=== PATIENT | female | born 1940 | race African-American/Black ===

== ENCOUNTER 2016-12-18 21:37 | Emergency (ER) | payer MEDICARE, BC ==
[2016-12-18] MEDS ORDERED: ALBUTEROL SULFATE 0.083% NEB 2.5 MG/3 ML AMPUL NEB ONE (21:49)
[2016-12-18] MEDS ORDERED: METHYLPREDNISOLONE INJ 125 MG/2 ML SDV IV ONE (21:50)
[2016-12-18] MEDS ORDERED: IPRATROPIUM/ALBUTEROL 0.5-2.5 MG/3 ML AMPUL NEB ONE (21:58)
--- NOTE | 2016-12-18 22:01 | ER Document Report ---
ED General - General Chief Complaint: Breathing Difficulty Stated Complaint: DIFFICULTY BREATHING Time Seen by Provider: 12/18/16 21:49 Notes: Patient is a 76-year-old female with past medical history of chronic kidney disease, and ureter, with dialysis dependence due for dialysis tomorrow, history of COPD who presents with 2 days of progressively worsening shortness of breath. She states that she has had increasing cough, without sputum production and increasing shortness of breath. She has been using a nebulizer at home with moderate improvement of her symptoms. Exertion worsens her symptoms. She has not seen a primary care doctor regarding today's concerns. She notes diffuse chest wall tenderness present from persistent coughing. She does arrive by personal vehicle. She has a history of similar COPD exacerbations in the past. She denies missing any dialysis sessions. TRAVEL OUTSIDE OF THE [place] IN LAST 30 DAYS: No - Related Data Allergies/Adverse Reactions: codeine [Codeine] Allergy (Verified 06/07/15 17:02) morphine [Morphine] Allergy (Verified 06/07/15 17:02) Penicillins Allergy (Verified 06/07/15 17:02) Home Medications: Current Home Medications Lactulose 12/18/16 [History] Omeprazole 40 mg PO 12/18/16 [History] Past Medical History - General Information source: Patient - Social History Smoking Status: Former Smoker Frequency of alcohol use: None Drug Abuse: None Lives with: Family Family History: Reviewed & Not Pertinent Patient has suicidal ideation: No Patient has homicidal ideation: No - Past Medical History Cardiac Medical History: Reports: Hx Heart Attack - 2014, Hx Hypertension Denies: Hx Coronary Artery Disease Pulmonary Medical History: Reports: Hx Asthma Denies: Hx Bronchitis, Hx COPD, Hx Pneumonia Neurological Medical History: Denies: Hx Cerebrovascular Accident, Hx Seizures Endocrine Medical History: Reports: Hx Diabetes Mellitus Type 2 Renal/ Medical History: Reports: Hx End Stage Renal Disease. Denies: Hx Peritoneal Dialysis - HD pt. Musculoskeltal Medical History: Reports Hx Arthritis Psychiatric Medical History: Reports: Hx Depression - stress related Past Surgical History: Reports: Hx Cardiac Catheterization - Stent placement, Hx Cholecystectomy, Hx Tubal Ligation - Immunizations Hx Diphtheria, Pertussis, Tetanus Vaccination: No Hx Pneumococcal Vaccination: 02/01/16 Review of Systems - Review of Systems Notes: Constitutional: Negative for fever. HENT: Negative for sore throat. Eyes: Negative for visual changes. Cardiovascular: Negative for chest pain. Respiratory: Positive for shortness of breath. Gastrointestinal: Negative for abdominal pain, vomiting or diarrhea. Genitourinary: Negative for dysuria. Musculoskeletal: Negative for back pain. Skin: Negative for rash. Neurological: Negative for headaches, weakness or numbness. 10 point ROS negative except as marked above and in HPI. Physical Exam - Vital signs Vitals: Resp Pulse Ox 24 H 99 12/18/16 21:49 12/18/16 21:49 Interpretation: Tachycardic, Hypoxic, Tachypneic Notes: PHYSICAL EXAMINATION: GENERAL: In moderate to severe respiratory distress, uncomfortable in appearance. HEAD: Atraumatic, normocephalic. EYES: Pupils equal round and reactive to light, extraocular movements intact, sclera anicteric, conjunctiva are normal. ENT: nares patent, oropharynx clear without exudates. Moderately dry mucous membranes. NECK: Normal range of motion, supple without lymphadenopathy LUNGS: Diminished air movement in all lung branham with a prolonged expiratory phase and diffuse expiratory wheezing. Crackles at the bases bilaterally. HEART: Regular tachycardia without murmurs ABDOMEN: Soft, nontender, normoactive bowel sounds. No guarding, no rebound. No masses appreciated. EXTREMITIES: Normal range of motion, no pitting or edema. No cyanosis. NEUROLOGICAL: No focal neurological deficits. Moves all extremities spontaneously and on command. PSYCH: Normal mood, normal affect. SKIN: Warm, Dry, normal turgor, no rashes or lesions noted. Course - Re-evaluation Re-evalutation: 12/18/16 21:59 Patient presents in moderate to severe respiratory distress, initial respiratory rate of 32 breaths per minute, diffuse wheezing in all lung branham with poor air movement throughout. She was initially saturating 89% on room air does not have a baseline oxygen requirement. Patient has been immediately placed on a continuous albuterol and ipratropium nebulizer. IV Solu-Medrol and magnesium will be administered. A stat portable chest x-ray will be obtained. Initial EKG unchanged from prior does not show any ischemic changes. Will obtain basic laboratories and reassess. Patient is critically ill at this time will require frequent reassessments due to her elevated risk of respiratory decompensation. 12/18/16 [id number] Patient states that she has began to feel symptomatically much improved on a continuous nebulizer. Work of breathing is significantly improved at this time after initiation of nebulizers 6568-patient is no longer in any respiratory distress, respiratory rate is 19 at time of my assessment. Saturating 95-99% on room air. She does have notable findings on chest x-ray of vascular congestion and moderate pulmonary edema. She is actually scheduled to receive dialysis in 7 hours. I have had an extensive conversation with the patient and her daughter at the bedside about being discharged home versus admission to the hospital. They are in agreement with discharge home with understand that the need to return to the emergency department immediately should she have any return of her shortness of breath, developed chest pain, or have any other symptoms that are concerning. She will be discharged on a 5 day course of prednisone. At this time will discharge with return precautions and follow-up recommendations. Verbal discharge instructions given a the bedside and opportunity for questions given. Medication warnings reviewed. Patient is in agreement with this plan and has verbalized understanding of return precautions and the need for primary care follow-up in the next 24-72 hours. - Vital Signs Vital signs: Temp Pulse Resp BP Pulse Ox 98.3 F 108 H 20 187/77 H 85 L 12/18/16 21:51 12/18/16 21:51 12/18/16 23:31 12/18/16 23:31 12/19/16 00:00 - Laboratory Result Diagrams: 12/18/16 22:00 12/18/16 22:33 Laboratory results interpreted by me: 12/18/16 12/18/16 22:00 22:33 RBC 3.69 L Hgb 10.8 L Hct 33.7 L MCHC 31.9 L RDW 17.4 H BUN 34 H Creatinine 6.76 H Est GFR ( Amer) 7 L Est GFR (Non-Af Amer) 6 L Glucose 174 H - Diagnostic Test Radiology reviewed: Image reviewed, Reports reviewed Radiology results interpreted by me: 12/19/16 03:30 Chest x-ray: Increased interstitial prominence and patchy pulmonary edema bases bilaterally - EKG Interpretation by Me Additional EKG results interpreted by me: 12/19/16 03:31 Sinus rhythm. Rate 83. No ST elevations or depressions. QTC is 461. Critical Care Note - Critical Care Note Total time excluding time spent on procedures (mins): 36 Comments: Critical care time spent obtaining history from patient or surrogate, discussions with consultants, development of treatment plan with patient or surrogate, evaluation of patient's response to treatment, examination of patient , ordering and performing treatments and interventions, ordering and review of laboratory studies, re-evaluation of patient's condition, ordering and review of radiographic studies and review of old charts Discharge - Discharge Clinical Impression: COPD exacerbation, Respiratory distress Condition: Good Disposition: HOME, SELF-CARE Additional Instructions: You were seen for a COPD exacerbation. Your symptoms improved with treatment here in the emergency department. However, it is very important that you return to the emergency department immediately if you began to have worsening difficulty breathing that does not respond to your normal home nebulizers. You are also being sent home on a five-day course of steroids that you should start taking tomorrow. Please also take the antibiotics as prescribed. Please also follow closely with your primary care physician. You should eturn to emergency department if you develop fever greater than 101, persistent cough, persistent vomiting, pass out, or any other symptoms that are concerning to you. Prescriptions: Azithromycin 250 mg PO DAILY #4 tablet Prednisone [Deltasone 20 mg Tablet] 3 tab PO DAILY 5 Days Referrals: Millie HOOK MD [Primary Care Provider] - Follow up as needed
[2016-12-18] MEDS: MAGNESIUM SULFATE/D5W 100 ML IV SCH ×2 (22:11→22:14)
[2016-12-18 22:16] LABS: VENOUS BLOOD BASE EXCESS 3.8 mmol/L; VENOUS BLOOD HCO3 29.2 mmol/L (20-32); VENOUS BLOOD PCO2 47.6 mmHg (35-63); VENOUS BLOOD PH 7.41 (7.30-7.42)
[2016-12-18 22:17] LABS: ABSOLUTE EOSINOPHILS # (AUTO) 0.1 10^3/uL (0.0-0.6); ABSOLUTE LYMPHOCYTES (AUTO) 1.1 10^3/uL (0.5-4.7); ABSOLUTE MONOCYTES (AUTO) 0.4 10^3/uL (0.1-1.4); ABSOLUTE NEUT (AUTO) 3.1 10^3/uL (1.7-8.2); BASOPHILS % (AUTO) 0.8 % (0-2); EOSINOPHILS % (AUTO) 2.6 % (0-6); HEMATOCRIT 33.7 % (36.0-47.0); HEMOGLOBIN 10.8 g/dL (12.0-15.5); HGB HCT DIFFERENCE -1.3; MEAN CORPUSCULAR HEMOGLOBIN 29.1 pg (27.0-33.4); MEAN CORPUSCULAR HGB CONC 31.9 g/dL (32.0-36.0); MEAN CORPUSCULAR VOLUME 91 fl (80-97); MONOCYTES % (AUTO) 8.1 % (3-13); RED BLOOD COUNT 3.69 10^6/uL (3.72-5.28); RED CELL DISTRIBUTION WIDTH 17.4 % (11.5-14.0); SEGMENTED NEUTROPHILS % (AUTO) 65.5 % (42-78); WHITE BLOOD COUNT 4.7 10^3/uL (4.0-10.5)
--- NOTE | 2016-12-18 22:27 | RADIOLOGY REPORT (SQ) ---
EXAM DESCRIPTION: CHEST SINGLE VIEW COMPLETED DATE/TIME: 12/18/2016 10:13 pm REASON FOR STUDY: sob COMPARISON: CT dated 02/06/2016 EXAM PARAMETERS: NUMBER OF VIEWS: One view. TECHNIQUE: Single frontal radiographic view of the chest acquired. RADIATION DOSE: NA LIMITATIONS: None. FINDINGS: LUNGS AND PLEURA: Patchy airspace opacities noted in both lung bases which could represent atelectasis, infiltrate or edema. No pneumothorax. No significant effusion. MEDIASTINUM AND HILAR STRUCTURES: No masses. Contour normal. HEART AND VASCULAR STRUCTURES: Cardiomegaly. Pulmonary vascular congestion and interstitial prominen ce. BONES: No acute findings. HARDWARE: EKG leads overlie the chest. OTHER: No other significant finding. IMPRESSION: Cardiomegaly with pulmonary vascular congestion interstitial prominence. There is some patchy airspace opacities noted at both lung bases could represent edema, atelectasis, or infiltrate. TECHNICAL DOCUMENTATION: JOB ID: [id number]
[2016-12-18 22:54] LABS: ANION GAP 12 (5-19); BLOOD UREA NITROGEN 34 mg/dL (7-20); CALCIUM 9.3 mg/dL (8.4-10.2); CARBON DIOXIDE 27 mmol/L (22-30); CHLORIDE 100 mmol/L (98-107); CREATININE RESULT 6.76 mg/dL (0.52-1.25); GLUCOSE 174 mg/dL (75-110); POTASSIUM 4.6 mmol/L (3.6-5.0); SODIUM 138.8 mmol/L (137-145)
[2016-12-18] MEDS ORDERED: AZITHROMYCIN 250 MG TABLET PO ONE (23:41)
[2016-12-19 00:09] VITALS: BP 187/77
--- NOTE | 2016-12-19 05:56 | EKG REPORT ---
SEVERITY:- ABNORMAL ECG - SINUS RHYTHM PROBABLE LEFT ATRIAL ABNORMALITY PROBABLE LEFT VENTRICULAR HYPERTROPHY : Confirmed by: Dana Durán MD 19-Dec-2016 05:55:22
== END 2016-12-18 23:50 | disposition home or self-care (01) ==
LOC: ER 21:37
DX: J44.1 Chronic obstructive pulmonary disease with (acute) exacerbation (principal); J81.1 Chronic pulmonary edema; R09.02 Hypoxemia; I12.0 Hypertensive chronic kidney disease with stage 5 chronic kidney disease or end stage renal disease; E11.22 Type 2 diabetes mellitus with diabetic chronic kidney disease; N18.6 End stage renal disease; Z99.2 Dependence on renal dialysis; R05 Cough; R06.02 Shortness of breath; R00.0 Tachycardia, unspecified; I25.2 Old myocardial infarction; Z88.5 Allergy status to narcotic agent; Z88.0 Allergy status to penicillin; Z98.61 Coronary angioplasty status
CPT/HCPCS: 93005; 94640 ×2; 99291; 96375; 96365; 36415; 85025; 80048; 82803; 71010; 93010; A9270 ×2; J2930; J3475; J7620

== ENCOUNTER → 2016-12-30 | Outpatient (CLI) | payer MEDICARE, BC ==
--- NOTE | 2016-12-30 10:31 | WOMENS IMAGING REPORT ---
EXAM DESCRIPTION: 3D SCREENING MAMMO BILAT COMPLETED DATE/TIME: 12/30/2016 8:31 am REASON FOR STUDY: ROUTINE BILATERAL SCREENING;Z12.31 Z12.31 ENCNTR SCREEN MAMMOGRAM FOR MALIGNANT N EOPLASM OF NUBIA COMPARISON: 12/27/2015. TECHNIQUE: Standard craniocaudal and mediolateral oblique views of each breast recorded using digita l acquisition and breast tomosynthesis. LIMITATIONS: None. FINDINGS: No masses, calcifications or architectural distortion. No areas of suspicion. Read with the assistance of CAD. .[facility] - R2 Cenova Version 1.3 .[facility] - R2 Cenova Version 1.3 .[facility] - R2 Cenova Version 2.4 .[facility] - R2 Cenova Version 2.4 .COUNT INCLUDES THE [facility] - R2 Bottle Sorter Version 9.2 IMPRESSION: NORMAL MAMMOGRAM. BIRADS 1. BREAST DENSITY: c. The breasts are heterogeneously dense, which may obscure small masses. BIRAD: 1 NEGATIVE RECOMMENDATION: ROUTINE SCREENING COMMENT: The patient has been notified of the results by letter per SA requirements. Additional no tification policies are in place for contacting patient with suspicious or incomplete findings. Quality ID #[id number]: The [employer] recommends an annual screening mammogram for women aged 40 years or over. This facility utilizes a reminder system to ensure that all patients receive reminder letters, and/or direct phone calls for appointments. This includes reminders for routine scr eening mammograms, diagnostic mammograms, or other Breast Imaging Interventions when appropriate. Th is patient will be placed in the appropriate reminder system. The [employer] (ACR) has developed recommendations for screening MRI of the breast s in certain patient populations, to be used in conjunction with mammography. Breast MRI surveillanc e may be appropriate for women with more than 20% lifetime risk of developing breast cancer as deter mined by genetic testing, significant family history of the disease, or history of mantle radiation f or Hodgkins Disease. ACR Practice Guidelines 2008. DBT Technology DBT is a type of tomographic mammography. With conventional mammography, overlapping breast tissue ma y make lesions difficult to detect, even with good compression. DBT uses an x-ray tube that rotates a round the breast, taking images at different angles. These images are then combined to create thin sl ices of the breast that the radiologist can view as a 3D reconstruction. The ScanNano unit can perform full-field digital mammograms (2D imaging); or DBT (3D imaging); or both, in a combination mode that quickly performs both the mammogram and the tomosynthesis scan while the breast is still compressed. PQRS 6045F: Fluoroscopic imaging is not utilized for breast tomosynthesis. TECHNICAL DOCUMENTATION: FINDING NUMBER: (1) ASSESSMENT: (1) JOB ID: [id number] [employer]- All Rights Reserved
== END ==
LOC: WI 08:13
PROVIDERS: ATTEND Internal Medicine
DX: Z12.31 Encounter for screening mammogram for malignant neoplasm of breast (principal)
CPT/HCPCS: 77063; G0202; 77067

== ENCOUNTER 2017-07-12 23:04 | Emergency (ER) | payer MEDICARE, BC ==
[2017-07-12 23:34] LABS: HEMATOCRIT 24.4 % (36.0-47.0); MEAN CORPUSCULAR HEMOGLOBIN 29.6 pg (27.0-33.4); MEAN CORPUSCULAR HGB CONC 32.7 g/dL (32.0-36.0); MEAN CORPUSCULAR VOLUME 91 fl (80-97); PLATELET COUNT 185 10^3/uL (150-450); RED BLOOD COUNT 2.69 10^6/uL (3.72-5.28); RED CELL DISTRIBUTION WIDTH 18.4 % (11.5-14.0); WHITE BLOOD COUNT 5.1 10^3/uL (4.0-10.5)
--- NOTE | 2017-07-12 23:54 | EKG REPORT ---
SEVERITY:- BORDERLINE ECG - SINUS RHYTHM PROBABLE LEFT ATRIAL ABNORMALITY : Confirmed by: Wilton Cheatham 12-Jul-2017 23:53:10
[2017-07-13 00:03] LABS: ABSOLUTE LYMPHOCYTES# (MANUAL) 1.2 10^3/uL (0.5-4.7); ABSOLUTE MONOCYTES # (MANUAL) 0.1 10^3/uL (0.1-1.4); ABSOLUTE NEUTROPHILS# (MANUAL) 3.7 10^3/uL (1.7-8.2); BAND NEUTROPHILS % (MANUAL) 1 % (3-5); BASOPHILS % (MANUAL) 2 % (0-2); EOSINOPHILS % (MANUAL) 1 % (0-6); LYMPHOCYTES % (MANUAL) 23 % (13-45); MONOCYTES % (MANUAL) 2 % (3-13); SEGMENTED NEUTROPHILS % (MAN) 71 % (42-78); TOTAL CELLS COUNTED 100
[2017-07-13 00:05] LABS: ANION GAP 14 (5-19); ANISOCYTOSIS 1+; BLOOD UREA NITROGEN 48 mg/dL (7-20); BURR CELLS SLIGHT; CALCIUM 9.9 mg/dL (8.4-10.2); CARBON DIOXIDE 27 mmol/L (22-30); CHLORIDE 99 mmol/L (98-107); GLUCOSE 127 mg/dL (75-110); OVALOCYTES 1+; PLATELET COMMENT ADEQUATE; PLATELET GIANT PRESENT; PLATELET LARGE PRESENT; POIKILOCYTOSIS 1+; POTASSIUM 5.1 mmol/L (3.6-5.0); SCHISTOCYTES 2+; SODIUM 139.8 mmol/L (137-145); TOXIC GRANULATION 1+
[2017-07-13] MEDS ORDERED: DEXAMETHASONE 4 MG TABLET PO ONE (00:21)
[2017-07-13] MEDS ORDERED: ALBUTEROL SULFATE HFA (90 MCG/PUFF) 8 GM MDI (1 MDI/ER DISP) IH PRN (00:22)
[2017-07-13] MEDS ORDERED: IPRATROPIUM/ALBUTEROL 0.5-2.5 MG/3 ML AMPUL NEB ONE (00:22)
--- NOTE | 2017-07-13 00:26 | ER Document Report ---
ED General - General Chief Complaint: Shortness Of Breath Stated Complaint: SHORTNESS OF BREATH Time Seen by Provider: 07/12/17 23:20 Notes: Patient is a 76-year-old female with a past medical history of COPD, chronic kidney disease with dialysis dependence, chronic anemia, hypertension, who presents with an episode of shortness of breath prior to arrival that has since resolved. Patient reports that she has had intermittent wheezing over the past several days but does not have any albuterol available to her at home. Granddaughter at the bedside reports that the patient used to have a nebulizer as well as home oxygen when she lived in [place] but those have since been discontinued since she moved down to [place]. She states that she strongly feels like the patient does still need these interventions that she has a history of COPD. No acute trigger for today's episode. It did resolve after receiving an albuterol treatment. Patient at this time denies any ongoing symptoms including chest pain or shortness of breath. She is due for dialysis in the morning. TRAVEL OUTSIDE OF THE [place] IN LAST 30 DAYS: No - Related Data Allergies/Adverse Reactions: codeine [Codeine] Allergy (Verified 06/07/15 17:02) morphine [Morphine] Allergy (Verified 06/07/15 17:02) Penicillins Allergy (Verified 06/07/15 17:02) Past Medical History - General Information source: Patient - Social History Smoking Status: Former Smoker Chew tobacco use (# tins/day): No Frequency of alcohol use: None Drug Abuse: None Lives with: Family Family History: Reviewed & Not Pertinent Patient has suicidal ideation: No Patient has homicidal ideation: No - Past Medical History Cardiac Medical History: Reports: Hx Heart Attack - 2014, Hx Hypertension Denies: Hx Coronary Artery Disease Pulmonary Medical History: Reports: Hx Asthma Denies: Hx Bronchitis, Hx COPD, Hx Pneumonia Neurological Medical History: Denies: Hx Cerebrovascular Accident, Hx Seizures Endocrine Medical History: Reports: Hx Diabetes Mellitus Type 2 Renal/ Medical History: Reports: Hx End Stage Renal Disease. Denies: Hx Peritoneal Dialysis Musculoskeltal Medical History: Reports Hx Arthritis Psychiatric Medical History: Reports: Hx Depression - stress related Past Surgical History: Reports: Hx Cardiac Catheterization - Stent placement, Hx Cholecystectomy, Hx Tubal Ligation - Immunizations Hx Diphtheria, Pertussis, Tetanus Vaccination: No Hx Pneumococcal Vaccination: 02/01/16 Review of Systems - Review of Systems Notes: Constitutional: Negative for fever. HENT: Negative for sore throat. Eyes: Negative for visual changes. Cardiovascular: Negative for chest pain. Respiratory: Positive for shortness of breath. Gastrointestinal: Negative for abdominal pain, vomiting or diarrhea. Genitourinary: Negative for dysuria. Musculoskeletal: Negative for back pain. Skin: Negative for rash. Neurological: Negative for headaches, weakness or numbness. 10 point ROS negative except as marked above and in HPI. Physical Exam - Vital signs Vitals: Resp Pulse Ox 21 H 97 07/12/17 23:14 07/12/17 23:14 Interpretation: Normal Notes: PHYSICAL EXAMINATION: GENERAL: Well-appearing, well-nourished and in no acute distress. HEAD: Atraumatic, normocephalic. EYES: Pupils equal round and reactive to light, extraocular movements intact, sclera anicteric, conjunctiva are normal. ENT: nares patent, oropharynx clear without exudates. Moist mucous membranes. NECK: Normal range of motion, supple without lymphadenopathy LUNGS: Breath sounds clear to auscultation bilaterally and equal. Faint expiratory wheezing at the bases bilaterally HEART: Regular rate and rhythm without murmurs ABDOMEN: Soft, nontender, normoactive bowel sounds. No guarding, no rebound. No masses appreciated. EXTREMITIES: Normal range of motion, trace edema that is equal and symmetric in the bilateral lower no cyanosis. NEUROLOGICAL: No focal neurological deficits. Moves all extremities spontaneously and on command. PSYCH: Normal mood, normal affect. SKIN: Warm, Dry, normal turgor, no rashes or lesions noted. Course - Re-evaluation Re-evalutation: 07/13/17 00:22 Patient presents with a mild exacerbation of their baseline COPD. Mild wheezing at time of presentation but vitals do not show significant hypoxemia or tachypnea. No retractions. Patient did clinically improve after receiving nebulizers here in the emergency department. Chest x-ray without evidence of an acute pneumonia. Laboratories do not show significant leukocytosis or hyperkalemia. No overt volume overload. Patient able to ambulate without any respiratory distress. Based on patient's overall reassuring assessment, I believe they are stable for outpatient management with steroids and albuterol. I do not suspect an acute alternative pathology at this time based on history and exam including acute pulmonary embolus, ACS, pneumothorax, or aortic dissection. At this time will discharge with return precautions and follow-up recommendations. Verbal discharge instructions given a the bedside and opportunity for questions given. Medication warnings reviewed. Patient is in agreement with this plan and has verbalized understanding of return precautions and the need for primary care follow-up in the next 24-72 hours. - Vital Signs Vital signs: Temp Pulse Resp BP Pulse Ox 97.5 F 20 160/72 H 98 07/12/17 23:27 07/13/17 02:01 07/13/17 02:01 07/13/17 02:01 - Laboratory Result Diagrams: 07/12/17 23:21 07/12/17 23:21 Laboratory results interpreted by me: 07/12/17 07/12/17 23:21 23:21 RBC 2.69 L Hgb 8.0 L Hct 24.4 L RDW 18.4 H Band Neutrophils % 1 L Monocytes % (Manual) 2 L Potassium 5.1 H BUN 48 H Creatinine 8.39 H Est GFR ( Amer) 6 L Est GFR (Non-Af Amer) 5 L Glucose 127 H - Diagnostic Test Radiology reviewed: Image reviewed, Reports reviewed Radiology results interpreted by me: 07/13/17 00:24 Chest x-ray: No acute infiltrate or pneumothorax Discharge - Discharge Clinical Impression: End stage renal disease, Shortness of breath, COPD exacerbation Anemia Qualifiers: Anemia type: unspecified type Qualified Code(s): D64.9 - Anemia, unspecified Condition: Stable Disposition: HOME-SNF (ED ONLY) Additional Instructions: You were seen for a COPD exacerbation. Your symptoms improved with treatment here in the emergency department. However, it is very important that you return to the emergency department immediately if you began to have worsening difficulty breathing that does not respond to the albuterol with which you were sent home. You were also given steroids here in the emergency department. Please also follow closely with your primary care physician. You should return to emergency department if you develop fever greater than 101, persistent cough , persistent vomiting, pass out, or any other symptoms that are concerning to you. Your blood count was low today but not at a level which require blood transfusion. You should follow-up with your primary doctor for recheck of this level and also return should you have any recurrence of rectal bleeding that you had several days ago. Referrals: AKILA GALLARDO MD [Primary Care Provider] - Follow up as needed
--- NOTE | 2017-07-13 00:36 | RADIOLOGY REPORT (SQ) ---
EXAM DESCRIPTION: CHEST SINGLE VIEW CLINICAL HISTORY: chest pain COMPARISON: 12/18/2016 FINDINGS: Single frontal view of the chest. Cardiomegaly. Atherosclerotic calcification aortic arch. Pulmonary vascular congestion. No lobar consolidation, large effusion, or pneumothorax. Bilateral interstitial opacities. No acute osseous abnormalities. Leads overlie the chest. Upper abdominal soft tissues are unremarkable. IMPRESSION: 1. Cardiomegaly with mild pulmonary edema.
[2017-07-13 02:33] VITALS: BP 160/72
== END 2017-07-13 02:30 ==
LOC: ER 23:04
DX: J44.1 Chronic obstructive pulmonary disease with (acute) exacerbation (principal); I12.0 Hypertensive chronic kidney disease with stage 5 chronic kidney disease or end stage renal disease; E11.22 Type 2 diabetes mellitus with diabetic chronic kidney disease; N18.6 End stage renal disease; Z99.2 Dependence on renal dialysis; D64.9 Anemia, unspecified; I25.2 Old myocardial infarction; R06.02 Shortness of breath; Z87.891 Personal history of nicotine dependence; Z88.5 Allergy status to narcotic agent; Z88.0 Allergy status to penicillin; Z95.5 Presence of coronary angioplasty implant and graft
CPT/HCPCS: 93005; 94640; 99285; 36415; 85025; 80048; 84484; 71045; 93010; A9270 ×2; J3490; J7620

== ENCOUNTER 2017-08-21 11:20 | Emergency (ER) | payer MEDICARE, BC, MEDICAID ==
--- NOTE | 2017-08-21 12:51 | ER Document Report ---
ED Dialysis Cath/Shunt Problem - General Mode of Arrival: Medic Information source: Patient TRAVEL OUTSIDE OF THE [place] IN LAST 30 DAYS: No - HPI Patient complains to provider of: Bleeding from dialysis shunt Onset: This morning AV Fistula Assessment: Thrill Palpated Associated symptoms: Other - see notes above - General Chief Complaint: Dialysis Shunt Problem Stated Complaint: POSSIBLE HEMORRHAGE Notes: 76 year old female with history of hypertension and renal failure (dialyzed MWF ; produces urine) presents to the ED via EMS with bleeding from her left upper extremity fistula earlier this morning after being dialyzed. Patient reports that the bleeding was continuous, so she was brought to the ED for care. Patient reports that her fistula appears to be larger than normal. Chief Analytics Officer: Dr. Toussaint ([facility]) Clamp was placed at dialysis after direct pressure did not stop bleeding. ( AKILAH FUENTES) - Related Data Allergies/Adverse Reactions: codeine [Codeine] Allergy (Verified 06/07/15 17:02) morphine [Morphine] Allergy (Verified 06/07/15 17:02) Penicillins Allergy (Verified 06/07/15 17:02) Past Medical History - General Information source: Patient - Social History Smoking Status: Former Smoker Chew tobacco use (# tins/day): Yes Frequency of alcohol use: Occasional Drug Abuse: None Family History: Reviewed & Not Pertinent - Past Medical History Cardiac Medical History: Reports: Hx Heart Attack - 2013, Hx Hypertension Denies: Hx Coronary Artery Disease Pulmonary Medical History: Reports: Hx Asthma Denies: Hx Bronchitis, Hx COPD, Hx Pneumonia Neurological Medical History: Denies: Hx Cerebrovascular Accident, Hx Seizures Endocrine Medical History: Reports: Hx Diabetes Mellitus Type 2 Renal/ Medical History: Reports: Hx End Stage Renal Disease. Denies: Hx Peritoneal Dialysis Musculoskeltal Medical History: Reports Hx Arthritis Psychiatric Medical History: Reports: Hx Depression - stress related Past Surgical History: Reports: Hx Cardiac Catheterization - Stent placement, Hx Cholecystectomy, Hx Tubal Ligation - Immunizations Hx Diphtheria, Pertussis, Tetanus Vaccination: No Hx Pneumococcal Vaccination: 02/01/16 Review of Systems - Review of Systems Constitutional: No symptoms reported EENT: No symptoms reported Cardiovascular: No symptoms reported Respiratory: No symptoms reported Gastrointestinal: No symptoms reported Genitourinary: No symptoms reported Female Genitourinary: No symptoms reported Musculoskeletal: No symptoms reported Skin: See HPI, Other - left upper extremity shunt bleeding Hematologic/Lymphatic: No symptoms reported Neurological/Psychological: No symptoms reported -: Yes All other systems reviewed and negative Physical Exam - Vital signs Vitals: Temp Pulse Resp BP Pulse Ox 98.3 F 69 17 176/70 H 96 08/21/17 11:30 08/21/17 11:30 08/21/17 11:30 08/21/17 11:30 08/21/17 11:30 - Notes Notes: GENERAL: Alert, interacts well. No acute distress. HEAD: Normocephalic, atraumatic. EYES: Pupils equal, round, and reactive to light. Extraocular movements intact. ENT: Oral mucosa moist, tongue midline. NECK: Full range of motion. Supple. Trachea midline. LUNGS: No respiratory distress. EXTREMITIES: Moves all 4 extremities spontaneously. No edema, radial pulses 2/4 bilaterally. No cyanosis. Very large left upper extremity fistula with a palpable thrill that is some what pulsatile. No active bleeding. No vascular compromise. Normal maturity checker strength to the left hand. NEUROLOGICAL: Alert and oriented x3. Normal speech. PSYCH: Normal affect, normal mood. SKIN: Warm, dry, and normal turgor. No rashes or lesions noted. (JERED SANTAMARIA) Course - Consults Dr. Pickard Time consulted: 12:45 - Re-evaluation Re-evalutation: 08/21/17 14:05 Clamp was left in place for approximately an hour, it was then removed and no further bleeding was seen, patient was observed for another hour after that, Dr. Pickard did consult on the patient as well, recommends angiogram as an outpatient. No further intervention needed at this time. Patient will return to the emergency department should she develop further bleeding. Dr. Pickard is going to work on setting up the angiogram for the patient as an outpatient hopefully for Thursday or Thursday of the coming week. (AKILAH FUENTES) - Vital Signs Vital signs: Temp Pulse Resp BP Pulse Ox 98.4 F 77 18 180/128 H 90 L 08/21/17 15:13 08/21/17 15:13 08/21/17 15:13 08/21/17 15:13 08/21/17 15:13 - Consults Dr. Pickard Reason for consultation: 08/21/17 12:45 Patient was discussed with Dr. Pickard who will be coming to the ED to see the patient. (JERED SANTAMARIA) Discharge - Discharge Clinical Impression: ESRD (end stage renal disease) on dialysis Dialysis AV fistula malfunction Qualifiers: Encounter type: initial encounter Qualified Code(s): T82.590A - Other mechanical complication of surgically created arteriovenous fistula, initial encounter Hypertension Qualifiers: Hypertension type: renovascular hypertension Qualified Code(s): I15.0 - Renovascular hypertension Condition: Stable Disposition: HOME, SELF-CARE Additional Instructions: Dr. Pickard is going to try and get you set up for an angiogram and possible angioplasty on Thursday or Thursday. Someone from his office should be calling you today. If you do not hear from somebody by Thursday please call Dr. Toussaint and discussed with him that Dr. Pickard feels you need an angiogram and angioplasty to help extend the life of your fistula. Should she develop further bleeding please return to the emergency department immediately. Referrals: AKILA GALLARDO MD [Primary Care Provider] - Follow up as needed SIXTO PICKARD MD [ACTIVE STAFF] - Follow up in 3-5 days Scribe Attestation: 08/21/17 21:16 I personally performed the services described in the documentation, reviewed and edited the documentation which was dictated to the scribe in my presence, and it accurately records my words and actions. (AKILAH FUENTES) Scribe Documentation - Scribe Written by Sagrarioibe:: Lynda Orantes, 08/21/2017 1254 acting as scribe for :: Lina
[2017-08-21 15:29] VITALS: BP 180/128
== END 2017-08-21 15:28 | disposition home or self-care (01) ==
LOC: ER 11:20
DX: T82.49XA Other complication of vascular dialysis catheter, initial encounter (principal); Y84.1 Kidney dialysis as the cause of abnormal reaction of the patient, or of later complication, without mention of misadventure at the time of the procedure; E11.22 Type 2 diabetes mellitus with diabetic chronic kidney disease; I12.0 Hypertensive chronic kidney disease with stage 5 chronic kidney disease or end stage renal disease; N18.6 End stage renal disease; Z99.2 Dependence on renal dialysis; I25.2 Old myocardial infarction; J45.909 Unspecified asthma, uncomplicated; Z88.5 Allergy status to narcotic agent; Z88.0 Allergy status to penicillin; Z87.891 Personal history of nicotine dependence; Z95.5 Presence of coronary angioplasty implant and graft
CPT/HCPCS: 99284

== ENCOUNTER 2017-08-25 07:10 | Day surgery (SDC) | payer MEDICARE, BC ==
[2017-08-25] MEDS ORDERED: LIDOCAINE 0.5% INJ-PF (5 MG/ML) 50 ML SDV ONE (08:05)
[2017-08-25] MEDS ORDERED: MIDAZOLAM 2 MG/2 ML INJ ONE (08:06)
[2017-08-25] MEDS ORDERED: FENTANYL CITRATE INJ/PF 100 MCG/2 ML AMPUL ONE (08:06)
[2017-08-25] MEDS ORDERED: HEPARIN SOD (PORCINE) 5,000 UNIT/ML 1 ML SYRINGE ONE (08:06)
[2017-08-25] MEDS ORDERED: OXYCODONE-ACETAMINOPHEN 5-325 MG TABLET ONE (08:23)
[2017-08-25] MEDS ORDERED: DIAZEPAM 5 MG TABLET ONE (08:23)
--- NOTE | 2017-08-25 08:27 | RADIOLOGY REPORT (SQ) ---
EXAM DESCRIPTION: CHEST SINGLE VIEW COMPLETED DATE/TIME: 08/25/2017 8:10 am REASON FOR STUDY: preop ENDOSCOPY RECOVERY 3 COMPARISON: 07/13/2017 EXAM PARAMETERS: NUMBER OF VIEWS: One view. TECHNIQUE: Single frontal radiographic view of the chest acquired. RADIATION DOSE: NA LIMITATIONS: None. FINDINGS: LUNGS AND PLEURA: No opacities, masses or pneumothorax. No pleural effusion. MEDIASTINUM AND HILAR STRUCTURES: No masses. Contour normal. HEART AND VASCULAR STRUCTURES: Stable cardiomegaly. BONES: No acute findings. HARDWARE: None in the chest. OTHER: No other significant finding. IMPRESSION: NO ACUTE RADIOGRAPHIC FINDING IN THE CHEST. TECHNICAL DOCUMENTATION: JOB ID: [id number] [employer]- All Rights Reserved Reading location - IP/workstation name: [email or web address]
[2017-08-25 08:35] LABS: HEMOGLOBIN 8.8 g/dL (12.0-15.5); MEAN CORPUSCULAR HEMOGLOBIN 29.9 pg (27.0-33.4); MEAN CORPUSCULAR HGB CONC 32.7 g/dL (32.0-36.0); MEAN CORPUSCULAR VOLUME 91 fl (80-97); PLATELET COUNT 188 10^3/uL (150-450); RED BLOOD COUNT 2.96 10^6/uL (3.72-5.28); RED CELL DISTRIBUTION WIDTH 17.3 % (11.5-14.0); WHITE BLOOD COUNT 3.7 10^3/uL (4.0-10.5)
[2017-08-25 08:50] LABS: INTERNATIONAL RATION (INR) 1.04; PARTIAL THROMBOPLASTIN TIME 60.1 SEC (23.5-35.8); PROTHROMBIN TIME 14.3 SEC (11.4-15.4)
[2017-08-25 08:54] LABS: ANION GAP 11 (5-19); BLOOD UREA NITROGEN 32 mg/dL (7-20); CALCIUM 9.8 mg/dL (8.4-10.2); CARBON DIOXIDE 31 mmol/L (22-30); CHLORIDE 97 mmol/L (98-107); GLUCOSE 131 mg/dL (75-110); POTASSIUM 4.7 mmol/L (3.6-5.0)
--- NOTE | 2017-08-25 10:42 | PDOC H&P ---
General Chief Complaint: The patient is admitted for angiogram and possible angioplasty. Excessive pressure has been noted in fistula recently. - Current Medications/Allergies Home Medications: Clopidogrel Bisulfate [Plavix] 75 mg PO DAILY 06/12/15 Isosorbide Mononitrate [Imdur 60 mg Tablet.er] 60 mg PO BID 06/12/15 Sevelamer Carbonate [Renvela] 2,400 mg PO TID 06/12/15 Sitagliptin Phosphate [Januvia 25 mg Tablet] 25 mg PO DAILY 06/12/15 Carvedilol [Coreg 3.125 mg Tablet] 4 tab PO BID 11/06/15 Amlodipine Besylate 1 tab PO QHS 02/06/16 Clonidine HCl 0.3 mg PO TID 02/06/16 Lactulose 10 gm PO BID 12/18/16 Omeprazole 40 mg PO DAILY 12/18/16 Aspirin [Aspirin 81 mg Chewable Tablet] 1 tab PO DAILY 08/24/17 Doxazosin Mesylate 1 tab PO QHS 08/24/17 Prednisone [Deltasone 20 mg Tablet] 2 tab PO DAILY 08/24/17 Allergies/Adverse Reactions: codeine [Codeine] Allergy (Verified 08/25/17 07:45) ITCHING morphine [Morphine] Allergy (Verified 08/25/17 07:45) ITCHING Penicillins Allergy (Verified 08/25/17 07:45) ITCHING tomato Allergy (Verified 08/25/17 07:45) ITCHING Past Medical History Cardiac Medical History: Reports: Coronary Artery Disease - cardiac stents, Myocardial Infarction - "light", Hypertension Pulmonary Medical History: Reports: Asthma, Chronic Obstructive Pulmonary Disease (COPD) Denies: Bronchitis, Pneumonia Neurological Medical History: Denies: Seizures Endocrine Medical History: Reports: Diabetes Mellitus Type 2 Renal/ Medical History: Reports: End Stage Renal Disease Musculoskeltal Medical History: Reports: Arthritis - neck Psychiatric Medical History: Reports: Depression - stress related Hematology: Reports: Anemia Past Surgical History Past Surgical History: Reports: Cardiac Catheterization - Stent placement, Cholecystectomy, Tubal Ligation Family History Family History: Reviewed & Not Pertinent Parental Family History Reviewed: No Children Family History Reviewed: No Sibling(s) Family History Reviewed.: No Social History Smoking Status: Never Smoker Frequency of Alcohol Use: None Hx Recreational Drug Use: No Hx Prescription Drug Abuse: No Physical Exam Vital Signs: Temp Pulse Resp BP Pulse Ox 97.9 F 64 20 164/69 H 99 08/25/17 07:56 08/25/17 07:56 08/25/17 07:56 08/25/17 07:56 08/25/17 07:56 Intake & Output 08/24/17 08/25/17 08/26/17 06:59 06:59 06:59 Weight 68.039 kg 68.039 kg Additional comments: Constitutional: Well-developed well-nourished -[place] lady. No apparent acute distress. Eyes: Mucous membranes pink and moist, pupils equal and reactive to light. Conjunctiva normal. Cornea normal. Wears spectacles. ENT: Hearing grossly normal. External pinna normal to inspection. Dentures noted. Tongue normal to inspection. Cardiac: Heart sounds 1 and 2 normal. Respiratory breath sounds are present bilaterally, normal. Normal respiratory effort. Psychiatric: Judgment, memory, insight seem normal. Mood is pleasant and appropriate. Extremities: Upper extremities show normal range of movement. Pulses present noted to the radial arteries. Capillary refill normal. No cyanosis noted. No muscle wasting noted. Well founded left arm brachiocephalic fistula noted with 2 large aneurysms, each measuring about 5 cm across in the upper arm. Tenderness and hyper pulsatile. Impression/Plan Plan: The plan is to admit the patient for fistula angiogram and possibly angioplasty. The risks, benefits, expected outcome and alternatives are familiar to the patient. She wishes to proceed.
--- NOTE | 2017-08-25 10:44 | Discharge Summary ---
Discharge Summary (SDC) - Discharge Final Diagnosis: #1 left arm dialysis fistula malfunction, brachiocephalic. 2. End-stage renal disease on hemodialysis. 3. Hypertension. Date of Surgery: 08/25/17 Discharge Date: 08/25/17 Condition: Good Treatment or Instructions: Discharge home [after recovery per ASU criteria]. Diet , [renal],as tolerated, when fully awake advance as tolerated. Activities within moderation encouraged. Follow up in my office by appointment in about [1 week]. Call for appointment. Leave wounds [covered], [keep clean and dry, until hemodialysis]. Meds per med rec. We remove IntraSite suture and plastic cannula on 08/27/2017 or after Hold of on school/work [until evaluation in office]. May shower [in 48 hrs], [try to keep operated area as dry as possible]. Referrals: AKILA GALLARDO MD [Primary Care Provider] - Discharge Diet: Other (Comments) - Renal Respiratory Treatments at Home: Deep Breathing/Coughing Discharge Activity: Activity As Tolerated Report the Following to Your Physician Immediately: Shortness of Breath, Unusual Bleeding
--- NOTE | 2017-08-25 10:53 | Operative Report ---
Operative Report DATE OF SURGERY: 08/25/17 PREOPERATIVE DIAGNOSIS: #1 left arm dialysis fistula malfunction, brachiocephalic. 2. End-stage renal disease on hemodialysis. 3. Hypertension. POSTOPERATIVE DIAGNOSIS: #1 left arm dialysis fistula malfunction, brachiocephalic. 2. End-stage renal disease on hemodialysis. 3. Hypertension. OPERATION: 1. Needle entry into arteriovenous fistula. 2. Angioplasty. 3. Central angioplasty with drug-eluting balloon. 4. Angiogram and interpretation. SURGEON: SIXTO RIVERA [employer]IV[employer] INSTRUCTOR: None ANESTHESIA: Moderate Sedation TISSUE REMOVED OR ALTERED: Not applicable. COMPLICATIONS: None. ESTIMATED BLOOD LOSS: 3 mL. INTRAOPERATIVE FINDINGS: Of a well founded left arm brachiocephalic fistula. 2 large aneurysms, each about 5 cm across. The entire fistula hyper pulsatile initially. Still somewhat firm but much softer at the end of the procedure. The culprit lesion is a tight stenosis estimated to be 80% of the adjacent lumen at the left innominate, superior vena cava junction. Resolved with estimated 5-10% residual stenosis. The adjacent innominate vein measured noted at about 15.43 mm. The stenosis significance is indicated by the initially firm fistula and also by collaterals including possibly the left jugular vein. These are less prominent at the end of the procedure. An additional area of stenosis noted at the cephalic subclavian junction. This was resolved with an 8 mm balloon. PROCEDURE: PROCEDURE: After verifying the procedure and having obtained informed consent, the patient's left arm was prepared with Chlorhexidine and draped out with sterile linen. Local anesthesia infiltrated. Percutaneous access into the fistula ,[ antegrade], obtained about [15 cm] from the arteriovenous anastomosis using a micro puncture needle followed by micro puncture wire and then a micro puncture catheter. A 0.035 Dundee wire was inserted, and over this, a 7 Cuban short introducer was placed, this was followed by a [8-mm ] angioplasty balloon . Angioplasty was Done from the superior vena cava up into the innominate. Hand injecting for 3 minutes. With a 3 mils syringe. The balloon was then withdrawn and inflated up to 14 abhilash at the cephalic subclavian junction. Waists were noted and these were eliminated in both cases. The second inflation done using a 3 mils syringe for 3 minutes. A 10 mm angioplasty balloon was now substituted and used to inflate at the innominate superior vena caval. For 3 minutes with a 3 mils syringe. It was decided to increase the balloon size and therefore the 7 Cuban introducer was changed over the wire within 9 Cuban introducer. A 12 mm angioplasty balloon was now inserted and inflated at the innominate superior vena cava junction using a insufflator for 3 minutes. Up to 14 abhilash. The results was most acceptable. A 12 mm drug-eluting balloon was now inserted according to cdl instructor's instruction and positioned at the innominate superior vena cava border. It was inflated inflating up to 11 atmospheres for 3 minutes. It was deflated.]. Completion angiogram demonstrated [satisfactory result]. The instrumentation was now withdrawn over a short piece of catheter and a 4-0 Prolene suture. Dressings applied, procedure concluded. Exposure time: 4.4 minutes. Radiation: 6 4.47 Natalie Clark. Contrast: 40 mils of Isovue-300, low osmolality. DICTATING PHYSICIAN: SIXTO PICKARD M.D. cc: SIXTO PICKARD M.D. ([id number]) >>
[2017-08-25 12:02] VITALS: BP 144/60
--- NOTE | 2017-08-25 12:03 | RADIOLOGY REPORT (SQ) ---
EXAM DESCRIPTION: FISTULAGRAM W/PLASTY COMPLETED DATE/TIME: 08/25/2017 10:27 am REASON FOR STUDY: T82.858A T82.858A STENOSIS OF OTHER VASCULAR PROSTH DEV/GRFT, INIT Z79.01 LONG T ERM (CURRENT) USE OF ANTICOAGULANTS COMPARISON: None. FLUOROSCOPY TIME: 4.4 minutes Multiple fluoroscopic images saved to PACS. TECHNIQUE: Intra-operative images acquired during surgical procedure to evaluate progress. NUMBER OF IMAGES: Cine fluoroscopic images. LIMITATIONS: None. FINDINGS: Selected images from left upper extremity dialysis graft arteriography and balloon angiopl asty. IMPRESSION: IMAGE(S) OBTAINED DURING PROCEDURE. COMMENT: Quality ID [id number]: Final reports for procedures using fluoroscopy that document radiation exp osure indices, or exposure time and number of fluorographic images (if radiation exposure indices are not available) Please consult full operative report of the attending physician for description of the procedure. TECHNICAL DOCUMENTATION: JOB ID: [id number] [employer]- All Rights Reserved Reading location - IP/workstation name: [email or web address]
--- NOTE | 2017-08-25 13:21 | EKG REPORT ---
SEVERITY:- ABNORMAL ECG - SINUS RHYTHM PROBABLE LEFT VENTRICULAR HYPERTROPHY BORDERLINE T ABNORMALITIES, INFERIOR LEADS : Confirmed by: Dioni Haddad MD 25-Aug-2017 13:20:37
== END 2017-08-25 11:38 | disposition home or self-care (01) ==
LOC: CCL 07:10
PROVIDERS: ATTEND Surgery
DX: T82.858A Stenosis of other vascular prosthetic devices, implants and grafts, initial encounter (principal); Y83.2 Surgical operation with anastomosis, bypass or graft as the cause of abnormal reaction of the patient, or of later complication, without mention of misadventure at the time of the procedure; I12.0 Hypertensive chronic kidney disease with stage 5 chronic kidney disease or end stage renal disease; N18.6 End stage renal disease; Z99.2 Dependence on renal dialysis; E11.22 Type 2 diabetes mellitus with diabetic chronic kidney disease; D63.1 Anemia in chronic kidney disease; Z79.899 Other long term (current) drug therapy; J44.9 Chronic obstructive pulmonary disease, unspecified; I25.10 Atherosclerotic heart disease of native coronary artery without angina pectoris; M47.892 Other spondylosis, cervical region; Z79.82 Long term (current) use of aspirin; Z88.5 Allergy status to narcotic agent; Z88.0 Allergy status to penicillin; I25.2 Old myocardial infarction; Z79.84 Long term (current) use of oral hypoglycemic drugs; Z79.02 Long term (current) use of antithrombotics/antiplatelets
CPT/HCPCS: 36415; 85027; 85610; 85730; 80048; 36907; 36902; 71045; 93005; 93010; C1725 ×2; C1752; C1894; Q9967; C1769; J2250; J1644 ×2; A9270 ×2; J3010; J3490

== ENCOUNTER → 2017-09-03 | Outpatient (CLI) | payer MEDICARE, BC ==
--- NOTE | 2017-09-03 10:08 | RADIOLOGY REPORT (SQ) ---
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 NUMBER OF VIEWS: Two views. TECHNIQUE: Lateral extension, lateral flexion radiographic images acquired of the cervical spine. LIMITATIONS: None. FINDINGS: MINERALIZATION: Osteopenic ALIGNMENT: Anatomic. No instability on flexion/extension. VERTEBRAE: Vertebral bodies of normal height. DISCS: High-grade disc space loss of height at C4-5. Moderate disc space loss of height at C5-6 and C6-7. Mild posterior osteophytes at these levels. HARDWARE: None in the spine. SOFT TISSUES: Densely calcified carotid bifurcations OTHER: No other significant finding. IMPRESSION: Multilevel degenerative disc changes. No instability on flexion extension images TECHNICAL DOCUMENTATION: JOB ID: [id number] [employer]- All Rights Reserved Reading location - IP/workstation name: [email or web address]
== END ==
LOC: RAD 07:57
PROVIDERS: ATTEND Specialist
DX: M47.22 Other spondylosis with radiculopathy, cervical region (principal)
CPT/HCPCS: 72040

== ENCOUNTER 2017-09-29 20:47 | Inpatient (IN) | payer MEDICARE, BC ==
[2017-09-29] MEDS ORDERED: ASPIRIN 81 MG TABLET, CHEWABLE PO ONE (20:59)
[2017-09-29 21:40] LABS: ABSOLUTE EOSINOPHILS # (AUTO) 0.2 10^3/uL (0.0-0.6); ABSOLUTE LYMPHOCYTES (AUTO) 1.4 10^3/uL (0.5-4.7); ABSOLUTE MONOCYTES (AUTO) 0.4 10^3/uL (0.1-1.4); ABSOLUTE NEUT (AUTO) 2.4 10^3/uL (1.7-8.2); BASOPHILS % (AUTO) 0.4 % (0-2); EOSINOPHILS % (AUTO) 3.5 % (0-6); HEMATOCRIT 33.6 % (36.0-47.0); HEMOGLOBIN 10.7 g/dL (12.0-15.5); LYMPHOCYTES % (AUTO) 31.2 % (13-45); MEAN CORPUSCULAR HEMOGLOBIN 30.2 pg (27.0-33.4); MEAN CORPUSCULAR HGB CONC 31.9 g/dL (32.0-36.0); MEAN CORPUSCULAR VOLUME 95 fl (80-97); MONOCYTES % (AUTO) 10.1 % (3-13); PLATELET COUNT 182 10^3/uL (150-450); RED BLOOD COUNT 3.54 10^6/uL (3.72-5.28); RED CELL DISTRIBUTION WIDTH 19.3 % (11.5-14.0); SEGMENTED NEUTROPHILS % (AUTO) 54.8 % (42-78); TOTAL CELLS COUNTED % (AUTO) 100 %; WHITE BLOOD COUNT 4.4 10^3/uL (4.0-10.5)
--- NOTE | 2017-09-29 21:55 | RADIOLOGY REPORT (SQ) ---
EXAM DESCRIPTION: CHEST SINGLE VIEW COMPLETED DATE/TIME: 09/29/2017 9:45 pm REASON FOR STUDY: chest pain COMPARISON: 08/25/2017 EXAM PARAMETERS: NUMBER OF VIEWS: One view. TECHNIQUE: Single frontal radiographic view of the chest acquired. RADIATION DOSE: NA LIMITATIONS: None. FINDINGS: LUNGS AND PLEURA: No opacities, masses or pneumothorax. No pleural effusion. MEDIASTINUM AND HILAR STRUCTURES: No masses. Contour normal. HEART AND VASCULAR STRUCTURES: Cardiomegaly. No evidence of failure. BONES: No acute findings. HARDWARE: None in the chest. OTHER: No other significant finding. IMPRESSION: Cardiomegaly without failure. TECHNICAL DOCUMENTATION: JOB ID: [id number] [employer]- All Rights Reserved Reading location - IP/workstation name: [email or web address]
[2017-09-29 22:04] LABS: ALANINE AMINOTRANSFERASE 24 U/L (9-52); ALBUMIN 4.2 g/dL (3.5-5.0); ALKALINE PHOSPHATASE 185 U/L (38-126); ANION GAP 18 (5-19); ASPARTATE AMINO TRANSFERASE 42 U/L (14-36); BILIRUBIN,DIRECT 0.8 mg/dL (0.0-0.4); BILIRUBIN,TOTAL 0.8 mg/dL (0.2-1.3); BLOOD UREA NITROGEN 40 mg/dL (7-20); CALCIUM 9.8 mg/dL (8.4-10.2); CARBON DIOXIDE 27 mmol/L (22-30); CHLORIDE 98 mmol/L (98-107); CREATINE KINASE 118 U/L (30-135); GLUCOSE 149 mg/dL (75-110); POTASSIUM 4.7 mmol/L (3.6-5.0); SODIUM 142.5 mmol/L (137-145); TOTAL PROTEIN 7.6 g/dL (6.3-8.2)
[2017-09-29 22:16] LABS: CREATINE KINASE MB 2.94 ng/mL (<4.55)
[2017-09-29 22:19] LABS: TROPONIN I 0.389 ng/mL
--- NOTE | 2017-09-29 22:52 | ER Document Report ---
ED Cardiac - General Chief Complaint: Chest Pressure Stated Complaint: CHEST PAIN Time Seen by Provider: 09/29/17 20:59 Notes: 76-year-old female patient to the emergency department chief complaint of chest pain. History of dialysis. Thursday. Followed by Dr. Toussaint. Dr. Gallardo regular doctor. States she has been having chest pain since this morning radiating to her left shoulder. No nausea or vomiting. No other symptoms. Intermittent shortness of breath. Not short of breath at this time. Did not miss dialysis. TRAVEL OUTSIDE OF THE [place] IN LAST 30 DAYS: No - HPI Patient complains to provider of: Chest pain, Chest tightness - Related Data Allergies/Adverse Reactions: codeine [Codeine] Allergy (Verified 08/25/17 07:45) ITCHING morphine [Morphine] Allergy (Verified 08/25/17 07:45) ITCHING Penicillins Allergy (Verified 08/25/17 07:45) ITCHING tomato Allergy (Verified 08/25/17 07:45) ITCHING Past Medical History - General Information source: Patient - Social History Smoking Status: Never Smoker Cigarette use (# per day): No Frequency of alcohol use: None Drug Abuse: None Lives with: Family Family History: Reviewed & Not Pertinent Patient has suicidal ideation: No Patient has homicidal ideation: No - Past Medical History Cardiac Medical History: Reports: Hx Coronary Artery Disease - cardiac stents, Hx Heart Attack - "light", Hx Hypertension Pulmonary Medical History: Reports: Hx Asthma, Hx COPD Denies: Hx Bronchitis, Hx Pneumonia Neurological Medical History: Denies: Hx Cerebrovascular Accident, Hx Seizures Endocrine Medical History: Reports: Hx Diabetes Mellitus Type 2 Renal/ Medical History: Reports: Hx End Stage Renal Disease. Denies: Hx Peritoneal Dialysis Musculoskeltal Medical History: Reports Hx Arthritis - neck Psychiatric Medical History: Reports: Hx Depression - stress related Past Surgical History: Reports: Hx Cardiac Catheterization - Stent placement, Hx Cholecystectomy, Hx Tubal Ligation - Immunizations Hx Diphtheria, Pertussis, Tetanus Vaccination: No Hx Pneumococcal Vaccination: 02/01/16 Review of Systems - Review of Systems Constitutional: No symptoms reported EENT: No symptoms reported Cardiovascular: Chest pain. denies: Palpitations, Heart racing, Orthopnea Respiratory: No symptoms reported Gastrointestinal: No symptoms reported Genitourinary: No symptoms reported Female Genitourinary: No symptoms reported Musculoskeletal: No symptoms reported Skin: No symptoms reported Hematologic/Lymphatic: No symptoms reported Neurological/Psychological: No symptoms reported Physical Exam - Vital signs Interpretation: Normal - General General appearance: Appears well, Alert - HEENT Head: Normocephalic, Atraumatic Eyes: Normal Pupils: PERRL - Respiratory Respiratory status: No respiratory distress Chest status: Nontender Breath sounds: Normal Chest palpation: Normal - Cardiovascular Rhythm: Regular Heart sounds: Normal auscultation Murmur: No - Abdominal Inspection: Normal Distension: No distension Bowel sounds: Normal Tenderness: Nontender Organomegaly: No organomegaly - Back Back: Normal, Nontender - Extremities General upper extremity: Normal inspection, Nontender, Normal color, Normal ROM , Normal temperature, Other - Patient has positive thrill and bruit left upper extremity. General lower extremity: Normal inspection, Nontender, Normal color, Normal ROM , Normal temperature, Normal weight bearing. No: Sukhdeep's sign - Neurological Neuro grossly intact: Yes Cognition: Normal Orientation: AAOx4 Crystal Coma Scale Eye Opening: Spontaneous Crystal Coma Scale Verbal: Oriented Crystal Coma Scale Motor: Obeys Commands Crystal Coma Scale Total: 15 Speech: Normal Motor strength normal: LUE, RUE, LLE, RLE Sensory: Normal - Psychological Associated symptoms: Normal affect, Normal mood - Skin Skin Temperature: Warm Skin Moisture: Dry Skin Color: Normal Course - Re-evaluation Re-evalutation: 09/29/17 22:49 Patient is a renal failure patient on dialysis. History of chest pain today. EKG unremarkable. Consult with Dr. Gallardo in because patient's troponin is slightly elevated. In the setting of renal failure I am not too concerned however has one prior troponin in the computer which was unremarkable. At this time patient is chest pain-free. EKG does not show any signs of acute ischemia. Will admit for further testing. - Laboratory Result Diagrams: 09/29/17 21:15 09/29/17 21:15 Laboratory results interpreted by me: 09/29/17 09/29/17 21:15 21:15 RBC 3.54 L Hgb 10.7 L Hct 33.6 L MCHC 31.9 L RDW 19.3 H BUN 40 H Creatinine 7.32 H Est GFR ( Amer) 7 L Est GFR (Non-Af Amer) 5 L Glucose 149 H Direct Bilirubin 0.8 H AST 42 H Alkaline Phosphatase 185 H Discharge - Discharge Clinical Impression: Chest pain Qualifiers: Chest pain type: unspecified Qualified Code(s): R07.9 - Chest pain, unspecified Condition: Good Disposition: ADMITTED INPATIENT Admitting Provider: Antoinette Unit Admitted: Telemetry Referrals: AKILA GALLARDO MD [Primary Care Provider] - Follow up as needed
[2017-09-30] MEDS ORDERED: IPRATROPIUM/ALBUTEROL 0.5-2.5 MG/3 ML AMPUL NEB ONE (00:17)
[2017-09-30] MEDS ORDERED: ALBUTEROL SULFATE 0.083% NEB 2.5 MG/3 ML AMPUL NEB ONE (02:31)
[2017-09-30] MEDS ORDERED: CLOPIDOGREL BISULFATE 300 MG TABLET PO ONE (03:40)
[2017-09-30] MEDS ORDERED: METOPROLOL SUCCINATE 50 MG TAB.SR.24H PO ONE (04:15)
[2017-09-30 05:03] LABS: ABSOLUTE BASOPHILS # (AUTO) 0.1 10^3/uL (0.0-0.2); ABSOLUTE EOSINOPHILS # (AUTO) 0.2 10^3/uL (0.0-0.6); ABSOLUTE LYMPHOCYTES (AUTO) 1.4 10^3/uL (0.5-4.7); ABSOLUTE MONOCYTES (AUTO) 0.4 10^3/uL (0.1-1.4); ABSOLUTE NEUT (AUTO) 2.5 10^3/uL (1.7-8.2); BASOPHILS % (AUTO) 1.5 % (0-2); EOSINOPHILS % (AUTO) 3.5 % (0-6); HEMATOCRIT 30.2 % (36.0-47.0); HEMOGLOBIN 9.8 g/dL (12.0-15.5); LYMPHOCYTES % (AUTO) 31.3 % (13-45); MEAN CORPUSCULAR HEMOGLOBIN 30.3 pg (27.0-33.4); MEAN CORPUSCULAR HGB CONC 32.5 g/dL (32.0-36.0); MEAN CORPUSCULAR VOLUME 93 fl (80-97); MONOCYTES % (AUTO) 8.8 % (3-13); PLATELET COUNT 159 10^3/uL (150-450); RED BLOOD COUNT 3.24 10^6/uL (3.72-5.28); RED CELL DISTRIBUTION WIDTH 19.2 % (11.5-14.0); SEGMENTED NEUTROPHILS % (AUTO) 54.9 % (42-78); TOTAL CELLS COUNTED % (AUTO) 100 %; WHITE BLOOD COUNT 4.5 10^3/uL (4.0-10.5)
[2017-09-30 05:08] LABS: INTERNATIONAL RATION (INR) 1.12
[2017-09-30 05:10] LABS: PARTIAL THROMBOPLASTIN TIME 59.1 SEC (23.5-35.8)
[2017-09-30 05:46] LABS: CREATINE KINASE MB 3.19 ng/mL (<4.55)
[2017-09-30 05:47] LABS: TROPONIN I 0.451 ng/mL
[2017-09-30] MEDS: HEPARIN SODIUM,PORCINE/D5W 25,000 UNIT/250 ML RTUINJ IV PRN (05:53)
[2017-09-30] MEDS ORDERED: HEPARIN SOD (PORCINE) 1,000 UNIT/ML 10 ML VIAL IV PRN (06:45)
[2017-09-30] MEDS ORDERED: (PENDING PHARMACY ID) (Vit B Comp No.3/Folic/C/Biotin [Rena-Vite Rx Tablet] 1 EACH) PO SCH (08:00)
[2017-09-30] MEDS ORDERED: (PENDING PHARMACY ID) (Clonidine Hcl [Clonidine Hcl] 0.3 MG) PO SCH (08:00)
[2017-09-30] MEDS ORDERED: OXYCODONE-ACETAMINOPHEN 5-325 MG TABLET PO PRN (09:08)
[2017-09-30] MEDS: ASPIRIN 81 MG TABLET, ENT COATED PO SCH (09:11)
--- NOTE | 2017-09-30 09:11 | EKG REPORT ---
SEVERITY:- ABNORMAL ECG - SINUS RHYTHM PROBABLE LEFT ATRIAL ABNORMALITY LEFT VENTRICULAR HYPERTROPHY BORDERLINE PROLONGED QT INTERVAL : Confirmed by: Wilton Cheatham 30-Sep-2017 09:10:54
[2017-09-30] MEDS: FAMOTIDINE 20 MG TABLET PO SCH ×2 (09:12→17:20)
[2017-09-30] MEDS ORDERED: ONDANSETRON HCL INJ/PF 4 MG/2 ML SDV ONE (09:22)
[2017-09-30] MEDS ORDERED: MORPHINE SULFATE 10 MG/ML INJ ONE (09:23)
[2017-09-30] MEDS: MORPHINE SULFATE 10 MG/ML INJ IV PRN ×2 (09:30→14:57)
[2017-09-30] MEDS: ONDANSETRON HCL INJ/PF 4 MG/2 ML SDV IV PRN (09:30)
[2017-09-30] MEDS: NITROGLYCERIN/D5W 50 MG/250 ML RTUINJ IV PRN (09:34)
[2017-09-30 09:55] LABS: CREATINE KINASE MB 3.48 ng/mL (<4.55); TROPONIN I 0.521 ng/mL
[2017-09-30] MEDS ORDERED: CLOPIDOGREL BISULFATE 75 MG TABLET PO SCH (10:00)
[2017-09-30] MEDS ORDERED: CARVEDILOL 12.5 MG TABLET PO SCH (10:00)
[2017-09-30] MEDS ORDERED: NITROGLYCERIN 0.4 MG/TAB 25 TAB/BOTTLE ONE (10:51)
[2017-09-30] MEDS: SITAGLIPTIN PHOSPHATE 25 MG TABLET PO SCH (11:07)
[2017-09-30] MEDS: CYANOCOBALAMIN/FA/PYRIDOXINE TABLET PO SCH (11:07)
[2017-09-30] MEDS: ISOSORBIDE MONONITRATE 60 MG TAB.ER.24H PO SCH ×2 (11:08→21:45)
[2017-09-30] MEDS: BUDESONIDE/FORMOTEROL 160-4.5 MCG 60 PUFF/6 GM MDI IH SCH ×2 (11:08→17:21)
[2017-09-30] MEDS ORDERED: EPOETIN ALFA INJ 20000 UNIT/1 ML VIAL (RENAL) IV PRN (11:25)
[2017-09-30 11:31] LABS: ANION GAP 14 (5-19); BLOOD UREA NITROGEN 45 mg/dL (7-20); CALCIUM 9.5 mg/dL (8.4-10.2); CARBON DIOXIDE 28 mmol/L (22-30); CHLORIDE 99 mmol/L (98-107); GLUCOSE 136 mg/dL (75-110); POTASSIUM 5.2 mmol/L (3.6-5.0); SODIUM 141.4 mmol/L (137-145)
[2017-09-30 11:40] LABS: CREATINE KINASE MB 3.08 ng/mL (<4.55); TROPONIN I 0.46 ng/mL
[2017-09-30] MEDS ORDERED: EPOETIN ALFA 5,000 UNIT in SYRINGE, DISPOSABLE, 1 EACH IV PRN (11:42)
[2017-09-30] MEDS: NITROGLYCERIN 0.4 MG/TAB 25 TAB/BOTTLE SL PRN ×2 (12:28→14:56)
[2017-09-30] MEDS: CLONIDINE HCL 0.1 MG TABLET PO SCH ×2 (14:14→21:44)
--- NOTE | 2017-09-30 14:45 | PDOC CONSULTATION ---
Consultation Consult Date: 09/30/17 Consult reason:: Hemodialysis History of Present Illness Admission Date/PCP: 09/29/17 23:03 AKILA GALLARDO MD History of Present Illness: LUKE RAMAN is a 76 year old female with a history of chronic Hypertension, ESRD on dialysis on was admitted with c/o chest pain radiating into the arm and hypertensive urgency. She is doing some better but she has a slightly trending troponin and is in early CHF. She has not missed any of her dialysis and her last dialysis was this Thursday. Currently her chest pain is better and she has been transferred to the ICU for getting on dialysis. I did discuss the case with Dr. Cheatham/cardiology and he believes that patient being in heart failure and some relief of her fluids could also help with her myocardial oxygen consumption and demand.Labs and medications were reviewed.Orders were discussed with the treating dialysis nurse Isabela.She is currently undergoing dialysis without any issues.Vital signs are stable. Past Medical History Cardiac Medical History: Reports: Coronary Artery Disease - cardiac stents, Hypertension-primary, Myocardial Infarction - "light" Pulmonary Medical History: Reports: Asthma, Chronic Obstructive Pulmonary Disease (COPD) Denies: Bronchitis, Pneumonia Neurological Medical History: Denies: Seizures Endocrine Medical History: Reports: Diabetes Mellitus Type 2 Renal/ Medical History: Reports: End Stage Renal Disease, Secondary Hyperparathyroidism Musculoskeltal Medical History: Reports: Arthritis - neck Psychiatric Medical History: Reports: Depression - stress related Hematology Medical History: Reports Anemia of Chronic Kidney Disease Past Surgical History Past Surgical History: Reports: Cardiac Catheterization - Stent placement, Cholecystectomy, Tubal Ligation Social History Lives with: Family Smoking Status: Never Smoker Frequency of Alcohol Use: None Hx Recreational Drug Use: No Hx Prescription Drug Abuse: No Family History Parental Family History Reviewed: Yes - Denies any history of ESRD. Children Family History Reviewed: Yes Sibling(s) Family History Reviewed.: Yes Medication/Allergy Home Medications: Amlodipine Besylate [Norvasc 10 mg Tablet] 10 mg PO QHS 09/30/17 Budesonide/Formoterol Fumarate [Symbicort Hfa 160-4.5 Mcg Inhaler 6 gm] 2 puff IH Q12 09/30/17 Carvedilol [Coreg 12.5 mg Tablet] 12.5 mg PO Q12 09/30/17 Clonidine HCl [Catapres] 0.3 mg PO Q8 09/30/17 Clopidogrel Bisulfate [Plavix 75 mg Tablet] 75 mg PO DAILY 09/30/17 Doxazosin Mesylate [Cardura] 2 mg PO QHS 09/30/17 Famotidine [Pepcid 20 mg Tablet] 20 mg PO BID 09/30/17 Folic Acid/Vit B Complex and C [Anyn-Brittany Tablet] 0.8 mg PO DAILY 09/30/17 Isosorbide Mononitrate [Imdur 60 mg Tablet.er] 60 mg PO Q12 09/30/17 Omeprazole 20 mg PO DAILY 09/30/17 Sevelamer Carbonate [Renvela] 2,400 mg PO AC 09/30/17 Sitagliptin Phosphate [Januvia 25 mg Tablet] 25 mg PO DAILY 09/30/17 Allergies/Adverse Reactions: codeine [Codeine] Allergy (Verified 08/25/17 07:45) ITCHING morphine [Morphine] Allergy (Verified 08/25/17 07:45) ITCHING Penicillins Allergy (Verified 08/25/17 07:45) ITCHING tomato Allergy (Verified 08/25/17 07:45) ITCHING Review of Systems Constitutional: ABSENT: fatigue, fever(s), headache(s), night sweats, weakness Cardiovascular: PRESENT: chest pain, dyspnea on exertion, edema. ABSENT: orthropnea Respiratory: ABSENT: cough, hemoptysis Gastrointestinal: ABSENT: abdominal pain, coffee ground emesis, diarrhea, dysphagia, heartburn, hematemesis Neurological: ABSENT: focal weakness Psychiatric: PRESENT: anxiety Hematologic/Lymphatic: ABSENT: easy bruising, lymphadenopathy Physical Exam Vital Signs: Temp Pulse Resp BP Pulse Ox 97.5 F 73 14 181/89 H 100 09/30/17 11:22 09/30/17 12:45 09/30/17 11:22 09/30/17 12:45 09/30/17 09:52 Intake & Output 09/29/17 09/30/17 10/01/17 06:59 06:59 06:59 Intake Total 46 0 Output Total 0 Balance 46 0 Weight 66.4 kg General appearance: PRESENT: no acute distress Eye exam: PRESENT: EOMI. ABSENT: nystagmus Ear exam: PRESENT: normal external ear exam Mouth exam: PRESENT: moist, neck supple Neck exam: ABSENT: lymphadenopathy, meningismus, tenderness, thyromegaly, tracheal deviation Respiratory exam: PRESENT: clear to auscultation buddy, crackles. ABSENT: rhonchi Cardiovascular exam: PRESENT: +S1, +S2 GI/Abdominal exam: PRESENT: normal bowel sounds, soft. ABSENT: organomegaly, tenderness Extremities exam: PRESENT: pedal edema Neurological exam: PRESENT: alert, awake, oriented to person, oriented to place , oriented to situation Psychiatric exam: PRESENT: anxious Skin exam: ABSENT: cyanosis, erythema, mottled Results Laboratory Results: 09/30/17 04:41 09/30/17 10:55 09/30/17 09/30/17 09/30/17 00:50 04:41 10:55 WBC 4.5 RBC 3.24 L Hgb 9.8 L Hct 30.2 L MCV 93 MCH 30.3 MCHC 32.5 RDW 19.2 H Plt Count 159 Seg Neutrophils % 54.9 Lymphocytes % 31.3 Monocytes % 8.8 Eosinophils % 3.5 Basophils % 1.5 Absolute Neutrophils 2.5 Absolute Lymphocytes 1.4 Absolute Monocytes 0.4 Absolute Eosinophils 0.2 Absolute Basophils 0.1 Sodium 141.4 Potassium 5.2 H Chloride 99 Carbon Dioxide 28 Anion Gap 14 BUN 45 H Creatinine 7.86 H Est GFR ( Amer) 6 L Est GFR (Non-Af Amer) 5 L Glucose 136 H Calcium 9.5 Phosphorus 4.7 H Magnesium 2.4 H 09/30/17 09/30/17 09/30/17 00:50 04:41 04:41 Creatine Kinase 94 CK-MB (CK-2) 3.19 Troponin I 0.390 0.451 09/30/17 09/30/17 09/30/17 09:09 09:09 10:55 Creatine Kinase 109 CK-MB (CK-2) 3.48 3.08 Troponin I 0.521 0.460 09/30/17 10:55 Creatine Kinase 103 CK-MB (CK-2) Troponin I Impressions: Chest X-Ray 09/29/17 20:59 IMPRESSION: Cardiomegaly without failure. Assessment & Plan - Diagnosis (1) ESRD (end stage renal disease) on dialysis Plan: Patient seen on dialysis. She is undergoing dialysis without any issues. Dialysis is being supervised to ensure safe and smooth procedure. We will not remove too much of fluid given the fact that she possibly could have unstable coronary artery disease. Discuss orders with the treating nurse. (2) Accelerated hypertension Plan: Uncontrolled. She is on nitro drip.See the response to dialysis and later on the need to titrate her medications. (3) Chest pain Qualifiers: Chest pain type: unspecified Qualified Code(s): R07.9 - Chest pain, unspecified Plan: As per cardiology. (4) Anemia in CKD (chronic kidney disease) Qualifiers: Qualified Code(s): N18.6 - End stage renal disease; D63.1 - Anemia in chronic kidney disease; D63.1 - Anemia in chronic kidney disease; Z99.2 - Dependence on renal dialysis; Z99.2 - Dependence on renal dialysis; Z99.2 - Dependence on renal dialysis; Z99.2 - Dependence on renal dialysis Plan: Titrated to erythropoietin. (5) Hyperkalemia Plan: Should respond to hemodialysis.
[2017-09-30 16:40] LABS: CREATINE KINASE MB 3.63 ng/mL (<4.55); TROPONIN I 0.691 ng/mL
--- NOTE | 2017-09-30 17:29 | PDOC H&P ---
History of Present Illness Admission Date/PCP: 09/29/17 23:03 AKILA GALLARDO MD History of Present Illness: LUKE RAMAN is a 76 year old female, She has a history of ischemic heart disease, end-stage renal disease on maintenance hemodialysis she came to the emergency room last night for evaluation of chest pain, she described as chest pressure. The 12-lead EKG that was done was sinus rhythm there was no ST segment deviation that suggest acute CT initial troponin was slightly elevated, Subsequent troponin was trending up,elevated. The constellation of the typical anginal-like chest pressure with elevated troponin in a patient with a history of CAD and also end-stage renal disease on hemodialysis it was felt that she has non-ST elevated CT. She was given antiplatelet, Plavix 300 mg p.o., aspirin 81 mg 2 tablets p.o. and also started on IV heparin per low-dose protocol for CT the blood pressure was elevated she also was started on beta- an initially metoprolol subsequently this was changed to Coreg which is a regular beta-an and also started on nitroglycerin infusion Past Medical History Cardiac Medical History: Reports: Coronary Artery Disease - cardiac stents, Myocardial Infarction - "light", Hypertension Pulmonary Medical History: Reports: Asthma, Chronic Obstructive Pulmonary Disease (COPD) Endocrine Medical History: Reports: Diabetes Mellitus Type 2 Renal/ Medical History: Reports: End Stage Renal Disease Musculoskeltal Medical History: Reports: Arthritis - neck Psychiatric Medical History: Reports: Depression - stress related Hematology: Reports: Anemia Past Surgical History Past Surgical History: Reports: Cardiac Catheterization - Stent placement, Cholecystectomy, Tubal Ligation Social History Lives with: Family Smoking Status: Never Smoker Frequency of Alcohol Use: None Hx Recreational Drug Use: No Hx Prescription Drug Abuse: No - Advance Directive Resuscitation Status: Full Code Family History Family History: Reviewed & Not Pertinent Parental Family History Reviewed: Yes Children Family History Reviewed: Yes Sibling(s) Family History Reviewed.: Yes Medication/Allergy Home Medications: Amlodipine Besylate [Norvasc 10 mg Tablet] 10 mg PO QHS 09/30/17 Budesonide/Formoterol Fumarate [Symbicort Hfa 160-4.5 Mcg Inhaler 6 gm] 2 puff IH Q12 09/30/17 Carvedilol [Coreg 12.5 mg Tablet] 12.5 mg PO Q12 09/30/17 Clonidine HCl [Catapres] 0.3 mg PO Q8 09/30/17 Clopidogrel Bisulfate [Plavix 75 mg Tablet] 75 mg PO DAILY 09/30/17 Doxazosin Mesylate [Cardura] 2 mg PO QHS 09/30/17 Famotidine [Pepcid 20 mg Tablet] 20 mg PO BID 09/30/17 Folic Acid/Vit B Complex and C [Anny-Brittany Tablet] 0.8 mg PO DAILY 09/30/17 Isosorbide Mononitrate [Imdur 60 mg Tablet.er] 60 mg PO Q12 09/30/17 Omeprazole 20 mg PO DAILY 09/30/17 Sevelamer Carbonate [Renvela] 2,400 mg PO AC 09/30/17 Sitagliptin Phosphate [Januvia 25 mg Tablet] 25 mg PO DAILY 09/30/17 Allergies/Adverse Reactions: codeine [Codeine] Allergy (Verified 08/25/17 07:45) ITCHING morphine [Morphine] Allergy (Verified 08/25/17 07:45) ITCHING Penicillins Allergy (Verified 08/25/17 07:45) ITCHING tomato Allergy (Verified 08/25/17 07:45) ITCHING Review of Systems Constitutional: ABSENT: chills, fever(s), headache(s), weight gain, weight loss Eyes: ABSENT: visual disturbances Ears: ABSENT: hearing changes Cardiovascular: PRESENT: chest pain Respiratory: ABSENT: cough, hemoptysis Gastrointestinal: ABSENT: abdominal pain, constipation, diarrhea, hematemesis, hematochezia, nausea, vomiting Genitourinary: ABSENT: dysuria, hematuria Musculoskeletal: ABSENT: joint swelling Integumentary: ABSENT: rash, wounds Neurological: ABSENT: abnormal gait, abnormal speech, confusion, dizziness, focal weakness, syncope Psychiatric: ABSENT: anxiety, depression, homidical ideation, suicidal ideation Endocrine: ABSENT: cold intolerance, heat intolerance, menstrual abnormalities, polydipsia, polyuria Hematologic/Lymphatic: ABSENT: easy bleeding, easy bruising, lymphadenopathy Physical Exam Vital Signs: Temp Pulse Resp BP Pulse Ox 97.6 F 68 20 176/64 H 92 09/30/17 16:49 09/30/17 16:49 09/30/17 16:49 09/30/17 16:49 09/30/17 16:49 Intake & Output 09/29/17 09/30/17 10/01/17 06:59 06:59 06:59 Intake Total 46 0 Output Total 0 Balance 46 0 Weight 66.4 kg General appearance: PRESENT: no acute distress, well-developed, well-nourished Head exam: PRESENT: atraumatic, normocephalic Eye exam: PRESENT: conjunctiva pink, EOMI, PERRLA Ear exam: PRESENT: normal external ear exam Mouth exam: PRESENT: moist, tongue midline Neck exam: PRESENT: full ROM Respiratory exam: PRESENT: clear to auscultation buddy Cardiovascular exam: PRESENT: RRR, +S1, +S2 Pulses: PRESENT: normal dorsalis pedis pul, +2 pedal pulses bilateral Vascular exam: PRESENT: normal capillary refill GI/Abdominal exam: PRESENT: normal bowel sounds, soft Rectal exam: PRESENT: deferred Neurological exam: PRESENT: alert, awake, oriented to person, oriented to place , oriented to time, oriented to situation, CN II-XII grossly intact Psychiatric exam: PRESENT: appropriate affect, normal mood Skin exam: PRESENT: dry, intact, warm Results Laboratory Results: 09/30/17 04:41 09/30/17 10:55 09/30/17 09/30/17 09/30/17 00:50 04:41 10:55 WBC 4.5 RBC 3.24 L Hgb 9.8 L Hct 30.2 L MCV 93 MCH 30.3 MCHC 32.5 RDW 19.2 H Plt Count 159 Seg Neutrophils % 54.9 Lymphocytes % 31.3 Monocytes % 8.8 Eosinophils % 3.5 Basophils % 1.5 Absolute Neutrophils 2.5 Absolute Lymphocytes 1.4 Absolute Monocytes 0.4 Absolute Eosinophils 0.2 Absolute Basophils 0.1 Sodium 141.4 Potassium 5.2 H Chloride 99 Carbon Dioxide 28 Anion Gap 14 BUN 45 H Creatinine 7.86 H Est GFR ( Amer) 6 L Est GFR (Non-Af Amer) 5 L Glucose 136 H Calcium 9.5 Phosphorus 4.7 H Magnesium 2.4 H 09/30/17 09/30/17 09/30/17 00:50 04:41 04:41 Creatine Kinase 94 CK-MB (CK-2) 3.19 Troponin I 0.390 0.451 09/30/17 09/30/17 09/30/17 09:09 09:09 10:55 Creatine Kinase 109 CK-MB (CK-2) 3.48 3.08 Troponin I 0.521 0.460 09/30/17 09/30/17 09/30/17 10:55 16:00 16:00 Creatine Kinase 103 97 CK-MB (CK-2) 3.63 Troponin I 0.691 Impressions: Chest X-Ray 09/29/17 20:59 IMPRESSION: Cardiomegaly without failure. Assessment & Plan - Diagnosis (1) Acute non-ST elevation myocardial infarction (NSTEMI) Is this a current diagnosis for this admission?: Yes Plan: Patient is admitted for management, consultation obtained from cardiology (2) Type 2 diabetes mellitus Qualifiers: Diabetes mellitus inspector canvas products insulin use: without inspector canvas products use Diabetes mellitus complication status: with kidney complications Diabetes mellitus complication detail: with chronic kidney disease Chronic kidney disease stage : on chronic dialysis Qualified Code(s): E11.22 - Type 2 diabetes mellitus with diabetic chronic kidney disease; N18.6 - End stage renal disease; N18.6 - End stage renal disease; N18.6 - End stage renal disease; N18.6 - End stage renal disease; Z99.2 - Dependence on renal dialysis; Z99.2 - Dependence on renal dialysis; Z99.2 - Dependence on renal dialysis; Z99.2 - Dependence on renal dialysis Is this a current diagnosis for this admission?: Yes (3) ESRD (end stage renal disease) on dialysis Is this a current diagnosis for this admission?: Yes Plan: Condition obtained from nephrology
[2017-09-30] MEDS: ACETAMINOPHEN 325 MG TABLET PO PRN (18:46)
[2017-09-30] MEDS ORDERED: CLONIDINE HCL 0.1 MG TABLET PO ONE (19:28)
[2017-09-30 19:41] LABS: INTERNATIONAL RATION (INR) 0.97; PROTHROMBIN TIME 13.4 SEC (11.4-15.4)
[2017-09-30 19:42] LABS: PARTIAL THROMBOPLASTIN TIME 46.6 SEC (23.5-35.8)
--- NOTE | 2017-09-30 20:54 | PDOC CONSULTATION ---
Consultation Consult Date: 09/30/17 Attending physician:: AKILA GALLARDO Consult reason:: Non-STEMI History of Present Illness Admission Date/PCP: 09/29/17 23:03 AKILA GALLARDO MD Patient complains of: Shortness of breath and chest pain History of Present Illness: LUKE RAMAN is a 76 year old female, She has a history of ischemic heart disease, end-stage renal disease on maintenance hemodialysis she came to the emergency room last night for evaluation of chest pain, she described as chest pressure. The 12-lead EKG that was done was sinus rhythm there was no ST segment deviation that suggest acute NE initial troponin was slightly elevated, Subsequent troponin was trending up,elevated. The constellation of the typical anginal-like chest pressure with elevated troponin in a patient with a history of CAD and also end-stage renal disease on hemodialysis it was felt that she has non-ST elevated NE. She was given antiplatelet, Plavix 300 mg p.o., aspirin 81 mg 2 tablets p.o. and also started on IV heparin per low-dose protocol for NE the blood pressure was elevated she also was started on beta- an initially metoprolol subsequently this was changed to Coreg which is a regular beta-an and also started on nitroglycerin infusion. I was asked to evaluate patient because of positive troponin I and non-STEMI and help with management. Past Medical History Cardiac Medical History: Reports: Coronary Artery Disease - cardiac stents, Myocardial Infarction - "light", Hypertension Pulmonary Medical History: Reports: Asthma, Chronic Obstructive Pulmonary Disease (COPD) Denies: Bronchitis, Pneumonia Neurological Medical History: Denies: Seizures Endocrine Medical History: Reports: Diabetes Mellitus Type 2 Renal/ Medical History: Reports: End Stage Renal Disease Musculoskeltal Medical History: Reports: Arthritis - neck Psychiatric Medical History: Reports: Depression - stress related Hematology: Reports: Anemia Past Surgical History Past Surgical History: Reports: Cardiac Catheterization - Stent placement, Cholecystectomy, Tubal Ligation Social History Information Source: Patient Lives with: Family Smoking Status: Never Smoker Frequency of Alcohol Use: None Hx Recreational Drug Use: No Hx Prescription Drug Abuse: No - Advance Directive Resuscitation Status: Full Code Family History Family History: Hypertension Parental Family History Reviewed: Yes Children Family History Reviewed: Yes Sibling(s) Family History Reviewed.: Yes Medication/Allergy Home Medications: Amlodipine Besylate [Norvasc 10 mg Tablet] 10 mg PO QHS 09/30/17 Budesonide/Formoterol Fumarate [Symbicort Hfa 160-4.5 Mcg Inhaler 6 gm] 2 puff IH Q12 09/30/17 Carvedilol [Coreg 12.5 mg Tablet] 12.5 mg PO Q12 09/30/17 Clonidine HCl [Catapres] 0.3 mg PO Q8 09/30/17 Clopidogrel Bisulfate [Plavix 75 mg Tablet] 75 mg PO DAILY 09/30/17 Doxazosin Mesylate [Cardura] 2 mg PO QHS 09/30/17 Famotidine [Pepcid 20 mg Tablet] 20 mg PO BID 09/30/17 Folic Acid/Vit B Complex and C [Anny-Brittany Tablet] 0.8 mg PO DAILY 09/30/17 Isosorbide Mononitrate [Imdur 60 mg Tablet.er] 60 mg PO Q12 09/30/17 Omeprazole 20 mg PO DAILY 09/30/17 Sevelamer Carbonate [Renvela] 2,400 mg PO AC 09/30/17 Sitagliptin Phosphate [Januvia 25 mg Tablet] 25 mg PO DAILY 09/30/17 Allergies/Adverse Reactions: codeine [Codeine] Allergy (Verified 08/25/17 07:45) ITCHING morphine [Morphine] Allergy (Verified 08/25/17 07:45) ITCHING Penicillins Allergy (Verified 08/25/17 07:45) ITCHING tomato Allergy (Verified 08/25/17 07:45) ITCHING Review of Systems ROS unobtainable: Other - Severe respiratory distress on 100% oxygen. Physical Exam Vital Signs: Temp Pulse Resp BP Pulse Ox 98.1 F 70 21 H 177/56 H 93 09/30/17 18:00 09/30/17 20:00 09/30/17 20:00 09/30/17 20:00 09/30/17 20:00 Intake & Output 09/29/17 09/30/17 10/01/17 06:59 06:59 06:59 Intake Total 46 70 Output Total 0 Balance 46 70 Weight 66.4 kg Exam: GENERAL: Thin built noted in severe respiratory distress. Patient alert but orientation not checked due to respiratory distress. HEAD: Atraumatic, normocephalic. EYES: Pupils equal round and reactive to light, extraocular movements intact, sclera anicteric, conjunctiva are normal. ENT: TMs normal, nares patent, oropharynx clear without exudates. Moist mucous membranes. No oral ulcerations or bleeding gums noted NECK: supple without lymphadenopathy. Trachea is central. No cervical or axillary lymphadenopathy noted. Carotids are 2+, JVD WNL LUNGS: Respiration seems nonlabored, no significant accessory muscle action noted. Bibasilar fine crackles and scattered bilateral wheezing noted. CHEST: Palpation of the chest wall shows no significant chest wall tenderness. HEART: Victoria EXPORT ADMINISTRATOR, No PSH, 2/6 LUL aortic area, 1/6 chaudhry systolic murmur mitral area , no rubs, no gallops. ABDOMEN: Soft, no significant tenderness appreciated, normoactive bowel sounds. No guarding, no rebound. No rigidity noted . No masses appreciated. EXTREMITIES: Pedal pulses are 1-2+, no calf tenderness noted. No clubbing or cyanosis. negative pedal edema noted NEUROLOGICAL: Focused neurological exam showed no significant neurologic deficit. Normal speech, no focal weakness appreciated. PSYCH: Not evaluated as patient was noted to be in severe respiratory distress. SKIN: No significant ecchymosis, skin is noted to be warm. MUSCULOSKELETAL EXAM: No significant acute joint swelling noted. Results Laboratory Results: 09/30/17 04:41 09/30/17 10:55 09/30/17 09/30/17 09/30/17 00:50 04:41 10:55 WBC 4.5 RBC 3.24 L Hgb 9.8 L Hct 30.2 L MCV 93 MCH 30.3 MCHC 32.5 RDW 19.2 H Plt Count 159 Seg Neutrophils % 54.9 Lymphocytes % 31.3 Monocytes % 8.8 Eosinophils % 3.5 Basophils % 1.5 Absolute Neutrophils 2.5 Absolute Lymphocytes 1.4 Absolute Monocytes 0.4 Absolute Eosinophils 0.2 Absolute Basophils 0.1 Sodium 141.4 Potassium 5.2 H Chloride 99 Carbon Dioxide 28 Anion Gap 14 BUN 45 H Creatinine 7.86 H Est GFR ( Amer) 6 L Est GFR (Non-Af Amer) 5 L Glucose 136 H Calcium 9.5 Phosphorus 4.7 H Magnesium 2.4 H 09/30/17 09/30/17 09/30/17 00:50 04:41 04:41 Creatine Kinase 94 CK-MB (CK-2) 3.19 Troponin I 0.390 0.451 09/30/17 09/30/17 09/30/17 09:09 09:09 10:55 Creatine Kinase 109 CK-MB (CK-2) 3.48 3.08 Troponin I 0.521 0.460 09/30/17 09/30/17 09/30/17 10:55 16:00 16:00 Creatine Kinase 103 97 CK-MB (CK-2) 3.63 Troponin I 0.691 Impressions: Chest X-Ray 09/29/17 20:59 IMPRESSION: Cardiomegaly without failure. Assessment & Plan - Diagnosis (1) Acute non-ST elevation myocardial infarction (NSTEMI) Is this a current diagnosis for this admission?: Yes (2) Accelerated hypertension Is this a current diagnosis for this admission?: Yes (3) Chest pain Qualifiers: Chest pain type: unspecified Qualified Code(s): R07.9 - Chest pain, unspecified Is this a current diagnosis for this admission?: Yes (4) ESRD (end stage renal disease) on dialysis Is this a current diagnosis for this admission?: Yes (5) Type 2 diabetes mellitus Qualifiers: Diabetes mellitus termite control service representative insulin use: without termite control service representative use Diabetes mellitus complication status: with kidney complications Diabetes mellitus complication detail: with chronic kidney disease Chronic kidney disease stage : on chronic dialysis Qualified Code(s): E11.22 - Type 2 diabetes mellitus with diabetic chronic kidney disease; N18.6 - End stage renal disease; N18.6 - End stage renal disease; N18.6 - End stage renal disease; N18.6 - End stage renal disease; Z99.2 - Dependence on renal dialysis; Z99.2 - Dependence on renal dialysis; Z99.2 - Dependence on renal dialysis; Z99.2 - Dependence on renal dialysis Is this a current diagnosis for this admission?: Yes (6) CHF (congestive heart failure) Qualifiers: Heart failure type: diastolic Heart failure chronicity: acute on chronic Qualified Code(s): I50.33 - Acute on chronic diastolic (congestive) heart failure Is this a current diagnosis for this admission?: Yes - Notes Notes: Non-STEMI recommend heparin drip, good control of blood pressure, statin therapy. Continue with beta-an, optimize dose. Agree with nitrates and nitroglycerin drip. Remove fluid on dialysis. Once patient more stable will consider stress testing. Non-STEMI: Patient ruled in for non-STEMI by virtue of having chest pain and also having positive enzymes. EKG so far has been negative. Will repeat EKG for any evolving changes. Management for non-STEMI already is started. Patient to be continued on heparin, dual antiplatelet therapy, beta-an therapy, statin therapy. Accelerated hypertension: Recommend aggressive management of blood pressure but avoid any hypotension. Currently patient on nitroglycerin drip. Continue to titrate to keep blood pressure around 130-140 range. Chest pain: Due to non-STEMI. End-stage renal disease: Patient seems fluid overloaded and would need dialysis. This was related to Dr. Toussaint. Diabetes: Recommend good management but avoid any hypo-or hyperglycemia. CHF: Patient currently volume overloaded and in severe respiratory distress. Feel that fluid removal on dialysis will help. Patient also given sublingual nitroglycerin to help remove fluid from central circulation. - Time Time Spent: 50 to 70 Minutes - CODE STATUS was discussed, patient remains full code. Surrogate decision-maker unchanged. Multiple medical problems were addressed. More than 50% of the time spent coordinating care, discussing management plans with involved caregivers. Management plans discussed with involved personnels. Medical decision making was of moderate to high complexity , patient's has multiple comorbidities. Medications reviewed and adjusted accordingly: Yes
[2017-09-30] MEDS: AMLODIPINE BESYLATE 10 MG TABLET PO SCH (21:45)
[2017-09-30] MEDS: CARVEDILOL 12.5 MG TABLET PO SCH (21:45)
[2017-09-30] MEDS ORDERED: AMLODIPINE BESYLATE 10 MG TABLET PO SCH (22:00)
[2017-09-30 23:08] LABS: CREATINE KINASE MB 3.71 ng/mL (<4.55); TROPONIN I 0.93 ng/mL
--- NOTE | 2017-09-30 23:16 | EKG REPORT ---
SEVERITY:- ABNORMAL ECG - SINUS RHYTHM CONSIDER LEFT VENTRICULAR HYPERTROPHY BORDERLINE PROLONGED QT INTERVAL : Confirmed by: Wilton Cheatham 30-Sep-2017 23:16:02
--- NOTE | 2017-09-30 23:17 | EKG REPORT ---
SEVERITY:- BORDERLINE ECG - SINUS RHYTHM BORDERLINE PROLONGED QT INTERVAL : Confirmed by: Wilton Cheatham 30-Sep-2017 23:16:17
[2017-10-01 04:17] LABS: ABSOLUTE BASOPHILS # (AUTO) 0.1 10^3/uL (0.0-0.2); ABSOLUTE EOSINOPHILS # (AUTO) 0.1 10^3/uL (0.0-0.6); ABSOLUTE LYMPHOCYTES (AUTO) 0.9 10^3/uL (0.5-4.7); ABSOLUTE MONOCYTES (AUTO) 0.5 10^3/uL (0.1-1.4); ABSOLUTE NEUT (AUTO) 2.9 10^3/uL (1.7-8.2); BASOPHILS % (AUTO) 1.5 % (0-2); EOSINOPHILS % (AUTO) 2.7 % (0-6); HEMATOCRIT 30.1 % (36.0-47.0); HEMOGLOBIN 9.7 g/dL (12.0-15.5); MEAN CORPUSCULAR HEMOGLOBIN 30.2 pg (27.0-33.4); MEAN CORPUSCULAR HGB CONC 32.4 g/dL (32.0-36.0); MEAN CORPUSCULAR VOLUME 93 fl (80-97); MONOCYTES % (AUTO) 10.9 % (3-13); PLATELET COUNT 153 10^3/uL (150-450); RED BLOOD COUNT 3.23 10^6/uL (3.72-5.28); RED CELL DISTRIBUTION WIDTH 18.8 % (11.5-14.0); SEGMENTED NEUTROPHILS % (AUTO) 63.9 % (42-78); TOTAL CELLS COUNTED % (AUTO) 100 %; WHITE BLOOD COUNT 4.5 10^3/uL (4.0-10.5)
[2017-10-01 04:35] LABS: ANION GAP 11 (5-19); CALCIUM 9.5 mg/dL (8.4-10.2); CARBON DIOXIDE 33 mmol/L (22-30); CHLORIDE 97 mmol/L (98-107); CREATINE KINASE 84 U/L (30-135); GLUCOSE 131 mg/dL (75-110); POTASSIUM 4.4 mmol/L (3.6-5.0); SODIUM 141.2 mmol/L (137-145); TRIGLYCERIDES 68 mg/dL (<150)
[2017-10-01 04:45] LABS: DIRECT LDL 40 mg/dL (<100)
[2017-10-01 04:47] LABS: CREATINE KINASE MB 4.31 ng/mL (<4.55)
[2017-10-01 05:00] LABS: TROPONIN I 1.17 ng/mL
[2017-10-01] MEDS: CLONIDINE HCL 0.1 MG TABLET PO SCH ×3 (05:14→21:14)
[2017-10-01] MEDS: LANSOPRAZOLE 15 MG TAB.RAP.DR PO SCH (05:14)
[2017-10-01] MEDS: HEPARIN SODIUM,PORCINE/D5W 25,000 UNIT/250 ML RTUINJ IV PRN (06:34)
[2017-10-01] MEDS: NITROGLYCERIN/D5W 50 MG/250 ML RTUINJ IV PRN (06:35)
[2017-10-01 07:05] LABS: BLOOD UREA NITROGEN 25 mg/dL (7-20)
[2017-10-01] MEDS: ASPIRIN 81 MG TABLET, ENT COATED PO SCH (08:31)
[2017-10-01] MEDS: CLOPIDOGREL BISULFATE 75 MG TABLET PO SCH (08:32)
[2017-10-01] MEDS: FAMOTIDINE 20 MG TABLET PO SCH ×2 (08:32→17:00)
[2017-10-01] MEDS: ISOSORBIDE MONONITRATE 60 MG TAB.ER.24H PO SCH ×2 (08:32→21:15)
[2017-10-01] MEDS: BUDESONIDE/FORMOTEROL 160-4.5 MCG 60 PUFF/6 GM MDI IH SCH ×2 (08:33→17:00)
[2017-10-01] MEDS: CARVEDILOL 12.5 MG TABLET PO SCH ×2 (08:39→21:13)
[2017-10-01] MEDS: CYANOCOBALAMIN/FA/PYRIDOXINE TABLET PO SCH (08:39)
--- NOTE | 2017-10-01 08:47 | XCELERA REPORT ---
[address] [address] Transthoracic Echocardiogram Report Name: LUKE RAMAN Age: 76 yrs Gender: Female : 1940 Patient Status: Inpatient Patient Location: [address] [place] [address] Study Date: 09/30/2017 08:40 AM Height: 64 in Weight: 146 lb BSA: 1.7 m2 Procedure: A complete two-dimensional transthoracic echocardiogram was performed (2D, M-mode, spectral and color flow Doppler). The study was technically adequate with some images being suboptimal in quality. Reason For Study: CP Ordering Physician: AKILA GALLARDO Performed By: Delroy Poon Interpretation Summary The left ventricular ejection fraction is normal. There is moderate concentric left ventricular hypertrophy. The left ventricle is grossly normal size. Doppler measurements suggest pseudonormalized left ventricular relaxation, which is associated with grade II/IV or mild to moderate diastolic dysfunction Wall motion cannot be accurately commented on, but no definite regional wall motion abnormalities noted. The right ventricular systolic function is normal. Borderline right atrial enlargement. The left atrium is moderately dilated. There is a mild amount of mitral regurgitation No significant mitral valve stenosis. There is no aortic valve stenosis There is a mild amount of aortic regurgitation There is a mild amount of tricuspid regurgitation There is mild pulmonary hypertension by echo Right ventricular systolic pressure is estimated to be elevated at 30- 40mmHg. The aortic root is not well visualized but is probably normal size. The inferior vena cava was not well visualized There is no pericardial effusion. MMode/2D Measurements & Calculations RVDd: 3.3 cm LVIDd: 4.7 cmFS: 32.7 % Ao root diam: 3.6 cm IVSd: 1.3 cm LVIDs: 3.2 cmEDV(Teich): 103.2 ml LVPWd: 1.5 cmESV(Teich): 40.2 ml Ao root area: 10.0 cm2 EF(Teich): 61.1 % LVOT diam: 1.8 cm LVOT area: 2.4 cm2 Doppler Measurements & Calculations MV E max oliva: MV V2 max: MV dec slope: Ao V2 max: 168.5 cm/sec 195.9 cm/sec 818.9 cm/sec2 164.3 cm/sec MV A max oliva: MV max PG: MV dec time: Ao max P.9 cm/sec 15.4 mmHg 0.21 sec 10.8 mmHg MV E/A: 1.3 MV V2 mean: BHAVANA(V,D): 2.3 cm2 94.4 cm/sec MV mean P.6 mmHg MV V2 VTI: 45.6 cm MVA(VTI): 1.5 cm2 AI max oliva: LV V1 max PG: SV(LVOT): 66.1 ml PA V2 max: 438.8 cm/sec 9.8 mmHg 63.9 cm/sec AI max P.0 mmHgLV V1 mean PG: PA max PG: AI dec slope: 3.2 mmHg 1.6 mmHg 380.1 cm/sec2 LV V1 max: AI P1/2t: 338.2 [id number] cm/sec LV V1 mean: 83.1 cm/sec LV V1 VTI: 27.3 cm TR max oliva: 285.6 cm/sec TR max P.6 mmHg Left Ventricle The left ventricle is grossly normal size. There is moderate concentric left ventricular hypertrophy. The left ventricular ejection fraction is normal. Doppler measurements suggest pseudonormalized left ventricular relaxation, which is associated with grade II/IV or mild to moderate diastolic dysfunction. Wall motion cannot be accurately commented on, but no definite regional wall motion abnormalities noted. Right Ventricle The right ventricle is grossly normal size. There is normal right ventricular wall thickness. The right ventricular systolic function is normal. Atria Borderline right atrial enlargement. The left atrium is moderately dilated. Interarterial septum not well visualized and not well dopplered. Cannot comment on ASD/PFO presence. Mitral Valve There is moderate mitral leaflet calcification. No significant mitral valve stenosis. There is a mild amount of mitral regurgitation. Aortic Valve The aortic valve is not well visualized secondary to technical limitations. There is no aortic valve stenosis. There is a mild amount of aortic regurgitation. Tricuspid Valve The tricuspid valve is not well visualized, but is grossly normal. There is no tricuspid stenosis. There is a mild amount of tricuspid regurgitation. There is mild pulmonary hypertension by echo. Right ventricular systolic pressure is estimated to be elevated at 30-40mmHg. Pulmonic Valve The pulmonic valve is not well visualized. Great Vessels The aortic root is not well visualized but is probably normal size. The inferior vena cava was not well visualized. Effusions There is no pericardial effusion. : AKILA GALLARDO > Wilton Cheatham
[2017-10-01] MEDS ORDERED: ATORVASTATIN CALCIUM 80 MG TABLET PO ONE (09:30)
[2017-10-01] MEDS ORDERED: METOPROLOL SUCCINATE 50 MG TAB.SR.24H PO SCH (10:00)
[2017-10-01] MEDS: SITAGLIPTIN PHOSPHATE 25 MG TABLET PO SCH (10:40)
[2017-10-01 11:58] LABS: CREATINE KINASE MB 4.18 ng/mL (<4.55); TROPONIN I 1.45 ng/mL
--- NOTE | 2017-10-01 13:44 | PDOC PROGRESS REPORT ---
Subjective Progress Note for:: 10/01/17 Subjective:: Patient was seen today laying almost flat in bed. She denied any chest pain or sob. She was still on a nitro drip. She denies n/v/d/c, fevers or chills. Her only complaint is her chronic neck pain. Reason For Visit: ACUTE NSTMI, ESRD ON HEMODIALYSIS Physical Exam Vital Signs: Temp Pulse Resp BP Pulse Ox 97.9 F 70 16 145/54 H 98 10/01/17 10:00 10/01/17 10:00 10/01/17 12:18 10/01/17 12:18 10/01/17 12:18 Intake & Output 09/30/17 10/01/17 10/02/17 06:59 06:59 06:59 Intake Total 46 310 720 Output Total 0 3000 0 Balance 46 -2690 720 Weight 66.4 kg 63.7 kg General appearance: PRESENT: no acute distress, well-developed, well-nourished Mouth exam: PRESENT: moist, neck supple Neck exam: PRESENT: full ROM. ABSENT: JVD, tenderness Respiratory exam: PRESENT: crackles - -bases of the lungs. ABSENT: accessory muscle use, clear to auscultation buddy, rales, rhonchi, wheezes Cardiovascular exam: PRESENT: +S1, +S2 GI/Abdominal exam: PRESENT: normal bowel sounds, soft. ABSENT: organomegaly, tenderness Extremities exam: ABSENT: pedal edema, tenderness, +1 edema, +2 edema Musculoskeletal exam: PRESENT: normal inspection. ABSENT: tenderness Neurological exam: PRESENT: alert, awake, oriented to person, oriented to place , oriented to time, oriented to situation Psychiatric exam: PRESENT: appropriate affect, normal mood Skin exam: PRESENT: intact, warm. ABSENT: cyanosis Results Laboratory Results: 10/01/17 04:05 10/01/17 04:05 10/01/17 10/01/17 04:05 04:05 WBC 4.5 RBC 3.23 L Hgb 9.7 L Hct 30.1 L MCV 93 MCH 30.2 MCHC 32.4 RDW 18.8 H Plt Count 153 Seg Neutrophils % 63.9 Lymphocytes % 21.0 Monocytes % 10.9 Eosinophils % 2.7 Basophils % 1.5 Absolute Neutrophils 2.9 Absolute Lymphocytes 0.9 Absolute Monocytes 0.5 Absolute Eosinophils 0.1 Absolute Basophils 0.1 Sodium 141.2 Potassium 4.4 Chloride 97 L Carbon Dioxide 33 H Anion Gap 11 BUN 25 H D Creatinine 5.48 H Est GFR ( Amer) 9 L Est GFR (Non-Af Amer) 8 L Glucose 131 H Calcium 9.5 Triglycerides 68 Cholesterol 120.40 LDL Cholesterol Direct 40 VLDL Cholesterol 14.0 HDL Cholesterol 53 09/30/17 09/30/17 09/30/17 00:50 04:41 04:41 Creatine Kinase 94 CK-MB (CK-2) 3.19 Troponin I 0.390 0.451 09/30/17 09/30/17 09/30/17 09:09 09:09 10:55 Creatine Kinase 109 CK-MB (CK-2) 3.48 3.08 Troponin I 0.521 0.460 09/30/17 09/30/17 09/30/17 10:55 16:00 16:00 Creatine Kinase 103 97 CK-MB (CK-2) 3.63 Troponin I 0.691 09/30/17 09/30/17 10/01/17 22:00 22:00 04:05 Creatine Kinase 97 84 CK-MB (CK-2) 3.71 Troponin I 0.930 10/01/17 10/01/17 10/01/17 04:05 11:05 11:05 Creatine Kinase 68 CK-MB (CK-2) 4.31 4.18 Troponin I 1.170 1.450 Impressions: Chest X-Ray 09/29/17 20:59 IMPRESSION: Cardiomegaly without failure. Assessment & Plan - Diagnosis (1) ESRD (end stage renal disease) on dialysis Is this a current diagnosis for this admission?: Yes Plan: will look to do dialysis tomorrow (2) Acute non-ST elevation myocardial infarction (NSTEMI) Is this a current diagnosis for this admission?: Yes Plan: per Dr. Cheatham (3) CHF (congestive heart failure) Qualifiers: Heart failure type: diastolic Heart failure chronicity: acute on chronic Qualified Code(s): I50.33 - Acute on chronic diastolic (congestive) heart failure Is this a current diagnosis for this admission?: Yes Plan: will continue to remove fluid with dialysis tomorrow (4) Anemia in CKD (chronic kidney disease) Plan: she could not receive her dose epogen while on dialysis yesterday due to elevated bp in the 180s. (5) Chest pain Qualifiers: Chest pain type: unspecified Qualified Code(s): R07.9 - Chest pain, unspecified Is this a current diagnosis for this admission?: Yes Plan: per Dr. Cheatham (6) Type 2 diabetes mellitus Qualifiers: Diabetes mellitus correction insulin use: without kiln furniture saw tender use Diabetes mellitus complication status: with kidney complications Diabetes mellitus complication detail: with chronic kidney disease Chronic kidney disease stage : on chronic dialysis Qualified Code(s): E11.22 - Type 2 diabetes mellitus with diabetic chronic kidney disease; N18.6 - End stage renal disease; N18.6 - End stage renal disease; N18.6 - End stage renal disease; N18.6 - End stage renal disease; Z99.2 - Dependence on renal dialysis; Z99.2 - Dependence on renal dialysis; Z99.2 - Dependence on renal dialysis; Z99.2 - Dependence on renal dialysis Is this a current diagnosis for this admission?: Yes (7) Accelerated hypertension Is this a current diagnosis for this admission?: Yes Plan: down to the 130s to 150s, will reassess medications once more fluid is removed (8) Hyperkalemia Plan: stable
[2017-10-01] MEDS: AMLODIPINE BESYLATE 10 MG TABLET PO SCH (21:15)
--- NOTE | 2017-10-01 21:45 | PDOC PROGRESS REPORT ---
Subjective Progress Note for:: 10/01/17 Subjective:: She was seen by the bedside, she was admitted for the management of acute non- ST elevated IL, the troponin peaked at 1.45, she is still on IV heparin, antiplatelet, she was hemodialyzed yesterday, presently pain-free Reason For Visit: ACUTE NSTMI, ESRD ON HEMODIALYSIS Physical Exam Vital Signs: Temp Pulse Resp BP Pulse Ox 97.9 F 68 19 157/122 H 100 10/01/17 19:20 10/01/17 19:55 10/01/17 20:18 10/01/17 20:18 10/01/17 20:18 Intake & Output 09/30/17 10/01/17 10/02/17 06:59 06:59 06:59 Intake Total 46 310 1235 Output Total 0 3000 0 Balance 46 -2690 1235 Weight 66.4 kg 63.7 kg General appearance: PRESENT: no acute distress Eye exam: PRESENT: PERRLA Respiratory exam: PRESENT: clear to auscultation buddy Cardiovascular exam: PRESENT: +S1, +S2 GI/Abdominal exam: PRESENT: soft Neurological exam: PRESENT: alert Results Laboratory Results: 10/01/17 04:05 10/01/17 04:05 10/01/17 10/01/17 04:05 04:05 WBC 4.5 RBC 3.23 L Hgb 9.7 L Hct 30.1 L MCV 93 MCH 30.2 MCHC 32.4 RDW 18.8 H Plt Count 153 Seg Neutrophils % 63.9 Lymphocytes % 21.0 Monocytes % 10.9 Eosinophils % 2.7 Basophils % 1.5 Absolute Neutrophils 2.9 Absolute Lymphocytes 0.9 Absolute Monocytes 0.5 Absolute Eosinophils 0.1 Absolute Basophils 0.1 Sodium 141.2 Potassium 4.4 Chloride 97 L Carbon Dioxide 33 H Anion Gap 11 BUN 25 H D Creatinine 5.48 H Est GFR ( Amer) 9 L Est GFR (Non-Af Amer) 8 L Glucose 131 H Calcium 9.5 Triglycerides 68 Cholesterol 120.40 LDL Cholesterol Direct 40 VLDL Cholesterol 14.0 HDL Cholesterol 53 09/30/17 09/30/17 09/30/17 00:50 04:41 04:41 Creatine Kinase 94 CK-MB (CK-2) 3.19 Troponin I 0.390 0.451 09/30/17 09/30/17 09/30/17 09:09 09:09 10:55 Creatine Kinase 109 CK-MB (CK-2) 3.48 3.08 Troponin I 0.521 0.460 09/30/17 09/30/17 09/30/17 10:55 16:00 16:00 Creatine Kinase 103 97 CK-MB (CK-2) 3.63 Troponin I 0.691 09/30/17 09/30/17 10/01/17 22:00 22:00 04:05 Creatine Kinase 97 84 CK-MB (CK-2) 3.71 Troponin I 0.930 10/01/17 10/01/17 10/01/17 04:05 11:05 11:05 Creatine Kinase 68 CK-MB (CK-2) 4.31 4.18 Troponin I 1.170 1.450 Impressions: Chest X-Ray 09/29/17 20:59 IMPRESSION: Cardiomegaly without failure. Assessment & Plan - Diagnosis (1) Acute non-ST elevation myocardial infarction (NSTEMI) Is this a current diagnosis for this admission?: Yes Plan: Continue present anti-ischemic therapy (2) Type 2 diabetes mellitus Qualifiers: Diabetes mellitus long term care administrator insulin use: without long term care administrator use Diabetes mellitus complication status: with kidney complications Diabetes mellitus complication detail: with chronic kidney disease Chronic kidney disease stage : on chronic dialysis Qualified Code(s): E11.22 - Type 2 diabetes mellitus with diabetic chronic kidney disease; N18.6 - End stage renal disease; N18.6 - End stage renal disease; N18.6 - End stage renal disease; N18.6 - End stage renal disease; Z99.2 - Dependence on renal dialysis; Z99.2 - Dependence on renal dialysis; Z99.2 - Dependence on renal dialysis; Z99.2 - Dependence on renal dialysis Is this a current diagnosis for this admission?: Yes (3) ESRD (end stage renal disease) on dialysis Is this a current diagnosis for this admission?: Yes
--- NOTE | 2017-10-01 23:28 | EKG REPORT ---
SEVERITY:- ABNORMAL ECG - SINUS RHYTHM CONSIDER LEFT VENTRICULAR HYPERTROPHY BORDERLINE PROLONGED QT INTERVAL : Confirmed by: Wilton Cheatham 01-Oct-2017 23:27:36
[2017-10-02 03:44] LABS: HEMATOCRIT 29.4 % (36.0-47.0); HEMOGLOBIN 9.7 g/dL (12.0-15.5); MEAN CORPUSCULAR HEMOGLOBIN 30.5 pg (27.0-33.4); MEAN CORPUSCULAR VOLUME 92 fl (80-97); PLATELET COUNT 158 10^3/uL (150-450); RED BLOOD COUNT 3.18 10^6/uL (3.72-5.28); RED CELL DISTRIBUTION WIDTH 18.5 % (11.5-14.0); WHITE BLOOD COUNT 4.5 10^3/uL (4.0-10.5)
[2017-10-02 04:04] LABS: ANION GAP 12 (5-19); CALCIUM 9.2 mg/dL (8.4-10.2); CARBON DIOXIDE 31 mmol/L (22-30); CHLORIDE 93 mmol/L (98-107); GLUCOSE 131 mg/dL (75-110); POTASSIUM 5.2 mmol/L (3.6-5.0); SODIUM 135.8 mmol/L (137-145)
[2017-10-02 04:13] LABS: BLOOD UREA NITROGEN 45 mg/dL (7-20)
[2017-10-02] MEDS: LANSOPRAZOLE 15 MG TAB.RAP.DR PO SCH (05:34)
[2017-10-02] MEDS: CLONIDINE HCL 0.1 MG TABLET PO SCH ×3 (05:34→22:33)
[2017-10-02] MEDS: HEPARIN SODIUM,PORCINE/D5W 25,000 UNIT/250 ML RTUINJ IV PRN (06:34)
[2017-10-02] MEDS ORDERED: EPOETIN ALFA INJ 20000 UNIT/1 ML VIAL (RENAL) IV PRN (07:15)
[2017-10-02] MEDS ORDERED: EPOETIN ALFA 10,000 UNIT in SYRINGE, DISPOSABLE, 1 EACH IV PRN (08:05)
--- NOTE | 2017-10-02 10:40 | Physician Advisory Note ---
Physician Advisor ProgressNote .: Pursuant to the plan for [facility], I have reviewed the medical record for this patient. Physician Advisor Statement: Please consider documenting, if you agree: 1. "chronic diastolic CHF" -If pt has never had s/s from diastolic dysfunction, then, per current classification system, its still called CHF - just stage B CHF (structural heart disease without sx in past or present) instead of stage C CHF (CHF with sx in past &/or present). 2. "mild pulmonary HTN" (per ECHO) Thanks! CK
--- NOTE | 2017-10-02 11:55 | PDOC PROGRESS REPORT ---
Subjective Progress Note for:: 10/02/17 Reason For Visit: Patient seen on dialysis today. She is undergoing dialysis without any issues. She is chest pain free. She denies any history of shortness of breath. Orders were discussed with the treating dialysis nurse Maria Elena. Labs and medications were reviewed. Physical Exam Vital Signs: Temp Pulse Resp BP Pulse Ox 97.9 F 68 17 167/59 H 99 10/02/17 05:55 10/01/17 19:55 10/02/17 06:00 10/02/17 05:18 10/02/17 06:00 Intake & Output 10/01/17 10/02/17 10/03/17 06:59 06:59 06:59 Intake Total 310 1327 Output Total 3000 0 Balance -2690 1327 Weight 63.7 kg 63 kg General appearance: PRESENT: no acute distress Respiratory exam: PRESENT: clear to auscultation buddy. ABSENT: crackles, rhonchi Cardiovascular exam: PRESENT: +S1, +S2 GI/Abdominal exam: PRESENT: normal bowel sounds, soft. ABSENT: organomegaly, tenderness Neurological exam: PRESENT: alert, awake, oriented to person, oriented to place Results Laboratory Results: 10/02/17 03:30 10/02/17 03:30 10/02/17 10/02/17 03:30 03:30 WBC 4.5 RBC 3.18 L Hgb 9.7 L Hct 29.4 L MCV 92 MCH 30.5 MCHC 33.0 RDW 18.5 H Plt Count 158 Sodium 135.8 L Potassium 5.2 H Chloride 93 L Carbon Dioxide 31 H Anion Gap 12 BUN 45 H D Creatinine 7.55 H Est GFR ( Amer) 6 L Est GFR (Non-Af Amer) 5 L Glucose 131 H Calcium 9.2 09/30/17 09/30/17 09/30/17 00:50 04:41 04:41 Creatine Kinase 94 CK-MB (CK-2) 3.19 Troponin I 0.390 0.451 09/30/17 09/30/17 09/30/17 09:09 09:09 10:55 Creatine Kinase 109 CK-MB (CK-2) 3.48 3.08 Troponin I 0.521 0.460 09/30/17 09/30/17 09/30/17 10:55 16:00 16:00 Creatine Kinase 103 97 CK-MB (CK-2) 3.63 Troponin I 0.691 09/30/17 09/30/17 10/01/17 22:00 22:00 04:05 Creatine Kinase 97 84 CK-MB (CK-2) 3.71 Troponin I 0.930 10/01/17 10/01/17 10/01/17 04:05 11:05 11:05 Creatine Kinase 68 CK-MB (CK-2) 4.31 4.18 Troponin I 1.170 1.450 Impressions: Chest X-Ray 09/29/17 20:59 IMPRESSION: Cardiomegaly without failure. Assessment & Plan - Diagnosis (1) ESRD (end stage renal disease) on dialysis Is this a current diagnosis for this admission?: Yes Plan: Patient undergoing dialysis without any issues. Vital signs are stable. Is being supervised to ensure safe and smooth procedure. Orders were discussed with the treating dialysis nurse. We will remove approximately 2 L of fluid as tolerated. (2) Accelerated hypertension Is this a current diagnosis for this admission?: Yes Plan: Much improved. Monitor. See response to dialysis. (3) Chest pain Qualifiers: Chest pain type: unspecified Qualified Code(s): R07.9 - Chest pain, unspecified Is this a current diagnosis for this admission?: Yes Plan: As per Dr. Curry and Dr. Cheatham. Apparent non-STEMI. (4) Anemia in CKD (chronic kidney disease) Plan: Hold off on erythropoietin. (5) Hyperkalemia Plan: Should respond to dialysis.
[2017-10-02] MEDS: CARVEDILOL 12.5 MG TABLET PO SCH ×2 (12:12→22:33)
[2017-10-02] MEDS: CLOPIDOGREL BISULFATE 75 MG TABLET PO SCH (12:13)
[2017-10-02] MEDS: FAMOTIDINE 20 MG TABLET PO SCH ×2 (12:13→17:13)
[2017-10-02] MEDS: ASPIRIN 81 MG TABLET, ENT COATED PO SCH (12:13)
[2017-10-02] MEDS: ISOSORBIDE MONONITRATE 60 MG TAB.ER.24H PO SCH ×2 (12:14→22:33)
[2017-10-02] MEDS: BUDESONIDE/FORMOTEROL 160-4.5 MCG 60 PUFF/6 GM MDI IH SCH ×2 (12:14→17:16)
[2017-10-02] MEDS: CYANOCOBALAMIN/FA/PYRIDOXINE TABLET PO SCH (12:14)
[2017-10-02] MEDS: SITAGLIPTIN PHOSPHATE 25 MG TABLET PO SCH (12:15)
--- NOTE | 2017-10-02 21:05 | EKG REPORT ---
SEVERITY:- ABNORMAL ECG - SINUS RHYTHM PROBABLE LEFT VENTRICULAR HYPERTROPHY BORDERLINE T ABNORMALITIES, INFERIOR LEADS : Confirmed by: Wilton Cheatham 02-Oct-2017 21:05:28
--- NOTE | 2017-10-02 21:33 | PDOC PROGRESS REPORT ---
Subjective Progress Note for:: 10/02/17 Subjective:: She was seen by the bedside, she is presently chest pain-free she was hemodialyzed today still on intravenous heparin Reason For Visit: ACUTE NSTMI, ESRD ON HEMODIALYSIS Physical Exam Vital Signs: Temp Pulse Resp BP Pulse Ox 98.2 F 69 18 171/87 H 99 10/02/17 20:00 10/02/17 20:00 10/02/17 20:00 10/02/17 19:49 10/02/17 20:00 Intake & Output 10/01/17 10/02/17 10/03/17 06:59 06:59 06:59 Intake Total 310 1327 485 Output Total 3000 0 50 Balance -2690 1327 435 Weight 63.7 kg 63 kg General appearance: PRESENT: no acute distress Eye exam: PRESENT: PERRLA Respiratory exam: PRESENT: clear to auscultation buddy Cardiovascular exam: PRESENT: +S1, +S2 GI/Abdominal exam: PRESENT: soft Neurological exam: PRESENT: alert Results Laboratory Results: 10/02/17 03:30 10/02/17 03:30 10/02/17 10/02/17 03:30 03:30 WBC 4.5 RBC 3.18 L Hgb 9.7 L Hct 29.4 L MCV 92 MCH 30.5 MCHC 33.0 RDW 18.5 H Plt Count 158 Sodium 135.8 L Potassium 5.2 H Chloride 93 L Carbon Dioxide 31 H Anion Gap 12 BUN 45 H D Creatinine 7.55 H Est GFR ( Amer) 6 L Est GFR (Non-Af Amer) 5 L Glucose 131 H Calcium 9.2 09/30/17 09/30/17 09/30/17 00:50 04:41 04:41 Creatine Kinase 94 CK-MB (CK-2) 3.19 Troponin I 0.390 0.451 09/30/17 09/30/17 09/30/17 09:09 09:09 10:55 Creatine Kinase 109 CK-MB (CK-2) 3.48 3.08 Troponin I 0.521 0.460 09/30/17 09/30/17 09/30/17 10:55 16:00 16:00 Creatine Kinase 103 97 CK-MB (CK-2) 3.63 Troponin I 0.691 09/30/17 09/30/17 10/01/17 22:00 22:00 04:05 Creatine Kinase 97 84 CK-MB (CK-2) 3.71 Troponin I 0.930 10/01/17 10/01/17 10/01/17 04:05 11:05 11:05 Creatine Kinase 68 CK-MB (CK-2) 4.31 4.18 Troponin I 1.170 1.450 Impressions: Chest X-Ray 09/29/17 20:59 IMPRESSION: Cardiomegaly without failure. Assessment & Plan - Diagnosis (1) Acute non-ST elevation myocardial infarction (NSTEMI) Is this a current diagnosis for this admission?: Yes Plan: Continue anti-ischemic therapy (2) Type 2 diabetes mellitus Qualifiers: Diabetes mellitus termite renewal inspector insulin use: without termite renewal inspector use Diabetes mellitus complication status: with kidney complications Diabetes mellitus complication detail: with chronic kidney disease Chronic kidney disease stage : on chronic dialysis Qualified Code(s): E11.22 - Type 2 diabetes mellitus with diabetic chronic kidney disease; N18.6 - End stage renal disease; N18.6 - End stage renal disease; N18.6 - End stage renal disease; N18.6 - End stage renal disease; Z99.2 - Dependence on renal dialysis; Z99.2 - Dependence on renal dialysis; Z99.2 - Dependence on renal dialysis; Z99.2 - Dependence on renal dialysis Is this a current diagnosis for this admission?: Yes (3) ESRD (end stage renal disease) on dialysis Is this a current diagnosis for this admission?: Yes
[2017-10-02] MEDS: AMLODIPINE BESYLATE 10 MG TABLET PO SCH (22:32)
[2017-10-02] MEDS: ATORVASTATIN CALCIUM 80 MG TABLET PO SCH (22:33)
[2017-10-03 04:11] LABS: ABSOLUTE BASOPHILS # (AUTO) 0.1 10^3/uL (0.0-0.2); ABSOLUTE EOSINOPHILS # (AUTO) 0.2 10^3/uL (0.0-0.6); ABSOLUTE LYMPHOCYTES (AUTO) 1.4 10^3/uL (0.5-4.7); ABSOLUTE MONOCYTES (AUTO) 0.4 10^3/uL (0.1-1.4); ABSOLUTE NEUT (AUTO) 1.5 10^3/uL (1.7-8.2); BASOPHILS % (AUTO) 2.2 % (0-2); EOSINOPHILS % (AUTO) 4.5 % (0-6); HEMATOCRIT 29.3 % (36.0-47.0); HEMOGLOBIN 9.5 g/dL (12.0-15.5); LYMPHOCYTES % (AUTO) 39.8 % (13-45); MEAN CORPUSCULAR HEMOGLOBIN 30.2 pg (27.0-33.4); MEAN CORPUSCULAR HGB CONC 32.6 g/dL (32.0-36.0); MEAN CORPUSCULAR VOLUME 93 fl (80-97); MONOCYTES % (AUTO) 11.4 % (3-13); PLATELET COUNT 146 10^3/uL (150-450); RED BLOOD COUNT 3.16 10^6/uL (3.72-5.28); RED CELL DISTRIBUTION WIDTH 18.3 % (11.5-14.0); SEGMENTED NEUTROPHILS % (AUTO) 42.1 % (42-78); TOTAL CELLS COUNTED % (AUTO) 100 %; WHITE BLOOD COUNT 3.6 10^3/uL (4.0-10.5)
[2017-10-03 04:23] LABS: ANION GAP 11 (5-19); BLOOD UREA NITROGEN 33 mg/dL (7-20); CALCIUM 9.2 mg/dL (8.4-10.2); CARBON DIOXIDE 31 mmol/L (22-30); CHLORIDE 94 mmol/L (98-107); GLUCOSE 127 mg/dL (75-110); POTASSIUM 4.6 mmol/L (3.6-5.0); SODIUM 136.2 mmol/L (137-145)
[2017-10-03] MEDS: CLONIDINE HCL 0.1 MG TABLET PO SCH ×3 (06:21→22:16)
[2017-10-03] MEDS: LANSOPRAZOLE 15 MG TAB.RAP.DR PO SCH (06:22)
[2017-10-03] MEDS: CYANOCOBALAMIN/FA/PYRIDOXINE TABLET PO SCH (09:08)
[2017-10-03] MEDS: CLOPIDOGREL BISULFATE 75 MG TABLET PO SCH (09:08)
[2017-10-03] MEDS: SITAGLIPTIN PHOSPHATE 25 MG TABLET PO SCH (09:08)
[2017-10-03] MEDS: CARVEDILOL 12.5 MG TABLET PO SCH ×2 (09:09→22:17)
[2017-10-03] MEDS: ASPIRIN 81 MG TABLET, ENT COATED PO SCH (09:09)
[2017-10-03] MEDS: FAMOTIDINE 20 MG TABLET PO SCH ×2 (09:09→17:40)
[2017-10-03] MEDS: ISOSORBIDE MONONITRATE 60 MG TAB.ER.24H PO SCH ×2 (09:09→22:16)
[2017-10-03] MEDS: BUDESONIDE/FORMOTEROL 160-4.5 MCG 60 PUFF/6 GM MDI IH SCH ×2 (09:10→17:41)
--- NOTE | 2017-10-03 09:41 | PDOC PROGRESS REPORT ---
Subjective Progress Note for:: 10/03/17 Subjective:: She denied chest pain or difficulty with breathing. Poor oral intake due to patient preference and decreased appetite. Reason For Visit: ACUTE NSTMI, ESRD ON HEMODIALYSIS Physical Exam Vital Signs: Temp Pulse Resp BP Pulse Ox 98.2 F 69 14 178/54 H 100 10/02/17 20:00 10/02/17 20:00 10/03/17 05:00 10/03/17 03:19 10/03/17 05:00 Intake & Output 10/02/17 10/03/17 10/04/17 06:59 06:59 06:59 Intake Total 1327 572 Output Total 0 80 Balance 1327 492 Weight 63 kg General appearance: PRESENT: no acute distress Head exam: PRESENT: atraumatic, normocephalic Respiratory exam: PRESENT: clear to auscultation buddy Cardiovascular exam: PRESENT: RRR, +S1, +S2. ABSENT: diastolic murmur, rubs, systolic murmur Vascular exam: PRESENT: normal capillary refill. ABSENT: pallor GI/Abdominal exam: PRESENT: normal bowel sounds, soft, tenderness - epigastric region. ABSENT: organolmegaly Extremities exam: PRESENT: other - Left arm AV shunt site satisfactory. ABSENT : pedal edema Musculoskeletal exam: PRESENT: normal inspection Neurological exam: PRESENT: alert, awake, oriented to person, oriented to place , oriented to time, oriented to situation, CN II-XII grossly intact. ABSENT: motor sensory deficit Psychiatric exam: PRESENT: appropriate affect, normal mood. ABSENT: homicidal ideation, suicidal ideation Skin exam: PRESENT: dry, warm Results Laboratory Results: 10/03/17 03:59 10/03/17 03:59 10/03/17 10/03/17 03:59 03:59 WBC 3.6 L RBC 3.16 L Hgb 9.5 L Hct 29.3 L MCV 93 MCH 30.2 MCHC 32.6 RDW 18.3 H Plt Count 146 L Seg Neutrophils % 42.1 Lymphocytes % 39.8 Monocytes % 11.4 Eosinophils % 4.5 Basophils % 2.2 H Absolute Neutrophils 1.5 L Absolute Lymphocytes 1.4 Absolute Monocytes 0.4 Absolute Eosinophils 0.2 Absolute Basophils 0.1 Sodium 136.2 L Potassium 4.6 Chloride 94 L Carbon Dioxide 31 H Anion Gap 11 BUN 33 H Creatinine 5.94 H Est GFR ( Amer) 8 L Est GFR (Non-Af Amer) 7 L Glucose 127 H Calcium 9.2 09/30/17 09/30/17 09/30/17 00:50 04:41 04:41 Creatine Kinase 94 CK-MB (CK-2) 3.19 Troponin I 0.390 0.451 09/30/17 09/30/17 09/30/17 09:09 09:09 10:55 Creatine Kinase 109 CK-MB (CK-2) 3.48 3.08 Troponin I 0.521 0.460 09/30/17 09/30/17 09/30/17 10:55 16:00 16:00 Creatine Kinase 103 97 CK-MB (CK-2) 3.63 Troponin I 0.691 09/30/17 09/30/17 10/01/17 22:00 22:00 04:05 Creatine Kinase 97 84 CK-MB (CK-2) 3.71 Troponin I 0.930 10/01/17 10/01/17 10/01/17 04:05 11:05 11:05 Creatine Kinase 68 CK-MB (CK-2) 4.31 4.18 Troponin I 1.170 1.450 10/03/17 03:59 Creatine Kinase CK-MB (CK-2) Troponin I 2.080 Impressions: Chest X-Ray 09/29/17 20:59 IMPRESSION: Cardiomegaly without failure. Assessment & Plan - Diagnosis (1) Acute non-ST elevation myocardial infarction (NSTEMI) Is this a current diagnosis for this admission?: Yes Plan: Continue current management and support. She is schedule for stress test by [facility] tomorrow. Obtain cardiac enzymes for trend. (2) ESRD (end stage renal disease) on dialysis Is this a current diagnosis for this admission?: Yes Plan: S/P hemodialysis yesterday. Continue current management as per nephrology dietitian consultant. (3) Type 2 diabetes mellitus Qualifiers: Diabetes mellitus fci insulin use: without fci use Diabetes mellitus complication status: with kidney complications Diabetes mellitus complication detail: with chronic kidney disease Chronic kidney disease stage : on chronic dialysis Qualified Code(s): E11.22 - Type 2 diabetes mellitus with diabetic chronic kidney disease; N18.6 - End stage renal disease; N18.6 - End stage renal disease; N18.6 - End stage renal disease; N18.6 - End stage renal disease; Z99.2 - Dependence on renal dialysis; Z99.2 - Dependence on renal dialysis; Z99.2 - Dependence on renal dialysis; Z99.2 - Dependence on renal dialysis Is this a current diagnosis for this admission?: Yes Plan: Remain on current medication management. (4) Essential hypertension Is this a current diagnosis for this admission?: Yes Plan: See covering attending physician orders. - Time Time Spent with patient: 25-34 minutes Medications reviewed and adjusted accordingly: Yes Anticipated discharge: Home with Homehealth Within: Other - Inpatient Certification Based on my medical assessment, after consideration of the patient's comorbidities, presenting symptoms, or acuity I expect that the services needed warrant INPATIENT care.: Yes I certify that my determination is in accordance with my understanding of Medicare's requirements for reasonable and necessary INPATIENT services [42 CFR 412.3e].: Yes Medical Necessity: Need Close Monitoring Due to Risk of Patient Decompensation, Need For IV Fluids, Need For Continuous Telemetry Monitoring, Risk of Complication if Not Cared For in Hospital Post Hospital Care: D/C Phosphoric Acid Supervisor Documentation - Plan Summary Plan Summary: Continue current medication management.
[2017-10-03] MEDS ORDERED: POLYETHYLENE GLYCOL 3350 POWDER 17 GM/1 PACKET PO PRN (09:49)
[2017-10-03] MEDS: DOCUSATE SODIUM 100 MG CAPSULE PO SCH ×2 (11:04→17:40)
--- NOTE | 2017-10-03 16:25 | PDOC PROGRESS REPORT ---
Subjective Progress Note for:: 10/01/17 Subjective:: Patient seems to be doing better with gradual improvement. Pt is denying any chest arm or neck discomfort. Patient denying any PND, orthopnea. Patient denied any sustained palpitations, dizziness, syncope, near syncope. Patient denying any fever chills. Patient denying any other significant discomfort. Patient is maintaining sinus rhythm. Review of systems: Rest review of systems negative. Medications: Medications have been reviewed. Reason For Visit: ACUTE NSTMI, ESRD ON HEMODIALYSIS Physical Exam Vital Signs: Temp Pulse Resp BP Pulse Ox 97.9 F 70 16 168/52 H 99 10/01/17 18:00 10/01/17 10:00 10/01/17 18:18 10/01/17 18:18 10/01/17 18:18 Intake & Output 09/30/17 10/01/17 10/02/17 06:59 06:59 06:59 Intake Total 46 310 1235 Output Total 0 3000 0 Balance 46 -2690 1235 Weight 66.4 kg 63.7 kg Exam: GENERAL: well-nourished and in no acute distress. Alert and oriented x3 HEAD: Atraumatic, normocephalic. EYES: Pupils equal round and reactive to light, extraocular movements intact, sclera anicteric, conjunctiva are normal. ENT: TMs normal, nares patent, oropharynx clear without exudates. Moist mucous membranes. No oral ulcerations or bleeding gums noted NECK: supple without lymphadenopathy. Trachea is central. No cervical or axillary lymphadenopathy noted. Carotids are 2+, JVD WNL LUNGS: Respiration seems nonlabored, no significant accessory muscle action noted. Bibasilar fine crackles are noted. No wheezes rales or rhonchi noted. No significant dullness noted on percussion. CHEST: Palpation of the chest wall shows no significant chest wall tenderness. 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 ABDOMEN: Soft, no significant tenderness appreciated, normoactive bowel sounds. No guarding, no rebound. No rigidity noted . No masses appreciated. EXTREMITIES: Pedal pulses are 1-2+, no calf tenderness noted. No clubbing or cyanosis. negative pedal edema noted NEUROLOGICAL: Focused neurological exam showed no significant neurologic deficit. Normal speech, no focal weakness appreciated. PSYCH: Normal mood, normal affect. Judgment and insight within normal limits. SKIN: No significant ecchymosis, skin is noted to be warm. MUSCULOSKELETAL EXAM: No significant acute joint swelling noted. Results Laboratory Results: 10/01/17 04:05 10/01/17 04:05 10/01/17 10/01/17 04:05 04:05 WBC 4.5 RBC 3.23 L Hgb 9.7 L Hct 30.1 L MCV 93 MCH 30.2 MCHC 32.4 RDW 18.8 H Plt Count 153 Seg Neutrophils % 63.9 Lymphocytes % 21.0 Monocytes % 10.9 Eosinophils % 2.7 Basophils % 1.5 Absolute Neutrophils 2.9 Absolute Lymphocytes 0.9 Absolute Monocytes 0.5 Absolute Eosinophils 0.1 Absolute Basophils 0.1 Sodium 141.2 Potassium 4.4 Chloride 97 L Carbon Dioxide 33 H Anion Gap 11 BUN 25 H D Creatinine 5.48 H Est GFR ( Amer) 9 L Est GFR (Non-Af Amer) 8 L Glucose 131 H Calcium 9.5 Triglycerides 68 Cholesterol 120.40 LDL Cholesterol Direct 40 VLDL Cholesterol 14.0 HDL Cholesterol 53 09/30/17 09/30/17 09/30/17 00:50 04:41 04:41 Creatine Kinase 94 CK-MB (CK-2) 3.19 Troponin I 0.390 0.451 09/30/17 09/30/17 09/30/17 09:09 09:09 10:55 Creatine Kinase 109 CK-MB (CK-2) 3.48 3.08 Troponin I 0.521 0.460 09/30/17 09/30/17 09/30/17 10:55 16:00 16:00 Creatine Kinase 103 97 CK-MB (CK-2) 3.63 Troponin I 0.691 09/30/17 09/30/17 10/01/17 22:00 22:00 04:05 Creatine Kinase 97 84 CK-MB (CK-2) 3.71 Troponin I 0.930 10/01/17 10/01/17 10/01/17 04:05 11:05 11:05 Creatine Kinase 68 CK-MB (CK-2) 4.31 4.18 Troponin I 1.170 1.450 EKG Comments: Telemetry shows sinus rhythm without any sustained tachycardia or bradycardia Impressions: Chest X-Ray 09/29/17 20:59 IMPRESSION: Cardiomegaly without failure. Assessment & Plan - Diagnosis (1) Accelerated hypertension Is this a current diagnosis for this admission?: Yes (2) Acute non-ST elevation myocardial infarction (NSTEMI) Is this a current diagnosis for this admission?: Yes (3) Chest pain Qualifiers: Chest pain type: unspecified Qualified Code(s): R07.9 - Chest pain, unspecified Is this a current diagnosis for this admission?: Yes (4) ESRD (end stage renal disease) on dialysis Is this a current diagnosis for this admission?: Yes (5) Type 2 diabetes mellitus Qualifiers: Diabetes mellitus long-term insulin use: without long-term use Diabetes mellitus complication status: with kidney complications Diabetes mellitus complication detail: with chronic kidney disease Chronic kidney disease stage : on chronic dialysis Qualified Code(s): E11.22 - Type 2 diabetes mellitus with diabetic chronic kidney disease; N18.6 - End stage renal disease; N18.6 - End stage renal disease; N18.6 - End stage renal disease; N18.6 - End stage renal disease; Z99.2 - Dependence on renal dialysis; Z99.2 - Dependence on renal dialysis; Z99.2 - Dependence on renal dialysis; Z99.2 - Dependence on renal dialysis Is this a current diagnosis for this admission?: Yes (6) CHF (congestive heart failure) Qualifiers: Heart failure type: diastolic Heart failure chronicity: acute on chronic Qualified Code(s): I50.33 - Acute on chronic diastolic (congestive) heart failure Is this a current diagnosis for this admission?: Yes - Notes Notes: Non-STEMI: Patient ruled in for non-STEMI by virtue of having chest pain and also having positive enzymes. EKG so far has been negative. Will repeat EKG for any evolving changes. Management for non-STEMI already is started. Patient to be continued on heparin, dual antiplatelet therapy, beta-an therapy, statin therapy. Continue with this management. Accelerated hypertension: Recommend aggressive management of blood pressure but avoid any hypotension. Currently patient on nitroglycerin drip will start tapering. Continue to titrate to keep blood pressure around 130-140 range. Chest pain: Due to non-STEMI. Currently chest pain-free. End-stage renal disease: Patient had dialysis yesterday. May just have dialysis today. Diabetes: Recommend good management but avoid any hypo-or hyperglycemia. CHF: Continue current management plans. Continue to remove fluid on dialysis. Patient will benefit from salt and fluid restriction. - Time Time with patient: Greater than 35 minutes - CODE STATUS was discussed, patient remains full code. Surrogate decision-maker unchanged. Multiple medical problems were addressed. More than 50% of the time spent coordinating care, discussing management plans with involved caregivers. Management plans discussed with involved personnels. Medical decision making was of moderate to high complexity, patient's has multiple comorbidities. Medications reviewed and adjusted accordingly: Yes
--- NOTE | 2017-10-03 16:29 | PDOC PROGRESS REPORT ---
Subjective Progress Note for:: 10/02/17 Subjective:: Patient seems to be doing better with gradual improvement. Pt is denying any chest arm or neck discomfort. Patient denying any PND, orthopnea. Patient denied any sustained palpitations, dizziness, syncope, near syncope. Patient denying any fever chills. Patient denying any other significant discomfort. Patient is maintaining sinus rhythm. Review of systems: Rest review of systems negative. Medications: Medications have been reviewed. Reason For Visit: ACUTE NSTMI, ESRD ON HEMODIALYSIS Physical Exam Vital Signs: Temp Pulse Resp BP Pulse Ox 98.2 F 69 18 171/87 H 99 10/02/17 20:00 10/02/17 20:00 10/02/17 20:00 10/02/17 19:49 10/02/17 20:00 Intake & Output 10/01/17 10/02/17 10/03/17 06:59 06:59 06:59 Intake Total 310 1327 485 Output Total 3000 0 50 Balance -2690 1327 435 Weight 63.7 kg 63 kg Exam: GENERAL: well-nourished and in no acute distress. Alert and oriented x3 HEAD: Atraumatic, normocephalic. EYES: Pupils equal round and reactive to light, extraocular movements intact, sclera anicteric, conjunctiva are normal. ENT: TMs normal, nares patent, oropharynx clear without exudates. Moist mucous membranes. No oral ulcerations or bleeding gums noted NECK: supple without lymphadenopathy. Trachea is central. No cervical or axillary lymphadenopathy noted. Carotids are 2+, JVD WNL LUNGS: Respiration seems nonlabored, no significant accessory muscle action noted. Breath sounds clear to auscultation bilaterally and equal noted. No wheezes rales or rhonchi noted. No significant dullness noted on percussion. CHEST: Palpation of the chest wall shows no significant chest wall tenderness. 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 ABDOMEN: Soft, no significant tenderness appreciated, normoactive bowel sounds. No guarding, no rebound. No rigidity noted . No masses appreciated. EXTREMITIES: Pedal pulses are 1-2+, no calf tenderness noted. No clubbing or cyanosis. negative pedal edema noted NEUROLOGICAL: Focused neurological exam showed no significant neurologic deficit. Normal speech, no focal weakness appreciated. PSYCH: Normal mood, normal affect. Judgment and insight within normal limits. SKIN: No significant ecchymosis, skin is noted to be warm. MUSCULOSKELETAL EXAM: No significant acute joint swelling noted. Results Laboratory Results: 10/02/17 03:30 10/02/17 03:30 10/02/17 10/02/17 03:30 03:30 WBC 4.5 RBC 3.18 L Hgb 9.7 L Hct 29.4 L MCV 92 MCH 30.5 MCHC 33.0 RDW 18.5 H Plt Count 158 Sodium 135.8 L Potassium 5.2 H Chloride 93 L Carbon Dioxide 31 H Anion Gap 12 BUN 45 H D Creatinine 7.55 H Est GFR ( Amer) 6 L Est GFR (Non-Af Amer) 5 L Glucose 131 H Calcium 9.2 09/30/17 09/30/17 09/30/17 00:50 04:41 04:41 Creatine Kinase 94 CK-MB (CK-2) 3.19 Troponin I 0.390 0.451 09/30/17 09/30/17 09/30/17 09:09 09:09 10:55 Creatine Kinase 109 CK-MB (CK-2) 3.48 3.08 Troponin I 0.521 0.460 09/30/17 09/30/17 09/30/17 10:55 16:00 16:00 Creatine Kinase 103 97 CK-MB (CK-2) 3.63 Troponin I 0.691 09/30/17 09/30/17 10/01/17 22:00 22:00 04:05 Creatine Kinase 97 84 CK-MB (CK-2) 3.71 Troponin I 0.930 10/01/17 10/01/17 10/01/17 04:05 11:05 11:05 Creatine Kinase 68 CK-MB (CK-2) 4.31 4.18 Troponin I 1.170 1.450 EKG Comments: Telemetry shows sinus rhythm without any sustained tachycardia or bradycardia. Impressions: Chest X-Ray 09/29/17 20:59 IMPRESSION: Cardiomegaly without failure. Assessment & Plan - Diagnosis (1) Accelerated hypertension Is this a current diagnosis for this admission?: Yes (2) Acute non-ST elevation myocardial infarction (NSTEMI) Is this a current diagnosis for this admission?: Yes (3) Chest pain Qualifiers: Chest pain type: unspecified Qualified Code(s): R07.9 - Chest pain, unspecified Is this a current diagnosis for this admission?: Yes (4) ESRD (end stage renal disease) on dialysis Is this a current diagnosis for this admission?: Yes (5) Type 2 diabetes mellitus Qualifiers: Diabetes mellitus mcfp insulin use: without mcfp use Diabetes mellitus complication status: with kidney complications Diabetes mellitus complication detail: with chronic kidney disease Chronic kidney disease stage : on chronic dialysis Qualified Code(s): E11.22 - Type 2 diabetes mellitus with diabetic chronic kidney disease; N18.6 - End stage renal disease; N18.6 - End stage renal disease; N18.6 - End stage renal disease; N18.6 - End stage renal disease; Z99.2 - Dependence on renal dialysis; Z99.2 - Dependence on renal dialysis; Z99.2 - Dependence on renal dialysis; Z99.2 - Dependence on renal dialysis Is this a current diagnosis for this admission?: Yes (6) CHF (congestive heart failure) Qualifiers: Heart failure type: diastolic Heart failure chronicity: acute on chronic Qualified Code(s): I50.33 - Acute on chronic diastolic (congestive) heart failure Is this a current diagnosis for this admission?: Yes - Notes Notes: Patient getting better. Will schedule a stress test when more stable. 2D echo results reviewed. Non-STEMI: Patient ruled in for non-STEMI by virtue of having chest pain and also having positive enzymes. EKG so far has been negative. Will repeat EKG for any evolving changes. Management for non-STEMI already is started. Patient to be continued on heparin, dual antiplatelet therapy, beta-an therapy, statin therapy. Accelerated hypertension: Recommend aggressive management of blood pressure but avoid any hypotension. Continue to strive to keep blood pressure around 130- 140 range. Chest pain: Due to non-STEMI. Resolved. There has been no recurrences. End-stage renal disease: Currently on chronic hemodialysis therapy. Diabetes: Recommend good management but avoid any hypo-or hyperglycemia. CHF: Resolved. Patient advised on salt and fluid restriction. - Time Time with patient: 15-25 minutes - CODE STATUS was discussed, patient remains full code. Surrogate decision-maker unchanged. Multiple medical problems were addressed. More than 50% of the time spent coordinating care, discussing management plans with involved caregivers. Management plans discussed with involved personnels. Medical decision making was of moderate to high complexity , patient's has multiple comorbidities. Medications reviewed and adjusted accordingly: Yes
--- NOTE | 2017-10-03 16:32 | PDOC PROGRESS REPORT ---
Subjective Progress Note for:: 10/03/17 Subjective:: Patient seems to be doing better. Pt is denying any chest arm or neck discomfort. Patient denying any PND, orthopnea. Patient denied any sustained palpitations, dizziness, syncope, near syncope. Patient denying any fever chills. Patient denying any other significant discomfort. Patient is maintaining sinus rhythm. Review of systems: Rest review of systems negative. Medications: Medications have been reviewed. Reason For Visit: ACUTE NSTMI, ESRD ON HEMODIALYSIS Physical Exam Vital Signs: Temp Pulse Resp BP Pulse Ox 97.1 F 63 16 163/67 H 100 10/03/17 12:00 10/03/17 08:00 10/03/17 13:00 10/03/17 12:51 10/03/17 12:21 Intake & Output 10/02/17 10/03/17 10/04/17 06:59 06:59 06:59 Intake Total 1327 572 240 Output Total 0 80 Balance 1327 492 240 Weight 63 kg Exam: GENERAL: well-nourished and in no acute distress. Alert and oriented x3 HEAD: Atraumatic, normocephalic. EYES: Pupils equal round and reactive to light, extraocular movements intact, sclera anicteric, conjunctiva are normal. ENT: TMs normal, nares patent, oropharynx clear without exudates. Moist mucous membranes. No oral ulcerations or bleeding gums noted NECK: supple without lymphadenopathy. Trachea is central. No cervical or axillary lymphadenopathy noted. Carotids are 2+, JVD WNL LUNGS: Respiration seems nonlabored, no significant accessory muscle action noted. Breath sounds clear to auscultation bilaterally and equal noted. No wheezes rales or rhonchi noted. No significant dullness noted on percussion. CHEST: Palpation of the chest wall shows no significant chest wall tenderness. 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 ABDOMEN: Soft, no significant tenderness appreciated, normoactive bowel sounds. No guarding, no rebound. No rigidity noted . No masses appreciated. EXTREMITIES: Pedal pulses are 1-2+, no calf tenderness noted. No clubbing or cyanosis. negative pedal edema noted NEUROLOGICAL: Focused neurological exam showed no significant neurologic deficit. Normal speech, no focal weakness appreciated. PSYCH: Normal mood, normal affect. Judgment and insight within normal limits. SKIN: No significant ecchymosis, skin is noted to be warm. MUSCULOSKELETAL EXAM: No significant acute joint swelling noted. Results Laboratory Results: 10/03/17 03:59 10/03/17 03:59 10/03/17 10/03/17 03:59 03:59 WBC 3.6 L RBC 3.16 L Hgb 9.5 L Hct 29.3 L MCV 93 MCH 30.2 MCHC 32.6 RDW 18.3 H Plt Count 146 L Seg Neutrophils % 42.1 Lymphocytes % 39.8 Monocytes % 11.4 Eosinophils % 4.5 Basophils % 2.2 H Absolute Neutrophils 1.5 L Absolute Lymphocytes 1.4 Absolute Monocytes 0.4 Absolute Eosinophils 0.2 Absolute Basophils 0.1 Sodium 136.2 L Potassium 4.6 Chloride 94 L Carbon Dioxide 31 H Anion Gap 11 BUN 33 H Creatinine 5.94 H Est GFR ( Amer) 8 L Est GFR (Non-Af Amer) 7 L Glucose 127 H Calcium 9.2 09/30/17 09/30/17 09/30/17 00:50 04:41 04:41 Creatine Kinase 94 CK-MB (CK-2) 3.19 Troponin I 0.390 0.451 09/30/17 09/30/17 09/30/17 09:09 09:09 10:55 Creatine Kinase 109 CK-MB (CK-2) 3.48 3.08 Troponin I 0.521 0.460 09/30/17 09/30/17 09/30/17 10:55 16:00 16:00 Creatine Kinase 103 97 CK-MB (CK-2) 3.63 Troponin I 0.691 09/30/17 09/30/17 10/01/17 22:00 22:00 04:05 Creatine Kinase 97 84 CK-MB (CK-2) 3.71 Troponin I 0.930 10/01/17 10/01/17 10/01/17 04:05 11:05 11:05 Creatine Kinase 68 CK-MB (CK-2) 4.31 4.18 Troponin I 1.170 1.450 10/03/17 10/03/17 03:59 10:52 Creatine Kinase CK-MB (CK-2) Troponin I 2.080 1.980 EKG Comments: Shows sinus rhythm, no acute ST-T wave changes noted. No significant cardiac dysrhythmia noted. Impressions: Chest X-Ray 09/29/17 20:59 IMPRESSION: Cardiomegaly without failure. Assessment & Plan - Diagnosis (1) Accelerated hypertension Is this a current diagnosis for this admission?: Yes (2) Acute non-ST elevation myocardial infarction (NSTEMI) Is this a current diagnosis for this admission?: Yes (3) Chest pain Qualifiers: Chest pain type: unspecified Qualified Code(s): R07.9 - Chest pain, unspecified Is this a current diagnosis for this admission?: Yes (4) ESRD (end stage renal disease) on dialysis Is this a current diagnosis for this admission?: Yes (5) Type 2 diabetes mellitus Qualifiers: Diabetes mellitus nursing home insulin use: without nursing home use Diabetes mellitus complication status: with kidney complications Diabetes mellitus complication detail: with chronic kidney disease Chronic kidney disease stage : on chronic dialysis Qualified Code(s): E11.22 - Type 2 diabetes mellitus with diabetic chronic kidney disease; N18.6 - End stage renal disease; N18.6 - End stage renal disease; N18.6 - End stage renal disease; N18.6 - End stage renal disease; Z99.2 - Dependence on renal dialysis; Z99.2 - Dependence on renal dialysis; Z99.2 - Dependence on renal dialysis; Z99.2 - Dependence on renal dialysis Is this a current diagnosis for this admission?: Yes (6) CHF (congestive heart failure) Qualifiers: Heart failure type: diastolic Heart failure chronicity: acute on chronic Qualified Code(s): I50.33 - Acute on chronic diastolic (congestive) heart failure Is this a current diagnosis for this admission?: Yes - Notes Notes: Patient getting better. Will schedule a stress test when more stable. 2D echo results reviewed. Stress test to be performed on Thursday as patient is felt to be somewhat on the high risk side for decompensation. Non-STEMI: Patient ruled in for non-STEMI by virtue of having chest pain and also having positive enzymes. EKG so far has been negative. Will repeat EKG for any evolving changes. Patient medications reviewed. Patient noted to be stable on current regimen. Accelerated hypertension: Recommend aggressive management of blood pressure but avoid any hypotension. Continue to strive to keep blood pressure around 130- 140 range. Chest pain: Due to non-STEMI. Resolved. There has been no recurrences. To be evaluated with his stress test on Thursday. End-stage renal disease: Currently on chronic hemodialysis therapy. Diabetes: Recommend good management but avoid any hypo-or hyperglycemia. CHF: Resolved. Patient advised on salt and fluid restriction. - Time Time with patient: 15-25 minutes - CODE STATUS was discussed, patient remains full code. Surrogate decision-maker unchanged. Multiple medical problems were addressed. More than 50% of the time spent coordinating care, discussing management plans with involved caregivers. Management plans discussed with involved personnels. Medical decision making was of moderate to high complexity , patient's has multiple comorbidities. Medications reviewed and adjusted accordingly: Yes
--- NOTE | 2017-10-03 20:05 | EKG REPORT ---
SEVERITY:- ABNORMAL ECG - SINUS RHYTHM PROBABLE LEFT ATRIAL ABNORMALITY PROBABLE LEFT VENTRICULAR HYPERTROPHY BORDERLINE T ABNORMALITIES, INFERIOR LEADS : Confirmed by: Wilton Cheatham 03-Oct-2017 20:05:11
[2017-10-03] MEDS: AMLODIPINE BESYLATE 10 MG TABLET PO SCH (20:06)
[2017-10-03] MEDS: ATORVASTATIN CALCIUM 80 MG TABLET PO SCH (22:16)
[2017-10-04] MEDS: HEPARIN SODIUM,PORCINE/D5W 25,000 UNIT/250 ML RTUINJ IV PRN (02:50)
[2017-10-04] MEDS: CLONIDINE HCL 0.1 MG TABLET PO SCH ×3 (05:14→21:01)
[2017-10-04] MEDS: LANSOPRAZOLE 15 MG TAB.RAP.DR PO SCH (05:14)
--- NOTE | 2017-10-04 11:18 | PDOC PROGRESS REPORT ---
Subjective Progress Note for:: 10/04/17 Subjective:: She denied chest pain or difficulty with breathing. She reported slight neck pain and satisfactory bowel movement since last clinical evaluation. No fever or chills. No nausea, vomiting, or abdominal pain. Reason For Visit: ACUTE NSTMI, ESRD ON HEMODIALYSIS Physical Exam Vital Signs: Temp Pulse Resp BP Pulse Ox 97.9 F 62 24 H 161/66 H 100 10/03/17 16:00 10/04/17 08:00 10/04/17 08:00 10/04/17 07:51 10/04/17 08:00 Intake & Output 10/03/17 10/04/17 10/05/17 06:59 06:59 06:59 Intake Total 572 375 Output Total 80 0 Balance 492 375 Weight 65.4 kg 65.4 kg Physical Exam: General appearance: PRESENT: no acute distress Head exam: PRESENT: atraumatic, normocephalic Respiratory exam: PRESENT: clear to auscultation buddy Cardiovascular exam: PRESENT: RRR, +S1, +S2. ABSENT: diastolic murmur, rubs, systolic murmur Vascular exam: PRESENT: normal capillary refill. ABSENT: pallor GI/Abdominal exam: PRESENT: normal bowel sounds, soft, tenderness - epigastric region. ABSENT: organolmegaly Extremities exam: PRESENT: other - Left arm AV shunt site satisfactory. ABSENT : pedal edema Musculoskeletal exam: PRESENT: normal inspection Neurological exam: PRESENT: alert, awake, oriented to person, oriented to place , oriented to time, oriented to situation, CN II-XII grossly intact. ABSENT: motor sensory deficit Psychiatric exam: PRESENT: appropriate affect, normal mood. ABSENT: homicidal ideation, suicidal ideation Skin exam: PRESENT: dry, warm Results Laboratory Results: 10/03/17 03:59 10/03/17 03:59 09/30/17 09/30/17 09/30/17 00:50 04:41 04:41 Creatine Kinase 94 CK-MB (CK-2) 3.19 Troponin I 0.390 0.451 09/30/17 09/30/17 09/30/17 09:09 09:09 10:55 Creatine Kinase 109 CK-MB (CK-2) 3.48 3.08 Troponin I 0.521 0.460 09/30/17 09/30/17 09/30/17 10:55 16:00 16:00 Creatine Kinase 103 97 CK-MB (CK-2) 3.63 Troponin I 0.691 09/30/17 09/30/17 10/01/17 22:00 22:00 04:05 Creatine Kinase 97 84 CK-MB (CK-2) 3.71 Troponin I 0.930 10/01/17 10/01/17 10/01/17 04:05 11:05 11:05 Creatine Kinase 68 CK-MB (CK-2) 4.31 4.18 Troponin I 1.170 1.450 10/03/17 10/03/17 03:59 10:52 Creatine Kinase CK-MB (CK-2) Troponin I 2.080 1.980 Impressions: Chest X-Ray 09/29/17 20:59 IMPRESSION: Cardiomegaly without failure. Assessment & Plan - Diagnosis (1) Acute non-ST elevation myocardial infarction (NSTEMI) Is this a current diagnosis for this admission?: Yes (2) ESRD (end stage renal disease) on dialysis Is this a current diagnosis for this admission?: Yes (3) Type 2 diabetes mellitus Qualifiers: Diabetes mellitus terminal manager insulin use: without terminal manager use Diabetes mellitus complication status: with kidney complications Diabetes mellitus complication detail: with chronic kidney disease Chronic kidney disease stage : on chronic dialysis Qualified Code(s): E11.22 - Type 2 diabetes mellitus with diabetic chronic kidney disease; N18.6 - End stage renal disease; N18.6 - End stage renal disease; N18.6 - End stage renal disease; N18.6 - End stage renal disease; Z99.2 - Dependence on renal dialysis; Z99.2 - Dependence on renal dialysis; Z99.2 - Dependence on renal dialysis; Z99.2 - Dependence on renal dialysis Is this a current diagnosis for this admission?: Yes (4) Essential hypertension Is this a current diagnosis for this admission?: Yes - Time Time Spent with patient: 25-34 minutes Medications reviewed and adjusted accordingly: Yes Anticipated discharge: Home with Homehealth Within: Other - Inpatient Certification Based on my medical assessment, after consideration of the patient's comorbidities, presenting symptoms, or acuity I expect that the services needed warrant INPATIENT care.: Yes I certify that my determination is in accordance with my understanding of Medicare's requirements for reasonable and necessary INPATIENT services [42 CFR 412.3e].: Yes Medical Necessity: Need Close Monitoring Due to Risk of Patient Decompensation, Need For IV Fluids, Need For Continuous Telemetry Monitoring, Risk of Complication if Not Cared For in Hospital Post Hospital Care: D/C Can Worker Documentation - Plan Summary Plan Summary: See covering attending physician orders.
[2017-10-04] MEDS: BUDESONIDE/FORMOTEROL 160-4.5 MCG 60 PUFF/6 GM MDI IH SCH ×2 (12:01→17:34)
[2017-10-04] MEDS: DOCUSATE SODIUM 100 MG CAPSULE PO SCH ×2 (12:01→17:34)
[2017-10-04] MEDS: FAMOTIDINE 20 MG TABLET PO SCH ×2 (12:01→17:34)
[2017-10-04] MEDS: ASPIRIN 81 MG TABLET, ENT COATED PO SCH (12:01)
[2017-10-04] MEDS: ISOSORBIDE MONONITRATE 60 MG TAB.ER.24H PO SCH ×2 (12:02→21:00)
[2017-10-04] MEDS: CARVEDILOL 12.5 MG TABLET PO SCH ×2 (12:02→21:00)
[2017-10-04] MEDS: CLOPIDOGREL BISULFATE 75 MG TABLET PO SCH (12:02)
[2017-10-04] MEDS: SITAGLIPTIN PHOSPHATE 25 MG TABLET PO SCH (12:03)
[2017-10-04] MEDS: CYANOCOBALAMIN/FA/PYRIDOXINE TABLET PO SCH (12:03)
--- NOTE | 2017-10-04 13:18 | PDOC PROGRESS REPORT ---
Subjective Progress Note for:: 10/04/17 Subjective:: Patient seems to be doing better. Patient denied any chest pain. She has noted slight neck pain. Patient denying any PND, orthopnea. Patient denied any sustained palpitations, dizziness, syncope, near syncope. Patient denying any fever chills. Patient denying any other significant discomfort. Patient is maintaining sinus rhythm. Review of systems: Rest review of systems negative. Medications: Medications have been reviewed. Reason For Visit: ACUTE NSTMI, ESRD ON HEMODIALYSIS Physical Exam Vital Signs: Temp Pulse Resp BP Pulse Ox 98.0 F 62 20 166/90 H 97 10/04/17 12:00 10/04/17 08:00 10/04/17 12:00 10/04/17 11:21 10/04/17 12:00 Intake & Output 10/03/17 10/04/17 10/05/17 06:59 06:59 06:59 Intake Total 572 375 Output Total 80 0 100 Balance 492 375 -100 Weight 65.4 kg 65.4 kg Exam: GENERAL: well-nourished and in no acute distress. Alert and oriented x3 HEAD: Atraumatic, normocephalic. EYES: Pupils equal round and reactive to light, extraocular movements intact, sclera anicteric, conjunctiva are normal. ENT: TMs normal, nares patent, oropharynx clear without exudates. Moist mucous membranes. No oral ulcerations or bleeding gums noted NECK: supple without lymphadenopathy. Trachea is central. No cervical or axillary lymphadenopathy noted. Carotids are 2+, JVD WNL LUNGS: Respiration seems nonlabored, no significant accessory muscle action noted. Breath sounds clear to auscultation bilaterally and equal noted. No wheezes rales or rhonchi noted. No significant dullness noted on percussion. CHEST: Palpation of the chest wall shows no significant chest wall tenderness. HEART: [place] [employer], No PSH, 2/6 LUL aortic area, 1/6 chaudhry systolic murmur mitral area , no rubs, no gallops. ABDOMEN: Soft, no significant tenderness appreciated, normoactive bowel sounds. No guarding, no rebound. No rigidity noted . No masses appreciated. EXTREMITIES: Pedal pulses are 1-2+, no calf tenderness noted. No clubbing or cyanosis. negative pedal edema noted NEUROLOGICAL: Focused neurological exam showed no significant neurologic deficit. Normal speech, no focal weakness appreciated. PSYCH: Normal mood, normal affect. Judgment and insight within normal limits. SKIN: No significant ecchymosis, skin is noted to be warm. MUSCULOSKELETAL EXAM: No significant acute joint swelling noted. Results Laboratory Results: 10/03/17 03:59 10/03/17 03:59 09/30/17 09/30/17 09/30/17 00:50 04:41 04:41 Creatine Kinase 94 CK-MB (CK-2) 3.19 Troponin I 0.390 0.451 09/30/17 09/30/17 09/30/17 09:09 09:09 10:55 Creatine Kinase 109 CK-MB (CK-2) 3.48 3.08 Troponin I 0.521 0.460 09/30/17 09/30/17 09/30/17 10:55 16:00 16:00 Creatine Kinase 103 97 CK-MB (CK-2) 3.63 Troponin I 0.691 09/30/17 09/30/17 10/01/17 22:00 22:00 04:05 Creatine Kinase 97 84 CK-MB (CK-2) 3.71 Troponin I 0.930 10/01/17 10/01/17 10/01/17 04:05 11:05 11:05 Creatine Kinase 68 CK-MB (CK-2) 4.31 4.18 Troponin I 1.170 1.450 10/03/17 10/03/17 03:59 10:52 Creatine Kinase CK-MB (CK-2) Troponin I 2.080 1.980 EKG Comments: Telemetry shows sinus rhythm without any sustained tachycardia or bradycardia. Impressions: Chest X-Ray 09/29/17 20:59 IMPRESSION: Cardiomegaly without failure. Assessment & Plan - Diagnosis (1) Accelerated hypertension Is this a current diagnosis for this admission?: Yes (2) Acute non-ST elevation myocardial infarction (NSTEMI) Is this a current diagnosis for this admission?: Yes (3) Chest pain Qualifiers: Chest pain type: unspecified Qualified Code(s): R07.9 - Chest pain, unspecified Is this a current diagnosis for this admission?: Yes (4) ESRD (end stage renal disease) on dialysis Is this a current diagnosis for this admission?: Yes (5) Type 2 diabetes mellitus Qualifiers: Diabetes mellitus superintendent container terminal insulin use: without superintendent container terminal use Diabetes mellitus complication status: with kidney complications Diabetes mellitus complication detail: with chronic kidney disease Chronic kidney disease stage : on chronic dialysis Qualified Code(s): E11.22 - Type 2 diabetes mellitus with diabetic chronic kidney disease; N18.6 - End stage renal disease; N18.6 - End stage renal disease; N18.6 - End stage renal disease; N18.6 - End stage renal disease; Z99.2 - Dependence on renal dialysis; Z99.2 - Dependence on renal dialysis; Z99.2 - Dependence on renal dialysis; Z99.2 - Dependence on renal dialysis Is this a current diagnosis for this admission?: Yes (6) CHF (congestive heart failure) Qualifiers: Heart failure type: diastolic Heart failure chronicity: acute on chronic Qualified Code(s): I50.33 - Acute on chronic diastolic (congestive) heart failure Is this a current diagnosis for this admission?: Yes - Notes Notes: Patient getting better. Stress test scheduled for tomorrow. 2D echo results reviewed. Heparin drip been going on for more than 72 hours. Will therefore discontinue it. Patient blood pressure little bit on the high side. Patient on nitrates [id number]. Will add hydralazine 25 mg p.o. every 8 for better control of blood pressure. Non-STEMI: Patient ruled in for non-STEMI by virtue of having chest pain and also having positive enzymes. EKG so far has been negative. Will repeat EKG for any evolving changes. Patient medications reviewed. Patient noted to be stable on current regimen. Accelerated hypertension: Recommend aggressive management of blood pressure but avoid any hypotension. Continue to strive to keep blood pressure around 130- 140 range. Chest pain: Due to non-STEMI. Resolved. There has been no recurrences. To be evaluated with his stress test on Thursday. End-stage renal disease: Currently on chronic hemodialysis therapy. Diabetes: Recommend good management but avoid any hypo-or hyperglycemia. CHF: Resolved. Patient advised on salt and fluid restriction. - Time Time with patient: Greater than 35 minutes Medications reviewed and adjusted accordingly: Yes
[2017-10-04] MEDS ORDERED: HYDRALAZINE HCL 25 MG TABLET PO SCH (13:30)
[2017-10-04] MEDS: ONDANSETRON HCL INJ/PF 4 MG/2 ML SDV IV PRN (16:37)
[2017-10-04] MEDS: AMLODIPINE BESYLATE 10 MG TABLET PO SCH (20:52)
[2017-10-04] MEDS: ATORVASTATIN CALCIUM 80 MG TABLET PO SCH (21:00)
[2017-10-05 04:08] LABS: MEAN CORPUSCULAR HEMOGLOBIN 30.1 pg (27.0-33.4); MEAN CORPUSCULAR HGB CONC 33.6 g/dL (32.0-36.0); MEAN CORPUSCULAR VOLUME 90 fl (80-97); PLATELET COUNT 146 10^3/uL (150-450); RED BLOOD COUNT 3.01 10^6/uL (3.72-5.28); RED CELL DISTRIBUTION WIDTH 17.6 % (11.5-14.0)
[2017-10-05 04:28] LABS: ANION GAP 16 (5-19); BLOOD UREA NITROGEN 61 mg/dL (7-20); CALCIUM 8.9 mg/dL (8.4-10.2); CARBON DIOXIDE 25 mmol/L (22-30); CHLORIDE 88 mmol/L (98-107); GLUCOSE 116 mg/dL (75-110); POTASSIUM 5.8 mmol/L (3.6-5.0); SODIUM 128.9 mmol/L (137-145)
[2017-10-05] MEDS: LANSOPRAZOLE 15 MG TAB.RAP.DR PO SCH (05:03)
[2017-10-05] MEDS: CLONIDINE HCL 0.1 MG TABLET PO SCH ×3 (05:03→21:17)
[2017-10-05] MEDS: ONDANSETRON HCL INJ/PF 4 MG/2 ML SDV IV PRN (08:17)
[2017-10-05] MEDS: ACETAMINOPHEN 325 MG TABLET PO PRN (08:42)
[2017-10-05] MEDS ORDERED: EPOETIN ALFA INJ 20000 UNIT/1 ML VIAL (RENAL) IV PRN (11:08)
--- NOTE | 2017-10-05 11:52 | PDOC PROGRESS REPORT ---
Subjective Progress Note for:: 10/05/17 Reason For Visit: Seen today on dialysis. Patient undergoing dialysis without any issues. She denies any history of chest pain or shortness of breath. Waiting for a stress test today. Orders were discussed with the treating dialysis nurse. Labs and medications were reviewed. Physical Exam Vital Signs: Temp Pulse Resp BP Pulse Ox 97.6 F 61 14 175/49 H 98 10/05/17 08:00 10/05/17 07:37 10/05/17 11:23 10/05/17 11:23 10/05/17 11:23 Intake & Output 10/04/17 10/05/17 10/06/17 06:59 06:59 06:59 Intake Total 375 84 Output Total 0 200 50 Balance 375 -116 -50 Weight 65.4 kg 67.3 kg General appearance: PRESENT: no acute distress Respiratory exam: PRESENT: clear to auscultation buddy. ABSENT: crackles Cardiovascular exam: PRESENT: +S1, +S2 GI/Abdominal exam: PRESENT: normal bowel sounds, soft. ABSENT: organomegaly, tenderness Extremities exam: ABSENT: pedal edema Neurological exam: PRESENT: awake, oriented to person, oriented to place Results Laboratory Results: 10/05/17 03:59 10/05/17 03:59 10/05/17 10/05/17 03:59 03:59 WBC 4.0 RBC 3.01 L Hgb 9.0 L Hct 27.0 L MCV 90 MCH 30.1 MCHC 33.6 RDW 17.6 H Plt Count 146 L Sodium 128.9 L Potassium 5.8 H Chloride 88 L Carbon Dioxide 25 Anion Gap 16 BUN 61 H Creatinine 8.54 H Est GFR ( Amer) 5 L Est GFR (Non-Af Amer) 5 L Glucose 116 H Calcium 8.9 09/30/17 09/30/17 09/30/17 00:50 04:41 04:41 Creatine Kinase 94 CK-MB (CK-2) 3.19 Troponin I 0.390 0.451 09/30/17 09/30/17 09/30/17 09:09 09:09 10:55 Creatine Kinase 109 CK-MB (CK-2) 3.48 3.08 Troponin I 0.521 0.460 09/30/17 09/30/17 09/30/17 10:55 16:00 16:00 Creatine Kinase 103 97 CK-MB (CK-2) 3.63 Troponin I 0.691 09/30/17 09/30/17 10/01/17 22:00 22:00 04:05 Creatine Kinase 97 84 CK-MB (CK-2) 3.71 Troponin I 0.930 10/01/17 10/01/17 10/01/17 04:05 11:05 11:05 Creatine Kinase 68 CK-MB (CK-2) 4.31 4.18 Troponin I 1.170 1.450 10/03/17 10/03/17 03:59 10:52 Creatine Kinase CK-MB (CK-2) Troponin I 2.080 1.980 Impressions: Chest X-Ray 09/29/17 20:59 IMPRESSION: Cardiomegaly without failure. Assessment & Plan - Diagnosis (1) ESRD (end stage renal disease) on dialysis Is this a current diagnosis for this admission?: Yes Plan: Patient undergoing dialysis without any issues. Vital signs are stable. Is being supervised to ensure safe and smooth procedure. Orders were discussed with the treating dialysis nurse. We will remove approximately 2 L of fluid as tolerated. (2) Accelerated hypertension Is this a current diagnosis for this admission?: Yes Plan: Uncontrolled.We will increase hydralazine to 50 every 8. See further response to dialysis. (3) Chest pain Qualifiers: Chest pain type: unspecified Qualified Code(s): R07.9 - Chest pain, unspecified Is this a current diagnosis for this admission?: Yes Plan: Ruled in for an non STEMI awaiting stress test today. Further management as per cardiology. (4) Anemia in CKD (chronic kidney disease) Plan: Hold off on erythropoietin, given the uncontrolled hypertension. Monitor.. (5) Hyperkalemia Plan: Should respond to dialysis.Needs dietary restrictions.
[2017-10-05] MEDS: CARVEDILOL 12.5 MG TABLET PO SCH ×2 (13:37→21:17)
[2017-10-05] MEDS: ASPIRIN 81 MG TABLET, ENT COATED PO SCH (13:38)
[2017-10-05] MEDS: CYANOCOBALAMIN/FA/PYRIDOXINE TABLET PO SCH (13:39)
[2017-10-05] MEDS: ISOSORBIDE MONONITRATE 60 MG TAB.ER.24H PO SCH ×2 (13:40→21:17)
[2017-10-05] MEDS: FAMOTIDINE 20 MG TABLET PO SCH ×2 (13:40→18:04)
[2017-10-05] MEDS: CLOPIDOGREL BISULFATE 75 MG TABLET PO SCH (13:40)
[2017-10-05] MEDS: SITAGLIPTIN PHOSPHATE 25 MG TABLET PO SCH (13:40)
[2017-10-05] MEDS: BUDESONIDE/FORMOTEROL 160-4.5 MCG 60 PUFF/6 GM MDI IH SCH ×2 (13:41→18:06)
[2017-10-05] MEDS: DOCUSATE SODIUM 100 MG CAPSULE PO SCH ×2 (13:41→18:03)
--- NOTE | 2017-10-05 21:03 | PDOC PROGRESS REPORT ---
Subjective Progress Note for:: 10/05/17 Subjective:: Patient was seen by the bedside, she had dialysis today, she is scheduled for a Cardiolite Lexiscan stress test in the morning. She has no new complaints no chest pains Reason For Visit: ACUTE NSTMI, ESRD ON HEMODIALYSIS Physical Exam Vital Signs: Temp Pulse Resp BP Pulse Ox 97.6 F 66 17 168/54 H 100 10/05/17 19:46 10/05/17 19:46 10/05/17 20:00 10/05/17 19:46 10/05/17 20:00 Intake & Output 10/04/17 10/05/17 10/06/17 06:59 06:59 06:59 Intake Total 375 84 455 Output Total 0 200 50 Balance 375 -116 405 Weight 65.4 kg 67.3 kg General appearance: PRESENT: no acute distress Eye exam: PRESENT: PERRLA Respiratory exam: PRESENT: clear to auscultation buddy Cardiovascular exam: PRESENT: +S1, +S2 GI/Abdominal exam: PRESENT: soft Neurological exam: PRESENT: alert Results Laboratory Results: 10/05/17 03:59 10/05/17 03:59 10/05/17 10/05/17 03:59 03:59 WBC 4.0 RBC 3.01 L Hgb 9.0 L Hct 27.0 L MCV 90 MCH 30.1 MCHC 33.6 RDW 17.6 H Plt Count 146 L Sodium 128.9 L Potassium 5.8 H Chloride 88 L Carbon Dioxide 25 Anion Gap 16 BUN 61 H Creatinine 8.54 H Est GFR ( Amer) 5 L Est GFR (Non-Af Amer) 5 L Glucose 116 H Calcium 8.9 09/30/17 09/30/17 09/30/17 00:50 04:41 04:41 Creatine Kinase 94 CK-MB (CK-2) 3.19 Troponin I 0.390 0.451 09/30/17 09/30/17 09/30/17 09:09 09:09 10:55 Creatine Kinase 109 CK-MB (CK-2) 3.48 3.08 Troponin I 0.521 0.460 09/30/17 09/30/17 09/30/17 10:55 16:00 16:00 Creatine Kinase 103 97 CK-MB (CK-2) 3.63 Troponin I 0.691 09/30/17 09/30/17 10/01/17 22:00 22:00 04:05 Creatine Kinase 97 84 CK-MB (CK-2) 3.71 Troponin I 0.930 10/01/17 10/01/17 10/01/17 04:05 11:05 11:05 Creatine Kinase 68 CK-MB (CK-2) 4.31 4.18 Troponin I 1.170 1.450 10/03/17 10/03/17 03:59 10:52 Creatine Kinase CK-MB (CK-2) Troponin I 2.080 1.980 Impressions: Chest X-Ray 09/29/17 20:59 IMPRESSION: Cardiomegaly without failure. Assessment & Plan - Diagnosis (1) Acute non-ST elevation myocardial infarction (NSTEMI) Is this a current diagnosis for this admission?: Yes (2) Type 2 diabetes mellitus Qualifiers: Diabetes mellitus termite control representative insulin use: without termite control representative use Diabetes mellitus complication status: with kidney complications Diabetes mellitus complication detail: with chronic kidney disease Chronic kidney disease stage : on chronic dialysis Qualified Code(s): E11.22 - Type 2 diabetes mellitus with diabetic chronic kidney disease; N18.6 - End stage renal disease; N18.6 - End stage renal disease; N18.6 - End stage renal disease; N18.6 - End stage renal disease; Z99.2 - Dependence on renal dialysis; Z99.2 - Dependence on renal dialysis; Z99.2 - Dependence on renal dialysis; Z99.2 - Dependence on renal dialysis Is this a current diagnosis for this admission?: Yes (3) ESRD (end stage renal disease) on dialysis Is this a current diagnosis for this admission?: Yes (4) Anemia in CKD (chronic kidney disease) Qualifiers: Chronic kidney disease stage: on chronic dialysis Qualified Code(s): N18.6 - End stage renal disease; D63.1 - Anemia in chronic kidney disease; D63.1 - Anemia in chronic kidney disease; Z99.2 - Dependence on renal dialysis; Z99.2 - Dependence on renal dialysis; Z99.2 - Dependence on renal dialysis; Z99.2 - Dependence on renal dialysis Is this a current diagnosis for this admission?: Yes (5) Essential hypertension Is this a current diagnosis for this admission?: Yes - Plan Summary Plan Summary: Patient to be transferred to stepdown unit
[2017-10-05] MEDS: ATORVASTATIN CALCIUM 80 MG TABLET PO SCH (21:16)
[2017-10-05] MEDS: AMLODIPINE BESYLATE 10 MG TABLET PO SCH (21:17)
[2017-10-06] MEDS: MORPHINE SULFATE 10 MG/ML INJ IV PRN ×2 (04:30→20:45)
[2017-10-06] MEDS: CLONIDINE HCL 0.1 MG TABLET PO SCH ×3 (05:01→22:36)
[2017-10-06] MEDS: LANSOPRAZOLE 15 MG TAB.RAP.DR PO SCH (05:02)
[2017-10-06] MEDS ORDERED: IPRATROPIUM/ALBUTEROL 0.5-2.5 MG/3 ML AMPUL NEB ONE (08:45)
[2017-10-06] MEDS ORDERED: IPRATROPIUM/ALBUTEROL 0.5-2.5 MG/3 ML AMPUL NEB PRN (08:47)
[2017-10-06] MEDS: SITAGLIPTIN PHOSPHATE 25 MG TABLET PO SCH (09:54)
[2017-10-06] MEDS: ISOSORBIDE MONONITRATE 60 MG TAB.ER.24H PO SCH ×2 (09:55→22:36)
[2017-10-06] MEDS: ASPIRIN 81 MG TABLET, ENT COATED PO SCH (09:55)
[2017-10-06] MEDS: DOCUSATE SODIUM 100 MG CAPSULE PO SCH ×2 (09:55→17:06)
[2017-10-06] MEDS: CYANOCOBALAMIN/FA/PYRIDOXINE TABLET PO SCH (09:55)
[2017-10-06] MEDS: CARVEDILOL 12.5 MG TABLET PO SCH ×2 (09:56→22:36)
[2017-10-06] MEDS: FAMOTIDINE 20 MG TABLET PO SCH ×2 (09:56→17:06)
[2017-10-06] MEDS: CLOPIDOGREL BISULFATE 75 MG TABLET PO SCH (09:56)
[2017-10-06] MEDS: BUDESONIDE/FORMOTEROL 160-4.5 MCG 60 PUFF/6 GM MDI IH SCH ×2 (09:57→17:07)
--- NOTE | 2017-10-06 12:50 | PDOC PROGRESS REPORT ---
Subjective Progress Note for:: 10/06/17 Subjective:: Patient had dialysis yesterday. Apparently she had drank some caffeine therefore nuclear stress test was not performed. This morning she got fed breakfast by mistake which included caffeine therefore stress test could not be performed. Patient had about 2.5 L of fluid removed on dialysis yesterday which she tolerated well. Patient seems to be doing better. Patient denied any chest pain. She has noted slight neck pain. Patient denying any PND, orthopnea. Patient denied any sustained palpitations, dizziness, syncope, near syncope. Patient denying any fever chills. Patient denying any other significant discomfort. Patient is maintaining sinus rhythm. Review of systems: Rest review of systems negative. Medications: Medications have been reviewed. Reason For Visit: ACUTE NSTMI, ESRD ON HEMODIALYSIS Physical Exam Vital Signs: Temp Pulse Resp BP Pulse Ox 97.8 F 60 20 150/58 H 100 10/06/17 12:00 10/06/17 12:00 10/06/17 12:00 10/06/17 12:00 10/06/17 12:00 Intake & Output 10/05/17 10/06/17 10/07/17 06:59 06:59 06:59 Intake Total 84 685 Output Total 200 50 0 Balance -116 635 0 Weight 67.3 kg 66.5 kg Exam: GENERAL: well-nourished and in no acute distress. Alert and oriented x3 HEAD: Atraumatic, normocephalic. EYES: Pupils equal round and reactive to light, extraocular movements intact, sclera anicteric, conjunctiva are normal. ENT: TMs normal, nares patent, oropharynx clear without exudates. Moist mucous membranes. No oral ulcerations or bleeding gums noted NECK: supple without lymphadenopathy. Trachea is central. No cervical or axillary lymphadenopathy noted. Carotids are 2+, JVD WNL LUNGS: Respiration seems nonlabored, no significant accessory muscle action noted. Breath sounds clear to auscultation bilaterally and equal noted. No wheezes rales or rhonchi noted. No significant dullness noted on percussion. CHEST: Palpation of the chest wall shows no significant chest wall tenderness. HEART: [place] [employer], No PSH, 1/6 LUL aortic area, 1/6 chaudhry systolic murmur mitral area, no rubs, no gallops. ABDOMEN: Soft, no significant tenderness appreciated, normoactive bowel sounds. No guarding, no rebound. No rigidity noted . No masses appreciated. EXTREMITIES: Pedal pulses are 1-2+, no calf tenderness noted. No clubbing or cyanosis. negative pedal edema noted NEUROLOGICAL: Focused neurological exam showed no significant neurologic deficit. Normal speech, no focal weakness appreciated. PSYCH: Normal mood, normal affect. Judgment and insight within normal limits. SKIN: No significant ecchymosis, skin is noted to be warm. MUSCULOSKELETAL EXAM: No significant acute joint swelling noted. Results Laboratory Results: 10/05/17 03:59 10/05/17 03:59 09/30/17 09/30/17 09/30/17 00:50 04:41 04:41 Creatine Kinase 94 CK-MB (CK-2) 3.19 Troponin I 0.390 0.451 09/30/17 09/30/17 09/30/17 09:09 09:09 10:55 Creatine Kinase 109 CK-MB (CK-2) 3.48 3.08 Troponin I 0.521 0.460 09/30/17 09/30/17 09/30/17 10:55 16:00 16:00 Creatine Kinase 103 97 CK-MB (CK-2) 3.63 Troponin I 0.691 09/30/17 09/30/17 10/01/17 22:00 22:00 04:05 Creatine Kinase 97 84 CK-MB (CK-2) 3.71 Troponin I 0.930 10/01/17 10/01/17 10/01/17 04:05 11:05 11:05 Creatine Kinase 68 CK-MB (CK-2) 4.31 4.18 Troponin I 1.170 1.450 10/03/17 10/03/17 03:59 10:52 Creatine Kinase CK-MB (CK-2) Troponin I 2.080 1.980 EKG Comments: Telemetry shows sinus rhythm without any sustained tachycardia or bradycardia. Impressions: Chest X-Ray 09/29/17 20:59 IMPRESSION: Cardiomegaly without failure. Assessment & Plan - Diagnosis (1) Accelerated hypertension Is this a current diagnosis for this admission?: Yes (2) Acute non-ST elevation myocardial infarction (NSTEMI) Is this a current diagnosis for this admission?: Yes (3) Chest pain Qualifiers: Chest pain type: unspecified Qualified Code(s): R07.9 - Chest pain, unspecified Is this a current diagnosis for this admission?: Yes (4) ESRD (end stage renal disease) on dialysis Is this a current diagnosis for this admission?: Yes (5) Type 2 diabetes mellitus Qualifiers: Diabetes mellitus terminal system operator insulin use: without residential use Diabetes mellitus complication status: with kidney complications Diabetes mellitus complication detail: with chronic kidney disease Chronic kidney disease stage : on chronic dialysis Qualified Code(s): E11.22 - Type 2 diabetes mellitus with diabetic chronic kidney disease; N18.6 - End stage renal disease; N18.6 - End stage renal disease; N18.6 - End stage renal disease; N18.6 - End stage renal disease; Z99.2 - Dependence on renal dialysis; Z99.2 - Dependence on renal dialysis; Z99.2 - Dependence on renal dialysis; Z99.2 - Dependence on renal dialysis Is this a current diagnosis for this admission?: Yes (6) CHF (congestive heart failure) Qualifiers: Heart failure type: diastolic Heart failure chronicity: acute on chronic Qualified Code(s): I50.33 - Acute on chronic diastolic (congestive) heart failure Is this a current diagnosis for this admission?: Yes - Notes Notes: Non-STEMI: Patient ruled in for non-STEMI by virtue of having chest pain and also having positive enzymes. EKG so far has been negative. Patient medications reviewed. Patient noted to be stable on current regimen. Patient got fed breakfast with caffeine drink this morning therefore could not have the stress test. Patient to have stress test tomorrow. Accelerated hypertension: Recommend aggressive management of blood pressure but avoid any hypotension. Continue to strive to keep blood pressure around 130- 140 range. Chest pain: Due to non-STEMI. Resolved. There has been no recurrences. Hopefully stress test can be completed tomorrow. End-stage renal disease: Currently on chronic hemodialysis therapy. Patient tolerating dialysis well. Today she had dialysis. Diabetes: Recommend good management but avoid any hypo-or hyperglycemia. CHF: Resolved. Patient advised on salt and fluid restriction.
--- NOTE | 2017-10-06 12:50 | PDOC PROGRESS REPORT ---
Subjective Progress Note for:: 10/05/17 Subjective:: Patient had dialysis today which she did fine. This morning she got fed breakfast by mistake which included caffeine therefore stress test could not be performed. Plan to remove 2.5 L of fluid weight on dialysis today as reported by the dialysis nurse. Patient seems to be doing better. Patient denied any chest pain. She has noted slight neck pain. Patient denying any PND, orthopnea. Patient denied any sustained palpitations, dizziness, syncope, near syncope. Patient denying any fever chills. Patient denying any other significant discomfort. Patient is maintaining sinus rhythm. Review of systems: Rest review of systems negative. Medications: Medications have been reviewed. Reason For Visit: ACUTE NSTMI, ESRD ON HEMODIALYSIS Physical Exam Vital Signs: Temp Pulse Resp BP Pulse Ox 97.6 F 66 17 168/54 H 100 10/05/17 19:46 10/05/17 19:46 10/05/17 20:00 10/05/17 19:46 10/05/17 20:00 Intake & Output 10/04/17 10/05/17 10/06/17 06:59 06:59 06:59 Intake Total 375 84 455 Output Total 0 200 50 Balance 375 -116 405 Weight 65.4 kg 67.3 kg Exam: GENERAL: well-nourished and in no acute distress. Alert and oriented x3 HEAD: Atraumatic, normocephalic. EYES: Pupils equal round and reactive to light, extraocular movements intact, sclera anicteric, conjunctiva are normal. ENT: TMs normal, nares patent, oropharynx clear without exudates. Moist mucous membranes. No oral ulcerations or bleeding gums noted NECK: supple without lymphadenopathy. Trachea is central. No cervical or axillary lymphadenopathy noted. Carotids are 2+, JVD WNL LUNGS: Respiration seems nonlabored, no significant accessory muscle action noted. Breath sounds clear to auscultation bilaterally and equal noted. No wheezes rales or rhonchi noted. No significant dullness noted on percussion. CHEST: Palpation of the chest wall shows no significant chest wall tenderness. HEART: [place] CLIENT SUCCESS SPECIALIST, No PSH, 1/6 LUL aortic area, 1/6 chaudhry systolic murmur mitral area, no rubs, no gallops. ABDOMEN: Soft, no significant tenderness appreciated, normoactive bowel sounds. No guarding, no rebound. No rigidity noted . No masses appreciated. EXTREMITIES: Pedal pulses are 1-2+, no calf tenderness noted. No clubbing or cyanosis. negative pedal edema noted NEUROLOGICAL: Focused neurological exam showed no significant neurologic deficit. Normal speech, no focal weakness appreciated. PSYCH: Normal mood, normal affect. Judgment and insight within normal limits. SKIN: No significant ecchymosis, skin is noted to be warm. MUSCULOSKELETAL EXAM: No significant acute joint swelling noted. Results Laboratory Results: 10/05/17 03:59 10/05/17 03:59 10/05/17 10/05/17 03:59 03:59 WBC 4.0 RBC 3.01 L Hgb 9.0 L Hct 27.0 L MCV 90 MCH 30.1 MCHC 33.6 RDW 17.6 H Plt Count 146 L Sodium 128.9 L Potassium 5.8 H Chloride 88 L Carbon Dioxide 25 Anion Gap 16 BUN 61 H Creatinine 8.54 H Est GFR ( Amer) 5 L Est GFR (Non-Af Amer) 5 L Glucose 116 H Calcium 8.9 09/30/17 09/30/17 09/30/17 00:50 04:41 04:41 Creatine Kinase 94 CK-MB (CK-2) 3.19 Troponin I 0.390 0.451 09/30/17 09/30/17 09/30/17 09:09 09:09 10:55 Creatine Kinase 109 CK-MB (CK-2) 3.48 3.08 Troponin I 0.521 0.460 09/30/17 09/30/17 09/30/17 10:55 16:00 16:00 Creatine Kinase 103 97 CK-MB (CK-2) 3.63 Troponin I 0.691 09/30/17 09/30/17 10/01/17 22:00 22:00 04:05 Creatine Kinase 97 84 CK-MB (CK-2) 3.71 Troponin I 0.930 10/01/17 10/01/17 10/01/17 04:05 11:05 11:05 Creatine Kinase 68 CK-MB (CK-2) 4.31 4.18 Troponin I 1.170 1.450 10/03/17 10/03/17 03:59 10:52 Creatine Kinase CK-MB (CK-2) Troponin I 2.080 1.980 EKG Comments: Shows sinus rhythm without any sustained tachycardia or bradycardia. Impressions: Chest X-Ray 09/29/17 20:59 IMPRESSION: Cardiomegaly without failure. Assessment & Plan - Diagnosis (1) Accelerated hypertension Is this a current diagnosis for this admission?: Yes (2) Acute non-ST elevation myocardial infarction (NSTEMI) Is this a current diagnosis for this admission?: Yes (3) Chest pain Qualifiers: Chest pain type: unspecified Qualified Code(s): R07.9 - Chest pain, unspecified Is this a current diagnosis for this admission?: Yes (4) ESRD (end stage renal disease) on dialysis Is this a current diagnosis for this admission?: Yes (5) Type 2 diabetes mellitus Qualifiers: Diabetes mellitus skilled nursing insulin use: without skilled nursing use Diabetes mellitus complication status: with kidney complications Diabetes mellitus complication detail: with chronic kidney disease Chronic kidney disease stage : on chronic dialysis Qualified Code(s): E11.22 - Type 2 diabetes mellitus with diabetic chronic kidney disease; N18.6 - End stage renal disease; N18.6 - End stage renal disease; N18.6 - End stage renal disease; N18.6 - End stage renal disease; Z99.2 - Dependence on renal dialysis; Z99.2 - Dependence on renal dialysis; Z99.2 - Dependence on renal dialysis; Z99.2 - Dependence on renal dialysis Is this a current diagnosis for this admission?: Yes (6) CHF (congestive heart failure) Qualifiers: Heart failure type: diastolic Heart failure chronicity: acute on chronic Qualified Code(s): I50.33 - Acute on chronic diastolic (congestive) heart failure Is this a current diagnosis for this admission?: Yes - Notes Notes: Non-STEMI: Patient ruled in for non-STEMI by virtue of having chest pain and also having positive enzymes. EKG so far has been negative. Patient medications reviewed. Patient noted to be stable on current regimen. Patient to have stress test tomorrow. Accelerated hypertension: Recommend aggressive management of blood pressure but avoid any hypotension. Continue to strive to keep blood pressure around 130- 140 range. Chest pain: Due to non-STEMI. Resolved. There has been no recurrences. Hopefully stress test can be completed tomorrow. End-stage renal disease: Currently on chronic hemodialysis therapy. Patient tolerating dialysis well. Today she had dialysis. Diabetes: Recommend good management but avoid any hypo-or hyperglycemia. CHF: Resolved. Patient advised on salt and fluid restriction. - Time Time with patient: 15-25 minutes - CODE STATUS was discussed, patient remains full code. Surrogate decision-maker unchanged. Multiple medical problems were addressed. More than 50% of the time spent coordinating care, discussing management plans with involved caregivers. Management plans discussed with involved personnels. Medical decision making was of moderate to high complexity , patient's has multiple comorbidities. Medications reviewed and adjusted accordingly: Yes
[2017-10-06 13:18] LABS: ANION GAP 15 (5-19); BLOOD UREA NITROGEN 35 mg/dL (7-20); CALCIUM 9.3 mg/dL (8.4-10.2); CARBON DIOXIDE 26 mmol/L (22-30); CHLORIDE 94 mmol/L (98-107); GLUCOSE 110 mg/dL (75-110); POTASSIUM 5.4 mmol/L (3.6-5.0); SODIUM 134.6 mmol/L (137-145)
--- NOTE | 2017-10-06 14:20 | RADIOLOGY REPORT (SQ) ---
EXAM DESCRIPTION: CHEST SINGLE VIEW COMPLETED DATE/TIME: 10/06/2017 1:31 pm REASON FOR STUDY: abnormal lung sounds COMPARISON: 09/29/2017 NUMBER OF VIEWS: One view. TECHNIQUE: Single frontal radiographic view of the chest acquired. LIMITATIONS: None. FINDINGS: LUNGS AND PLEURA: Diffuse interstitial edema. MEDIASTINUM AND HILAR STRUCTURES: No masses or contour abnormality. HEART AND VASCULATURE: Cardiac enlargement. Vascular congestion. BONES: No acute findings. HARDWARE: None in the chest. OTHER: No other significant finding. IMPRESSION: Congestive heart failure. TECHNICAL DOCUMENTATION: JOB ID: [id number] [employer]- All Rights Reserved Reading location - IP/workstation name: [email or web address]
--- NOTE | 2017-10-06 15:14 | PDOC PROGRESS REPORT ---
Subjective Progress Note for:: 10/06/17 Subjective:: Patient up walking around the ICU when I first saw her. She was doing a significant amount of coughing, but denied any sputum production. She denies any fevers or chills. She also denies any chest pain, she does have some SOB from walking. According to the Nurse in charge of her care, Ayah, she just started coughing when she started walking around. This is her first time walking around since she has come into the hospital. Stress test could not be done due to drinking coffee Reason For Visit: ACUTE NSTMI, ESRD ON HEMODIALYSIS Physical Exam Vital Signs: Temp Pulse Resp BP Pulse Ox 97.8 F 63 20 150/58 H 100 10/06/17 12:00 10/06/17 13:47 10/06/17 12:00 10/06/17 12:00 10/06/17 12:00 Intake & Output 10/05/17 10/06/17 10/07/17 06:59 06:59 06:59 Intake Total 84 685 Output Total 200 50 0 Balance -116 635 0 Weight 67.3 kg 66.5 kg General appearance: PRESENT: no acute distress, well-developed, well-nourished Mouth exam: PRESENT: moist, neck supple Neck exam: PRESENT: full ROM. ABSENT: JVD Respiratory exam: PRESENT: crackles - -diffuse, rales. ABSENT: accessory muscle use, clear to auscultation buddy, rhonchi, wheezes Cardiovascular exam: PRESENT: +S1, +S2 GI/Abdominal exam: PRESENT: normal bowel sounds, soft. ABSENT: organomegaly, tenderness Extremities exam: ABSENT: pedal edema, tenderness, +1 edema, +2 edema Musculoskeletal exam: PRESENT: normal inspection. ABSENT: tenderness Neurological exam: PRESENT: alert, awake, oriented to person, oriented to place , oriented to time, oriented to situation Psychiatric exam: PRESENT: appropriate affect, normal mood Skin exam: PRESENT: dry, intact, warm. ABSENT: cyanosis Results Laboratory Results: 10/05/17 03:59 10/06/17 12:47 10/06/17 12:47 Sodium 134.6 L Potassium 5.4 H Chloride 94 L Carbon Dioxide 26 Anion Gap 15 BUN 35 H Creatinine 6.78 H Est GFR ( Amer) 7 L Est GFR (Non-Af Amer) 6 L Glucose 110 Calcium 9.3 09/30/17 09/30/17 09/30/17 00:50 04:41 04:41 Creatine Kinase 94 CK-MB (CK-2) 3.19 Troponin I 0.390 0.451 09/30/17 09/30/17 09/30/17 09:09 09:09 10:55 Creatine Kinase 109 CK-MB (CK-2) 3.48 3.08 Troponin I 0.521 0.460 09/30/17 09/30/17 09/30/17 10:55 16:00 16:00 Creatine Kinase 103 97 CK-MB (CK-2) 3.63 Troponin I 0.691 09/30/17 09/30/17 10/01/17 22:00 22:00 04:05 Creatine Kinase 97 84 CK-MB (CK-2) 3.71 Troponin I 0.930 10/01/17 10/01/17 10/01/17 04:05 11:05 11:05 Creatine Kinase 68 CK-MB (CK-2) 4.31 4.18 Troponin I 1.170 1.450 10/03/17 10/03/17 03:59 10:52 Creatine Kinase CK-MB (CK-2) Troponin I 2.080 1.980 Impressions: Chest X-Ray 10/06/17 12:38 IMPRESSION: Congestive heart failure. Assessment & Plan - Diagnosis (1) ESRD (end stage renal disease) on dialysis Is this a current diagnosis for this admission?: Yes Plan: will look to do dialysis tomorrow and remove extra fluid (2) Acute non-ST elevation myocardial infarction (NSTEMI) Is this a current diagnosis for this admission?: Yes Plan: stress test was not able to be done due to drinking coffee (3) CHF (congestive heart failure) Qualifiers: Heart failure type: diastolic Heart failure chronicity: acute on chronic Qualified Code(s): I50.33 - Acute on chronic diastolic (congestive) heart failure Is this a current diagnosis for this admission?: Yes Plan: will look to remove fluid on dialysis tomorrow, also has a combination of atelectasis, starting to use incentive spirometer (4) Anemia in CKD (chronic kidney disease) Qualifiers: Chronic kidney disease stage: on chronic dialysis Qualified Code(s): N18.6 - End stage renal disease; D63.1 - Anemia in chronic kidney disease; D63.1 - Anemia in chronic kidney disease; Z99.2 - Dependence on renal dialysis; Z99.2 - Dependence on renal dialysis; Z99.2 - Dependence on renal dialysis; Z99.2 - Dependence on renal dialysis Is this a current diagnosis for this admission?: Yes Plan: Will give epogen on dialysis tomorrow (5) Chest pain Qualifiers: Chest pain type: unspecified Qualified Code(s): R07.9 - Chest pain, unspecified Is this a current diagnosis for this admission?: Yes Plan: getting a stress test (6) Type 2 diabetes mellitus Qualifiers: Diabetes mellitus buttermaker continuous churn insulin use: without senior care use Diabetes mellitus complication status: with kidney complications Diabetes mellitus complication detail: with chronic kidney disease Chronic kidney disease stage : on chronic dialysis Qualified Code(s): E11.22 - Type 2 diabetes mellitus with diabetic chronic kidney disease; N18.6 - End stage renal disease; N18.6 - End stage renal disease; N18.6 - End stage renal disease; N18.6 - End stage renal disease; Z99.2 - Dependence on renal dialysis; Z99.2 - Dependence on renal dialysis; Z99.2 - Dependence on renal dialysis; Z99.2 - Dependence on renal dialysis Is this a current diagnosis for this admission?: Yes (7) Hyperkalemia Plan: advised on a potassium diet and will remove potassium with dialysis tomorrow - Notes Notes: Case was discussed with Dr. Toussaint
[2017-10-06] MEDS: AMLODIPINE BESYLATE 10 MG TABLET PO SCH (20:15)
--- NOTE | 2017-10-06 21:27 | PDOC PROGRESS REPORT ---
Subjective Progress Note for:: 10/06/17 Subjective:: She was seen by the bedside she is wheezing, Patient is very anxious because she is very short of breath, she may require noninvasive positive pressure ventilation ,BiPAP Reason For Visit: ACUTE NSTMI, ESRD ON HEMODIALYSIS Physical Exam Vital Signs: Temp Pulse Resp BP Pulse Ox 97.9 F 79 22 H 195/84 H 92 10/06/17 20:00 10/06/17 20:00 10/06/17 17:40 10/06/17 20:01 10/06/17 20:01 Intake & Output 10/05/17 10/06/17 10/07/17 06:59 06:59 06:59 Intake Total 84 685 5 Output Total 200 50 0 Balance -116 635 5 Weight 67.3 kg 66.5 kg 66.5 kg General appearance: PRESENT: severe distress Eye exam: PRESENT: PERRLA Respiratory exam: PRESENT: wheezes Cardiovascular exam: PRESENT: +S1, +S2 GI/Abdominal exam: PRESENT: soft Neurological exam: PRESENT: alert Results Laboratory Results: 10/05/17 03:59 10/06/17 12:47 10/06/17 12:47 Sodium 134.6 L Potassium 5.4 H Chloride 94 L Carbon Dioxide 26 Anion Gap 15 BUN 35 H Creatinine 6.78 H Est GFR ( Amer) 7 L Est GFR (Non-Af Amer) 6 L Glucose 110 Calcium 9.3 09/30/17 09/30/17 09/30/17 00:50 04:41 04:41 Creatine Kinase 94 CK-MB (CK-2) 3.19 Troponin I 0.390 0.451 09/30/17 09/30/17 09/30/17 09:09 09:09 10:55 Creatine Kinase 109 CK-MB (CK-2) 3.48 3.08 Troponin I 0.521 0.460 09/30/17 09/30/17 09/30/17 10:55 16:00 16:00 Creatine Kinase 103 97 CK-MB (CK-2) 3.63 Troponin I 0.691 09/30/17 09/30/17 10/01/17 22:00 22:00 04:05 Creatine Kinase 97 84 CK-MB (CK-2) 3.71 Troponin I 0.930 10/01/17 10/01/17 10/01/17 04:05 11:05 11:05 Creatine Kinase 68 CK-MB (CK-2) 4.31 4.18 Troponin I 1.170 1.450 10/03/17 10/03/17 03:59 10:52 Creatine Kinase CK-MB (CK-2) Troponin I 2.080 1.980 Impressions: Chest X-Ray 10/06/17 12:38 IMPRESSION: Congestive heart failure. Assessment & Plan - Diagnosis (1) Acute non-ST elevation myocardial infarction (NSTEMI) Is this a current diagnosis for this admission?: Yes (2) Type 2 diabetes mellitus Qualifiers: Diabetes mellitus moth exterminator insulin use: without moth exterminator use Diabetes mellitus complication status: with kidney complications Diabetes mellitus complication detail: with chronic kidney disease Chronic kidney disease stage : on chronic dialysis Qualified Code(s): E11.22 - Type 2 diabetes mellitus with diabetic chronic kidney disease; N18.6 - End stage renal disease; N18.6 - End stage renal disease; N18.6 - End stage renal disease; N18.6 - End stage renal disease; Z99.2 - Dependence on renal dialysis; Z99.2 - Dependence on renal dialysis; Z99.2 - Dependence on renal dialysis; Z99.2 - Dependence on renal dialysis Is this a current diagnosis for this admission?: Yes (3) ESRD (end stage renal disease) on dialysis Is this a current diagnosis for this admission?: Yes (4) Anemia in CKD (chronic kidney disease) Qualifiers: Chronic kidney disease stage: on chronic dialysis Qualified Code(s): N18.6 - End stage renal disease; D63.1 - Anemia in chronic kidney disease; D63.1 - Anemia in chronic kidney disease; Z99.2 - Dependence on renal dialysis; Z99.2 - Dependence on renal dialysis; Z99.2 - Dependence on renal dialysis; Z99.2 - Dependence on renal dialysis Is this a current diagnosis for this admission?: Yes (5) Essential hypertension Is this a current diagnosis for this admission?: Yes - Plan Summary Plan Summary: Rx with DuoNeb every 4 hours and BiPAP ,setting in [facility]
[2017-10-06] MEDS: ATORVASTATIN CALCIUM 80 MG TABLET PO SCH (22:36)
[2017-10-07 04:17] LABS: ABSOLUTE EOSINOPHILS # (AUTO) 0.1 10^3/uL (0.0-0.6); ABSOLUTE LYMPHOCYTES (AUTO) 0.8 10^3/uL (0.5-4.7); ABSOLUTE MONOCYTES (AUTO) 0.4 10^3/uL (0.1-1.4); ABSOLUTE NEUT (AUTO) 4.6 10^3/uL (1.7-8.2); BASOPHILS % (AUTO) 0.8 % (0-2); EOSINOPHILS % (AUTO) 1.1 % (0-6); HEMATOCRIT 28.1 % (36.0-47.0); HEMOGLOBIN 9.1 g/dL (12.0-15.5); LYMPHOCYTES % (AUTO) 13.6 % (13-45); MEAN CORPUSCULAR HEMOGLOBIN 29.5 pg (27.0-33.4); MEAN CORPUSCULAR HGB CONC 32.4 g/dL (32.0-36.0); MEAN CORPUSCULAR VOLUME 91 fl (80-97); MONOCYTES % (AUTO) 6.9 % (3-13); PLATELET COUNT 181 10^3/uL (150-450); RED BLOOD COUNT 3.09 10^6/uL (3.72-5.28); RED CELL DISTRIBUTION WIDTH 18.1 % (11.5-14.0); SEGMENTED NEUTROPHILS % (AUTO) 77.6 % (42-78); TOTAL CELLS COUNTED % (AUTO) 100 %; WHITE BLOOD COUNT 5.9 10^3/uL (4.0-10.5)
[2017-10-07 04:22] LABS: ANION GAP 12 (5-19); BLOOD UREA NITROGEN 42 mg/dL (7-20); CALCIUM 9.2 mg/dL (8.4-10.2); CARBON DIOXIDE 30 mmol/L (22-30); CHLORIDE 90 mmol/L (98-107); GLUCOSE 147 mg/dL (75-110); POTASSIUM 5.7 mmol/L (3.6-5.0); SODIUM 131.5 mmol/L (137-145)
[2017-10-07] MEDS ORDERED: EPOETIN ALFA INJ 20000 UNIT/1 ML VIAL (RENAL) IV PRN (05:00)
[2017-10-07] MEDS: CLONIDINE HCL 0.1 MG TABLET PO SCH ×3 (05:43→21:13)
[2017-10-07] MEDS: LANSOPRAZOLE 15 MG TAB.RAP.DR PO SCH (05:43)
[2017-10-07] MEDS: ONDANSETRON HCL INJ/PF 4 MG/2 ML SDV IV PRN (12:19)
--- NOTE | 2017-10-07 15:26 | PDOC PROGRESS REPORT ---
Subjective Progress Note for:: 10/07/17 Reason For Visit: Seen on dialysis.Undergoing dialysis without any issues.Denies any chest pains, dyspnea.Dialysis orders were discussed with treating research associate quality control qc.labs and meds were reviewed. Physical Exam Vital Signs: Temp Pulse Resp BP Pulse Ox 97.9 F 63 17 147/46 H 100 10/07/17 07:44 10/07/17 07:44 10/07/17 12:00 10/07/17 08:00 10/07/17 08:01 Intake & Output 10/06/17 10/07/17 10/08/17 06:59 06:59 06:59 Intake Total 685 7 Output Total 50 100 Balance 635 -93 Weight 66.5 kg 67.8 kg General appearance: PRESENT: no acute distress Respiratory exam: PRESENT: clear to auscultation buddy, symmetrical. ABSENT: crackles Cardiovascular exam: PRESENT: +S1, +S2 GI/Abdominal exam: PRESENT: normal bowel sounds, soft. ABSENT: organomegaly, tenderness Neurological exam: PRESENT: awake, oriented to person, oriented to place Results Laboratory Results: 10/07/17 03:47 10/07/17 03:47 10/07/17 10/07/17 03:47 03:47 WBC 5.9 RBC 3.09 L Hgb 9.1 L Hct 28.1 L MCV 91 MCH 29.5 MCHC 32.4 RDW 18.1 H Plt Count 181 Seg Neutrophils % 77.6 Lymphocytes % 13.6 Monocytes % 6.9 Eosinophils % 1.1 Basophils % 0.8 Absolute Neutrophils 4.6 Absolute Lymphocytes 0.8 Absolute Monocytes 0.4 Absolute Eosinophils 0.1 Absolute Basophils 0.0 Sodium 131.5 L Potassium 5.7 H Chloride 90 L Carbon Dioxide 30 Anion Gap 12 BUN 42 H Creatinine 8.05 H Est GFR ( Amer) 6 L Est GFR (Non-Af Amer) 5 L Glucose 147 H Calcium 9.2 09/30/17 09/30/17 09/30/17 00:50 04:41 04:41 Creatine Kinase 94 CK-MB (CK-2) 3.19 Troponin I 0.390 0.451 09/30/17 09/30/17 09/30/17 09:09 09:09 10:55 Creatine Kinase 109 CK-MB (CK-2) 3.48 3.08 Troponin I 0.521 0.460 09/30/17 09/30/17 09/30/17 10:55 16:00 16:00 Creatine Kinase 103 97 CK-MB (CK-2) 3.63 Troponin I 0.691 09/30/17 09/30/17 10/01/17 22:00 22:00 04:05 Creatine Kinase 97 84 CK-MB (CK-2) 3.71 Troponin I 0.930 10/01/17 10/01/17 10/01/17 04:05 11:05 11:05 Creatine Kinase 68 CK-MB (CK-2) 4.31 4.18 Troponin I 1.170 1.450 10/03/17 10/03/17 03:59 10:52 Creatine Kinase CK-MB (CK-2) Troponin I 2.080 1.980 Impressions: Chest X-Ray 10/06/17 12:38 IMPRESSION: Congestive heart failure. Assessment & Plan - Diagnosis (1) ESRD (end stage renal disease) on dialysis Is this a current diagnosis for this admission?: Yes Plan: Patient undergoing dialysis without any issues. Vital signs are stable but foe severe hypertension. Is being supervised to ensure safe and smooth procedure. Orders were discussed with the treating dialysis nurse. We will remove approximately 2 L of fluid as tolerated. Will rx high BP with clonidine now. (2) Accelerated hypertension Is this a current diagnosis for this admission?: Yes Plan: Uncontrolled on Dialysis but otherwise fairly well controlled. Rx now with prn clonidine and monitor. See further response to dialysis. (3) Chest pain Qualifiers: Chest pain type: unspecified Qualified Code(s): R07.9 - Chest pain, unspecified Is this a current diagnosis for this admission?: Yes Plan: Ruled in for an non STEMI. Further management as per cardiology. (4) Anemia in CKD (chronic kidney disease) Qualifiers: Chronic kidney disease stage: on chronic dialysis Qualified Code(s): N18.6 - End stage renal disease; D63.1 - Anemia in chronic kidney disease; D63.1 - Anemia in chronic kidney disease; Z99.2 - Dependence on renal dialysis; Z99.2 - Dependence on renal dialysis; Z99.2 - Dependence on renal dialysis; Z99.2 - Dependence on renal dialysis Is this a current diagnosis for this admission?: Yes Plan: Hold off on erythropoietin, given the uncontrolled hypertension. Monitor. (5) Hyperkalemia Plan: Should respond to dialysis.Needs dietary restrictions.
[2017-10-07] MEDS: HYDRALAZINE HCL 50 MG TABLET PO SCH ×2 (17:34→21:13)
[2017-10-07] MEDS: CARVEDILOL 12.5 MG TABLET PO SCH ×2 (17:34→21:12)
[2017-10-07] MEDS: DOCUSATE SODIUM 100 MG CAPSULE PO SCH ×2 (17:34→17:37)
[2017-10-07] MEDS: ISOSORBIDE MONONITRATE 60 MG TAB.ER.24H PO SCH ×2 (17:34→21:13)
[2017-10-07] MEDS: ASPIRIN 81 MG TABLET, ENT COATED PO SCH (17:36)
[2017-10-07] MEDS: CLOPIDOGREL BISULFATE 75 MG TABLET PO SCH (17:37)
[2017-10-07] MEDS: FAMOTIDINE 20 MG TABLET PO SCH (17:37)
[2017-10-07] MEDS: SITAGLIPTIN PHOSPHATE 25 MG TABLET PO SCH (17:37)
[2017-10-07] MEDS: BUDESONIDE/FORMOTEROL 160-4.5 MCG 60 PUFF/6 GM MDI IH SCH (17:38)
[2017-10-07] MEDS: CYANOCOBALAMIN/FA/PYRIDOXINE TABLET PO SCH (17:38)
[2017-10-07] MEDS: ATORVASTATIN CALCIUM 80 MG TABLET PO SCH (21:12)
[2017-10-07] MEDS: AMLODIPINE BESYLATE 10 MG TABLET PO SCH (21:13)
--- NOTE | 2017-10-07 21:23 | PDOC PROGRESS REPORT ---
Subjective Progress Note for:: 10/07/17 Subjective:: Patient was seen by the bedside she was supposed to have stress test today but she was very short of breath she had dialysis today Reason For Visit: ACUTE NSTMI, ESRD ON HEMODIALYSIS Physical Exam Vital Signs: Temp Pulse Resp BP Pulse Ox 99.0 F 76 20 159/54 H 89 L 10/07/17 19:32 10/07/17 19:00 10/07/17 20:00 10/07/17 19:34 10/07/17 18:44 Intake & Output 10/06/17 10/07/17 10/08/17 06:59 06:59 06:59 Intake Total 685 7 105 Output Total 50 100 Balance 635 -93 105 Weight 66.5 kg 67.8 kg General appearance: PRESENT: no acute distress Eye exam: PRESENT: PERRLA Respiratory exam: PRESENT: clear to auscultation buddy Cardiovascular exam: PRESENT: +S1, +S2 GI/Abdominal exam: PRESENT: soft Neurological exam: PRESENT: alert Results Laboratory Results: 10/07/17 03:47 10/07/17 03:47 10/07/17 10/07/17 03:47 03:47 WBC 5.9 RBC 3.09 L Hgb 9.1 L Hct 28.1 L MCV 91 MCH 29.5 MCHC 32.4 RDW 18.1 H Plt Count 181 Seg Neutrophils % 77.6 Lymphocytes % 13.6 Monocytes % 6.9 Eosinophils % 1.1 Basophils % 0.8 Absolute Neutrophils 4.6 Absolute Lymphocytes 0.8 Absolute Monocytes 0.4 Absolute Eosinophils 0.1 Absolute Basophils 0.0 Sodium 131.5 L Potassium 5.7 H Chloride 90 L Carbon Dioxide 30 Anion Gap 12 BUN 42 H Creatinine 8.05 H Est GFR ( Amer) 6 L Est GFR (Non-Af Amer) 5 L Glucose 147 H Calcium 9.2 09/30/17 09/30/17 09/30/17 00:50 04:41 04:41 Creatine Kinase 94 CK-MB (CK-2) 3.19 Troponin I 0.390 0.451 09/30/17 09/30/17 09/30/17 09:09 09:09 10:55 Creatine Kinase 109 CK-MB (CK-2) 3.48 3.08 Troponin I 0.521 0.460 09/30/17 09/30/1718 10:55 16:00 16:00 Creatine Kinase 103 97 CK-MB (CK-2) 3.63 Troponin I 0.691 09/30/17 09/30/17 10/01/17 22:00 22:00 04:05 Creatine Kinase 97 84 CK-MB (CK-2) 3.71 Troponin I 0.930 10/01/17 10/01/17 10/01/17 04:05 11:05 11:05 Creatine Kinase 68 CK-MB (CK-2) 4.31 4.18 Troponin I 1.170 1.450 10/03/17 10/03/17 03:59 10:52 Creatine Kinase CK-MB (CK-2) Troponin I 2.080 1.980 Impressions: Chest X-Ray 10/06/17 12:38 IMPRESSION: Congestive heart failure. Assessment & Plan - Diagnosis (1) Acute non-ST elevation myocardial infarction (NSTEMI) Is this a current diagnosis for this admission?: Yes (2) Type 2 diabetes mellitus Qualifiers: Diabetes mellitus intermediate card tender insulin use: without fpc use Diabetes mellitus complication status: with kidney complications Diabetes mellitus complication detail: with chronic kidney disease Chronic kidney disease stage : on chronic dialysis Qualified Code(s): E11.22 - Type 2 diabetes mellitus with diabetic chronic kidney disease; N18.6 - End stage renal disease; N18.6 - End stage renal disease; N18.6 - End stage renal disease; N18.6 - End stage renal disease; Z99.2 - Dependence on renal dialysis; Z99.2 - Dependence on renal dialysis; Z99.2 - Dependence on renal dialysis; Z99.2 - Dependence on renal dialysis Is this a current diagnosis for this admission?: Yes (3) ESRD (end stage renal disease) on dialysis Is this a current diagnosis for this admission?: Yes (4) Anemia in CKD (chronic kidney disease) Qualifiers: Chronic kidney disease stage: on chronic dialysis Qualified Code(s): N18.6 - End stage renal disease; D63.1 - Anemia in chronic kidney disease; D63.1 - Anemia in chronic kidney disease; Z99.2 - Dependence on renal dialysis; Z99.2 - Dependence on renal dialysis; Z99.2 - Dependence on renal dialysis; Z99.2 - Dependence on renal dialysis Is this a current diagnosis for this admission?: Yes (5) Essential hypertension Is this a current diagnosis for this admission?: Yes
[2017-10-08 05:40] LABS: ANION GAP 12 (5-19); BLOOD UREA NITROGEN 29 mg/dL (7-20); CALCIUM 9.2 mg/dL (8.4-10.2); CARBON DIOXIDE 31 mmol/L (22-30); CHLORIDE 94 mmol/L (98-107); GLUCOSE 119 mg/dL (75-110); POTASSIUM 4.5 mmol/L (3.6-5.0); SODIUM 136.7 mmol/L (137-145)
[2017-10-08] MEDS: HYDRALAZINE HCL 50 MG TABLET PO SCH ×3 (05:40→22:04)
[2017-10-08] MEDS: CLONIDINE HCL 0.1 MG TABLET PO SCH ×3 (05:40→22:04)
[2017-10-08] MEDS: LANSOPRAZOLE 15 MG TAB.RAP.DR PO SCH (05:41)
[2017-10-08] MEDS: CLOPIDOGREL BISULFATE 75 MG TABLET PO SCH (09:27)
[2017-10-08] MEDS: DOCUSATE SODIUM 100 MG CAPSULE PO SCH ×2 (09:27→17:31)
[2017-10-08] MEDS: FAMOTIDINE 20 MG TABLET PO SCH ×2 (09:28→17:31)
[2017-10-08] MEDS: ISOSORBIDE MONONITRATE 60 MG TAB.ER.24H PO SCH ×2 (09:28→22:04)
[2017-10-08] MEDS: CARVEDILOL 12.5 MG TABLET PO SCH ×2 (09:28→22:04)
[2017-10-08] MEDS: ASPIRIN 81 MG TABLET, ENT COATED PO SCH (09:28)
[2017-10-08] MEDS: BUDESONIDE/FORMOTEROL 160-4.5 MCG 60 PUFF/6 GM MDI IH SCH ×2 (09:50→17:31)
[2017-10-08] MEDS: CYANOCOBALAMIN/FA/PYRIDOXINE TABLET PO SCH (10:38)
[2017-10-08] MEDS: SITAGLIPTIN PHOSPHATE 25 MG TABLET PO SCH (10:38)
--- NOTE | 2017-10-08 12:50 | PDOC PROGRESS REPORT ---
Subjective Progress Note for:: 10/08/17 Subjective:: Patient was sitting up on the edge of her bed. At the time she said that she felt much better compared to yesterday. Her stress test was stopped yesterday due to SOB. Today she denies any chest pain, SOB, n/v. Patient at the time was on on 3L on oxygen via [place]. Reason For Visit: ACUTE NSTMI, ESRD ON HEMODIALYSIS Physical Exam Vital Signs: Temp Pulse Resp BP Pulse Ox 98.3 F 73 16 148/43 H 93 10/08/17 08:38 10/08/17 08:58 10/08/17 08:58 10/08/17 08:38 10/08/17 08:58 Intake & Output 10/07/17 10/08/17 10/09/17 06:59 06:59 06:59 Intake Total 7 305 Output Total 100 3500 Balance -93 -3195 Weight 67.8 kg 61.9 kg General appearance: PRESENT: no acute distress, well-developed, well-nourished Mouth exam: PRESENT: moist, neck supple Neck exam: PRESENT: full ROM. ABSENT: JVD Respiratory exam: PRESENT: crackles - -bases, rales. ABSENT: accessory muscle use, clear to auscultation buddy, rhonchi, wheezes Cardiovascular exam: PRESENT: +S1, +S2 GI/Abdominal exam: PRESENT: normal bowel sounds, soft. ABSENT: organomegaly, tenderness Extremities exam: ABSENT: pedal edema, tenderness, +1 edema, +2 edema Musculoskeletal exam: PRESENT: normal inspection. ABSENT: tenderness Neurological exam: PRESENT: alert, awake, oriented to person, oriented to place , oriented to time, oriented to situation Skin exam: PRESENT: dry, intact, warm. ABSENT: cyanosis Results Laboratory Results: 10/07/17 03:47 10/08/17 04:02 10/08/17 04:02 Sodium 136.7 L Potassium 4.5 Chloride 94 L Carbon Dioxide 31 H Anion Gap 12 BUN 29 H Creatinine 5.74 H Est GFR ( Amer) 9 L Est GFR (Non-Af Amer) 7 L Glucose 119 H Calcium 9.2 09/30/17 09/30/17 09/30/17 00:50 04:41 04:41 Creatine Kinase 94 CK-MB (CK-2) 3.19 Troponin I 0.390 0.451 09/30/17 09/30/17 09/30/17 09:09 09:09 10:55 Creatine Kinase 109 CK-MB (CK-2) 3.48 3.08 Troponin I 0.521 0.460 09/30/17 09/30/17 09/30/17 10:55 16:00 16:00 Creatine Kinase 103 97 CK-MB (CK-2) 3.63 Troponin I 0.691 09/30/17 09/30/17 10/01/17 22:00 22:00 04:05 Creatine Kinase 97 84 CK-MB (CK-2) 3.71 Troponin I 0.930 10/01/17 10/01/17 10/01/17 04:05 11:05 11:05 Creatine Kinase 68 CK-MB (CK-2) 4.31 4.18 Troponin I 1.170 1.450 10/03/17 10/03/17 03:59 10:52 Creatine Kinase CK-MB (CK-2) Troponin I 2.080 1.980 Impressions: Chest X-Ray 10/06/17 12:38 IMPRESSION: Congestive heart failure. Assessment & Plan - Diagnosis (1) ESRD (end stage renal disease) on dialysis Is this a current diagnosis for this admission?: Yes Plan: If patient remains in the hospital tomorrow then she will be dialyzed tomorrow in the hospital. Typically dialyzes on MWF in the morning as outpatient. (2) Acute non-ST elevation myocardial infarction (NSTEMI) Is this a current diagnosis for this admission?: Yes Plan: per cardiology (3) CHF (congestive heart failure) Qualifiers: Heart failure type: diastolic Heart failure chronicity: acute on chronic Qualified Code(s): I50.33 - Acute on chronic diastolic (congestive) heart failure Is this a current diagnosis for this admission?: Yes Plan: will look to remove more fluid with dialysis. Patient does not urinate so diuretic will not work (4) Anemia in CKD (chronic kidney disease) Qualifiers: Chronic kidney disease stage: on chronic dialysis Qualified Code(s): N18.6 - End stage renal disease; D63.1 - Anemia in chronic kidney disease; D63.1 - Anemia in chronic kidney disease; Z99.2 - Dependence on renal dialysis; Z99.2 - Dependence on renal dialysis; Z99.2 - Dependence on renal dialysis; Z99.2 - Dependence on renal dialysis Is this a current diagnosis for this admission?: Yes Plan: will give epogen tomorrow with treatment (5) Chest pain Qualifiers: Chest pain type: unspecified Qualified Code(s): R07.9 - Chest pain, unspecified Is this a current diagnosis for this admission?: Yes Plan: per cardiology, currently stable (6) Type 2 diabetes mellitus Qualifiers: Diabetes mellitus long term care phlebotomist insulin use: without longterm use Diabetes mellitus complication status: with kidney complications Diabetes mellitus complication detail: with chronic kidney disease Chronic kidney disease stage : on chronic dialysis Qualified Code(s): E11.22 - Type 2 diabetes mellitus with diabetic chronic kidney disease; N18.6 - End stage renal disease; N18.6 - End stage renal disease; N18.6 - End stage renal disease; N18.6 - End stage renal disease; Z99.2 - Dependence on renal dialysis; Z99.2 - Dependence on renal dialysis; Z99.2 - Dependence on renal dialysis; Z99.2 - Dependence on renal dialysis Is this a current diagnosis for this admission?: Yes (7) Hyperkalemia Plan: stable
--- NOTE | 2017-10-08 19:30 | PDOC PROGRESS REPORT ---
Subjective Progress Note for:: 10/07/17 Subjective:: Patient came down for a stress test however after having rest images, patient was noted to be short of breath. She also was noted to have some right-sided chest discomfort which was felt to be atypical. It seems that patient would not be able to lay flat for stress test therefore patient was sent back to the floor to have dialysis today. Patient chest x-ray reviewed it showed CHF. Patient describing orthopnea. Patient denied any sustained palpitations, dizziness, syncope, near syncope. Patient denying any fever chills. Patient denying any other significant discomfort. Patient is maintaining sinus rhythm. Review of systems: Rest review of systems negative. Medications: Medications have been reviewed. Reason For Visit: ACUTE NSTMI, ESRD ON HEMODIALYSIS Physical Exam Vital Signs: Temp Pulse Resp BP Pulse Ox 99.0 F 76 20 159/54 H 89 L 10/07/17 19:32 10/07/17 19:00 10/07/17 20:00 10/07/17 19:34 10/07/17 18:44 Intake & Output 10/06/17 10/07/17 10/08/17 06:59 06:59 06:59 Intake Total 685 7 105 Output Total 50 100 Balance 635 -93 105 Weight 66.5 kg 67.8 kg Exam: GENERAL: well-nourished and in no acute distress. Alert and oriented x3 HEAD: Atraumatic, normocephalic. EYES: Pupils equal round and reactive to light, extraocular movements intact, sclera anicteric, conjunctiva are normal. ENT: TMs normal, nares patent, oropharynx clear without exudates. Moist mucous membranes. No oral ulcerations or bleeding gums noted NECK: supple without lymphadenopathy. Trachea is central. No cervical or axillary lymphadenopathy noted. Carotids are 2+, JVD WNL LUNGS: Respiration seems nonlabored, no significant accessory muscle action noted. Bibasilar fine crackles are noted. No wheezes rales or rhonchi noted. No significant dullness noted on percussion. CHEST: Palpation of the chest wall shows no significant chest wall tenderness. 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 ABDOMEN: Soft, no significant tenderness appreciated, normoactive bowel sounds. No guarding, no rebound. No rigidity noted . No masses appreciated. EXTREMITIES: Pedal pulses are 1-2+, no calf tenderness noted. No clubbing or cyanosis. negative pedal edema noted NEUROLOGICAL: Focused neurological exam showed no significant neurologic deficit. Normal speech, no focal weakness appreciated. PSYCH: Normal mood, normal affect. Judgment and insight within normal limits. SKIN: No significant ecchymosis, skin is noted to be warm. MUSCULOSKELETAL EXAM: No significant acute joint swelling noted. Results Laboratory Results: 10/07/17 03:47 10/07/17 03:47 10/07/17 10/07/17 03:47 03:47 WBC 5.9 RBC 3.09 L Hgb 9.1 L Hct 28.1 L MCV 91 MCH 29.5 MCHC 32.4 RDW 18.1 H Plt Count 181 Seg Neutrophils % 77.6 Lymphocytes % 13.6 Monocytes % 6.9 Eosinophils % 1.1 Basophils % 0.8 Absolute Neutrophils 4.6 Absolute Lymphocytes 0.8 Absolute Monocytes 0.4 Absolute Eosinophils 0.1 Absolute Basophils 0.0 Sodium 131.5 L Potassium 5.7 H Chloride 90 L Carbon Dioxide 30 Anion Gap 12 BUN 42 H Creatinine 8.05 H Est GFR ( Amer) 6 L Est GFR (Non-Af Amer) 5 L Glucose 147 H Calcium 9.2 09/30/17 09/30/17 09/30/17 00:50 04:41 04:41 Creatine Kinase 94 CK-MB (CK-2) 3.19 Troponin I 0.390 0.451 09/30/17 09/30/17 09/30/17 09:09 09:09 10:55 Creatine Kinase 109 CK-MB (CK-2) 3.48 3.08 Troponin I 0.521 0.460 09/30/17 09/30/17 09/30/17 10:55 16:00 16:00 Creatine Kinase 103 97 CK-MB (CK-2) 3.63 Troponin I 0.691 09/30/17 09/30/17 10/01/17 22:00 22:00 04:05 Creatine Kinase 97 84 CK-MB (CK-2) 3.71 Troponin I 0.930 10/01/17 10/01/17 10/01/17 04:05 11:05 11:05 Creatine Kinase 68 CK-MB (CK-2) 4.31 4.18 Troponin I 1.170 1.450 10/03/17 10/03/17 03:59 10:52 Creatine Kinase CK-MB (CK-2) Troponin I 2.080 1.980 EKG Comments: Telemetry shows sinus rhythm without any sustained tachycardia or bradycardia. Impressions: Chest X-Ray 10/06/17 12:38 IMPRESSION: Congestive heart failure. Assessment & Plan - Diagnosis (1) Accelerated hypertension Is this a current diagnosis for this admission?: Yes (2) Acute non-ST elevation myocardial infarction (NSTEMI) Is this a current diagnosis for this admission?: Yes (3) Chest pain Qualifiers: Chest pain type: unspecified Qualified Code(s): R07.9 - Chest pain, unspecified Is this a current diagnosis for this admission?: Yes (4) ESRD (end stage renal disease) on dialysis Is this a current diagnosis for this admission?: Yes (5) Type 2 diabetes mellitus Qualifiers: Diabetes mellitus lecturer of portuguese insulin use: without lecturer of portuguese use Diabetes mellitus complication status: with kidney complications Diabetes mellitus complication detail: with chronic kidney disease Chronic kidney disease stage : on chronic dialysis Qualified Code(s): E11.22 - Type 2 diabetes mellitus with diabetic chronic kidney disease; N18.6 - End stage renal disease; N18.6 - End stage renal disease; N18.6 - End stage renal disease; N18.6 - End stage renal disease; Z99.2 - Dependence on renal dialysis; Z99.2 - Dependence on renal dialysis; Z99.2 - Dependence on renal dialysis; Z99.2 - Dependence on renal dialysis Is this a current diagnosis for this admission?: Yes (6) CHF (congestive heart failure) Qualifiers: Heart failure type: diastolic Heart failure chronicity: acute on chronic Qualified Code(s): I50.33 - Acute on chronic diastolic (congestive) heart failure Is this a current diagnosis for this admission?: Yes - Notes Notes: Patient was noted to be short of breath and noted to be unable to lay flat, while being evaluated for a stress test. It was felt that patient could not be able to complete the stress test. Therefore she was sent back for stress test to be rescheduled for tomorrow. In the meantime did instruct the dialysis nurse to remove fluid on dialysis. Chest x-ray from yesterday shows pulmonary edema pattern with significant pulmonary vein congestion. Patient was also noted to have some right-sided chest pain which was felt to be atypical. Patient management plans were reviewed. Have increased hydralazine to 50 mg p.o. every 8 for better blood pressure control as her blood pressure was noted to be elevated. Patient encouraged to report any further problems. Patient to be rescheduled for nuclear stress test tomorrow. - Time Time with patient: 15-25 minutes - CODE STATUS was discussed, patient remains full code. Surrogate decision-maker unchanged. Multiple medical problems were addressed. More than 50% of the time spent coordinating care, discussing management plans with involved caregivers. Management plans discussed with involved personnels. Medical decision making was of moderate to high complexity , patient's has multiple comorbidities. Medications reviewed and adjusted accordingly: Yes
--- NOTE | 2017-10-08 19:33 | PDOC PROGRESS REPORT ---
Subjective Progress Note for:: 10/08/17 Subjective:: Patient seen on morning rounds. She is denying any chest pain. She feels much better today as compared to yesterday. She was supposed to go down for a stress test but got fed with breakfast and caffeine therefore his stress test could not be performed today. Patient seems to be tolerating increased dose of hydralazine. Patient denied any sustained palpitations, dizziness, syncope, near syncope. Patient denying any fever chills. Patient denying any other significant discomfort. Patient is maintaining sinus rhythm. Review of systems: Rest review of systems negative. Medications: Medications have been reviewed. Reason For Visit: ACUTE NSTMI, ESRD ON HEMODIALYSIS Physical Exam Vital Signs: Temp Pulse Resp BP Pulse Ox 98.5 F 67 17 141/43 H 94 10/08/17 15:44 10/08/17 15:44 10/08/17 15:44 10/08/17 15:44 10/08/17 15:44 Intake & Output 10/07/17 10/08/17 10/09/17 06:59 06:59 06:59 Intake Total 7 305 500 Output Total 100 3500 Balance -93 -3195 500 Weight 67.8 kg 61.9 kg Exam: GENERAL: well-nourished and in no acute distress. Alert and oriented x3 HEAD: Atraumatic, normocephalic. EYES: Pupils equal round and reactive to light, extraocular movements intact, sclera anicteric, conjunctiva are normal. ENT: TMs normal, nares patent, oropharynx clear without exudates. Moist mucous membranes. No oral ulcerations or bleeding gums noted NECK: supple without lymphadenopathy. Trachea is central. No cervical or axillary lymphadenopathy noted. Carotids are 2+, JVD WNL LUNGS: Respiration seems nonlabored, no significant accessory muscle action noted. Breath sounds clear to auscultation bilaterally and equal noted. No wheezes rales or rhonchi noted. No significant dullness noted on percussion. CHEST: Palpation of the chest wall shows no significant chest wall tenderness. 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 ABDOMEN: Soft, no significant tenderness appreciated, normoactive bowel sounds. No guarding, no rebound. No rigidity noted . No masses appreciated. EXTREMITIES: Pedal pulses are 1-2+, no calf tenderness noted. No clubbing or cyanosis. negative pedal edema noted NEUROLOGICAL: Focused neurological exam showed no significant neurologic deficit. Normal speech, no focal weakness appreciated. PSYCH: Normal mood, normal affect. Judgment and insight within normal limits. SKIN: No significant ecchymosis, skin is noted to be warm. MUSCULOSKELETAL EXAM: No significant acute joint swelling noted. Results Laboratory Results: 10/07/17 03:47 10/08/17 04:02 10/08/17 04:02 Sodium 136.7 L Potassium 4.5 Chloride 94 L Carbon Dioxide 31 H Anion Gap 12 BUN 29 H Creatinine 5.74 H Est GFR ( Amer) 9 L Est GFR (Non-Af Amer) 7 L Glucose 119 H Calcium 9.2 09/30/17 09/30/17 09/30/17 00:50 04:41 04:41 Creatine Kinase 94 CK-MB (CK-2) 3.19 Troponin I 0.390 0.451 09/30/17 09/30/17 09/30/17 09:09 09:09 10:55 Creatine Kinase 109 CK-MB (CK-2) 3.48 3.08 Troponin I 0.521 0.460 09/30/17 09/30/17 09/30/17 10:55 16:00 16:00 Creatine Kinase 103 97 CK-MB (CK-2) 3.63 Troponin I 0.691 09/30/17 09/30/17 10/01/17 22:00 22:00 04:05 Creatine Kinase 97 84 CK-MB (CK-2) 3.71 Troponin I 0.930 10/01/17 10/01/17 10/01/17 04:05 11:05 11:05 Creatine Kinase 68 CK-MB (CK-2) 4.31 4.18 Troponin I 1.170 1.450 10/03/17 10/03/17 03:59 10:52 Creatine Kinase CK-MB (CK-2) Troponin I 2.080 1.980 EKG Comments: Telemetry shows sinus rhythm without any sustained tachycardia or bradycardia. Impressions: Chest X-Ray 10/06/17 12:38 IMPRESSION: Congestive heart failure. Assessment & Plan - Diagnosis (1) Accelerated hypertension Is this a current diagnosis for this admission?: Yes (2) Acute non-ST elevation myocardial infarction (NSTEMI) Is this a current diagnosis for this admission?: Yes (3) Chest pain Qualifiers: Chest pain type: unspecified Qualified Code(s): R07.9 - Chest pain, unspecified Is this a current diagnosis for this admission?: Yes (4) ESRD (end stage renal disease) on dialysis Is this a current diagnosis for this admission?: Yes (5) Type 2 diabetes mellitus Qualifiers: Diabetes mellitus nursing home insulin use: without terminal operations supervisor use Diabetes mellitus complication status: with kidney complications Diabetes mellitus complication detail: with chronic kidney disease Chronic kidney disease stage : on chronic dialysis Qualified Code(s): E11.22 - Type 2 diabetes mellitus with diabetic chronic kidney disease; N18.6 - End stage renal disease; N18.6 - End stage renal disease; N18.6 - End stage renal disease; N18.6 - End stage renal disease; Z99.2 - Dependence on renal dialysis; Z99.2 - Dependence on renal dialysis; Z99.2 - Dependence on renal dialysis; Z99.2 - Dependence on renal dialysis Is this a current diagnosis for this admission?: Yes (6) CHF (congestive heart failure) Qualifiers: Heart failure type: diastolic Heart failure chronicity: acute on chronic Qualified Code(s): I50.33 - Acute on chronic diastolic (congestive) heart failure Is this a current diagnosis for this admission?: Yes - Notes Notes: Hypertension: Patient blood pressure medications were adjusted and today blood pressure is well controlled. Continue current regimen. Patient tolerating increased dose of hydralazine. This can be further increased as needed. Non-STEMI: Patient hopefully will be able to complete stress test tomorrow. Chest pain: Resolved continue to monitor patient as there is high chance of recurrence. End-stage renal disease: Patient getting dialysis every other day. Patient advised not to gain too much weight in between dialysis and was advised to restrict on fluid intake. Diabetes: This is being expertly managed by nursing teacher. CHF currently seems compensated and is based on diastolic dysfunction. Monitor for any worsening. Patient has been advised salt and fluid restriction. - Time Time with patient: 15-25 minutes - CODE STATUS was discussed, patient remains full code. Surrogate decision-maker unchanged. Multiple medical problems were addressed. More than 50% of the time spent coordinating care, discussing management plans with involved caregivers. Management plans discussed with involved personnels. Medical decision making was of moderate to high complexity , patient's has multiple comorbidities. Medications reviewed and adjusted accordingly: Yes
--- NOTE | 2017-10-08 21:49 | PDOC PROGRESS REPORT ---
Subjective Progress Note for:: 10/08/17 Subjective:: She was seen by the bedside, the stress test was not done today, scheduled for hemodialysis tomorrow Reason For Visit: ACUTE NSTMI, ESRD ON HEMODIALYSIS Physical Exam Vital Signs: Temp Pulse Resp BP Pulse Ox 98.5 F 69 17 141/43 H 94 10/08/17 15:44 10/08/17 19:00 10/08/17 15:44 10/08/17 15:44 10/08/17 15:44 Intake & Output 10/07/17 10/08/17 10/09/17 06:59 06:59 06:59 Intake Total 7 305 503 Output Total 100 3500 Balance -93 -5585 503 Weight 67.8 kg 61.9 kg General appearance: PRESENT: no acute distress Eye exam: PRESENT: PERRLA Respiratory exam: PRESENT: clear to auscultation buddy Cardiovascular exam: PRESENT: +S1, +S2 GI/Abdominal exam: PRESENT: soft Neurological exam: PRESENT: alert Results Laboratory Results: 10/07/17 03:47 10/08/17 04:02 10/08/17 04:02 Sodium 136.7 L Potassium 4.5 Chloride 94 L Carbon Dioxide 31 H Anion Gap 12 BUN 29 H Creatinine 5.74 H Est GFR ( Amer) 9 L Est GFR (Non-Af Amer) 7 L Glucose 119 H Calcium 9.2 09/30/17 09/30/17 09/30/17 00:50 04:41 04:41 Creatine Kinase 94 CK-MB (CK-2) 3.19 Troponin I 0.390 0.451 09/30/17 09/30/17 09/30/17 09:09 09:09 10:55 Creatine Kinase 109 CK-MB (CK-2) 3.48 3.08 Troponin I 0.521 0.460 09/30/17 09/30/17 09/30/17 10:55 16:00 16:00 Creatine Kinase 103 97 CK-MB (CK-2) 3.63 Troponin I 0.691 09/30/17 09/30/17 10/01/17 22:00 22:00 04:05 Creatine Kinase 97 84 CK-MB (CK-2) 3.71 Troponin I 0.930 10/01/17 10/01/17 10/01/17 04:05 11:05 11:05 Creatine Kinase 68 CK-MB (CK-2) 4.31 4.18 Troponin I 1.170 1.450 10/03/17 10/03/17 03:59 10:52 Creatine Kinase CK-MB (CK-2) Troponin I 2.080 1.980 Impressions: Chest X-Ray 10/06/17 12:38 IMPRESSION: Congestive heart failure. Assessment & Plan - Diagnosis (1) Acute non-ST elevation myocardial infarction (NSTEMI) Is this a current diagnosis for this admission?: Yes (2) Type 2 diabetes mellitus Qualifiers: Diabetes mellitus lobsterman insulin use: without lobsterman use Diabetes mellitus complication status: with kidney complications Diabetes mellitus complication detail: with chronic kidney disease Chronic kidney disease stage : on chronic dialysis Qualified Code(s): E11.22 - Type 2 diabetes mellitus with diabetic chronic kidney disease; N18.6 - End stage renal disease; N18.6 - End stage renal disease; N18.6 - End stage renal disease; N18.6 - End stage renal disease; Z99.2 - Dependence on renal dialysis; Z99.2 - Dependence on renal dialysis; Z99.2 - Dependence on renal dialysis; Z99.2 - Dependence on renal dialysis Is this a current diagnosis for this admission?: Yes (3) ESRD (end stage renal disease) on dialysis Is this a current diagnosis for this admission?: Yes (4) Anemia in CKD (chronic kidney disease) Qualifiers: Chronic kidney disease stage: on chronic dialysis Qualified Code(s): N18.6 - End stage renal disease; D63.1 - Anemia in chronic kidney disease; D63.1 - Anemia in chronic kidney disease; Z99.2 - Dependence on renal dialysis; Z99.2 - Dependence on renal dialysis; Z99.2 - Dependence on renal dialysis; Z99.2 - Dependence on renal dialysis Is this a current diagnosis for this admission?: Yes (5) Essential hypertension Is this a current diagnosis for this admission?: Yes
[2017-10-08] MEDS: AMLODIPINE BESYLATE 10 MG TABLET PO SCH (22:04)
[2017-10-08] MEDS: ATORVASTATIN CALCIUM 80 MG TABLET PO SCH (22:05)
[2017-10-09] MEDS: CLONIDINE HCL 0.1 MG TABLET PO SCH ×2 (05:38→16:13)
[2017-10-09] MEDS: HYDRALAZINE HCL 50 MG TABLET PO SCH ×2 (05:38→16:15)
[2017-10-09] MEDS: LANSOPRAZOLE 15 MG TAB.RAP.DR PO SCH (05:46)
[2017-10-09 07:47] LABS: HEMATOCRIT 30.4 % (36.0-47.0); MEAN CORPUSCULAR HEMOGLOBIN 30.2 pg (27.0-33.4); MEAN CORPUSCULAR HGB CONC 32.8 g/dL (32.0-36.0); MEAN CORPUSCULAR VOLUME 92 fl (80-97); PLATELET COUNT 232 10^3/uL (150-450); RED CELL DISTRIBUTION WIDTH 18.2 % (11.5-14.0); WHITE BLOOD COUNT 4.7 10^3/uL (4.0-10.5)
[2017-10-09] MEDS ORDERED: EPOETIN ALFA INJ 20000 UNIT/1 ML VIAL (RENAL) IV PRN (08:00)
[2017-10-09 08:13] LABS: ANION GAP 16 (5-19); BLOOD UREA NITROGEN 44 mg/dL (7-20); CALCIUM 9.7 mg/dL (8.4-10.2); CARBON DIOXIDE 29 mmol/L (22-30); CHLORIDE 93 mmol/L (98-107); GLUCOSE 117 mg/dL (75-110); POTASSIUM 5.2 mmol/L (3.6-5.0); SODIUM 137.9 mmol/L (137-145)
[2017-10-09] MEDS ORDERED: REGADENOSON INJ 0.4 MG/5 ML DISP.SYRIN IV ONE (10:00)
[2017-10-09] MEDS ORDERED: AMINOPHYLLINE INJ/PF 250 MG/10 ML SDV IV ONE (10:00)
[2017-10-09] MEDS: CARVEDILOL 12.5 MG TABLET PO SCH (10:51)
[2017-10-09] MEDS: CLOPIDOGREL BISULFATE 75 MG TABLET PO SCH (10:51)
[2017-10-09] MEDS: ISOSORBIDE MONONITRATE 60 MG TAB.ER.24H PO SCH ×2 (10:51→23:01)
[2017-10-09] MEDS: DOCUSATE SODIUM 100 MG CAPSULE PO SCH ×2 (10:51→18:01)
[2017-10-09] MEDS: ASPIRIN 81 MG TABLET, ENT COATED PO SCH (10:51)
[2017-10-09] MEDS: SITAGLIPTIN PHOSPHATE 25 MG TABLET PO SCH (10:51)
[2017-10-09] MEDS: FAMOTIDINE 20 MG TABLET PO SCH ×2 (10:51→18:01)
[2017-10-09] MEDS: CYANOCOBALAMIN/FA/PYRIDOXINE TABLET PO SCH (10:52)
[2017-10-09] MEDS: BUDESONIDE/FORMOTEROL 160-4.5 MCG 60 PUFF/6 GM MDI IH SCH ×2 (10:52→18:01)
--- NOTE | 2017-10-09 11:33 | DRAGON STRESS TEST REPORT ---
INTRAVENOUS LEXISCAN CARDIOLITE STRESS TEST USING SINGLE PHOTON EMMISION COMPUTERIZED TOMOGRAPHIC. DATE OF PROCEDURE: October 09, 2017, INDICATION : Chest pain, non-STEMI CARDIAC RISK FACTORS: Diabetes, hypertension, dyslipidemia, end-stage renal disease RESTING EKG: Sinus rhythm with minor nonspecific ST-T wave changes, probable LVH STRESS EKG: No significant ST segment changes noted with LexiScan bolus REASON FOR TERMINATION: Protocol. PROCEDURE REPORT: Baseline heart rate 72 beats per minute with blood pressure of 173/59. Patient had no significant complaints. Patient was bolused with Lexiscan 0.4 mg intravenously followed by saline bolus. Heart rate at 2 minutes post bolus 87 with a blood pressure of 163/65. 3 minutes post bolus heart rate 83 with blood pressure of 183/65. No significant EKG changes were noted. Patient had no significant complaints during the procedure or postprocedure. Patient injected with Aminophyllin 75 mg at 3 minutes or later after Lexiscan bolus. CONCLUSIONS: Normal EKG and hemodynamic response to IV LexiScan. NUCLEAR DATA: Rest images performed on October 07, Stress images performed on October 09. At rest the patient was given 10.86 millicuries of technetium 99 sestamibi injected intravenously. As per protocol rest gated SPECT images were obtained. On day of stress test, the patient was given intravenous LexiScan at a dose of 0.4 mg in 5 mL intravenously, followed by flush with normal saline. Subsequently the stress dose of 30.6 millicuries of technetium 99 sestamibi was injected intravenously. As per protocol stress gated images were obtained. NUCLEAR INTERPRETATION: Both raw and processed data were used for interpretation. Visual, qualitative, computer-generated quantitative data was used. There was good myocardial uptake of technetium compound. Motion artifact and soft tissue attenuations were noted. Increased visceral uptake was noted. Mild transient perfusion defect noted in the mid inferior wall with a smaller mild fixed defect. Total SDS is 3. No other definitive areas of fixed perfusion defect or scars noted. EKG gated imaging showed LV EF at 63 %, rest and stress gated EF similar visually. T. I D. ratio was 0.99. Lung heart ratio noted to be within normal limits 0.37. No significant extracardiac and abnormal radiotracer activities were noted. RV free wall uptake was noted to be WNL. IMPRESSION: Also refer to comments under nuclear interpretation. Also test results needs to be interpreted in the context of pretest probability. 1. Mild transient perfusion defect consistent with mild ischemia noted in the mid inferior wall with a smaller underlying mild fixed defect. Total SDS is 3. 2. There is no other definitive scintigraphic evidence of myocardial infarction /scar. 3. EKG gated imaging shows left ventricular ejection fraction of approx. 63 %. 4. Clinical correlation requested as occasionally single vessel disease or balanced ischemia could be missed. In approximately 10% of the cases Lexiscan may not cause adequate vasodilatory stress. RECOMMENDATIONS: Aggressive risk factor modification and medical management. Further evaluation may be needed if continued symptoms or other high risk indicators are noted on clinical evaluation. Close cardiology follow-up is also recommended. Clinical correlation with echocardiogram derived ejection fraction. Inability to exercise by itself can lead to increased cardiovascular event risks. Consider cardiology consultation and or follow-up if clinically indicated. I am available for cardiology evaluation and consultation if requested by the assistant teacher primary, unless patient already has a strategic account executive. ROBERT
--- NOTE | 2017-10-09 14:42 | PDOC PROGRESS REPORT ---
Subjective Progress Note for:: 10/09/17 Subjective:: Seen on dialysis. Undergoing dialysis without any issues. Denies any chest pains , dyspnea. Dialysis orders were discussed with treating dirt bike racer. Labs and meds were reviewed. This morning she had a stress test and was able to complete the whole thing. Denies chest pain or SOB. Reason For Visit: ACUTE NSTMI, ESRD ON HEMODIALYSIS Physical Exam Vital Signs: Temp Pulse Resp BP Pulse Ox 98.5 F 74 20 178/51 H 99 10/09/17 12:01 10/09/17 12:01 10/09/17 12:01 10/09/17 12:01 10/09/17 12:01 Intake & Output 10/08/17 10/09/17 10/10/17 06:59 06:59 06:59 Intake Total 305 779 310 Output Total 3500 Balance -3195 779 310 Weight 61.9 kg 60.8 kg General appearance: PRESENT: no acute distress, well-developed, well-nourished Mouth exam: PRESENT: moist, neck supple Neck exam: PRESENT: full ROM. ABSENT: JVD Respiratory exam: PRESENT: clear to auscultation buddy. ABSENT: accessory muscle use, crackles, rhonchi, wheezes Cardiovascular exam: PRESENT: +S1, +S2 GI/Abdominal exam: PRESENT: normal bowel sounds, soft. ABSENT: organomegaly, tenderness Extremities exam: ABSENT: pedal edema, tenderness, +1 edema, +2 edema Musculoskeletal exam: ABSENT: normal inspection, tenderness Results Laboratory Results: 10/09/17 07:35 10/09/17 07:35 10/09/17 10/09/17 07:35 07:35 WBC 4.7 RBC 3.30 L Hgb 10.0 L Hct 30.4 L MCV 92 MCH 30.2 MCHC 32.8 RDW 18.2 H Plt Count 232 Sodium 137.9 Potassium 5.2 H Chloride 93 L Carbon Dioxide 29 Anion Gap 16 BUN 44 H Creatinine 8.33 H Est GFR ( Amer) 6 L Est GFR (Non-Af Amer) 5 L Glucose 117 H Calcium 9.7 09/30/17 09/30/17 09/30/17 00:50 04:41 04:41 Creatine Kinase 94 CK-MB (CK-2) 3.19 Troponin I 0.390 0.451 0509/30/17 09/30/17 09:09 09:09 10:55 Creatine Kinase 109 CK-MB (CK-2) 3.48 3.08 Troponin I 0.521 0.460 09/30/17 09/30/17 09/30/17 10:55 16:00 16:00 Creatine Kinase 103 97 CK-MB (CK-2) 3.63 Troponin I 0.691 09/30/17 09/30/17 10/01/17 22:00 22:00 04:05 Creatine Kinase 97 84 CK-MB (CK-2) 3.71 Troponin I 0.930 10/01/17 10/01/17 10/01/17 04:05 11:05 11:05 Creatine Kinase 68 CK-MB (CK-2) 4.31 4.18 Troponin I 1.170 1.450 10/03/17 10/03/17 03:59 10:52 Creatine Kinase CK-MB (CK-2) Troponin I 2.080 1.980 Impressions: Chest X-Ray 10/06/17 12:38 IMPRESSION: Congestive heart failure. Assessment & Plan - Diagnosis (1) ESRD (end stage renal disease) on dialysis Is this a current diagnosis for this admission?: Yes Plan: Patient undergoing dialysis without any issues. Vital signs are stable. Is being supervised to ensure safe and smooth procedure. Orders were discussed with the treating dialysis nurse. We will remove approximately 1.8 L of fluid as tolerated. (2) Acute non-ST elevation myocardial infarction (NSTEMI) Is this a current diagnosis for this admission?: Yes Plan: per cardiology, had recent stress test (3) CHF (congestive heart failure) Qualifiers: Heart failure type: diastolic Heart failure chronicity: acute on chronic Qualified Code(s): I50.33 - Acute on chronic diastolic (congestive) heart failure Is this a current diagnosis for this admission?: Yes Plan: resolved, discussed restricting fluid intake to 32oz a day. (4) Anemia in CKD (chronic kidney disease) Qualifiers: Chronic kidney disease stage: on chronic dialysis Qualified Code(s): N18.6 - End stage renal disease; D63.1 - Anemia in chronic kidney disease; D63.1 - Anemia in chronic kidney disease; Z99.2 - Dependence on renal dialysis; Z99.2 - Dependence on renal dialysis; Z99.2 - Dependence on renal dialysis; Z99.2 - Dependence on renal dialysis Is this a current diagnosis for this admission?: Yes Plan: receiving epogen on treatment (5) Chest pain Qualifiers: Chest pain type: unspecified Qualified Code(s): R07.9 - Chest pain, unspecified Is this a current diagnosis for this admission?: Yes Plan: resolved, had stress test today (6) Type 2 diabetes mellitus Qualifiers: Diabetes mellitus extermination inspector insulin use: without extermination inspector use Diabetes mellitus complication status: with kidney complications Diabetes mellitus complication detail: with chronic kidney disease Chronic kidney disease stage : on chronic dialysis Qualified Code(s): E11.22 - Type 2 diabetes mellitus with diabetic chronic kidney disease; N18.6 - End stage renal disease; N18.6 - End stage renal disease; N18.6 - End stage renal disease; N18.6 - End stage renal disease; Z99.2 - Dependence on renal dialysis; Z99.2 - Dependence on renal dialysis; Z99.2 - Dependence on renal dialysis; Z99.2 - Dependence on renal dialysis Is this a current diagnosis for this admission?: Yes (7) Hyperkalemia Plan: discussed proper low potassium diet, will dialyze potassium off
--- NOTE | 2017-10-09 20:57 | PDOC PROGRESS REPORT ---
Subjective Progress Note for:: 10/09/17 Subjective:: Patient was seen by the bedside the nuclear stress test showed mild area of ischemia Reason For Visit: ACUTE NSTMI, ESRD ON HEMODIALYSIS Physical Exam Vital Signs: Temp Pulse Resp BP Pulse Ox 98.5 F 80 20 178/51 H 99 10/09/17 12:01 10/09/17 14:00 10/09/17 12:01 10/09/17 12:01 10/09/17 12:01 Intake & Output 10/08/17 10/09/17 10/10/17 06:59 06:59 06:59 Intake Total 305 779 313 Output Total 3500 2300 Balance -3195 779 -1987 Weight 61.9 kg 60.8 kg General appearance: PRESENT: no acute distress Eye exam: PRESENT: PERRLA Respiratory exam: PRESENT: clear to auscultation buddy Cardiovascular exam: PRESENT: +S1, +S2 GI/Abdominal exam: PRESENT: soft Neurological exam: PRESENT: alert Results Laboratory Results: 10/09/17 07:35 10/09/17 07:35 10/09/17 10/09/17 07:35 07:35 WBC 4.7 RBC 3.30 L Hgb 10.0 L Hct 30.4 L MCV 92 MCH 30.2 MCHC 32.8 RDW 18.2 H Plt Count 232 Sodium 137.9 Potassium 5.2 H Chloride 93 L Carbon Dioxide 29 Anion Gap 16 BUN 44 H Creatinine 8.33 H Est GFR ( Amer) 6 L Est GFR (Non-Af Amer) 5 L Glucose 117 H Calcium 9.7 09/30/17 09/30/17 09/30/17 00:50 04:41 04:41 Creatine Kinase 94 CK-MB (CK-2) 3.19 Troponin I 0.390 0.451 09/30/17 09/30/17 09/30/17 09:09 09:09 10:55 Creatine Kinase 109 CK-MB (CK-2) 3.48 3.08 Troponin I 0.521 0.460 09/30/17 09/30/17 09/30/17 10:55 16:00 16:00 Creatine Kinase 103 97 CK-MB (CK-2) 3.63 Troponin I 0.691 09/30/17 09/30/17 10/01/17 22:00 22:00 04:05 Creatine Kinase 97 84 CK-MB (CK-2) 3.71 Troponin I 0.930 10/01/17 10/01/17 10/01/17 04:05 11:05 11:05 Creatine Kinase 68 CK-MB (CK-2) 4.31 4.18 Troponin I 1.170 1.450 10/03/17 10/03/17 03:59 10:52 Creatine Kinase CK-MB (CK-2) Troponin I 2.080 1.980 Impressions: Chest X-Ray 10/06/17 12:38 IMPRESSION: Congestive heart failure. 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 use: without care home use Diabetes mellitus complication status: with kidney complications Diabetes mellitus complication detail: with chronic kidney disease Chronic kidney disease stage : on chronic dialysis Qualified Code(s): E11.22 - Type 2 diabetes mellitus with diabetic chronic kidney disease; N18.6 - End stage renal disease; N18.6 - End stage renal disease; N18.6 - End stage renal disease; N18.6 - End stage renal disease; Z99.2 - Dependence on renal dialysis; Z99.2 - Dependence on renal dialysis; Z99.2 - Dependence on renal dialysis; Z99.2 - Dependence on renal dialysis Is this a current diagnosis for this admission?: Yes (3) ESRD (end stage renal disease) on dialysis Is this a current diagnosis for this admission?: Yes (4) Anemia in CKD (chronic kidney disease) Qualifiers: Chronic kidney disease stage: on chronic dialysis Qualified Code(s): N18.6 - End stage renal disease; D63.1 - Anemia in chronic kidney disease; D63.1 - Anemia in chronic kidney disease; Z99.2 - Dependence on renal dialysis; Z99.2 - Dependence on renal dialysis; Z99.2 - Dependence on renal dialysis; Z99.2 - Dependence on renal dialysis Is this a current diagnosis for this admission?: Yes (5) Essential hypertension Is this a current diagnosis for this admission?: Yes
[2017-10-09] MEDS: ATORVASTATIN CALCIUM 80 MG TABLET PO SCH (23:00)
[2017-10-10] MEDS: CARVEDILOL 12.5 MG TABLET PO SCH ×3 (00:24→22:40)
[2017-10-10] MEDS: CLONIDINE HCL 0.1 MG TABLET PO SCH ×4 (00:25→22:38)
[2017-10-10] MEDS: HYDRALAZINE HCL 50 MG TABLET PO SCH ×4 (00:25→22:39)
[2017-10-10] MEDS: AMLODIPINE BESYLATE 10 MG TABLET PO SCH ×2 (00:25→21:02)
[2017-10-10] MEDS: LANSOPRAZOLE 15 MG TAB.RAP.DR PO SCH (05:24)
[2017-10-10 05:37] LABS: ANION GAP 15 (5-19); BLOOD UREA NITROGEN 35 mg/dL (7-20); CALCIUM 9.5 mg/dL (8.4-10.2); CARBON DIOXIDE 30 mmol/L (22-30); CHLORIDE 96 mmol/L (98-107); GLUCOSE 109 mg/dL (75-110); POTASSIUM 4.4 mmol/L (3.6-5.0); SODIUM 141.1 mmol/L (137-145)
[2017-10-10] MEDS: ASPIRIN 81 MG TABLET, ENT COATED PO SCH (10:20)
[2017-10-10] MEDS: CLOPIDOGREL BISULFATE 75 MG TABLET PO SCH (10:21)
[2017-10-10] MEDS: ISOSORBIDE MONONITRATE 60 MG TAB.ER.24H PO SCH ×2 (10:21→22:40)
[2017-10-10] MEDS: DOCUSATE SODIUM 100 MG CAPSULE PO SCH ×2 (10:21→17:32)
[2017-10-10] MEDS: FAMOTIDINE 20 MG TABLET PO SCH ×2 (10:21→17:32)
[2017-10-10] MEDS: BUDESONIDE/FORMOTEROL 160-4.5 MCG 60 PUFF/6 GM MDI IH SCH ×2 (10:22→17:32)
[2017-10-10] MEDS: SITAGLIPTIN PHOSPHATE 25 MG TABLET PO SCH (10:22)
[2017-10-10] MEDS: CYANOCOBALAMIN/FA/PYRIDOXINE TABLET PO SCH (10:22)
--- NOTE | 2017-10-10 14:36 | PDOC PROGRESS REPORT ---
Subjective Progress Note for:: 10/09/17 Subjective:: Patient was seen multiple times. In the morning nuclear stress test procedure, risk benefits were again reviewed with the patient. Patient did undergo a stress imaging. Results were discussed in the afternoon. She is denying any chest pain. She feels much better today as compared to yesterday. She was supposed to go down for a stress test but got fed with breakfast and caffeine therefore his stress test could not be performed today. Patient seems to be tolerating increased dose of hydralazine. Patient denied any sustained palpitations, dizziness, syncope, near syncope. Patient denying any fever chills. Patient denying any other significant discomfort. Patient is maintaining sinus rhythm. Review of systems: Rest review of systems negative. Medications: Medications have been reviewed. Reason For Visit: ACUTE NSTMI, ESRD ON HEMODIALYSIS Physical Exam Vital Signs: Temp Pulse Resp BP Pulse Ox 98.5 F 80 20 178/51 H 99 10/09/17 12:01 10/09/17 14:00 10/09/17 12:01 10/09/17 12:01 10/09/17 12:01 Intake & Output 10/08/17 10/09/17 10/10/17 06:59 06:59 06:59 Intake Total 305 779 313 Output Total 3500 2300 Balance -3195 779 -1987 Weight 61.9 kg 60.8 kg Exam: GENERAL: well-nourished and in no acute distress. Alert and oriented x3 HEAD: Atraumatic, normocephalic. EYES: Pupils equal round and reactive to light, extraocular movements intact, sclera anicteric, conjunctiva are normal. ENT: TMs normal, nares patent, oropharynx clear without exudates. Moist mucous membranes. No oral ulcerations or bleeding gums noted NECK: supple without lymphadenopathy. Trachea is central. No cervical or axillary lymphadenopathy noted. Carotids are 2+, JVD WNL LUNGS: Respiration seems nonlabored, no significant accessory muscle action noted. Breath sounds clear to auscultation bilaterally and equal noted. No wheezes rales or rhonchi noted. No significant dullness noted on percussion. CHEST: Palpation of the chest wall shows no significant chest wall tenderness. HEART: [place] LINE AND FRAME POLER, No PSH, 2/6 LUL aortic area, 1/6 chaudhry systolic murmur mitral area , no rubs, no gallops. ABDOMEN: Soft, no significant tenderness appreciated, normoactive bowel sounds. No guarding, no rebound. No rigidity noted . No masses appreciated. EXTREMITIES: Pedal pulses are 1-2+, no calf tenderness noted. No clubbing or cyanosis. negative pedal edema noted NEUROLOGICAL: Focused neurological exam showed no significant neurologic deficit. Normal speech, no focal weakness appreciated. PSYCH: Normal mood, normal affect. Judgment and insight within normal limits. SKIN: No significant ecchymosis, skin is noted to be warm. MUSCULOSKELETAL EXAM: No significant acute joint swelling noted. Results Laboratory Results: 10/09/17 07:35 10/09/17 07:35 10/09/17 10/09/17 07:35 07:35 WBC 4.7 RBC 3.30 L Hgb 10.0 L Hct 30.4 L MCV 92 MCH 30.2 MCHC 32.8 RDW 18.2 H Plt Count 232 Sodium 137.9 Potassium 5.2 H Chloride 93 L Carbon Dioxide 29 Anion Gap 16 BUN 44 H Creatinine 8.33 H Est GFR ( Amer) 6 L Est GFR (Non-Af Amer) 5 L Glucose 117 H Calcium 9.7 09/30/17 09/30/17 09/30/17 00:50 04:41 04:41 Creatine Kinase 94 CK-MB (CK-2) 3.19 Troponin I 0.390 0.451 09/30/17 09/30/17 09/30/17 09:09 09:09 10:55 Creatine Kinase 109 CK-MB (CK-2) 3.48 3.08 Troponin I 0.521 0.460 09/30/17 09/30/17 09/30/17 10:55 16:00 16:00 Creatine Kinase 103 97 CK-MB (CK-2) 3.63 Troponin I 0.691 09/30/17 09/30/17 10/01/17 22:00 22:00 04:05 Creatine Kinase 97 84 CK-MB (CK-2) 3.71 Troponin I 0.930 10/01/17 10/01/17 10/01/17 04:05 11:05 11:05 Creatine Kinase 68 CK-MB (CK-2) 4.31 4.18 Troponin I 1.170 1.450 10/03/17 10/03/17 03:59 10:52 Creatine Kinase CK-MB (CK-2) Troponin I 2.080 1.980 EKG Comments: Shows sinus rhythm without any sustained tachycardia or bradycardia. Impressions: Chest X-Ray 10/06/17 12:38 IMPRESSION: Congestive heart failure. Assessment & Plan - Diagnosis (1) Accelerated hypertension Is this a current diagnosis for this admission?: Yes (2) Acute non-ST elevation myocardial infarction (NSTEMI) Is this a current diagnosis for this admission?: Yes (3) Chest pain Qualifiers: Chest pain type: unspecified Qualified Code(s): R07.9 - Chest pain, unspecified Is this a current diagnosis for this admission?: Yes (4) ESRD (end stage renal disease) on dialysis Is this a current diagnosis for this admission?: Yes (5) Type 2 diabetes mellitus Qualifiers: Diabetes mellitus terminal block assembler insulin use: without senior care use Diabetes mellitus complication status: with kidney complications Diabetes mellitus complication detail: with chronic kidney disease Chronic kidney disease stage : on chronic dialysis Qualified Code(s): E11.22 - Type 2 diabetes mellitus with diabetic chronic kidney disease; N18.6 - End stage renal disease; N18.6 - End stage renal disease; N18.6 - End stage renal disease; N18.6 - End stage renal disease; Z99.2 - Dependence on renal dialysis; Z99.2 - Dependence on renal dialysis; Z99.2 - Dependence on renal dialysis; Z99.2 - Dependence on renal dialysis Is this a current diagnosis for this admission?: Yes (6) CHF (congestive heart failure) Qualifiers: Heart failure type: diastolic Heart failure chronicity: acute on chronic Qualified Code(s): I50.33 - Acute on chronic diastolic (congestive) heart failure Is this a current diagnosis for this admission?: Yes - Notes Notes: Patient underwent nuclear stress test without any complications. Nuclear stress test showed small area of mild ischemia. Given patient's comorbid diagnosis, it was felt that medical management would be the best initial option. Should patient fail medical management then heart catheterization can be considered. This was explained to the patient. She is agreeable with this approach. Currently her main problem seems to be gaining excessive weight and going into CHF in between dialysis. Patient has been advised to avoid excessive fluid and salt intake in between dialysis. Hypertension: Patient blood pressure medications were adjusted and today blood pressure is well controlled. Continue current regimen. Patient tolerating increased dose of hydralazine. This can be further increased as needed. Non-STEMI: Currently stable without any chest pain. Patient medical regimen is being optimized.. Chest pain: Resolved continue to monitor patient as there is high chance of recurrence. End-stage renal disease: Patient getting dialysis every other day. Patient advised not to gain too much weight in between dialysis and was advised to restrict on fluid intake. Diabetes: This is being expertly managed by pasteurizing machine operator. CHF currently seems compensated and is based on diastolic dysfunction. Monitor for any worsening. Patient has been advised salt and fluid restriction. - Time Time with patient: Greater than 35 minutes - Patient was seen multiple times. Total time exceeds 40 minutes. In the morning nuclear stress test procedure, risks benefits, alternatives were discussed. Patient seen during the stress test. Patient also seen after stress test when results were discussed with the patient in detail. Patient's questions were answered. Nuclear stress test results were discussed with the patient. Patient was informed that small area of mild pharmacologic stress-induced ischemia noted. No definite fixed defects were noted. Patient informed that occasionally worse disease or balanced ischemia could be missed. However based on the current study results, would recommend aggressive risk factor modification and medical therapy. It may also be worthwhile to consider evaluation or empiric management of other causes of chest pain. Should no other cause be found and if persistent in having chest pain, then cardiac catheterization should be considered. Right now, recommendations are for aggressive risk factor modification and medical management. More than 50% of the time spent coordinating care, discussing management plans with involved caregivers. Management plans discussed with involved personnels. Medical decision making was of moderate to high complexity , patient's has multiple comorbidities. Medications reviewed and adjusted accordingly: Yes
--- NOTE | 2017-10-10 14:40 | PDOC PROGRESS REPORT ---
Subjective Progress Note for:: 10/10/17 Subjective:: Patient seems to be doing much better. Blood pressure however noted to be intermittently elevated but overall patient seems to be tolerating increased dose of hydralazine. Patient denied any sustained palpitations, dizziness, syncope, near syncope. Patient denying any fever chills. Patient denying any other significant discomfort. Nuclear stress test results were reviewed with the patient. Patient is maintaining sinus rhythm. Review of systems: Rest review of systems negative. Medications: Medications have been reviewed. Reason For Visit: ACUTE NSTMI, ESRD ON HEMODIALYSIS Physical Exam Vital Signs: Temp Pulse Resp BP Pulse Ox 98.7 F 73 20 150/47 H 91 L 10/10/17 12:37 10/10/17 12:37 10/10/17 12:37 10/10/17 12:37 10/10/17 12:37 Intake & Output 10/09/17 10/10/17 10/11/17 06:59 06:59 06:59 Intake Total 779 313 Output Total 2300 Balance 779 -1987 Weight 60.8 kg 57.7 kg Exam: GENERAL: well-nourished and in no acute distress. Alert and oriented x3 HEAD: Atraumatic, normocephalic. EYES: Pupils equal round and reactive to light, extraocular movements intact, sclera anicteric, conjunctiva are normal. ENT: TMs normal, nares patent, oropharynx clear without exudates. Moist mucous membranes. No oral ulcerations or bleeding gums noted NECK: supple without lymphadenopathy. Trachea is central. No cervical or axillary lymphadenopathy noted. Carotids are 2+, JVD WNL LUNGS: Respiration seems nonlabored, no significant accessory muscle action noted. Bibasilar fine crackles are noted. No wheezes rales or rhonchi noted. No significant dullness noted on percussion. CHEST: Palpation of the chest wall shows no significant chest wall tenderness. 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 ABDOMEN: Soft, no significant tenderness appreciated, normoactive bowel sounds. No guarding, no rebound. No rigidity noted . No masses appreciated. EXTREMITIES: Pedal pulses are 1-2+, no calf tenderness noted. No clubbing or cyanosis. negative pedal edema noted NEUROLOGICAL: Focused neurological exam showed no significant neurologic deficit. Normal speech, no focal weakness appreciated. PSYCH: Normal mood, normal affect. Judgment and insight within normal limits. SKIN: No significant ecchymosis, skin is noted to be warm. MUSCULOSKELETAL EXAM: No significant acute joint swelling noted. Results Laboratory Results: 10/09/17 07:35 10/10/17 04:09 10/10/17 04:09 Sodium 141.1 Potassium 4.4 Chloride 96 L Carbon Dioxide 30 Anion Gap 15 BUN 35 H Creatinine 5.74 H Est GFR ( Amer) 9 L Est GFR (Non-Af Amer) 7 L Glucose 109 Calcium 9.5 09/30/17 09/30/17 09/30/17 00:50 04:41 04:41 Creatine Kinase 94 CK-MB (CK-2) 3.19 Troponin I 0.390 0.451 09/30/17 09/30/17 09/30/17 09:09 09:09 10:55 Creatine Kinase 109 CK-MB (CK-2) 3.48 3.08 Troponin I 0.521 0.460 09/30/17 09/30/17 09/30/17 10:55 16:00 16:00 Creatine Kinase 103 97 CK-MB (CK-2) 3.63 Troponin I 0.691 09/30/17 09/30/17 10/01/17 22:00 22:00 04:05 Creatine Kinase 97 84 CK-MB (CK-2) 3.71 Troponin I 0.930 10/01/17 10/01/17 10/01/17 04:05 11:05 11:05 Creatine Kinase 68 CK-MB (CK-2) 4.31 4.18 Troponin I 1.170 1.450 10/03/17 10/03/17 03:59 10:52 Creatine Kinase CK-MB (CK-2) Troponin I 2.080 1.980 EKG Comments: Shows sinus rhythm without any sustained tachycardia or bradycardia Impressions: Chest X-Ray 10/06/17 12:38 IMPRESSION: Congestive heart failure. Assessment & Plan - Diagnosis (1) Accelerated hypertension Is this a current diagnosis for this admission?: Yes (2) Acute non-ST elevation myocardial infarction (NSTEMI) Is this a current diagnosis for this admission?: Yes (3) Chest pain Qualifiers: Chest pain type: unspecified Qualified Code(s): R07.9 - Chest pain, unspecified Is this a current diagnosis for this admission?: Yes (4) ESRD (end stage renal disease) on dialysis Is this a current diagnosis for this admission?: Yes (5) Type 2 diabetes mellitus Qualifiers: Diabetes mellitus shelter insulin use: without shelter use Diabetes mellitus complication status: with kidney complications Diabetes mellitus complication detail: with chronic kidney disease Chronic kidney disease stage : on chronic dialysis Qualified Code(s): E11.22 - Type 2 diabetes mellitus with diabetic chronic kidney disease; N18.6 - End stage renal disease; N18.6 - End stage renal disease; N18.6 - End stage renal disease; N18.6 - End stage renal disease; Z99.2 - Dependence on renal dialysis; Z99.2 - Dependence on renal dialysis; Z99.2 - Dependence on renal dialysis; Z99.2 - Dependence on renal dialysis Is this a current diagnosis for this admission?: Yes (6) CHF (congestive heart failure) Qualifiers: Heart failure type: diastolic Heart failure chronicity: acute on chronic Qualified Code(s): I50.33 - Acute on chronic diastolic (congestive) heart failure Is this a current diagnosis for this admission?: Yes - Notes Notes: Nuclear stress test results were again reviewed with the patient. Nuclear stress test showed small area of mild ischemia. Given patient's comorbid diagnosis, it was felt that medical management would be the best initial option. Should patient fail medical management then heart catheterization can be considered. This was explained to the patient. She is agreeable with this approach. Currently her main problem seems to be going into CHF in between dialysis. Patient has been advised to avoid excessive fluid and salt intake in between dialysis. Hypertension: Patient blood pressure medications were adjusted and today blood pressure is well controlled. Continue current regimen. Patient tolerating increased dose of hydralazine. This can be further increased as needed. Non-STEMI: Currently stable without any chest pain. Patient medical regimen is being optimized.. Chest pain: Resolved continue to monitor patient as there is high chance of recurrence. End-stage renal disease: Patient getting dialysis every other day. Patient advised not to gain too much weight in between dialysis and was advised to restrict on fluid intake. Diabetes: This is being expertly managed by avionics technician. CHF currently seems compensated and is based on diastolic dysfunction. Monitor for any worsening. Patient has been advised salt and fluid restriction. - Time Time with patient: Greater than 35 minutes - CODE STATUS was discussed, patient remains full code. Surrogate decision-maker unchanged. Multiple medical problems were addressed. More than 50% of the time spent coordinating care, discussing management plans with involved caregivers. Management plans discussed with involved personnels. Medical decision making was of moderate to high complexity, patient's has multiple comorbidities. Medications reviewed and adjusted accordingly: Yes
--- NOTE | 2017-10-10 16:42 | PDOC PROGRESS REPORT ---
Subjective Progress Note for:: 10/10/17 Subjective:: She was seen by the bedside, she has no new complaints Reason For Visit: ACUTE NSTMI, ESRD ON HEMODIALYSIS Physical Exam Vital Signs: Temp Pulse Resp BP Pulse Ox 98.0 F 71 20 121/38 L 93 10/10/17 15:10 10/10/17 15:10 10/10/17 12:37 10/10/17 15:10 10/10/17 15:10 Intake & Output 10/09/17 10/10/17 10/11/17 06:59 06:59 06:59 Intake Total 779 313 Output Total 2300 Balance 779 -1986 Weight 60.8 kg 57.7 kg General appearance: PRESENT: no acute distress Respiratory exam: PRESENT: clear to auscultation buddy Cardiovascular exam: PRESENT: +S1, +S2 GI/Abdominal exam: PRESENT: soft Neurological exam: PRESENT: alert Results Laboratory Results: 10/09/17 07:35 10/10/17 04:09 10/10/17 04:09 Sodium 141.1 Potassium 4.4 Chloride 96 L Carbon Dioxide 30 Anion Gap 15 BUN 35 H Creatinine 5.74 H Est GFR ( Amer) 9 L Est GFR (Non-Af Amer) 7 L Glucose 109 Calcium 9.5 09/30/17 09/30/17 09/30/17 00:50 04:41 04:41 Creatine Kinase 94 CK-MB (CK-2) 3.19 Troponin I 0.390 0.451 09/30/17 09/30/17 09/30/17 09:09 09:09 10:55 Creatine Kinase 109 CK-MB (CK-2) 3.48 3.08 Troponin I 0.521 0.460 09/30/17 09/30/17 09/30/17 10:55 16:00 16:00 Creatine Kinase 103 97 CK-MB (CK-2) 3.63 Troponin I 0.691 09/30/17 09/30/17 10/01/17 22:00 22:00 04:05 Creatine Kinase 97 84 CK-MB (CK-2) 3.71 Troponin I 0.930 10/01/17 10/01/17 10/01/17 04:05 11:05 11:05 Creatine Kinase 68 CK-MB (CK-2) 4.31 4.18 Troponin I 1.170 1.450 10/03/17 10/03/17 03:59 10:52 Creatine Kinase CK-MB (CK-2) Troponin I 2.080 1.980 Impressions: Chest X-Ray 10/06/17 12:38 IMPRESSION: Congestive heart failure. Assessment & Plan - Diagnosis (1) Acute non-ST elevation myocardial infarction (NSTEMI) Is this a current diagnosis for this admission?: Yes (2) Type 2 diabetes mellitus Qualifiers: Diabetes mellitus custodial insulin use: without custodial use Diabetes mellitus complication status: with kidney complications Diabetes mellitus complication detail: with chronic kidney disease Chronic kidney disease stage : on chronic dialysis Qualified Code(s): E11.22 - Type 2 diabetes mellitus with diabetic chronic kidney disease; N18.6 - End stage renal disease; N18.6 - End stage renal disease; N18.6 - End stage renal disease; N18.6 - End stage renal disease; Z99.2 - Dependence on renal dialysis; Z99.2 - Dependence on renal dialysis; Z99.2 - Dependence on renal dialysis; Z99.2 - Dependence on renal dialysis Is this a current diagnosis for this admission?: Yes (3) ESRD (end stage renal disease) on dialysis Is this a current diagnosis for this admission?: Yes (4) Anemia in CKD (chronic kidney disease) Qualifiers: Chronic kidney disease stage: on chronic dialysis Qualified Code(s): N18.6 - End stage renal disease; D63.1 - Anemia in chronic kidney disease; D63.1 - Anemia in chronic kidney disease; Z99.2 - Dependence on renal dialysis; Z99.2 - Dependence on renal dialysis; Z99.2 - Dependence on renal dialysis; Z99.2 - Dependence on renal dialysis Is this a current diagnosis for this admission?: Yes (5) Essential hypertension Is this a current diagnosis for this admission?: Yes
[2017-10-10] MEDS: ATORVASTATIN CALCIUM 80 MG TABLET PO SCH (22:38)
[2017-10-11 05:19] LABS: ANION GAP 19 (5-19); BLOOD UREA NITROGEN 51 mg/dL (7-20); CALCIUM 9.8 mg/dL (8.4-10.2); CARBON DIOXIDE 27 mmol/L (22-30); CHLORIDE 96 mmol/L (98-107); GLUCOSE 99 mg/dL (75-110); POTASSIUM 4.7 mmol/L (3.6-5.0); SODIUM 141.7 mmol/L (137-145)
[2017-10-11] MEDS: CLONIDINE HCL 0.1 MG TABLET PO SCH (05:51)
[2017-10-11] MEDS: LANSOPRAZOLE 15 MG TAB.RAP.DR PO SCH (05:52)
[2017-10-11] MEDS: HYDRALAZINE HCL 50 MG TABLET PO SCH (05:53)
[2017-10-11] MEDS: FAMOTIDINE 20 MG TABLET PO SCH (09:57)
[2017-10-11] MEDS: ISOSORBIDE MONONITRATE 60 MG TAB.ER.24H PO SCH (09:57)
[2017-10-11] MEDS: CLOPIDOGREL BISULFATE 75 MG TABLET PO SCH (09:57)
[2017-10-11] MEDS: DOCUSATE SODIUM 100 MG CAPSULE PO SCH (09:57)
[2017-10-11] MEDS: ASPIRIN 81 MG TABLET, ENT COATED PO SCH (09:58)
[2017-10-11] MEDS: CARVEDILOL 12.5 MG TABLET PO SCH (09:58)
[2017-10-11] MEDS: CYANOCOBALAMIN/FA/PYRIDOXINE TABLET PO SCH (09:59)
[2017-10-11] MEDS: SITAGLIPTIN PHOSPHATE 25 MG TABLET PO SCH (09:59)
[2017-10-11] MEDS: BUDESONIDE/FORMOTEROL 160-4.5 MCG 60 PUFF/6 GM MDI IH SCH (09:59)
--- NOTE | 2017-10-11 11:43 | PDOC PROGRESS REPORT ---
Subjective Progress Note for:: 10/11/17 Subjective:: Patient seems to be doing much better. Patient denied any sustained palpitations, dizziness, syncope, near syncope. Patient denying any fever chills. Patient denying any other significant discomfort. Nuclear stress test results were again reviewed with the patient. Patient is maintaining sinus rhythm. Review of systems: Rest review of systems negative. Medications: Medications have been reviewed. Reason For Visit: ACUTE NSTMI, ESRD ON HEMODIALYSIS Physical Exam Vital Signs: Temp Pulse Resp BP Pulse Ox 98.0 F 76 17 154/52 H 92 10/11/17 07:38 10/11/17 07:38 10/11/17 07:38 10/11/17 07:38 10/11/17 07:38 Intake & Output 10/10/17 10/11/17 10/12/17 06:59 06:59 06:59 Intake Total 313 789 Output Total 2300 Balance -1986 789 Weight 57.7 kg 59.3 kg Exam: GENERAL: well-nourished and in no acute distress. Alert and oriented x3 HEAD: Atraumatic, normocephalic. EYES: Pupils equal round and reactive to light, extraocular movements intact, sclera anicteric, conjunctiva are normal. ENT: TMs normal, nares patent, oropharynx clear without exudates. Moist mucous membranes. No oral ulcerations or bleeding gums noted NECK: supple without lymphadenopathy. Trachea is central. No cervical or axillary lymphadenopathy noted. Carotids are 2+, JVD 8 cm LUNGS: Respiration seems nonlabored, no significant accessory muscle action noted. Few bibasilar fine crackles are noted. No wheezes rales or rhonchi noted. No significant dullness noted on percussion. CHEST: Palpation of the chest wall shows no significant chest wall tenderness. HEART: [place] INSULATION BLOWER, No PSH, 1/6 LUL aortic area, 1/6 chaudhry systolic murmur mitral area, no rubs, no gallops. ABDOMEN: Soft, no significant tenderness appreciated, normoactive bowel sounds. No guarding, no rebound. No rigidity noted . No masses appreciated. EXTREMITIES: Pedal pulses are 1-2+, no calf tenderness noted. No clubbing or cyanosis. negative pedal edema noted NEUROLOGICAL: Focused neurological exam showed no significant neurologic deficit. Normal speech, no focal weakness appreciated. PSYCH: Normal mood, normal affect. Judgment and insight within normal limits. SKIN: No significant ecchymosis, skin is noted to be warm. MUSCULOSKELETAL EXAM: No significant acute joint swelling noted. Results Laboratory Results: 10/09/17 07:35 10/11/17 04:12 10/11/17 04:12 Sodium 141.7 Potassium 4.7 Chloride 96 L Carbon Dioxide 27 Anion Gap 19 BUN 51 H Creatinine 8.67 H Est GFR ( Amer) 5 L Est GFR (Non-Af Amer) 4 L Glucose 99 Calcium 9.8 09/30/17 09/30/17 09/30/17 00:50 04:41 04:41 Creatine Kinase 94 CK-MB (CK-2) 3.19 Troponin I 0.390 0.451 09/30/17 09/30/17 09/30/17 09:09 09:09 10:55 Creatine Kinase 109 CK-MB (CK-2) 3.48 3.08 Troponin I 0.521 0.460 09/30/17 09/30/17 09/30/17 10:55 16:00 16:00 Creatine Kinase 103 97 CK-MB (CK-2) 3.63 Troponin I 0.691 09/30/17 09/30/17 10/01/17 22:00 22:00 04:05 Creatine Kinase 97 84 CK-MB (CK-2) 3.71 Troponin I 0.930 10/01/17 10/01/17 10/01/17 04:05 11:05 11:05 Creatine Kinase 68 CK-MB (CK-2) 4.31 4.18 Troponin I 1.170 1.450 10/03/17 10/03/17 03:59 10:52 Creatine Kinase CK-MB (CK-2) Troponin I 2.080 1.980 EKG Comments: Telemetry shows sinus rhythm without any sustained tachycardia or bradycardia. Impressions: Chest X-Ray 10/06/17 12:38 IMPRESSION: Congestive heart failure. Assessment & Plan - Diagnosis (1) Accelerated hypertension Is this a current diagnosis for this admission?: Yes (2) Acute non-ST elevation myocardial infarction (NSTEMI) Is this a current diagnosis for this admission?: Yes (3) Chest pain Qualifiers: Chest pain type: unspecified Qualified Code(s): R07.9 - Chest pain, unspecified Is this a current diagnosis for this admission?: Yes (4) ESRD (end stage renal disease) on dialysis Is this a current diagnosis for this admission?: Yes (5) Type 2 diabetes mellitus Qualifiers: Diabetes mellitus superintendent container terminal insulin use: without superintendent container terminal use Diabetes mellitus complication status: with kidney complications Diabetes mellitus complication detail: with chronic kidney disease Chronic kidney disease stage : on chronic dialysis Qualified Code(s): E11.22 - Type 2 diabetes mellitus with diabetic chronic kidney disease; N18.6 - End stage renal disease; N18.6 - End stage renal disease; N18.6 - End stage renal disease; N18.6 - End stage renal disease; Z99.2 - Dependence on renal dialysis; Z99.2 - Dependence on renal dialysis; Z99.2 - Dependence on renal dialysis; Z99.2 - Dependence on renal dialysis Is this a current diagnosis for this admission?: Yes (6) CHF (congestive heart failure) Qualifiers: Heart failure type: diastolic Heart failure chronicity: acute on chronic Qualified Code(s): I50.33 - Acute on chronic diastolic (congestive) heart failure Is this a current diagnosis for this admission?: Yes - Notes Notes: Will repeat an EKG in the morning. This will serve as a predischarge EKG. Non-STEMI: Nuclear stress test results were again reviewed with the patient. Nuclear stress test showed small area of mild ischemia. Given patient's comorbid diagnosis, it was felt that medical management would be the best initial option. Should patient fail medical management then heart catheterization can be considered. This was explained to the patient. She is agreeable with this approach. Currently her main problem seems to be going into CHF in between dialysis. Patient has been advised to avoid excessive fluid and salt intake in between dialysis. Hypertension: Patient blood pressure medications were adjusted and today blood pressure is well controlled. Continue current regimen. Patient tolerating increased dose of hydralazine. This can be further increased as needed. Blood pressure noted to be still intermittently high. Non-STEMI: Currently stable without any chest pain. Patient medical regimen is being optimized. Patient to report any recurrence of chest pain. Chest pain: Resolved continue to monitor patient as there is high chance of recurrence. End-stage renal disease: Patient getting dialysis every other day. Patient advised not to gain too much weight in between dialysis and was advised to restrict on fluid intake. Diabetes: This is being expertly managed by road repairer. CHF currently seems compensated and is based on diastolic dysfunction. Monitor for any worsening. Patient has been advised salt and fluid restriction. - Time Time with patient: Greater than 35 minutes - CODE STATUS was discussed, patient remains full code. Surrogate decision-maker unchanged. Multiple medical problems were addressed. More than 50% of the time spent coordinating care, discussing management plans with involved caregivers. Management plans discussed with involved personnels. Medical decision making was of moderate to high complexity, patient's has multiple comorbidities. Medications reviewed and adjusted accordingly: Yes
[2017-10-11 14:21] VITALS: BP 147/50
--- NOTE | 2017-10-11 15:05 | PDOC DISCHARGE SUMMARY ---
General - Admit/Disc Date/PCP Admission Date/Primary Care Provider: 09/29/17 23:03 AKILA GALLARDO MD Discharge Date: 10/11/17 - Discharge Diagnosis (1) Acute non-ST elevation myocardial infarction (NSTEMI) Is this a current diagnosis for this admission?: Yes (2) Type 2 diabetes mellitus Is this a current diagnosis for this admission?: Yes (3) ESRD (end stage renal disease) on dialysis Is this a current diagnosis for this admission?: Yes (4) Anemia in CKD (chronic kidney disease) Is this a current diagnosis for this admission?: Yes (5) Essential hypertension Is this a current diagnosis for this admission?: Yes - Additional Information Resuscitation Status: Full Code Discharge Diet: As Tolerated Discharge Activity: Activity As Tolerated, Balance Activity w/Rest Prescriptions: Atorvastatin Calcium [Lipitor 80 mg Tablet] 80 mg PO QHS #90 tablet Acetaminophen [Tylenol 325 mg Tablet] 500 mg PO Q6HP PRN #120 tablet PRN Reason: For Pain Hydralazine HCl [Apresoline 25 mg Tablet] 25 mg PO Q8HP #90 tablet Amlodipine Besylate [Norvasc 10 mg Tablet] 10 mg PO DAILY@2100 #90 tablet Aspirin [Ecotrin 81 mg EC Tablet] 81 mg PO DAILY #90 tabec Carvedilol [Coreg 12.5 mg Tablet] 25 mg PO Q12 #60 tablet Clopidogrel Bisulfate [Plavix 75 mg Tablet] 75 mg PO DAILY #30 tablet Dexlansoprazole [Dexilant] 60 mg PO DAILY #30 bp Home Medications: Amlodipine Besylate [Norvasc 10 mg Tablet] 10 mg PO QHS 09/30/17 Budesonide/Formoterol Fumarate [Symbicort HFA 160-4.5 mcg Inhaler 6 gm] 2 puff IH Q12 09/30/17 Clonidine HCl [Catapres] 0.3 mg PO Q8 09/30/17 Clopidogrel Bisulfate [Plavix 75 mg Tablet] 75 mg PO DAILY 09/30/17 Folic Acid/Vit B Complex and C [Anny-Brittany Tablet] 0.8 mg PO DAILY 09/30/17 Isosorbide Mononitrate [Imdur 60 mg Tablet.er] 60 mg PO Q12 09/30/17 Sevelamer Carbonate [Renvela] 2,400 mg PO AC 09/30/17 Sitagliptin Phosphate [Januvia 25 mg Tablet] 25 mg PO DAILY 09/30/17 Acetaminophen [Tylenol 325 mg Tablet] 500 mg PO Q6HP PRN #120 tablet 10/11/17 Amlodipine Besylate [Norvasc 10 mg Tablet] 10 mg PO DAILY@2100 #90 tablet Aspirin [Ecotrin 81 mg EC Tablet] 81 mg PO DAILY #90 tabec 10/11/17 Atorvastatin Calcium [Lipitor 80 mg Tablet] 80 mg PO QHS #90 tablet 10/11/17 Carvedilol [Coreg 12.5 mg Tablet] 25 mg PO Q12 #60 10/11/17 Carvedilol [Coreg 12.5 mg Tablet] 25 mg PO Q12 #60 tablet 10/11/17 Clopidogrel Bisulfate [Plavix 75 mg Tablet] 75 mg PO DAILY #30 tablet 10/11/17 Dexlansoprazole [Dexilant] 60 mg PO DAILY #30 10/11/17 Hydralazine HCl [Apresoline 25 mg Tablet] 25 mg PO Q8HP #90 tablet 10/11/17 History of Present Illness History of Present Illness: LUKE RAMAN is a 76 year old female, She has a history of ischemic heart disease, end-stage renal disease on maintenance hemodialysis she came to the emergency room last night for evaluation of chest pain, she described as chest pressure. The 12-lead EKG that was done was sinus rhythm there was no ST segment deviation that suggest acute AL initial troponin was slightly elevated, Subsequent troponin was trending up,elevated. The constellation of the typical anginal-like chest pressure with elevated troponin in a patient with a history of CAD and also end-stage renal disease on hemodialysis it was felt that she has non-ST elevated AL. She was given antiplatelet, Plavix 300 mg p.o., aspirin 81 mg 2 tablets p.o. and also started on IV heparin per low-dose protocol for AL the blood pressure was elevated she also was started on beta- an initially metoprolol subsequently this was changed to Coreg which is her regular beta-an and also started on nitroglycerin infusion Hospital Course Hospital Course: Patient was admitted for the management of acute non-ST elevated AL, she presented with typical anginal-like pain, troponin was elevated, she was treated with intravenous heparin, intravenous nitroglycerin infusion she has end -stage renal disease on maintenance hemodialysis, she was seen by nephrology she underwent dialysis while in the hospital. 2D echo was done, it showed normal ejection fraction of left ventricle, grade 2 diastolic dysfunction of left ventricle, she was seen by cardiology Dr. Cheatham. There was associated hypertensive emergency, she was managed in intensive care unit. She had Lexiscan Cardiolite stress test, showed mild transient perfusion defect consistent with mild ischemia in the inferior wall which is smaller underlining mild fixed defect. There was no definitive scintigraphic evidence of myocardial infarction medications were adjusted, she was treated with beta- an, carvedilol, atorvastatin 80 mg p.o. daily, nitrate. It was felt that there was no indication at this time for cardiac catheterization, the nuclear stress test showed mild ischemia ,medical management was recommended. Physical Exam Vital Signs: Temp Pulse Resp BP Pulse Ox 98.5 F 71 17 147/50 H 95 10/11/17 14:13 10/11/17 14:13 10/11/17 14:13 10/11/17 14:13 10/11/17 14:13 Intake & Output 10/10/17 10/11/17 10/12/17 06:59 06:59 06:59 Intake Total 313 789 Output Total 2300 Balance -1986 789 Weight 57.7 kg 59.3 kg General appearance: PRESENT: no acute distress, well-developed, well-nourished Head exam: PRESENT: atraumatic, normocephalic Eye exam: PRESENT: conjunctiva pink, EOMI, PERRLA Ear exam: PRESENT: normal external ear exam Mouth exam: PRESENT: moist, tongue midline Neck exam: PRESENT: full ROM Respiratory exam: PRESENT: clear to auscultation buddy Cardiovascular exam: PRESENT: RRR, +S1, +S2 Pulses: PRESENT: normal dorsalis pedis pul, +2 pedal pulses bilateral Vascular exam: PRESENT: normal capillary refill GI/Abdominal exam: PRESENT: normal bowel sounds, soft Rectal exam: PRESENT: deferred Neurological exam: PRESENT: alert, awake, oriented to person, oriented to place , oriented to time, oriented to situation, CN II-XII grossly intact Psychiatric exam: PRESENT: appropriate affect, normal mood Skin exam: PRESENT: dry, intact, warm Results Laboratory Results: 10/09/17 07:35 10/11/17 04:12 10/11/17 04:12 Sodium 141.7 Potassium 4.7 Chloride 96 L Carbon Dioxide 27 Anion Gap 19 BUN 51 H Creatinine 8.67 H Est GFR ( Amer) 5 L Est GFR (Non-Af Amer) 4 L Glucose 99 Calcium 9.8 09/30/17 09/30/17 09/30/17 00:50 04:41 04:41 Creatine Kinase 94 CK-MB (CK-2) 3.19 Troponin I 0.390 0.451 09/30/17 09/30/17 09/30/17 09:09 09:09 10:55 Creatine Kinase 109 CK-MB (CK-2) 3.48 3.08 Troponin I 0.521 0.460 09/30/17 09/30/17 09/30/17 10:55 16:00 16:00 Creatine Kinase 103 97 CK-MB (CK-2) 3.63 Troponin I 0.691 09/30/17 09/30/17 10/01/17 22:00 22:00 04:05 Creatine Kinase 97 84 CK-MB (CK-2) 3.71 Troponin I 0.930 10/01/17 10/01/17 10/01/17 04:05 11:05 11:05 Creatine Kinase 68 CK-MB (CK-2) 4.31 4.18 Troponin I 1.170 1.450 10/03/17 10/03/17 03:59 10:52 Creatine Kinase CK-MB (CK-2) Troponin I 2.080 1.980 Impressions: Chest X-Ray 10/06/17 12:38 IMPRESSION: Congestive heart failure. Qualifiers - * PATIENT BEING DISCHARGED WITH ANY OF THE FOLLOWING DIAGNOSIS: No
== END 2017-10-11 13:22 | disposition home or self-care (01) | DRG 280 ==
LOC: ER 20:47 → EH 23:03 → 3W 09-30 04:03 → ICU 09-30 15:12 → 4N 10-08 00:50
PROVIDERS: ADMIT Internal Medicine; ATTEND Internal Medicine
PROC: 5A1D70Z Performance of Urinary Filtration, Intermittent, Less than 6 Hours Per Day (ICD-10-PCS; principal; 2017-09-30)
DX: I21.4 Non-ST elevation (NSTEMI) myocardial infarction (principal); N18.6 End stage renal disease; I50.33 Acute on chronic diastolic (congestive) heart failure; I13.2 Hypertensive heart and chronic kidney disease with heart failure and with stage 5 chronic kidney disease, or end stage renal disease; R07.89 Other chest pain; I16.0 Hypertensive urgency; E11.22 Type 2 diabetes mellitus with diabetic chronic kidney disease; D63.1 Anemia in chronic kidney disease; E87.5 Hyperkalemia; I25.10 Atherosclerotic heart disease of native coronary artery without angina pectoris; Z99.2 Dependence on renal dialysis; Z95.5 Presence of coronary angioplasty implant and graft; I25.2 Old myocardial infarction; Z79.01 Long term (current) use of anticoagulants; Z79.84 Long term (current) use of oral hypoglycemic drugs; Z79.51 Long term (current) use of inhaled steroids; Z79.899 Other long term (current) drug therapy
CPT/HCPCS: 36415; 71045; 78451; 78452; 80048; 80053; 80061; 82550; 82553; 82962; 83735; 84100; 84484; 85025; 85027; 85610; 85730; 93005; 93010; 93017; 93306; 94660; 99285; A9500; G8978-GP; G8979-GP; J0280; J1644; J2270; J2405; J2785; J3490; J7620; Q4081; Q9969

== ENCOUNTER 2019-07-31 18:08 | Inpatient (IN) | payer MEDICARE, MEDICAID ==
--- NOTE | 2019-07-31 18:28 | ER Document Report ---
ED General - General Chief Complaint: Arm Problem Stated Complaint: ARM PAIN Primary Care Provider: AKILA GALLARDO MD [ACTIVE STAFF] - Follow up as needed Mode of Arrival: Medic Information source: Patient, Relative TRAVEL OUTSIDE OF THE [place] IN LAST 30 DAYS: No - HPI Patient complains to provider of: bleeding fistula Onset: Just prior to arrival - pt. with ESRD on HD q M,Wed, Fri with c/o spontaneous bleeding from A-V fistula from L arm just [employer] - Related Data Allergies/Adverse Reactions: codeine [Codeine] Allergy (Verified 08/25/17 07:45) ITCHING morphine [Morphine] Allergy (Verified 08/25/17 07:45) ITCHING Penicillins Allergy (Verified 08/25/17 07:45) ITCHING tomato Allergy (Verified 08/25/17 07:45) ITCHING Past Medical History - General Information source: Patient, Relative - Social History Smoking Status: Unknown if Ever Smoked Family History: Hypertension Patient has suicidal ideation: No Patient has homicidal ideation: No - Past Medical History Cardiac Medical History: Reports: Hx Coronary Artery Disease - cardiac stents, Hx Heart Attack - "light", Hx Hypertension Pulmonary Medical History: Reports: Hx Asthma, Hx COPD Denies: Hx Bronchitis, Hx Pneumonia Neurological Medical History: Denies: Hx Cerebrovascular Accident, Hx Seizures Endocrine Medical History: Reports: Hx Diabetes Mellitus Type 2 Renal/ Medical History: Reports: Hx End Stage Renal Disease. Denies: Hx Peritoneal Dialysis Musculoskeletal Medical History: Reports Hx Arthritis - neck Psychiatric Medical History: Reports: Hx Depression - stress related Past Surgical History: Reports: Hx Cardiac Catheterization - Stent placement, Hx Cholecystectomy, Hx Tubal Ligation - Immunizations Hx Diphtheria, Pertussis, Tetanus Vaccination: No Hx Pneumococcal Vaccination: 02/01/16 Review of Systems - Review of Systems Constitutional: No symptoms reported EENT: No symptoms reported Cardiovascular: No symptoms reported Respiratory: No symptoms reported Gastrointestinal: No symptoms reported Musculoskeletal: No symptoms reported -: Yes All other systems reviewed and negative Physical Exam - Vital signs Vitals: Resp BP 18 79/68 L 07/31/19 18:14 07/31/19 18:14 - General General appearance: Alert In distress: None - Respiratory Respiratory status: No respiratory distress Breath sounds: Normal - Cardiovascular Rhythm: Regular Heart sounds: Normal auscultation Murmur: No - Abdominal Bowel sounds: Normal Tenderness: Nontender - Extremities General upper extremity: Other - Pt is actively bleeding from A-V fistual in L upper arm when tounaquet is released. Course - Re-evaluation Re-evalutation: 07/31/19 18:46 fistula bleeding under control -- will call hospitalist for admssion - Vital Signs Vital signs: Temp Pulse Resp BP Pulse Ox 98.2 F 68 20 116/73 96 07/31/19 18:40 07/31/19 18:40 07/31/19 18:41 07/31/19 18:41 07/31/19 18:41 - Laboratory Result Diagrams: 07/31/19 18:48 07/31/19 18:48 - Consults jorge Fish Time consulted: 18:41 Consulted provider: will come to ER jorge Zapata Time consulted: 18:47 Critical Care Note - Critical Care Note Total time excluding time spent on procedures (mins): 20 Discharge - Discharge Clinical Impression: Hemorrhage of arteriovenous fistula Qualifiers: Encounter type: initial encounter Qualified Code(s): T82.838A - Hemorrhage due to vascular prosthetic devices, implants and grafts, initial encounter Condition: Stable Disposition: ADMITTED OBSERVATION Admitting Provider: Jorge A (Hospitalist) Unit Admitted: Medical Floor Referrals: AKILA GALLARDO MD [ACTIVE STAFF] - Follow up as needed
[2019-07-31] MEDS ORDERED: NORMAL SALINE 1000 ML 1,000 ML IV ONE (18:41)
[2019-07-31 19:04] LABS: ABSOLUTE EOSINOPHILS # (AUTO) 0.1 10^3/uL (0.0-0.6); ABSOLUTE LYMPHOCYTES (AUTO) 1.3 10^3/uL (0.5-4.7); ABSOLUTE MONOCYTES (AUTO) 0.6 10^3/uL (0.1-1.4); ABSOLUTE NEUT (AUTO) 2.6 10^3/uL (1.7-8.2); BASOPHILS % (AUTO) 0.3 % (0-2); EOSINOPHILS % (AUTO) 2.8 % (0-6); HEMATOCRIT 30.7 % (36.0-47.0); HEMOGLOBIN 10.4 g/dL (12.0-15.5); LYMPHOCYTES % (AUTO) 27.7 % (13-45); MEAN CORPUSCULAR HEMOGLOBIN 33.7 pg (27.0-33.4); MEAN CORPUSCULAR HGB CONC 33.8 g/dL (32.0-36.0); MEAN CORPUSCULAR VOLUME 100 fl (80-97); PLATELET COUNT 152 10^3/uL (150-450); RED BLOOD COUNT 3.09 10^6/uL (3.72-5.28); RED CELL DISTRIBUTION WIDTH 16.1 % (11.5-14.0); SEGMENTED NEUTROPHILS % (AUTO) 55.2 % (42-78); TOTAL CELLS COUNTED % (AUTO) 100 %; WHITE BLOOD COUNT 4.6 10^3/uL (4.0-10.5)
[2019-07-31 19:46] LABS: ALBUMIN 3.7 g/dL (3.5-5.0); ALKALINE PHOSPHATASE 192 U/L (38-126); ANION GAP 17 (5-19); ASPARTATE AMINO TRANSFERASE 29 U/L (14-36); BILIRUBIN,DIRECT 0.6 mg/dL (0.0-0.4); BILIRUBIN,TOTAL 0.6 mg/dL (0.2-1.3); BLOOD UREA NITROGEN 52 mg/dL (7-20); CALCIUM 8.9 mg/dL (8.4-10.2); CARBON DIOXIDE 25 mmol/L (22-30); CHLORIDE 96 mmol/L (98-107); GLUCOSE 91 mg/dL (75-110); POTASSIUM 4.2 mmol/L (3.6-5.0); TOTAL PROTEIN 7.1 g/dL (6.3-8.2)
[2019-07-31] MEDS ORDERED: ACETAMINOPHEN 325 MG TABLET PO PRN (20:22)
[2019-07-31] MEDS ORDERED: IPRATROPIUM/ALBUTEROL 0.5-2.5 MG/3 ML AMPUL NEB PRN (20:22)
[2019-07-31] MEDS ORDERED: MAG HYDROX/AL HYDROX/SIMETH SUSP 30 ML UDCUP PO PRN (20:22)
[2019-07-31] MEDS ORDERED: MAGNESIUM HYDROXIDE SUSP 30 ML UDCUP PO PRN (20:22)
[2019-07-31 20:57] LABS: IRON(TIBC) 66.5 ug/dL (37-170)
--- NOTE | 2019-07-31 21:50 | Operative Report ---
Operative Report DATE OF SURGERY: 07/31/19 PREOPERATIVE DIAGNOSIS: Bleeding from arteriovenous fistula on the left upper a rm POSTOPERATIVE DIAGNOSIS: Same OPERATION: Surgical control of bleeding from arteriovenous fistula on the left upper arm SURGEON: ERIC CHAVIRA ANESTHESIA: Other TISSUE REMOVED OR ALTERED: None COMPLICATIONS: None ESTIMATED BLOOD LOSS: 50ccs QUANTITATIVE BLOOD LOSS: 50 INTRAOPERATIVE FINDINGS: Bleeding site on the left upper arm arteriovenous fistula is about a 45 mm defect with surrounding skin that thinned out. The arteriovenous fistula also has 2 areas of aneurysmal with the bleeding site on the upper aneurysmal area PROCEDURE: Patient had dialysis 2 days ago. Today patient was brought to the ED by paramedics for acute bleeding from the hemodialysis arteriovenous fistula on the left upper arm. A tourniquet was placed above the fistula. There is drip a Kerlix dressing over the fistula deaths blood soak. The dressing was then cut off and it revealed bleeding site about 4 to 5 mm longitudinally and with the skin surrounding noted to be thinned out. The tourniquet was then released and pressure was then placed over the bleeding site directly with the finger. Pressure by 1 of the nurses was applied applied directly on the arterial side of the fistula which almost completely stopped the bleeding. Meantime I was able to placed a running suture using 4-0 Prolene in a running fashion and also sutured back towards the original start of the repair and tied to limbs of the Prolene together. Following this pressure on the fistula was released and and appears to have completely stopped the bleeding. The fistula site was then prepped and a piece of Surgifoam was placed over the repaired site and covered with 4 x 4 and wrapped with Coban. Since this may bleed again anytime patient was advised to be admitted to the medical service because she is being diabetic and may have lost a lot of blood prior and during transport. She will be transfused and Dr. Kaitlyn Ramon who does the dialysis fistula procedures will be consulted. This fistula may need to be revised. Patient tolerated procedure well.
[2019-07-31 21:53] LABS: ABSOLUTE RETICS # 0.054 10^6/uL (0.028-0.122); RETICULOCYTE COUNT (AUTO) 1.48 % (0.66-2.85)
[2019-07-31 22:04] LABS: FOLATE > 20.00 ng/mL (>2.76)
[2019-07-31] MEDS: HEPARIN SOD (PORCINE) 5,000 UNIT/ML 1 ML VIAL SUBCUT SCH (22:51)
[2019-07-31] MEDS ORDERED: RISPERIDONE 1 MG TABLET PO ONE (23:00)
[2019-07-31] MEDS ORDERED: CARVEDILOL 12.5 MG TABLET PO ONE (23:00)
--- NOTE | 2019-08-01 04:56 | PDOC H&P ---
History of Present Illness Admission Date/PCP: 07/31/19 20:22 Patient complains of: Left arm fistula bleeding History of Present Illness: LUKE RAMAN is a 78 year old female with a past medical history of diabetes, hypertension, anemia and end-stage renal failure on hemodialysis Thursday presents 30 minutes following an injury to her left arm AV fistula occurring while removing her jacket. A tourniquet is placed and she is brought to the emergency room for evaluation where it is persistently oozing. CBC reveals anemia, surgery is consulted and she is referred to the hospitalist for admission. Patient denies pain or previous episode. Past Medical History Cardiac Medical History: Reports: Coronary Artery Disease - cardiac stents, Myocardial Infarction - "light", Hypertension Pulmonary Medical History: Reports: Asthma, Chronic Obstructive Pulmonary Disease (COPD) Denies: Bronchitis, Pneumonia Neurological Medical History: Denies: Seizures Endocrine Medical History: Reports: Diabetes Mellitus Type 2 Renal/ Medical History: Reports: End Stage Renal Disease Musculoskeltal Medical History: Reports: Arthritis - neck Psychiatric Medical History: Reports: Depression Hematology: Reports: Anemia Past Surgical History Past Surgical History: Reports: Cardiac Catheterization - Stent placement, Cholecystectomy, Tubal Ligation Social History Information Source: Patient, [facility] Records Smoking Status: Unknown if Ever Smoked Electronic Cigarette use?: No Frequency of Alcohol Use: None Hx Recreational Drug Use: No Drugs: None Hx Prescription Drug Abuse: No - Advance Directive Resuscitation Status: Full Code Family History Family History: Hypertension Parental Family History Reviewed: Yes Children Family History Reviewed: Yes Sibling(s) Family History Reviewed.: Yes Medication/Allergy Home Medications: Clopidogrel Bisulfate [Plavix 75 mg Tablet] 75 mg PO DAILY 09/30/17 Folic Acid/Vit B Complex and C [Anny-Brittany Tablet] 0.8 mg PO DAILY 09/30/17 Isosorbide Mononitrate [Imdur 60 mg Tablet.er] 60 mg PO DAILY 09/30/17 Sevelamer Carbonate [Renvela] 1,600 mg PO AC 09/30/17 Aspirin [Ecotrin 81 mg EC Tablet] 81 mg PO DAILY #90 tabec 10/11/17 Dexlansoprazole [Dexilant] 60 mg PO DAILY #30 10/11/17 Acetaminophen [Tylenol 325 mg Tablet] 975 mg PO TID 07/31/19 Albuterol Sulfate [Ventolin Hfa 8 gm Mdi] 2 puff IH Q6HP PRN 07/31/19 Bumetanide 2 mg PO DAILY 07/31/19 Carvedilol [Coreg 12.5 mg Tablet] 12.5 mg PO Q12 07/31/19 Cholecalciferol (Vitamin D3) [Vitamin D3] 5,000 unit PO DAILY 07/31/19 Dextran 70/Hypromellose [Artificial Tears Eye Drops] 1 drop OP TID 07/31/19 Fluticasone Propionate [Flonase Nasal [place] 50 Mcg/[place] 16 gm] 1 spray IH DAILY 07/31/19 Fluticasone/Vilanterol [Breo Ellipta 100-25 Mcg INH] 1 puff IH DAILY 07/31/19 Ipratropium/Albuterol Sulfate [Duoneb 3 ml Ampul] 1 puff IH Q6HP PRN 07/31/19 Lidocaine [Lidoderm 5% (700 mg) Transdermal Patch] 1 patch Q12 07/31/19 Loperamide HCl [Imodium 2 mg Capsule] 2 mg PO PRN 07/31/19 Losartan Potassium [Cozaar] 25 mg PO DAILY 07/31/19 Mirtazapine [Remeron 15 mg Tablet] 15 mg PO QHS 07/31/19 Nitroglycerin 0.4 mg SL PRN 07/31/19 Ondansetron [Zofran Odt 4 mg Tablet] 4 mg PO Q6HP PRN 07/31/19 Risperidone [Risperdal] 1 mg PO Q12 07/31/19 Sodium Polystyrene Sulfonate [Kayexalate 15 gm/60 ml Susp 60 ml] 15 mg PO PRN 07/31/19 Vit B1 Mn/B2/B3/B5/B6/B12/C/FA [B Complex with Vitamin C Tab] 1 tab PO DAILY 07/31/19 Allergies/Adverse Reactions: codeine [Codeine] Allergy (Verified 08/25/17 07:45) ITCHING morphine [Morphine] Allergy (Verified 08/25/17 07:45) ITCHING Penicillins Allergy (Verified 08/25/17 07:45) ITCHING tomato Allergy (Verified 08/25/17 07:45) ITCHING Review of Systems Constitutional: ABSENT: chills, fever(s), headache(s), weight gain, weight loss Eyes: ABSENT: visual disturbances Ears: ABSENT: hearing changes Cardiovascular: ABSENT: chest pain, dyspnea on exertion, edema, orthropnea, palpitations Respiratory: ABSENT: cough, hemoptysis Gastrointestinal: ABSENT: abdominal pain, constipation, diarrhea, hematemesis, hematochezia, nausea, vomiting Genitourinary: ABSENT: dysuria, hematuria Musculoskeletal: ABSENT: joint swelling Integumentary: ABSENT: rash, wounds Neurological: ABSENT: abnormal gait, abnormal speech, confusion, dizziness, focal weakness, syncope Psychiatric: ABSENT: anxiety, depression, homidical ideation, suicidal ideation Endocrine: ABSENT: cold intolerance, heat intolerance, polydipsia, polyuria Hematologic/Lymphatic: ABSENT: easy bleeding, easy bruising Physical Exam Vital Signs: Temp Pulse Resp BP Pulse Ox 97.6 F 73 17 174/42 H 93 07/31/19 22:13 08/01/19 02:00 07/31/19 22:13 07/31/19 22:13 07/31/19 22:13 Intake & Output 07/30/19 07/31/19 08/01/19 11:59 11:59 11:59 Intake Total 1555 Balance 1555 Weight 63.3 kg General appearance: PRESENT: cooperative, mild distress, well-developed, well- nourished Head exam: PRESENT: atraumatic, normocephalic Eye exam: PRESENT: conjunctiva pink, EOMI, PERRLA. ABSENT: scleral icterus Ear exam: PRESENT: normal external ear exam Mouth exam: PRESENT: moist, tongue midline Neck exam: ABSENT: carotid bruit, JVD, lymphadenopathy, thyromegaly Respiratory exam: PRESENT: clear to auscultation buddy. ABSENT: rales, rhonchi, wheezes Cardiovascular exam: PRESENT: RRR. ABSENT: diastolic murmur, rubs, systolic murmur Pulses: PRESENT: normal dorsalis pedis pul Vascular exam: PRESENT: normal capillary refill GI/Abdominal exam: PRESENT: normal bowel sounds, soft. ABSENT: distended, guarding, mass, organolmegaly, rebound, tenderness Rectal exam: PRESENT: deferred Extremities exam: PRESENT: full ROM, tenderness - Left upper arm with AV fistula changes, wrapped and dry with bandage.. ABSENT: calf tenderness, clubbing, pedal edema Neurological exam: PRESENT: alert, awake, oriented to person, oriented to place, oriented to time, oriented to situation, CN II-XII grossly intact. ABSENT: motor sensory deficit Psychiatric exam: PRESENT: appropriate affect, normal mood. ABSENT: homicidal ideation, suicidal ideation Skin exam: PRESENT: dry, intact, warm. ABSENT: cyanosis, rash Results Laboratory Results: 07/31/19 18:48 07/31/19 18:48 07/31/19 07/31/19 07/31/19 18:48 18:48 18:48 WBC 4.6 RBC 3.09 L Hgb 10.4 L Hct 30.7 L MCV 100 H MCH 33.7 H MCHC 33.8 RDW 16.1 H Plt Count 152 Seg Neutrophils % 55.2 Retic Count (auto) Absolute Retic Sodium 137.5 Potassium 4.2 Chloride 96 L Carbon Dioxide 25 Anion Gap 17 BUN 52 H Creatinine 7.22 H Est GFR ( Amer) 7 L Glucose 91 Calcium 8.9 Iron TIBC % Saturation Ferritin Total Bilirubin 0.6 AST 29 Alkaline Phosphatase 192 H Total Protein 7.1 Albumin 3.7 Vitamin B12 Folate Blood Type O POSITIVE Antibody Screen NEGATIVE 07/31/19 07/31/19 07/31/19 18:48 18:48 21:30 WBC RBC Hgb Hct MCV MCH MCHC RDW Plt Count Seg Neutrophils % Retic Count (auto) Cancelled 1.48 Absolute Retic Cancelled Sodium Potassium Chloride Carbon Dioxide Anion Gap BUN Creatinine Est GFR ( Amer) Glucose Calcium Iron 66.5 TIBC 211 L % Saturation 32 Ferritin 774.00 H Total Bilirubin AST Alkaline Phosphatase Total Protein Albumin Vitamin B12 607.0 Folate > 20.00 Blood Type Antibody Screen Assessment and Plan - Diagnosis (1) Hemorrhage of arteriovenous fistula Qualifiers: Encounter type: initial encounter Qualified Code(s): T82.838A - Hemorrhage due to vascular prosthetic devices, implants and grafts, initial encounter Is this a current diagnosis for this admission?: Yes Plan: Surgical consult, follow-up CBC (2) Accelerated hypertension Is this a current diagnosis for this admission?: Yes Plan: Outpatient regiment with IV hydralazine as needed (3) Anemia in CKD (chronic kidney disease) Qualifiers: Chronic kidney disease stage: on chronic dialysis Qualified Code(s): N18.6 - End stage renal disease; D63.1 - Anemia in chronic kidney disease; D63.1 - Anemia in chronic kidney disease; Z99.2 - Dependence on renal dialysis; Z99.2 - Dependence on renal dialysis; Z99.2 - Dependence on renal dialysis; Z99.2 - Dependence on renal dialysis Is this a current diagnosis for this admission?: Yes Plan: Unclear impact of acute hemorrhage, follow-up CBC and anemia labs (4) ESRD (end stage renal disease) on dialysis Is this a current diagnosis for this admission?: Yes Plan: Continue outpatient medication regiment, dialysis diet, nephrology consulted. (5) Type 2 diabetes mellitus Qualifiers: Diabetes mellitus prison insulin use: without termite helper use Diabetes mellitus complication status: with kidney complications Diabetes mellitus complication detail: with chronic kidney disease Chronic kidney disease stage: on chronic dialysis Qualified Code(s): E11.22 - Type 2 diabetes mellitus with diabetic chronic kidney disease; N18.6 - End stage renal disease; N18.6 - End stage renal disease; N18.6 - End stage renal disease; N18.6 - End stage renal disease; Z99.2 - Dependence on renal dialysis; Z99.2 - Dependence on renal dialysis; Z99.2 - Dependence on renal dialysis; Z99.2 - Dependence on renal dialysis Is this a current diagnosis for this admission?: Yes Plan: Diabetic diet, Humalog sliding scale q. before meals - Time Time Spent with patient: 25-34 minutes - Inpatient Certification Medical Necessity: Need Close Monitoring Due to Risk of Patient Decompensation
[2019-08-01 05:11] LABS: ABSOLUTE BASOPHILS # (AUTO) 0.1 10^3/uL (0.0-0.2); ABSOLUTE EOSINOPHILS # (AUTO) 0.1 10^3/uL (0.0-0.6); ABSOLUTE LYMPHOCYTES (AUTO) 1.1 10^3/uL (0.5-4.7); ABSOLUTE MONOCYTES (AUTO) 0.6 10^3/uL (0.1-1.4); BASOPHILS % (AUTO) 1.2 % (0-2); HEMATOCRIT 32.7 % (36.0-47.0); MEAN CORPUSCULAR HEMOGLOBIN 32.8 pg (27.0-33.4); MEAN CORPUSCULAR HGB CONC 33.6 g/dL (32.0-36.0); MEAN CORPUSCULAR VOLUME 98 fl (80-97); MONOCYTES % (AUTO) 10.5 % (3-13); PLATELET COUNT 148 10^3/uL (150-450); RED BLOOD COUNT 3.35 10^6/uL (3.72-5.28); RED CELL DISTRIBUTION WIDTH 18.3 % (11.5-14.0); SEGMENTED NEUTROPHILS % (AUTO) 68.3 % (42-78); TOTAL CELLS COUNTED % (AUTO) 100 %; WHITE BLOOD COUNT 5.8 10^3/uL (4.0-10.5)
[2019-08-01] MEDS: HEPARIN SOD (PORCINE) 5,000 UNIT/ML 1 ML VIAL SUBCUT SCH (05:23)
[2019-08-01 05:32] LABS: ANION GAP 16 (5-19); BLOOD UREA NITROGEN 54 mg/dL (7-20); CARBON DIOXIDE 22 mmol/L (22-30); CHLORIDE 96 mmol/L (98-107); GLUCOSE 84 mg/dL (75-110); POTASSIUM 4.5 mmol/L (3.6-5.0)
[2019-08-01] MEDS: SEVELAMER HCL 800 MG TABLET PO SCH ×2 (08:17→10:14)
[2019-08-01] MEDS ORDERED: FOLIC ACID PO SCH ×2 (10:00→16:00)
[2019-08-01] MEDS ORDERED: DEXTRAN OP SCH (10:00)
[2019-08-01] MEDS ORDERED: HYPROMELLOSE OP SCH (10:00)
[2019-08-01] MEDS ORDERED: VIT B COMPLEX AND C PO SCH ×2 (10:00→16:00)
[2019-08-01] MEDS: ISOSORBIDE MONONITRATE 60 MG TAB.ER.24H PO SCH (10:13)
[2019-08-01] MEDS: ASPIRIN 81 MG TABLET, ENT COATED PO SCH (10:14)
[2019-08-01] MEDS: PANTOPRAZOLE SODIUM 40 MG TABLET.DR PO SCH (10:14)
[2019-08-01] MEDS: CLOPIDOGREL BISULFATE 75 MG TABLET PO SCH (10:14)
[2019-08-01] MEDS: CHOLECALCIFEROL (D3) 1,000 UNIT (25 MCG) TABLET PO SCH (10:14)
[2019-08-01] MEDS: CARVEDILOL 12.5 MG TABLET PO SCH (10:15)
[2019-08-01] MEDS: FLUTICASONE NASAL SPRAY 50 MCG/SPRY 120 SPRAY/16 GM NASL SCH (10:15)
[2019-08-01] MEDS: DOCUSATE SODIUM 100 MG CAPSULE PO SCH (10:15)
[2019-08-01] MEDS: RISPERIDONE 1 MG TABLET PO SCH (10:38)
[2019-08-01] MEDS ORDERED: NORMAL SALINE 1000 ML 1,000 ML IV PRN (10:39)
[2019-08-01] MEDS ORDERED: BUPIVACAINE HCL 0.25 % INJ/PF (2.5 MG/1 ML) 30 ML VIAL ONE (12:35)
[2019-08-01] MEDS ORDERED: LIDOCAINE 1% INJ-PF (10 MG/ML) 30 ML SDV ONE (12:35)
[2019-08-01] MEDS ORDERED: HEPARIN SOD (PORCINE) 1,000 UNIT/ML 1 ML VIAL ONE (12:36)
[2019-08-01] MEDS ORDERED: LIDOCAINE 0.5% INJ-PF (5 MG/ML) 50 ML SDV ONE (12:36)
[2019-08-01] MEDS ORDERED: BACITRACIN INJ 50,000 UNIT VIAL ONE (12:36)
[2019-08-01] MEDS ORDERED: PROPOFOL INJ 200 MG/20 ML VIAL IV ONE ×2 (12:50→14:42)
[2019-08-01] MEDS ORDERED: FENTANYL CITRATE INJ/PF 100 MCG/2 ML AMPUL ONE (12:50)
[2019-08-01] MEDS ORDERED: ONDANSETRON HCL INJ/PF 4 MG/2 ML SDV ONE (12:51)
[2019-08-01] MEDS ORDERED: HEPARIN SOD (PORCINE) 1,000 UNIT/ML 10 ML VIAL ONE (12:58)
--- NOTE | 2019-08-01 13:00 | EKG REPORT ---
SEVERITY:- ABNORMAL ECG - SINUS RHYTHM ATRIAL PREMATURE COMPLEX CONSIDER LEFT VENTRICULAR HYPERTROPHY BORDERLINE PROLONGED QT INTERVAL : Confirmed by: Dioni Haddad MD 01-Aug-2019 12:59:31
[2019-08-01] MEDS ORDERED: HEPARIN SODIUM,PORCINE/NS/PF 0 UNIT/0 ML RTUINJ IV ONE (13:04)
[2019-08-01] MEDS ORDERED: THROMBIN (BOVINE) TOPICAL 5000 UNIT VIAL ONE (13:05)
--- NOTE | 2019-08-01 13:10 | PDOC CONSULTATION ---
Consultation Consult Date: 08/01/19 Attending physician:: JOHNY OROZCO Provider Consulted: SIXTO PICKARD Consult reason:: Bleeding from AV fistula. History of Present Illness Admission Date/PCP: 07/31/19 20:22 History of Present Illness: LUKE RAMAN is a 78 year old female Past Medical History Cardiac Medical History: Reports: Coronary Artery Disease - cardiac stents, Myocardial Infarction - "light", Hypertension Pulmonary Medical History: Reports: Asthma, Chronic Obstructive Pulmonary Disease (COPD) Denies: Bronchitis, Pneumonia Neurological Medical History: Denies: Seizures Endocrine Medical History: Reports: Diabetes Mellitus Type 2 Renal/ Medical History: Reports: End Stage Renal Disease Musculoskeltal Medical History: Reports: Arthritis - neck Psychiatric Medical History: Reports: Depression Hematology: Reports: Anemia Past Surgical History Past Surgical History: Reports: Cardiac Catheterization - Stent placement, Cholecystectomy, Tubal Ligation Social History Lives with: Family - Lives with her granddaughter in [place]. Smoking Status: Former Smoker Electronic Cigarette use?: No Frequency of Alcohol Use: None Hx Recreational Drug Use: No Drugs: None Hx Prescription Drug Abuse: No - Advance Directive Resuscitation Status: Full Code Family History Family History: Hypertension Parental Family History Reviewed: No Children Family History Reviewed: No Sibling(s) Family History Reviewed.: No Medication/Allergy Home Medications: Clopidogrel Bisulfate [Plavix 75 mg Tablet] 75 mg PO DAILY 09/30/17 Folic Acid/Vit B Complex and C [Anny-Brittany Tablet] 0.8 mg PO DAILY 09/30/17 Isosorbide Mononitrate [Imdur 60 mg Tablet.er] 60 mg PO DAILY 09/30/17 Sevelamer Carbonate [Renvela] 1,600 mg PO AC 09/30/17 Aspirin [Ecotrin 81 mg EC Tablet] 81 mg PO DAILY #90 tabec 10/11/17 Dexlansoprazole [Dexilant] 60 mg PO DAILY #30 bp 10/11/17 Acetaminophen [Tylenol 325 mg Tablet] 975 mg PO TID 07/31/19 Albuterol Sulfate [Ventolin Hfa 8 gm Mdi] 2 puff IH Q6HP PRN 07/31/19 Bumetanide 2 mg PO DAILY 07/31/19 Carvedilol [Coreg 12.5 mg Tablet] 12.5 mg PO Q12 07/31/19 Cholecalciferol (Vitamin D3) [Vitamin D3] 5,000 unit PO DAILY 07/31/19 Dextran 70/Hypromellose [Artificial Tears Eye Drops] 1 drop OP TID 07/31/19 Fluticasone Propionate [Flonase Nasal [place] 50 Mcg/[place] 16 gm] 1 spray IH DAILY 07/31/19 Fluticasone/Vilanterol [Breo Ellipta 100-25 Mcg INH] 1 puff IH DAILY 07/31/19 Ipratropium/Albuterol Sulfate [Duoneb 3 ml Ampul] 1 puff IH Q6HP PRN 07/31/19 Lidocaine [Lidoderm 5% (700 mg) Transdermal Patch] 1 patch Q12 07/31/19 Loperamide HCl [Imodium 2 mg Capsule] 2 mg PO PRN 07/31/19 Losartan Potassium [Cozaar] 25 mg PO DAILY 07/31/19 Mirtazapine [Remeron 15 mg Tablet] 15 mg PO QHS 07/31/19 Nitroglycerin 0.4 mg SL PRN 07/31/19 Ondansetron [Zofran Odt 4 mg Tablet] 4 mg PO Q6HP PRN 07/31/19 Risperidone [Risperdal] 1 mg PO Q12 07/31/19 Sodium Polystyrene Sulfonate [Kayexalate 15 gm/60 ml Susp 60 ml] 15 mg PO PRN 07/31/19 Vit B1 Mn/B2/B3/B5/B6/B12/C/FA [B Complex with Vitamin C Tab] 1 tab PO DAILY 07/31/19 Allergies/Adverse Reactions: codeine [Codeine] Allergy (Verified 08/25/17 07:45) ITCHING morphine [Morphine] Allergy (Verified 08/25/17 07:45) ITCHING Penicillins Allergy (Verified 08/25/17 07:45) ITCHING tomato Allergy (Verified 08/25/17 07:45) ITCHING Physical Exam Vital Signs: Temp Pulse Resp BP Pulse Ox 97.9 F 70 19 149/42 H 100 08/01/19 12:09 08/01/19 12:09 08/01/19 12:09 08/01/19 12:09 08/01/19 12:09 Intake & Output 07/31/19 08/01/19 08/02/19 06:59 06:59 06:59 Intake Total 1705 0 Output Total 2 Balance 1703 0 Weight 63.3 kg 63.3 kg Additional comments: Constitutional: Well-developed well-nourished -Dutch lady. No apparent acute distress. Eyes: Mucous membranes pink and moist, pupils equal and reactive to light. Conjunctiva normal. Arcus senilis. ENT: Hearing grossly normal. External pinna normal to inspection. Teeth partly intact. Tongue normal to inspection. Respiratory: Normal respiratory effort. Skin: Thin build, hypopigmented skin skin in aneurysmal areas over left arm brachiobasilic fistula. Psychiatric: Judgment, memory questionable, insight seem normal. Mood is pleasant and appropriate. Extremities: Upper extremities show normal range of movement. Pulses present noted to the radial arteries. Capillary refill normal. No cyanosis noted. No muscle wasting noted. Left arm brachiocephalic fistula noted, ectatic and aneurysmal. Site of suture bleeding bleeds quite vigorously when dressing is removed. Dressing was replaced with control using Coban. Neurovascular: No apparent tremors, gait normal. Sensation grossly intact. Hearing grossly normal. Vison grossly intact. Results Laboratory Results: 08/01/19 04:56 08/01/19 04:56 07/31/19 07/31/19 07/31/19 18:48 18:48 18:48 WBC 4.6 RBC 3.09 L Hgb 10.4 L Hct 30.7 L MCV 100 H MCH 33.7 H MCHC 33.8 RDW 16.1 H Plt Count 152 Seg Neutrophils % 55.2 Retic Count (auto) Absolute Retic Sodium 137.5 Potassium 4.2 Chloride 96 L Carbon Dioxide 25 Anion Gap 17 BUN 52 H Creatinine 7.22 H Est GFR ( Amer) 7 L Glucose 91 Calcium 8.9 Iron TIBC % Saturation Ferritin Total Bilirubin 0.6 AST 29 Alkaline Phosphatase 192 H Total Protein 7.1 Albumin 3.7 Vitamin B12 Folate Blood Type O POSITIVE Antibody Screen NEGATIVE 07/31/19 07/31/19 07/31/19 18:48 18:48 21:30 WBC RBC Hgb Hct MCV MCH MCHC RDW Plt Count Seg Neutrophils % Retic Count (auto) Cancelled 1.48 Absolute Retic Cancelled Sodium Potassium Chloride Carbon Dioxide Anion Gap BUN Creatinine Est GFR ( Amer) Glucose Calcium Iron 66.5 TIBC 211 L % Saturation 32 Ferritin 774.00 H Total Bilirubin AST Alkaline Phosphatase Total Protein Albumin Vitamin B12 607.0 Folate > 20.00 Blood Type Antibody Screen 08/01/19 08/01/19 04:56 04:56 WBC 5.8 RBC 3.35 L Hgb 11.0 L Hct 32.7 L MCV 98 H MCH 32.8 MCHC 33.6 RDW 18.3 H Plt Count 148 L Seg Neutrophils % 68.3 Retic Count (auto) Absolute Retic Sodium 134.1 L Potassium 4.5 Chloride 96 L Carbon Dioxide 22 Anion Gap 16 BUN 54 H Creatinine 7.35 H Est GFR ( Amer) 6 L Glucose 84 Calcium 9.0 Iron TIBC % Saturation Ferritin Total Bilirubin AST Alkaline Phosphatase Total Protein Albumin Vitamin B12 Folate Blood Type Antibody Screen Assessment & Plan - Diagnosis (1) Hemorrhage of arteriovenous fistula Qualifiers: Encounter type: initial encounter Qualified Code(s): T82.838A - Hemorrhage due to vascular prosthetic devices, implants and grafts, initial encounter Is this a current diagnosis for this admission?: Yes (2) ESRD (end stage renal disease) on dialysis Is this a current diagnosis for this admission?: Yes (3) Type 2 diabetes mellitus Qualifiers: Diabetes mellitus medical transcription radiology insulin use: without snf use Diabetes mellitus complication status: with kidney complications Diabetes mellitus complication detail: with chronic kidney disease Chronic kidney disease stage: on chronic dialysis Qualified Code(s): E11.22 - Type 2 diabetes mellitus with diabetic chronic kidney disease; N18.6 - End stage renal disease; N18.6 - End stage renal disease; N18.6 - End stage renal disease; N18.6 - End stage renal disease; Z99.2 - Dependence on renal dialysis; Z99.2 - Dependence on renal dialysis; Z99.2 - Dependence on renal dialysis; Z99.2 - Dependence on renal dialysis Is this a current diagnosis for this admission?: Yes (4) Essential hypertension Is this a current diagnosis for this admission?: Yes - Plan Summary Plan Summary: In this pleasant lady who is visiting from [place], hemorrhage from her left arm AV fistula has been controlled with suturing. Unfortunately this has recurred. Going over all previous notes the patient has a old fistula and I did intervene with angioplasty back in 2016 with the finding of aneurysm and an ectasia at that time. At this point we will need to control the bleeding as definitively as possible. My recommendation is resection of any necrotic skin, suture control in the operating room. If this is not possible then ligation of the fistula and insertion of a permacatheter. I have discussed the situation with Dr. Haseeb Minaya, her surgeon in [place]. He completely understands and agrees with the plan. The hope is to stabilize the situation so that she can go back to her kake [place] for further continued care. The procedure, its risks which include infection, bleeding, heart, lung complications, injury to other structures, fistula loss were discussed with 1 of her daughters. We await their full input and plan to go ahead with the procedure in the operating room as soon as is practicable.
[2019-08-01] MEDS ORDERED: IPRATROPIUM/ALBUTEROL 0.5-2.5 MG/3 ML AMPUL NEB PRN (13:17)
[2019-08-01] MEDS ORDERED: ALBUTEROL SULFATE HFA (90 MCG/PUFF) 8 GM MDI IH PRN (13:17)
--- NOTE | 2019-08-01 13:17 | PDOC PROGRESS REPORT ---
Subjective Progress Note for:: 08/01/19 Subjective:: This is an 78-year-old female who was admitted due to AV fistula hemorrhage and hypotension. Surgery oversew it in the ER. Patient also received 1 u of pRBC in the ER. Her blood pressures recovered in the ER. No acute event overnight. Upon encounter, she appears comfortable. No recurrence of bleeding so far. Denies chest pain or shortness of breath. Await further recommendations from vascular surgery. Reason For Visit: ESRD C FISTULA DAMAGE Physical Exam Vital Signs: Temp Pulse Resp BP Pulse Ox 97.7 F 71 19 148/44 H 100 08/01/19 04:18 08/01/19 07:00 08/01/19 04:18 08/01/19 04:18 08/01/19 04:18 Intake & Output 07/31/19 08/01/19 08/02/19 06:59 06:59 06:59 Intake Total 1705 Output Total 2 Balance 1703 Weight 139 lb 8.842 oz General appearance: PRESENT: no acute distress, well-developed, well-nourished Head exam: PRESENT: atraumatic, normocephalic Eye exam: PRESENT: conjunctiva pink, EOMI, PERRLA. ABSENT: scleral icterus Ear exam: PRESENT: normal external ear exam Mouth exam: PRESENT: moist, tongue midline Neck exam: ABSENT: carotid bruit, JVD, lymphadenopathy, thyromegaly Respiratory exam: PRESENT: clear to auscultation buddy. ABSENT: rales, rhonchi, wheezes Cardiovascular exam: PRESENT: RRR. ABSENT: diastolic murmur, rubs, systolic murmur Pulses: PRESENT: normal dorsalis pedis pul GI/Abdominal exam: PRESENT: normal bowel sounds, soft. ABSENT: distended, guarding, mass, organolmegaly, rebound, tenderness Rectal exam: PRESENT: deferred Extremities exam: PRESENT: full ROM. ABSENT: calf tenderness, clubbing, pedal edema Neurological exam: PRESENT: alert, awake, oriented to person, CN II-XII grossly intact. ABSENT: motor sensory deficit Results Laboratory Results: 08/01/19 04:56 08/01/19 04:56 07/31/19 07/31/19 07/31/19 18:48 18:48 18:48 WBC 4.6 RBC 3.09 L Hgb 10.4 L Hct 30.7 L MCV 100 H MCH 33.7 H MCHC 33.8 RDW 16.1 H Plt Count 152 Seg Neutrophils % 55.2 Retic Count (auto) Absolute Retic Sodium 137.5 Potassium 4.2 Chloride 96 L Carbon Dioxide 25 Anion Gap 17 BUN 52 H Creatinine 7.22 H Est GFR ( Amer) 7 L Glucose 91 Calcium 8.9 Iron TIBC % Saturation Ferritin Total Bilirubin 0.6 AST 29 Alkaline Phosphatase 192 H Total Protein 7.1 Albumin 3.7 Vitamin B12 Folate Blood Type O POSITIVE Antibody Screen NEGATIVE 07/31/19 07/31/19 07/31/19 18:48 18:48 21:30 WBC RBC Hgb Hct MCV MCH MCHC RDW Plt Count Seg Neutrophils % Retic Count (auto) Cancelled 1.48 Absolute Retic Cancelled Sodium Potassium Chloride Carbon Dioxide Anion Gap BUN Creatinine Est GFR ( Amer) Glucose Calcium Iron 66.5 TIBC 211 L % Saturation 32 Ferritin 774.00 H Total Bilirubin AST Alkaline Phosphatase Total Protein Albumin Vitamin B12 607.0 Folate > 20.00 Blood Type Antibody Screen 08/01/19 08/01/19 04:56 04:56 WBC 5.8 RBC 3.35 L Hgb 11.0 L Hct 32.7 L MCV 98 H MCH 32.8 MCHC 33.6 RDW 18.3 H Plt Count 148 L Seg Neutrophils % 68.3 Retic Count (auto) Absolute Retic Sodium 134.1 L Potassium 4.5 Chloride 96 L Carbon Dioxide 22 Anion Gap 16 BUN 54 H Creatinine 7.35 H Est GFR ( Amer) 6 L Glucose 84 Calcium 9.0 Iron TIBC % Saturation Ferritin Total Bilirubin AST Alkaline Phosphatase Total Protein Albumin Vitamin B12 Folate Blood Type Antibody Screen Assessment and Plan - Diagnosis (1) Hemorrhage of arteriovenous fistula Qualifiers: Encounter type: initial encounter Qualified Code(s): T82.838A - Hemorrhage due to vascular prosthetic devices, implants and grafts, initial encounter Is this a current diagnosis for this admission?: Yes Plan: Resolved. Await further recommendations from vascular surgery. S/P 1 u pRBC in the ER. (2) ESRD (end stage renal disease) on dialysis Is this a current diagnosis for this admission?: Yes Plan: Nephrology consulted. (3) Essential hypertension Is this a current diagnosis for this admission?: Yes Plan: Blood pressures are now running in the 140 systolic. Resume losartan and Coreg. - Time Time Spent with patient: 25-34 minutes
[2019-08-01] MEDS ORDERED: CEFAZOLIN INJ 1 GM VIAL ONE (13:19)
[2019-08-01] MEDS ORDERED: VANCOMYCIN HCL INJ 1000 MG VIAL ONE (13:53)
--- NOTE | 2019-08-01 16:59 | Operative Report ---
Operative Report DATE OF SURGERY: 08/01/19 PREOPERATIVE DIAGNOSIS: 1. Bleeding from left arm arteriovenous brachiocephalic fistula. 2. End-stage renal disease on hemodialysis. 3. Coronary artery disease. 4. Hypertension. POSTOPERATIVE DIAGNOSIS: 1. Bleeding from left arm arteriovenous bra chiocephalic fistula. 2. End-stage renal disease on hemodialysis. 3. Coronary artery disease. 4. Hypertension. OPERATION: 1. Resection of thinned out skin and bleeding points left arm brachiocephalic fistula. 2. Repair of fistula. #3 proximal control of fistula by cutdown. SURGEON: SIXTO RIVERA TRAVELING BUYER: LESTER SILVER ANESTHESIA: LMAC TISSUE REMOVED OR ALTERED: Thin though partially nonviable skin and wall of fistula. Material sent for culture. COMPLICATIONS: None. ESTIMATED BLOOD LOSS: 300 mL. INTRAOPERATIVE FINDINGS: Of a bleeding hole in the arteriovenous fistula tricia suring about 5 mm across. Sutures had torn out. Of aneurysmal areas including the one involved. There is a second aneurysmal area in the arm. The fistula in general ectatic and well-established. Brachiocephalic, left. The aneurysmal area was resected and the vessel wall reconstituted overlying closure of subcutaneous tissues and skin. Satisfactory thrill and bruit in the fistula at the end of the procedure. Excessive pressure still still empirically noted in the fistula, pressure was held on the 10 [place] introducer site for 20 minutes before adequate control. In discussion with the patient's granddaughter who is her caregiver, she has had excessive bleeding after dialysis for some months. Trialysis catheter was inserted today for immediate hemodialysis. It is anticipated and the patient should have an angiogram and angioplasty sometime in the next few weeks. This was not done today because the procedure was done was quite extensive in order not to Tax this frail elderly lady. PROCEDURE: Operative Report PROCEDURE: After reviewing the procedure with the patient, [she] was taken to the operating room. The patient was sedated and the [left upper extremity] prepared with chlorhexidine and draped out with sterile linen. After the "" universal timeout", in which it was verified that the patient [received IV antibiotics] the procedure commenced. In this patient with poorly controlled bleeding a special method was used, a sterilely gloved digit was placed on the bleeding site while the skin was prepared with chlorhexidine and draped out with sterile linen. Maintaining proximal and distal control controlled with pressure the bleeding area was revealed then evaluated. Sutures removed. it proved quite challenging to control the bleeding sufficiently to proceed and a number of measures were tried. A 14 [place] Boateng catheter was inserted and inflated this was unsuccessful. A 10 [place] introducer was now placed near the brachiocephalic anastomosis and advanced in an antegrade fashion. This was done over a 0.035 Glidewire. A #5 [place] Cate catheter was now advanced and inflated. Again this was unsuccessful and controlled. At this time it was decided to go ahead and do a cutdown, which would be needed in any case if the fistula was to be ligated. This was done in a cephalad, ectatic area just before the aneurysmal areas. Local anesthesia was infiltrated. A transverse incision made and dissection proceeded through the subcutaneous tissues down to the fistula. Dissection proceeded bluntly and carefully around the fistula wall allowing a rubber loop to be placed. A vascular clamp was applied which was satisfactory for control of bleeding. The edges of the opening were grasped and a generous amount excised so as to remove the aneurysmal areas and an diseased vessel wall. These were sent for culture. The wall of the fistula was now dissected away from the overlying subcutaneous tissues using scissor dissection circumferentially. This was done to obtain a margin of about 1.5 cm in all directions. The wall of the vessel was further trimmed. It was now reapproximated using a continuous suture of 4-0 Prolene. Controls of the fistula were now released and it was analyzed. It was found to be functioning well. An additional 4-0 Prolene suture was now used to reinforce the suture line continuously. The overlying subcutaneous tissues were no closed using interrupted 3-0 PDS. The skin was closed using a continuous suture of 4-0 Monocryl. The cutdown incision was now closed using interrupted 3-0 PDS to the subcutaneous tissues. The skin was closed using a continuous subcuticular suture of 4-0 Monocryl. These were reinforced with Steri-Strips over benzoin and dressings applied. The 10 [place] introducer was now removed and pressure applied. After placing a [id number] suture. The patient's right groin was now prepared and enterolysis catheter placed, dictated separately. DICTATING PHYSICIAN: SIXTO PICKARD M.D.
--- NOTE | 2019-08-01 17:02 | Operative Report ---
Operative Report DATE OF SURGERY: 08/01/19 PREOPERATIVE DIAGNOSIS: 1. Hemorrhage from arteriovenous fistula left brachioc ephalic. 2. End-stage renal disease on hemodialysis. 3. Coronary artery disease. 4. Hypertension. PROCEDURE: After reviewing the procedure with the patient, [she] was taken to the operating room. The patient was sedated and the [right upper extremity] prepared with chlorhexidine and draped out with sterile linen. After the "" universal timeout", in which it was verified that the patient [received IV antibiotics] the procedure commenced. The sterilely sheathed ultrasound probe was used to evaluate the left venous and arterial systems, pertinent to the previously done vein mapping. Local anesthesia was infiltrated and a transverse incision made over the upper forearm, near the antecubital fossa. Dissection proceeded through the subcutaneous tissues down to the cephalic vein. This was dissected out proximally and distally for about 2 cm. Likewise major branches. The Bicipital aponeurosis was now incised longitudinally and the brachial artery dissected out for a distance of about 1.5 cm. Rubber loops were placed on either end. The patient was given 2500 units of heparin intravenously. The deep branch of the cephalic vein was transected and irrigated with heparinized solution. The distal branches were clipped Coronary dilators were accepted [up to 3.5 mm]. The artery was controlled proximally and distally with rubber loops. An arteriotomy approximately [1 cm] in length was made, the artery was irrigated proximally and distally with heparinized solution. The transected vein was now spatulated [using the branch patch technique], it was then anastomosed end to end to side into the brachial artery. This was done using a continuous suture of 6-0 Prolene. Controls of the fistula were now released and it was analyzed using a Doppler probe. Hemostasis was secured once optimal function was assured, the wound was irrigated with antibiotic containing solution and closed. Closure was done using interrupted 3-0 PDS for the subcutaneous tissues. The skin was closed using a continuous subcutaneous suture of 4-0 Monocryl which was reinforced with Steri-Strips over benzoin. I then left the operative field and returned with a stethoscope covered with a sterile Tegaderm dressing. This allowed external auscultation of the fistula. Auscultation was [satisfactory]. The procedure was concluded by applying a Kerlix dressing over the surgical site. DICTATING PHYSICIAN: SIXTO RAMON M.D. POSTOPERATIVE DIAGNOSIS: 1. Hemorrhage from arteriovenous fistula left brachiocephalic. 2. End-stage renal disease on hemodialysis. 3. Coronary artery disease. 4. Hypertension. OPERATION: 1. Ultrasound evaluation and real-time access in the right femoral vein. 2. Insertion of temporary hemodialysis catheter via real-time access in the right femoral vein. SURGEON: SIXTO RIVERA ASSEMBLER STEAM AND GAS TURBINE: None. ANESTHESIA: LMAC TISSUE REMOVED OR ALTERED: Not applicable. COMPLICATIONS: None. ESTIMATED BLOOD LOSS: 2 mL. INTRAOPERATIVE FINDINGS: Satisfactory and safe access in the right femoral vein. Good position of the catheter with easy egress of blood and ingress of heparinized solution through all 3 ports. PROCEDURE: After obtaining informed consent, the patient was positioned supine at operating room bedside. The[right groin] and adjacent areas were prepared with chlorhexidine and draped out with sterile linen. After the universal timeout the procedure commenced. A steriley sheathed ultrasound probe was used to evaluate the [right femoral vein]. Local anesthesia was infiltrated adjacent to the probe. Access into the right femoral was accomplished using a micropuncture needle followed, by micropuncture wire and then with a micropuncture catheter. This was followed by introduction of a 0.035 guidewire, the skin opening was enlarged slightly, serially larger dilators were now placed followed by introduction of a triaysis catheter. All of these transitions were smooth. Each lumen was aspirated of blood and irrigated with heparinized solution. The catheter was now sutured to the skin using 3-0 nylon. A Bio A patch was now applied, followed by sterile dressings. Caps were placed on the end of the each of the lumens. The procedure concluded. Copies dictated operative report to Dr. Sixto Ramon MD.
--- NOTE | 2019-08-01 20:34 | PDOC CONSULTATION ---
Consultation Consult Date: 08/01/19 Provider Consulted: JOHNY OROZCO Consult reason:: ESRD requiring HD with bleeding AVF History of Present Illness Admission Date/PCP: 07/31/19 20:22 History of Present Illness: LUKE RAMAN is a 78 year old female with history of ESRD on maintenance hemodialysis on MWF in [place] under the supervision of our partner design sales consultant Dr. Wang, hypertension, diabetes and anemia who was admitted yesterday because of bleeding AV fistula. Patient states that she was just visiting her daughter yesterday and all of a sudden she felt a warm fluid flowing into her upper arm and when she took off her jacket she found out her fistula is bleeding. Patient then presented to the emergency room. Our on-call surgical is, Dr. Fish put a stitch on it and a pressure dressing. Today the patient's dialysis today and she needs dialysis. Aside from the bleeding AVF the patient is otherwise feeling fine and has no other complaints. I went ahead and spoke to her vascular surgeon, Dr. Ramon about the patient. He evaluated the patient and determined that her fistula is still continuously bleeding and would need a surgical intervention. Past Medical History Cardiac Medical History: Reports: CHF-Diastolic, Coronary Artery Disease - cardiac stents, Hypertension-primary, Myocardial Infarction - "light" Pulmonary Medical History: Reports: Asthma, Chronic Obstructive Pulmonary Disease (COPD) Endocrine Medical History: Reports: Diabetes Mellitus Type 2 Renal/ Medical History: Reports: End Stage Renal Disease Musculoskeltal Medical History: Reports: Arthritis - neck Psychiatric Medical History: Reports: Depression Hematology Medical History: Reports Anemia of Chronic Kidney Disease Past Surgical History Past Surgical History: Reports: Cardiac Catheterization - Stent placement, Cholecystectomy, Dialysis Access Surgery AVF, Tubal Ligation Social History Information Source: Patient Lives with: Family - Lives with her granddaughter in [place]. Smoking Status: Former Smoker Electronic Cigarette use?: No Frequency of Alcohol Use: None Hx Recreational Drug Use: No Drugs: None Hx Prescription Drug Abuse: No - Advance Directive Resuscitation Status: Full Code Family History Family History: Hypertension - Grandmother and aunt Family History: No family history of kidney disease. Parental Family History Reviewed: Yes Children Family History Reviewed: Yes Sibling(s) Family History Reviewed.: Yes Medication/Allergy Home Medications: RX: Clopidogrel Bisulfate [Plavix 75 mg Tablet] 75 mg PO DAILY 09/30/17 RX: Folic Acid/Vit B Complex and C [Anny-Brittany Tablet] 0.8 mg PO DAILY 09/30/17 RX: Isosorbide Mononitrate [Imdur 60 mg Tablet.er] 60 mg PO DAILY 09/30/17 RX: Sevelamer Carbonate [Renvela] 1,600 mg PO AC 09/30/17 Dexlansoprazole [Dexilant] 60 mg PO DAILY #30 cap.bp 10/11/17 RX: Aspirin [Ecotrin 81 mg EC Tablet] 81 mg PO DAILY #90 tabec 10/11/17 Albuterol Sulfate [Ventolin Hfa 8 gm Mdi] 2 puff IH Q6HP PRN 07/31/19 Cholecalciferol (Vitamin D3) [Vitamin D3] 5,000 unit PO DAILY 07/31/19 Dextran 70/Hypromellose [Artificial Tears Eye Drops] 1 drop OP TID 07/31/19 Fluticasone Propionate [Flonase Nasal Kirvin 50 Mcg/Kirvin 16 gm] 1 spray IH DAILY 07/31/19 Fluticasone/Vilanterol [Breo Ellipta 100-25 Mcg INH] 1 puff IH DAILY 07/31/19 Lidocaine [Lidoderm 5% (700 mg) Transdermal Patch] 1 patch Q12 07/31/19 Loperamide HCl [Imodium 2 mg Capsule] 2 mg PO PRN 07/31/19 Mirtazapine [Remeron 15 mg Tablet] 15 mg PO QHS 07/31/19 Ondansetron [Zofran Odt 4 mg Tablet] 4 mg PO Q6HP PRN 07/31/19 RX: Acetaminophen [Tylenol 325 mg Tablet] 975 mg PO TID 07/31/19 RX: Bumetanide 2 mg PO DAILY 07/31/19 RX: Carvedilol [Coreg 12.5 mg Tablet] 12.5 mg PO Q12 07/31/19 RX: Ipratropium/Albuterol Sulfate [Duoneb 3 ml Ampul] 1 puff IH Q6HP PRN 07/31/19 RX: Losartan Potassium [Cozaar] 25 mg PO DAILY 07/31/19 RX: Nitroglycerin 0.4 mg SL PRN 07/31/19 RX: Sodium Polystyrene Sulfonate [Kayexalate 15 gm/60 ml Susp 60 ml] 15 mg PO PRN 07/31/19 Risperidone [Risperdal] 1 mg PO Q12 07/31/19 Vit B1 Mn/B2/B3/B5/B6/B12/C/FA [B Complex with Vitamin C Tab] 1 tab PO DAILY 07/31/19 Allergies/Adverse Reactions: codeine [Codeine] Allergy (Verified 08/25/17 07:45) ITCHING morphine [Morphine] Allergy (Verified 08/25/17 07:45) ITCHING Penicillins Allergy (Verified 08/25/17 07:45) ITCHING tomato Allergy (Verified 08/25/17 07:45) ITCHING Review of Systems All systems: reviewed and no additional remarkable complaints except as stated Review of Systems: Constitutional: ABSENT: chills, fatigue, fever(s), headache(s), weight gain, weight loss Eyes: ABSENT: visual disturbances Ears: ABSENT: hearing changes Cardiovascular: ABSENT: chest pain, dyspnea on exertion, edema, orthropnea, palpitations Respiratory: ABSENT: cough, dyspnea, hemoptysis Gastrointestinal: ABSENT: abdominal pain, constipation, diarrhea, hematemesis, hematochezia, nausea, vomiting Genitourinary: ABSENT: dysuria, hematuria Musculoskeletal: ABSENT: joint swelling Integumentary: ABSENT: rash, wounds Neurological: ABSENT: abnormal gait, abnormal speech, confusion, dizziness, focal weakness, numbness, syncope Psychiatric: ABSENT: anxiety, depression Endocrine: ABSENT: cold intolerance, heat intolerance, polydipsia, polyuria Hematologic/Lymphatic: ABSENT: easy bleeding, easy bruising, lymphadenopathy Physical Exam Vital Signs: Temp Pulse Resp BP Pulse Ox 97.7 F 71 19 148/44 H 100 08/01/19 04:18 08/01/19 07:00 08/01/19 04:18 08/01/19 04:18 08/01/19 04:18 Intake & Output 07/31/19 08/01/19 08/02/19 06:59 06:59 06:59 Intake Total 1705 Output Total 2 Balance 1703 Weight 63.3 kg Exam: General appearance: No acute distress, cooperative, well-developed, well- nourished Head exam: PRESENT: atraumatic, normocephalic Eye exam: PRESENT: Conjunctiva Gananda, EOMI, PERRLA. ABSENT: conjunctival injection, scleral icterus Mouth exam: PRESENT: moist, neck supple, tongue midline Neck exam: PRESENT: full ROM. ABSENT: carotid bruit, JVD, lymphadenopathy, thyromegaly Respiratory exam: PRESENT: clear to auscultation bilaterally. ABSENT: rales, rhonchi, stridor, wheezes Cardiovascular exam: PRESENT: RRR, +S1, +S2. ABSENT: systolic murmur Pulses: PRESENT: normal radial pulses, normal dorsalis pedis pulses GI/Abdominal exam: PRESENT: normal bowel sounds, soft. ABSENT: guarding, mass, tenderness Rectal exam: Deferred Extremities exam: PRESENT: full ROM. Left upper arm AV fistula has a good bruit and thrill and is currently still wrapped up after yesterday's suturing. ABSENT: calf tenderness, pedal edema Musculoskeletal: PRESENT: full ROM. ABSENT: deformity Neurological exam: PRESENT: alert, Awake, Oriented to person, Oriented to place, Oriented to time, reflexes normal, CN II-XII grossly intact. ABSENT: motor sensory deficit Psychiatric exam: PRESENT: appropriate affect, normal mood. ABSENT: homicidal ideation, suicidal ideation Skin exam: PRESENT: intact, dry, warm. ABSENT: rash Results Laboratory Results: 08/01/19 04:56 08/01/19 04:56 07/31/19 07/31/19 07/31/19 18:48 18:48 18:48 WBC 4.6 RBC 3.09 L Hgb 10.4 L Hct 30.7 L MCV 100 H MCH 33.7 H MCHC 33.8 RDW 16.1 H Plt Count 152 Seg Neutrophils % 55.2 Retic Count (auto) Absolute Retic Sodium 137.5 Potassium 4.2 Chloride 96 L Carbon Dioxide 25 Anion Gap 17 BUN 52 H Creatinine 7.22 H Est GFR ( Amer) 7 L Glucose 91 Calcium 8.9 Iron TIBC % Saturation Ferritin Total Bilirubin 0.6 AST 29 Alkaline Phosphatase 192 H Total Protein 7.1 Albumin 3.7 Vitamin B12 Folate Blood Type O POSITIVE Antibody Screen NEGATIVE 07/31/19 07/31/19 07/31/19 18:48 18:48 21:30 WBC RBC Hgb Hct MCV MCH MCHC RDW Plt Count Seg Neutrophils % Retic Count (auto) Cancelled 1.48 Absolute Retic Cancelled Sodium Potassium Chloride Carbon Dioxide Anion Gap BUN Creatinine Est GFR ( Amer) Glucose Calcium Iron 66.5 TIBC 211 L % Saturation 32 Ferritin 774.00 H Total Bilirubin AST Alkaline Phosphatase Total Protein Albumin Vitamin B12 607.0 Folate > 20.00 Blood Type Antibody Screen 08/01/19 08/01/19 04:56 04:56 WBC 5.8 RBC 3.35 L Hgb 11.0 L Hct 32.7 L MCV 98 H MCH 32.8 MCHC 33.6 RDW 18.3 H Plt Count 148 L Seg Neutrophils % 68.3 Retic Count (auto) Absolute Retic Sodium 134.1 L Potassium 4.5 Chloride 96 L Carbon Dioxide 22 Anion Gap 16 BUN 54 H Creatinine 7.35 H Est GFR ( Amer) 6 L Glucose 84 Calcium 9.0 Iron TIBC % Saturation Ferritin Total Bilirubin AST Alkaline Phosphatase Total Protein Albumin Vitamin B12 Folate Blood Type Antibody Screen Assessment & Plan - Diagnosis (1) Hemorrhage of arteriovenous fistula Qualifiers: Encounter type: initial encounter Qualified Code(s): T82.838A - Hemorrhage due to vascular prosthetic devices, implants and grafts, initial encounter Is this a current diagnosis for this admission?: Yes Plan: Today our vascular surgeon, Dr. Ramon the patient to the operating room to repair her bleeding fistula. Dr. Ramon spoke with the patient's surgeon in [place], Dr. Mcnair who will be following the patient when she goes back to [place]. (2) ESRD (end stage renal disease) on dialysis Is this a current diagnosis for this admission?: Yes Plan: The patient was opposed to be dialyzed today as today is her dialysis day, however due to her vascular access requiring surgical repair in the operating room this needs to be postponed. Patient's electrolytes are within acceptable limits and the patient is not fluid overloaded so we will plan to dialyze her in the morning instead. (3) Anemia in CKD (chronic kidney disease) Qualifiers: Chronic kidney disease stage: on chronic dialysis Qualified Code(s): N18.6 - End stage renal disease; D63.1 - Anemia in chronic kidney disease; D63.1 - Anemia in chronic kidney disease; Z99.2 - Dependence on renal dialysis; Z99.2 - Dependence on renal dialysis; Z99.2 - Dependence on renal dialysis; Z99.2 - Dependence on renal dialysis Is this a current diagnosis for this admission?: Yes Plan: Will monitor and give the patient Retacrit as needed during dialysis. (4) Essential hypertension Is this a current diagnosis for this admission?: Yes Plan: Acceptably controlled. (5) Type 2 diabetes mellitus Qualifiers: Diabetes mellitus longterm insulin use: without longterm use Diabetes mellitus complication status: with kidney complications Diabetes mellitus complication detail: with chronic kidney disease Chronic kidney disease stage: on chronic dialysis Qualified Code(s): E11.22 - Type 2 diabetes mellitus with diabetic chronic kidney disease; N18.6 - End stage renal disease; Z99.2 - Dependence on renal dialysis Is this a current diagnosis for this admission?: Yes - Notes Notes: Thank you very much for this consultation. Discussed with Dr. Ramon. - Time Time Spent: 50 to 70 Minutes
[2019-08-02] MEDS: HEPARIN SOD (PORCINE) 5,000 UNIT/ML 1 ML VIAL SUBCUT SCH ×5 (06:00→23:46)
[2019-08-02 06:05] LABS: ABSOLUTE LYMPHOCYTES (AUTO) 0.5 10^3/uL (0.5-4.7); ABSOLUTE NEUT (AUTO) 5.6 10^3/uL (1.7-8.2); BASOPHILS % (AUTO) 0.7 % (0-2); EOSINOPHILS % (AUTO) 0.2 % (0-6); HEMATOCRIT 30.9 % (36.0-47.0); HEMOGLOBIN 10.6 g/dL (12.0-15.5); LYMPHOCYTES % (AUTO) 7.2 % (13-45); MEAN CORPUSCULAR HEMOGLOBIN 32.4 pg (27.0-33.4); MEAN CORPUSCULAR HGB CONC 34.2 g/dL (32.0-36.0); MEAN CORPUSCULAR VOLUME 95 fl (80-97); MONOCYTES % (AUTO) 14.2 % (3-13); PLATELET COUNT 119 10^3/uL (150-450); RED BLOOD COUNT 3.26 10^6/uL (3.72-5.28); RED CELL DISTRIBUTION WIDTH 18.9 % (11.5-14.0); SEGMENTED NEUTROPHILS % (AUTO) 77.7 % (42-78); TOTAL CELLS COUNTED % (AUTO) 100 %; WHITE BLOOD COUNT 7.2 10^3/uL (4.0-10.5)
[2019-08-02 06:23] LABS: ANION GAP 15 (5-19); BLOOD UREA NITROGEN 66 mg/dL (7-20); CALCIUM 8.7 mg/dL (8.4-10.2); CARBON DIOXIDE 22 mmol/L (22-30); CHLORIDE 97 mmol/L (98-107)
[2019-08-02 06:31] LABS: GLUCOSE 69 mg/dL (75-110); POTASSIUM 6.3 mmol/L (3.6-5.0)
--- NOTE | 2019-08-02 09:25 | PDOC PROGRESS REPORT ---
Subjective Progress Note for:: 08/02/19 Subjective:: I am seeing the patient during dialysis this morning. She had her AV fistula repaired by Dr. Ramon successfully yesterday in the operating room. We are now currently dialyzing the patient in a newly placed temporary femoral trialysis catheter on her right inguinal area. Patient appears to be slightly somnolent from the anesthesia from yesterday. However she is communicating and answering questions slowly. She tells me that she is sleepy and tired. So far she is tolerating dialysis this morning. Reason For Visit: ESRD C FISTULA DAMAGE Physical Exam Vital Signs: Temp Pulse Resp BP Pulse Ox 97.4 F 89 21 H 122/41 L 95 08/02/19 07:41 08/02/19 07:41 08/02/19 07:41 08/02/19 07:41 08/02/19 07:41 Intake & Output 08/01/19 08/02/19 08/03/19 06:59 06:59 06:59 Intake Total 1705 2230 Output Total 2 500 Balance 1703 1730 Weight 63.3 kg 63.3 kg Vitals during dialysis: Blood pressure 122/53, heart rate of 88, blood flow rate of 350 mL/min and dialysate flow rate of 800 mL/min. Exam: General appearance: PRESENT: no acute distress, cooperative, somnolent but arousable and communicative, fairly developed and fairly nourished Head exam: PRESENT: atraumatic, normocephalic Eye exam: PRESENT: conjunctiva pink, PERRLA. She has bilateral minimal conjunctival glassy fluid appearance ABSENT: scleral icterus Neck exam: ABSENT: JVD Respiratory exam: PRESENT: Diminished breath sounds. ABSENT: crackles, rales, rhonchi, unlabored, wheezes Cardiovascular exam: PRESENT: Regular rate rhythm -+S1, +S2. ABSENT: diastolic murmur, systolic murmur GI/Abdominal exam: PRESENT: normal bowel sounds, soft. ABSENT: guarding, mass, tenderness Extremities exam: Left arm mild edema where she had the AV fistula, no lower extremity edema Neurological exam: PRESENT: alert, awake, coherent. Skin exam: PRESENT: dry, warm, Results Laboratory Results: 08/02/19 05:41 08/02/19 05:41 03/01/20 03/03/20 03/03/20 18:48 05:41 05:41 WBC 7.2 RBC 3.26 L Hgb 10.6 L Hct 30.9 L MCV 95 MCH 32.4 MCHC 34.2 RDW 18.9 H Plt Count 119 L Seg Neutrophils % 77.7 Sodium 134.3 L Potassium 6.3 H* Chloride 97 L Carbon Dioxide 22 Anion Gap 15 BUN 66 H Creatinine 9.04 H Est GFR ( Amer) 5 L Glucose 69 L Calcium 8.7 Blood Type O POSITIVE Antibody Screen NEGATIVE Assessment & Plan - Diagnosis (1) Hemorrhage of arteriovenous fistula Qualifiers: Encounter type: initial encounter Qualified Code(s): T82.838A - Hemorrhage due to vascular prosthetic devices, implants and grafts, initial encounter Is this a current diagnosis for this admission?: Yes Plan: Status post surgical repair by Dr. Ramon yesterday, August 01, 2019. Once cleared by Dr. Ramon I think we have to try to use her AV fistula if it can be used prior to discharge and removal of the temporary dialysis catheter. Will discuss further with Dr. Ramon. (2) ESRD (end stage renal disease) on dialysis Is this a current diagnosis for this admission?: Yes Plan: We will do dialysis today for 3 hours, using the patient's right femoral dialysis catheter, with 1K for an hour then 2 potassium bath, blood flow rate of 350 mL per minute, dialysate flow rate of 800 mL per minute, ultrafiltration 1.5 to 2 L as tolerated, no heparin and no Procrit. Patient is being monitored continuously by our dialysis nurse. Ultrafiltration will be adjusted accordingly. (3) Anemia in CKD (chronic kidney disease) Qualifiers: Chronic kidney disease stage: on chronic dialysis Qualified Code(s): N18.6 - End stage renal disease; D63.1 - Anemia in chronic kidney disease; D63.1 - Anemia in chronic kidney disease; Z99.2 - Dependence on renal dialysis; Z99.2 - Dependence on renal dialysis; Z99.2 - Dependence on renal dialysis; Z99.2 - Dependence on renal dialysis Is this a current diagnosis for this admission?: Yes Plan: No need of Retacrit today. Her iron studies showed an adequate iron at 66.5, iron saturation of 32 and ferritin of 774. (4) Essential hypertension Is this a current diagnosis for this admission?: Yes Plan: Controlled. (5) Type 2 diabetes mellitus Qualifiers: Diabetes mellitus nursing home insulin use: without nursing home use Diabetes mellitus complication status: with kidney complications Diabetes mellitus complication detail: with chronic kidney disease Chronic kidney disease stage: on chronic dialysis Qualified Code(s): E11.22 - Type 2 diabetes mellitus with diabetic chronic kidney disease; N18.6 - End stage renal disease; Z99.2 - Dependence on renal dialysis Is this a current diagnosis for this admission?: Yes - Time Time with patient: 15-25 minutes
[2019-08-02] MEDS ORDERED: B6 PO SCH (10:00)
[2019-08-02] MEDS ORDERED: VITAMIN C PO SCH (10:00)
[2019-08-02] MEDS ORDERED: VIT B1 MN PO SCH (10:00)
[2019-08-02] MEDS ORDERED: B12 PO SCH (10:00)
[2019-08-02] MEDS ORDERED: BUMETANIDE 2 MG PO SCH (10:00)
[2019-08-02] MEDS ORDERED: B3 PO SCH (10:00)
[2019-08-02] MEDS ORDERED: B5 PO SCH (10:00)
[2019-08-02] MEDS ORDERED: [UNRECOGNIZED DRUG - OTHER] PO SCH (10:00)
[2019-08-02] MEDS ORDERED: B2 PO SCH (10:00)
[2019-08-02] MEDS: SEVELAMER HCL 800 MG TABLET PO SCH ×4 (10:05→16:12)
[2019-08-02] MEDS: MIRTAZAPINE 15 MG TABLET PO SCH ×2 (10:26→23:46)
[2019-08-02] MEDS: DOCUSATE SODIUM 100 MG CAPSULE PO SCH ×3 (10:26→17:35)
[2019-08-02] MEDS: CARVEDILOL 12.5 MG TABLET PO SCH ×3 (10:26→23:47)
[2019-08-02] MEDS: RISPERIDONE 1 MG TABLET PO SCH ×3 (10:27→23:46)
[2019-08-02] MEDS ORDERED: HEPARIN SOD (PORCINE) 1,000 UNIT/ML 10 ML VIAL IV PRN (11:15)
[2019-08-02] MEDS: FLUTICASONE NASAL SPRAY 50 MCG/SPRY 120 SPRAY/16 GM NASL SCH (11:55)
[2019-08-02] MEDS: CHOLECALCIFEROL (D3) 1,000 UNIT (25 MCG) TABLET PO SCH (11:55)
[2019-08-02] MEDS: BUMETANIDE 1 MG TABLET PO SCH (11:56)
[2019-08-02] MEDS: PANTOPRAZOLE SODIUM 40 MG TABLET.DR PO SCH (11:56)
[2019-08-02] MEDS: ISOSORBIDE MONONITRATE 60 MG TAB.ER.24H PO SCH (11:57)
[2019-08-02] MEDS: ASCORBIC ACID 500 MG TABLET PO SCH (11:58)
[2019-08-02] MEDS: CLOPIDOGREL BISULFATE 75 MG TABLET PO SCH (11:58)
[2019-08-02] MEDS: VITAMIN B COMPLEX TABLET PO SCH (11:59)
[2019-08-02] MEDS: ASPIRIN 81 MG TABLET, ENT COATED PO SCH (11:59)
[2019-08-02] MEDS: LOSARTAN POTASSIUM 25 MG TABLET PO SCH (12:00)
--- NOTE | 2019-08-02 14:58 | PDOC PROGRESS REPORT ---
Subjective Progress Note for:: 08/02/19 Subjective:: Apparently doing better as per reports Reason For Visit: ESRD C FISTULA DAMAGE Physical Exam Vital Signs: Temp Pulse Resp BP Pulse Ox 97.4 F 89 18 122/41 L 95 08/02/19 07:41 08/02/19 14:15 08/02/19 14:15 08/02/19 07:41 08/02/19 14:15 Intake & Output 08/01/19 08/02/19 08/03/19 06:59 06:59 06:59 Intake Total 1705 2230 477 Output Total 2 500 Balance 1703 1730 477 Weight 63.3 kg 63.3 kg General appearance: PRESENT: no acute distress, other - elderly female, in no distress Mouth exam: PRESENT: tongue midline Respiratory exam: PRESENT: clear to auscultation buddy, unlabored. ABSENT: wheezes Cardiovascular exam: PRESENT: RRR, +S1, +S2 GI/Abdominal exam: PRESENT: soft. ABSENT: tenderness Extremities exam: PRESENT: +2 edema - Left arm, other - inguinal fem catheter Neurological exam: PRESENT: alert, awake Psychiatric exam: PRESENT: appropriate affect Results Laboratory Results: 08/02/19 05:41 08/02/19 05:41 07/31/19 08/02/19 08/02/19 18:48 05:41 05:41 WBC 7.2 RBC 3.26 L Hgb 10.6 L Hct 30.9 L MCV 95 MCH 32.4 MCHC 34.2 RDW 18.9 H Plt Count 119 L Seg Neutrophils % 77.7 Sodium 134.3 L Potassium 6.3 H* Chloride 97 L Carbon Dioxide 22 Anion Gap 15 BUN 66 H Creatinine 9.04 H Est GFR ( Amer) 5 L Glucose 69 L Calcium 8.7 Blood Type O POSITIVE Antibody Screen NEGATIVE Assessment and Plan - Plan Summary Summary: Patient apparently had a temporarily femoral dialysis catheter placed in the right inguinal area. Was dialyzed today through that catheter. Vascular surgery sees fistula can be used however this has not been attempted. Hemorrhage of AV fistula status post surgical repair on July 31. Patient is also status post 1 unit of packed red blood cells. The plan is to try to use the fistula prior to discharge to ensure that this is functional. The temporary dialysis catheter will also be preferably discontinued prior to discharge. End-stage renal disease, Status post dialysis today Acute blood loss anemia superimposed on anemia of chronic disease Essential hypertension Possible metabolic encephalopathy though her baseline is unknown to me
[2019-08-02 17:11] LABS: ANION GAP 13 (5-19); CALCIUM 8.7 mg/dL (8.4-10.2); CARBON DIOXIDE 26 mmol/L (22-30); CHLORIDE 96 mmol/L (98-107); GLUCOSE 92 mg/dL (75-110)
[2019-08-02 17:52] LABS: POTASSIUM 4.5 mmol/L (3.6-5.0)
[2019-08-02 17:53] LABS: BLOOD UREA NITROGEN 39 mg/dL (7-20)
[2019-08-03] MEDS ORDERED: NORMAL SALINE 1000 ML 1,000 ML IV PRN (05:00)
[2019-08-03 05:13] LABS: HEMATOCRIT 27.8 % (36.0-47.0); HEMOGLOBIN 9.5 g/dL (12.0-15.5); MEAN CORPUSCULAR HEMOGLOBIN 32.7 pg (27.0-33.4); MEAN CORPUSCULAR HGB CONC 34.2 g/dL (32.0-36.0); MEAN CORPUSCULAR VOLUME 96 fl (80-97); PLATELET COUNT 101 10^3/uL (150-450); RED BLOOD COUNT 2.91 10^6/uL (3.72-5.28); RED CELL DISTRIBUTION WIDTH 18.7 % (11.5-14.0); WHITE BLOOD COUNT 4.9 10^3/uL (4.0-10.5)
[2019-08-03 05:23] LABS: ANION GAP 12 (5-19); BLOOD UREA NITROGEN 48 mg/dL (7-20); CALCIUM 8.6 mg/dL (8.4-10.2); CARBON DIOXIDE 25 mmol/L (22-30); CHLORIDE 96 mmol/L (98-107); GLUCOSE 72 mg/dL (75-110); POTASSIUM 4.7 mmol/L (3.6-5.0)
[2019-08-03 05:42] LABS: ABSOLUTE LYMPHOCYTES# (MANUAL) 0.4 10^3/uL (0.5-4.7); BASOPHILS % (MANUAL) 1 % (0-2); EOSINOPHILS % (MANUAL) 0 % (0-6); LYMPHOCYTES % (MANUAL) 8 % (13-45); MONOCYTES % (MANUAL) 20 % (3-13); SEGMENTED NEUTROPHILS % (MAN) 71 % (42-78); TOTAL CELLS COUNTED 100
[2019-08-03 05:43] LABS: ANISOCYTOSIS 2+; PLATELET COMMENT DECREASED; TOXIC VACUOLATION PRESENT
[2019-08-03] MEDS: HEPARIN SOD (PORCINE) 5,000 UNIT/ML 1 ML VIAL SUBCUT SCH ×3 (05:57→21:43)
[2019-08-03] MEDS ORDERED: EPOETIN ALFA-EPBX 10,000 UNIT in SYRINGE, DISPOSABLE, 1 EACH IV PRN (09:20)
--- NOTE | 2019-08-03 09:52 | PDOC PROGRESS REPORT ---
Subjective Progress Note for:: 08/03/19 Subjective:: Time seen the patient during dialysis this morning. She is a little bit more awake and answering questions. So far she is tolerating dialysis without any problems. We are able to use her left upper arm AV fistula by using a smaller gauge needle with a gauge 16. Dr. Ramon also cultured her arm and it resulted to MRSA. Vancomycin dose of 1 g IV was given yesterday. We will give her another dose postdialysis today. So far there is no other issues with dial ysis this morning. Reason For Visit: ESRD C FISTULA DAMAGE Physical Exam Vital Signs: Temp Pulse Resp BP Pulse Ox 97.1 F 73 14 122/41 L 93 08/02/19 23:15 08/03/19 09:16 08/03/19 09:16 08/02/19 23:15 08/03/19 09:16 Intake & Output 08/02/19 08/03/19 08/04/19 06:59 06:59 06:59 Intake Total 2230 967 Output Total 500 1800 Balance 1730 -833 Weight 63.3 kg 63.3 kg Vitals during dialysis: Blood pressure 114/43, heart rate of 71, blood flow rate of 350 mL/min and dialysate flow rate of 800/min. Exam: General appearance: PRESENT: no acute distress, cooperative, awake and answering few questions Head exam: PRESENT: atraumatic, normocephalic Eye exam: PRESENT: conjunctiva slightly pale, PERRLA. Improved subconjunctival fluid ABSENT: scleral icterus Neck exam: ABSENT: JVD Respiratory exam: PRESENT: Diminished breath sounds. ABSENT: crackles, rales, rhonchi, unlabored, wheezes Cardiovascular exam: PRESENT: Regular rate rhythm -+S1, +S2. ABSENT: diastolic murmur, systolic murmur GI/Abdominal exam: PRESENT: normal bowel sounds, soft. ABSENT: guarding, mass, tenderness Extremities exam: ABSENT: No edema Neurological exam: PRESENT: alert, awake, oriented to person only. Skin exam: PRESENT: dry, warm, Results Laboratory Results: 08/03/19 04:58 08/03/19 04:58 07/31/19 08/02/19 08/03/19 18:48 16:37 04:58 WBC 4.9 RBC 2.91 L Hgb 9.5 L Hct 27.8 L MCV 96 MCH 32.7 MCHC 34.2 RDW 18.7 H Plt Count 101 L Seg Neutrophils % Not Reportable Sodium 134.6 L Potassium 4.5 D Chloride 96 L Carbon Dioxide 26 Anion Gap 13 BUN 39 H D Creatinine 6.05 H Est GFR ( Amer) 8 L Glucose 92 Calcium 8.7 Blood Type O POSITIVE Antibody Screen NEGATIVE 08/03/19 04:58 WBC RBC Hgb Hct MCV MCH MCHC RDW Plt Count Seg Neutrophils % Sodium 132.7 L Potassium 4.7 Chloride 96 L Carbon Dioxide 25 Anion Gap 12 BUN 48 H Creatinine 6.93 H Est GFR ( Amer) 7 L Glucose 72 L Calcium 8.6 Blood Type Antibody Screen Assessment & Plan - Diagnosis (1) Hemorrhage of arteriovenous fistula Qualifiers: Encounter type: initial encounter Qualified Code(s): T82.838A - Hemorrhage due to vascular prosthetic devices, implants and grafts, initial encounter Is this a current diagnosis for this admission?: Yes Plan: Status post surgical repair by Dr. Ramon yesterday, August 01, 2019. Currently we are able to use her repaired AV fistula with a small gauge needle. I will have NICOLE Carrillo to communicate with her dialysis unit in [place] to make sure they are aware of her fistula repair. Patient supposed to follow-up with her vascular surgeon, Dr. Tabby lopez for further angioplasty and management of that AV fistula in [place]. (2) ESRD (end stage renal disease) on dialysis Is this a current diagnosis for this admission?: Yes Plan: We will do dialysis today for 3 hours, using the patient's left upper arm AV fistula, with 2 potassium bath, blood flow rate of 350 mL per minute, dialysate flow rate of 800 mL per minute, ultrafiltration 1.5 to 2 L only as tolerated, no heparin and Procrit with 10,000 units during dialysis intravenously. Discussed treatment plan with our dialysis nurse. She will be monitored throughout dialysis treatment. (3) MRSA bacteremia Is this a current diagnosis for this admission?: Yes Plan: Patient had a vancomycin 1 g dose yesterday and will give another 1 g today. Arrangements has been made to continue the vancomycin IV to be given during dialysis treatment as an outpatient in her dialysis unit in [facility] for 2 weeks. (4) Anemia in CKD (chronic kidney disease) Qualifiers: Chronic kidney disease stage: on chronic dialysis Qualified Code(s): N18.6 - End stage renal disease; D63.1 - Anemia in chronic kidney disease; D63.1 - Anemia in chronic kidney disease; Z99.2 - Dependence on renal dialysis; Z99.2 - Dependence on renal dialysis; Z99.2 - Dependence on renal dialysis; Z99.2 - Dependence on renal dialysis Is this a current diagnosis for this admission?: Yes Plan: We will give Retacrit 10,000 units today as above. Her iron studies showed an adequate iron at 66.5, iron saturation of 32 and ferritin of 774. (5) Essential hypertension Is this a current diagnosis for this admission?: Yes Plan: Controlled. 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 Ramon and Dr. Lopez. Arrangement was made for her outpatient vancomycin at [facility] dialysis unit. From nephrology standpoint I think she can be discharged home today after dialysis. - Time Time with patient: 15-25 minutes
[2019-08-03] MEDS: SEVELAMER HCL 800 MG TABLET PO SCH ×3 (09:54→17:12)
[2019-08-03] MEDS: CARVEDILOL 12.5 MG TABLET PO SCH ×2 (11:00→21:50)
[2019-08-03] MEDS: LOSARTAN POTASSIUM 25 MG TABLET PO SCH (11:00)
[2019-08-03] MEDS: FLUTICASONE NASAL SPRAY 50 MCG/SPRY 120 SPRAY/16 GM NASL SCH (11:08)
[2019-08-03] MEDS: ISOSORBIDE MONONITRATE 60 MG TAB.ER.24H PO SCH (11:09)
[2019-08-03] MEDS: ASCORBIC ACID 500 MG TABLET PO SCH (11:09)
[2019-08-03] MEDS: CHOLECALCIFEROL (D3) 1,000 UNIT (25 MCG) TABLET PO SCH (11:10)
[2019-08-03] MEDS: CLOPIDOGREL BISULFATE 75 MG TABLET PO SCH (11:10)
[2019-08-03] MEDS: VITAMIN B COMPLEX TABLET PO SCH (11:11)
[2019-08-03] MEDS: PANTOPRAZOLE SODIUM 40 MG TABLET.DR PO SCH (11:11)
[2019-08-03] MEDS: RISPERIDONE 1 MG TABLET PO SCH ×2 (11:11→21:50)
[2019-08-03] MEDS: ASPIRIN 81 MG TABLET, ENT COATED PO SCH (11:11)
[2019-08-03] MEDS: DOCUSATE SODIUM 100 MG CAPSULE PO SCH ×2 (11:11→17:12)
[2019-08-03] MEDS: BUMETANIDE 1 MG TABLET PO SCH (11:22)
[2019-08-03] MEDS ORDERED: VANCOMYCIN HCL 1,000 MG in DEXTROSE 5%-WATER 250 ML IV ONE (13:30)
[2019-08-03] MEDS ORDERED: VANCOMYCIN HCL 1,000 MG in DEXTROSE 5%-WATER 250 ML IV SCH (18:00)
--- NOTE | 2019-08-03 18:45 | PDOC PROGRESS REPORT ---
Subjective Progress Note for:: 08/03/19 Subjective:: Apparently doing better as per reports Patient still lethargic as per family Reason For Visit: ESRD C FISTULA DAMAGE Physical Exam Vital Signs: Temp Pulse Resp BP Pulse Ox 97.8 F 80 19 149/42 H 100 08/03/19 17:17 08/03/19 17:17 08/03/19 17:17 08/03/19 17:17 08/03/19 17:17 Intake & Output 08/02/19 08/03/19 08/04/19 06:59 06:59 06:59 Intake Total 2230 967 250 Output Total 500 1800 1700 Balance 1730 -833 -1450 Weight 63.3 kg 63.3 kg General appearance: PRESENT: no acute distress Head exam: PRESENT: atraumatic Respiratory exam: PRESENT: clear to auscultation buddy Cardiovascular exam: PRESENT: RRR, +S1, +S2 GI/Abdominal exam: PRESENT: soft. ABSENT: tenderness Rectal exam: PRESENT: deferred Extremities exam: PRESENT: other - L AV fistula Neurological exam: PRESENT: other - lethargic but arousable Results Laboratory Results: 08/03/19 04:58 08/03/19 04:58 08/03/19 08/03/19 04:58 04:58 WBC 4.9 RBC 2.91 L Hgb 9.5 L Hct 27.8 L MCV 96 MCH 32.7 MCHC 34.2 RDW 18.7 H Plt Count 101 L Seg Neutrophils % Not Reportable Sodium 132.7 L Potassium 4.7 Chloride 96 L Carbon Dioxide 25 Anion Gap 12 BUN 48 H Creatinine 6.93 H Est GFR ( Amer) 7 L Glucose 72 L Calcium 8.6 08/01/19 14:35 Arm - Left Gram Stain - Final 08/01/19 14:35 Arm - Left Wound Culture - Final Mrsa (Meth Resis Staph Aureus) Assessment and Plan - Diagnosis (1) Hyperkalemia Is this a current diagnosis for this admission?: Yes (3) Hemorrhage of arteriovenous fistula Qualifiers: Encounter type: initial encounter Qualified Code(s): T82.838A - Hemorrhage due to vascular prosthetic devices, implants and grafts, initial encounter Is this a current diagnosis for this admission?: Yes Plan: Resolved. S/P 1 u pRBC in the ER. (4) MRSA bacteremia Is this a current diagnosis for this admission?: Yes (5) Anemia in CKD (chronic kidney disease) Qualifiers: Chronic kidney disease stage: on chronic dialysis Qualified Code(s): N18.6 - End stage renal disease; D63.1 - Anemia in chronic kidney disease; D63.1 - Anemia in chronic kidney disease; Z99.2 - Dependence on renal dialysis; Z99.2 - Dependence on renal dialysis; Z99.2 - Dependence on renal dialysis; Z99.2 - Dependence on renal dialysis Is this a current diagnosis for this admission?: Yes (6) ESRD (end stage renal disease) on dialysis Is this a current diagnosis for this admission?: Yes - Plan Summary Summary: Patient apparently had a temporarily femoral dialysis catheter placed in the right inguinal area. Was dialyzed today through that catheter. Vascular surgery sees fistula can be used however this has not been attempted. Hemorrhage of AV fistula status post surgical repair on July 31. Patient is also status post 1 unit of packed red blood cells. The plan is to try to use the fistula prior to discharge to ensure that this is functional. The temporary dialysis catheter will also be preferably discontinued prior to discharge. End-stage renal disease, Status post dialysis today Acute blood loss anemia superimposed on anemia of chronic disease Essential hypertension Possible metabolic encephalopathy though her baseline is unknown Will monitor patient overnight and DC in am if stable
[2019-08-03] MEDS: MIRTAZAPINE 15 MG TABLET PO SCH (21:50)
[2019-08-04] MEDS: HEPARIN SOD (PORCINE) 5,000 UNIT/ML 1 ML VIAL SUBCUT SCH (05:04)
[2019-08-04] MEDS ORDERED: PANTOPRAZOLE SODIUM 40 MG TABLET.DR PO SCH (10:00)
[2019-08-04] MEDS: CARVEDILOL 12.5 MG TABLET PO SCH (10:05)
[2019-08-04] MEDS: LOSARTAN POTASSIUM 25 MG TABLET PO SCH (10:06)
[2019-08-04] MEDS: ISOSORBIDE MONONITRATE 60 MG TAB.ER.24H PO SCH (10:06)
[2019-08-04] MEDS: ASPIRIN 81 MG TABLET, ENT COATED PO SCH (10:19)
[2019-08-04] MEDS: SEVELAMER HCL 800 MG TABLET PO SCH (10:19)
[2019-08-04] MEDS: DOCUSATE SODIUM 100 MG CAPSULE PO SCH (10:19)
[2019-08-04] MEDS: FLUTICASONE NASAL SPRAY 50 MCG/SPRY 120 SPRAY/16 GM NASL SCH (10:20)
[2019-08-04] MEDS: ASCORBIC ACID 500 MG TABLET PO SCH (10:20)
[2019-08-04] MEDS: CLOPIDOGREL BISULFATE 75 MG TABLET PO SCH (10:20)
[2019-08-04] MEDS: VITAMIN B COMPLEX TABLET PO SCH (10:20)
[2019-08-04] MEDS: RISPERIDONE 1 MG TABLET PO SCH (10:21)
[2019-08-04] MEDS: BUMETANIDE 1 MG TABLET PO SCH (10:21)
[2019-08-04] MEDS: CHOLECALCIFEROL (D3) 1,000 UNIT (25 MCG) TABLET PO SCH (10:25)
[2019-08-04 12:22] VITALS: BP 149/42
--- NOTE | 2019-08-04 15:50 | PDOC DISCHARGE SUMMARY ---
Impression - Admit/DC Date/PCP Admission Date/Primary Care Provider: 07/31/19 20:22 Discharge Date: 08/04/19 - Discharge Diagnosis (1) Hyperkalemia Is this a current diagnosis for this admission?: Yes (2) Acute blood loss anemia Is this a current diagnosis for this admission?: Yes (3) Hemorrhage of arteriovenous fistula Is this a current diagnosis for this admission?: Yes (4) MRSA bacteremia Is this a current diagnosis for this admission?: Yes (5) Anemia in CKD (chronic kidney disease) Is this a current diagnosis for this admission?: Yes (6) ESRD (end stage renal disease) on dialysis Is this a current diagnosis for this admission?: Yes - Additional Information Resuscitation Status: Full Code Discharge Diet: As Tolerated, Other (Comments) Discharge Activity: Activity As Tolerated Referrals: Ranjana Garay [Other] - 08/05/19 (M,W,F Patient to receive Vancomycin on Dialysis days for MRSA positive wound/Fistula) AKILA GALLARDO MD [ACTIVE STAFF] - 08/16/19 3:30 pm Home Medications: Clopidogrel Bisulfate [Plavix 75 mg Tablet] 75 mg PO DAILY 09/30/17 Folic Acid/Vit B Complex and C [Anny-Brittany Tablet] 0.8 mg PO DAILY 09/30/17 Isosorbide Mononitrate [Imdur 60 mg Tablet.er] 60 mg PO DAILY 09/30/17 Sevelamer Carbonate [Renvela] 1,600 mg PO AC 09/30/17 Aspirin [Ecotrin 81 mg EC Tablet] 81 mg PO DAILY #90 tabec 10/11/17 Dexlansoprazole [Dexilant 60 mg Capsule] 60 mg PO DAILY #30 cap.bp 10/11/17 Acetaminophen [Tylenol 325 mg Tablet] 975 mg PO TID 07/31/19 Albuterol Sulfate [Ventolin Hfa 8 gm Mdi] 2 puff IH Q6HP PRN 07/31/19 Bumetanide 2 mg PO DAILY 07/31/19 Carvedilol [Coreg 12.5 mg Tablet] 12.5 mg PO Q12 07/31/19 Cholecalciferol (Vitamin D3) [Vitamin D3] 5,000 unit PO DAILY 07/31/19 Dextran 70/Hypromellose [Artificial Tears Eye Drops] 1 drop OP TID 07/31/19 Fluticasone Propionate [Flonase Nasal Round O 50 Mcg/Round O 16 gm] 1 spray IH DAILY 07/31/19 Fluticasone/Vilanterol [Breo Ellipta 100-25 Mcg INH] 1 puff IH DAILY 07/31/19 Ipratropium/Albuterol Sulfate [Duoneb 3 ml Ampul] 1 puff IH Q6HP PRN 07/31/19 Lidocaine [Lidoderm 5% (700 mg) Transdermal Patch] 1 patch TOP DAILY MDD 12 HRS ON 12 HRS OFF 07/31/19 Loperamide HCl [Imodium 2 mg Capsule] 2 mg PO ASDIR PRN 07/31/19 Losartan Potassium [Cozaar] 25 mg PO DAILY 07/31/19 Mirtazapine [Remeron 15 mg Tablet] 15 mg PO QHS 07/31/19 Ondansetron [Zofran Odt 4 mg Tablet] 4 mg PO Q6HP PRN 07/31/19 Risperidone [Risperdal] 1 mg PO Q12 07/31/19 Sodium Polystyrene Sulfonate [Kayexalate 15 gm/60 ml Susp 60 ml] 15 mg PO DAILYP PRN MDD FOR 3 DAYS 07/31/19 Vit B1 Mn/B2/B3/B5/B6/B12/C/FA [B Complex with Vitamin C Tab] 1 tab PO DAILY 07/31/19 Atorvastatin Calcium [Lipitor 80 mg Tablet] 80 mg PO QHS 08/02/19 Diclofenac Sodium 1 applic TP BID 08/02/19 Nitroglycerin [Nitrostat 0.4 mg (1/150 Gr) Tabs 25/Bottle] 1 tab SL Q5MP PRN 08/02/19 Vit A/Vit C/Vit E/Zinc/Copper [Preservision Areds Tablet] 1 each PO DAILY 08/02/19 Epoetin Jovanni-Epbx [Retacrit 10,000 Unit/ml Vial (Renal)] 10,000 unit IV .DIALYSIS PRN vial 08/03/19 Vancomycin HCl [Vancocin Inj 1000 mg Vial] 1,000 mg IV PDIA vial 08/03/19 History of Present Illiness History of Present Illness: LUKE RAMAN is a 78 year old female with a past medical history of diabetes, hypertension, anemia and end-stage renal failure on hemodialysis Thursday presents 30 minutes following an injury to her left arm AV fistula occurring while removing her jacket. A tourniquet is placed and she is brought to the emergency room for evaluation where it is persistently oozing. CBC reveals anemia, surgery is consulted and she is referred to the hospitalist for admission. Hospital Course Hospital Course: Patient was admitted with hemorrhage of AV fistula status post surgical repair. She was transfused with 1 unit of packed red blood cells. She had a temporary dialysis catheter placed in the right inguinal area. Patient was admitted with acute blood loss anemia due to the hemorrhage of the fistula. She was seen by vascular surgery, please refer to operative report for full details from vascular surgery. She was also seen by nephrology in consultation and dialyzed while in hospital. The repaired AV fistula has been used post repair. Patient has remained hemodynamically stable although has been noted to have a somewhat low diastolic blood pressure which may be secondary to her AV fistula and other vascular abnormalities. Her mean arterial pressures have been more than 65. Patient appears to be at her baseline and at this time it is felt that she can be discharged home for outpatient follow-up. She did grow MRSA from the endograft and so she was started on intravenous vancomycin which should be received after dialysis for the next 2 weeks or as determined by nephrology. Arrangement has been made to continue with this as outpatient after dialysis Physical Exam Vital Signs: Temp Pulse Resp BP Pulse Ox 97.5 F 65 17 149/42 H 98 08/04/19 12:21 08/04/19 12:21 08/04/19 12:21 08/04/19 12:21 08/04/19 12:21 Intake & Output 08/03/19 08/04/19 08/05/19 06:59 06:59 06:59 Intake Total 967 490 358 Output Total 1800 1700 Balance -833 -1210 358 Weight 63.3 kg 61.1 kg General appearance: PRESENT: no acute distress, hard of hearing, other - Elderly female in no distress Head exam: PRESENT: atraumatic Mouth exam: ABSENT: tongue midline Neck exam: PRESENT: full ROM. ABSENT: JVD Respiratory exam: PRESENT: clear to auscultation buddy, unlabored. ABSENT: rhonchi Cardiovascular exam: PRESENT: RRR, +S1, +S2 Rectal exam: PRESENT: deferred Extremities exam: PRESENT: +1 edema, other - Left AV fistula with good bruit Neurological exam: PRESENT: alert, other - Somewhat confused Skin exam: PRESENT: dry Results Laboratory Results: WBC 4.9 10^3/uL (4.0-10.5) 08/03/19 04:58 RBC 2.91 10^6/uL (3.72-5.28) L 08/03/19 04:58 Hgb 9.5 g/dL (12.0-15.5) L 08/03/19 04:58 Hct 27.8 % (36.0-47.0) L 08/03/19 04:58 MCV 96 fl (80-97) 08/03/19 04:58 MCH 32.7 pg (27.0-33.4) 08/03/19 04:58 MCHC 34.2 g/dL (32.0-36.0) 08/03/19 04:58 RDW 18.7 % (11.5-14.0) H 08/03/19 04:58 Plt Count 101 10^3/uL (150-450) L 08/03/19 04:58 Lymph % (Auto) Not Reportable 08/03/19 04:58 [place] % (Auto) Not Reportable 08/03/19 04:58 Eos % (Auto) Not Reportable 08/03/19 04:58 Baso % (Auto) Not Reportable 08/03/19 04:58 Reticulocyte # 0.054 10^6/uL (0.028-0.122) 07/31/19 21:30 Absolute Neuts (auto) Not Reportable 08/03/19 04:58 Absolute Lymphs (auto) Not Reportable 08/03/19 04:58 Absolute Monos (auto) Not Reportable 08/03/19 04:58 Absolute Eos (auto) Not Reportable 08/03/19 04:58 Absolute Basos (auto) Not Reportable 08/03/19 04:58 Total Counted 100 08/03/19 04:58 Seg Neutrophils % Not Reportable 08/03/19 04:58 Seg Neuts % (Manual) 71 % (42-78) 08/03/19 04:58 Lymphocytes % (Manual) 8 % (13-45) L 08/03/19 04:58 Monocytes % (Manual) 20 % (3-13) H 08/03/19 04:58 Eosinophils % (Manual) 0 % (0-6) 08/03/19 04:58 Basophils % (Manual) 1 % (0-2) 08/03/19 04:58 Abs Neuts (Manual) 3.5 10^3/uL (1.7-8.2) 08/03/19 04:58 Abs Lymphs (Manual) 0.4 10^3/uL (0.5-4.7) L 08/03/19 04:58 Abs Monocytes (Manual) 1.0 10^3/uL (0.1-1.4) 08/03/19 04:58 Absolute Eos (Manual) 0.0 10^3/uL (0.0-0.6) 08/03/19 04:58 Abs Basophils (Manual) 0.0 10^3/uL (0.0-0.2) 08/03/19 04:58 Reticulocyte # (manual) Cancelled 07/31/19 18:48 Toxic Vacuolation PRESENT 08/03/19 04:58 Platelet Comment DECREASED 08/03/19 04:58 Anisocytosis 2+ 08/03/19 04:58 Retic Count Cancelled 07/31/19 18:48 Retic Count (manual) Cancelled 07/31/19 18:48 Retic Count (auto) 1.48 % (0.66-2.85) 07/31/19 21:30 Absolute Retic Cancelled 07/31/19 18:48 Sodium 132.7 mmol/L (137-145) L 08/03/19 04:58 Potassium 4.7 mmol/L (3.6-5.0) 08/03/19 04:58 Chloride 96 mmol/L (98-107) L 08/03/19 04:58 Carbon Dioxide 25 mmol/L (22-30) 08/03/19 04:58 Anion Gap 12 (5-19) 08/03/19 04:58 BUN 48 mg/dL (7-20) H 08/03/19 04:58 Creatinine 6.93 mg/dL (0.52-1.25) H 08/03/19 04:58 Est GFR ( Amer) 7 (>60) L 08/03/19 04:58 Est GFR (MDRD) Non-Af 6 (>60) L 08/03/19 04:58 Glucose 72 mg/dL (75-110) L 08/03/19 04:58 POC Glucose 119 mg/dL (70-110) H 08/03/19 16:46 Calcium 8.6 mg/dL (8.4-10.2) 08/03/19 04:58 Iron 66.5 ug/dL (37-170) 07/31/19 18:48 TIBC 211 ug/dL (250-450) L 07/31/19 18:48 % Saturation 32 % 07/31/19 18:48 Ferritin 774.00 ng/mL (11.1-264.0) H 07/31/19 18:48 Total Bilirubin 0.6 mg/dL (0.2-1.3) 07/31/19 18:48 Direct Bilirubin 0.6 mg/dL (0.0-0.4) H 07/31/19 18:48 Neonat Total Bilirubin Not Reportable 07/31/19 18:48 Neonat Direct Bilirubin Not Reportable 07/31/19 18:48 Neonat Indirect Bili Not Reportable 07/31/19 18:48 AST 29 U/L (14-36) 07/31/19 18:48 ALT 13 U/L (<35) 07/31/19 18:48 Alkaline Phosphatase 192 U/L (38-126) H 07/31/19 18:48 Total Protein 7.1 g/dL (6.3-8.2) 07/31/19 18:48 Albumin 3.7 g/dL (3.5-5.0) 07/31/19 18:48 Vitamin B12 607.0 pg/mL (239-931) 07/31/19 18:48 Folate > 20.00 ng/mL (>2.76) 07/31/19 18:48 Blood Type O POSITIVE 07/31/19 18:48 Blood Type Confirm O POSITIVE 07/31/19 18:48 Antibody Screen NEGATIVE 07/31/19 18:48 Crossmatch See Detail 07/31/19 18:48 Plan Health Concerns: Follow-up with regularly scheduled dialysis with IV vancomycin as scheduled Time Spent: Greater than 30 Minutes Stroke Is this a Stroke Patient?: No Acute Heart Failure - Is this a Heart Failure Patient?: No
[2019-08-05] MEDS ORDERED: EPOETIN ALFA-EPBX 10,000 UNIT in SYRINGE, DISPOSABLE, 1 EACH IV PRN (05:00)
== END 2019-08-04 14:29 | disposition home or self-care (01) | DRG 252 ==
LOC: ER 18:08 → EH 19:22 → OBSVTOIN 20:22 → 4S 22:05
PROVIDERS: ADMIT Internal Medicine; ATTEND Internal Medicine
PROC: 30233N1 Transfusion of Nonautologous Red Blood Cells into Peripheral Vein, Percutaneous Approach (ICD-10-PCS; 2019-07-31)
PROC: 05JY0ZZ Inspection of Upper Vein, Open Approach (ICD-10-PCS; 2019-08-01)
PROC: 06HY33Z Insertion of Infusion Device into Lower Vein, Percutaneous Approach (ICD-10-PCS; 2019-08-01)
PROC: B54BZZA Ultrasonography of Right Lower Extremity Veins, Guidance (ICD-10-PCS; 2019-08-01)
PROC: 5A1D70Z Performance of Urinary Filtration, Intermittent, Less than 6 Hours Per Day (ICD-10-PCS; 2019-08-01)
PROC: 30233N1 Transfusion of Nonautologous Red Blood Cells into Peripheral Vein, Percutaneous Approach (ICD-10-PCS; 2019-08-01)
PROC: 05WY0JZ Revision of Synthetic Substitute in Upper Vein, Open Approach (ICD-10-PCS; principal; 2019-08-01 13:00)
DX: T82.838A Hemorrhage due to vascular prosthetic devices, implants and grafts, initial encounter (principal); N18.6 End stage renal disease; I12.0 Hypertensive chronic kidney disease with stage 5 chronic kidney disease or end stage renal disease; D62 Acute posthemorrhagic anemia; D63.1 Anemia in chronic kidney disease; E11.22 Type 2 diabetes mellitus with diabetic chronic kidney disease; X58.XXXA Exposure to other specified factors, initial encounter; I25.10 Atherosclerotic heart disease of native coronary artery without angina pectoris; E87.5 Hyperkalemia; B95.62 Methicillin resistant Staphylococcus aureus infection as the cause of diseases classified elsewhere; J44.9 Chronic obstructive pulmonary disease, unspecified; M47.9 Spondylosis, unspecified; F32.9 Major depressive disorder, single episode, unspecified; Z99.2 Dependence on renal dialysis; Z95.5 Presence of coronary angioplasty implant and graft; I25.2 Old myocardial infarction; Z82.49 Family history of ischemic heart disease and other diseases of the circulatory system; Z79.02 Long term (current) use of antithrombotics/antiplatelets; Z79.82 Long term (current) use of aspirin; Z88.6 Allergy status to analgesic agent; Z88.0 Allergy status to penicillin; Z91.018 Allergy to other foods
CPT/HCPCS: 1844; 36415; 36430; 80048; 80053; 82607; 82728; 82746; 82962; 83540; 83550; 85025; 85045; 86850; 86900; 86901; 86920; 87070; 87075; 87077; 87186; 87205; 93005; 93010; 96360; 99285; C1752; C1757; C1758; C1769; J0690; J1644; J2405; J2704; J3010; J3370; J3490; J7030; J7060; P9016; Q5105